=== PATIENT | female | born 1950 | race Caucasian/White ===

== ENCOUNTER 2021-06-04 08:55 | Emergency (ER) | payer MEDICARE, SELFPAY ==
[2021-06-04 09:02] VITALS: BP 159/78; PULSE 77; RESP 18; TEMP 36.6; O2SAT 98
--- NOTE | 2021-06-04 09:02 | ED.SKABFB ---
HPI - Skin/Abscess/Foreign Bdy General Chief complaint: Skin/Abscess/Foreign Body Stated complaint: left leg pain Time Seen by Provider: 06/04/21 09:05 Source: patient and RN notes reviewed Mode of arrival: ambulatory Limitations: no limitations History of Present Illness HPI narrative: 70-year-old female presents to the [facility] the [facility] with complaints of a cat bite that occurred several days ago. Patient thinks it happened 4 to 5 days. States that she has been feeding feral cats and states one of her bit her lower leg. No treatment prior to arrival. Unsure of last tetanus. There may be bleeding is controlled. MD complaint: other (cat scratch/bit) Onset (ago): day(s) (4-5) Tetanus up to date: unsure Location: LLE Severity: mild Related Data Home Medications Medication Instructions Recorded Confirmed aspirin 06/04/21 06/04/21 atorvastatin 80 mg PO DAILY 06/04/21 06/04/21 citalopram 20 mg PO DAILY 06/04/21 06/04/21 clopidogrel 75 mg PO DAILY 06/04/21 06/04/21 lorazepam 1 mg PO TID PRN 06/04/21 06/04/21 Allergies Allergy/AdvReac Type Severity Reaction Status Date / Time erythromycin base Allergy Vomiting Verified 06/04/21 09:09 Review of Systems Review of Systems: All systems reviewed & are unremarkable except as noted in HPI and below Constitutional: Constitutional: Reports no additional constitutional complaints, Denies chills and Denies fever(s) Eyes: Eyes: Reports no additional eye complaints ENT: Reports system reviewed and no additional complaints, except as documented Cardiovascular: Cardiovascular: Reports no additional cardiovascular complaints Respiratory: Respiratory: Reports no additional respiratory complaints Gastrointestinal: Gastrointestinal: Reports no additional gastrointestinal complaints Musculoskeletal: Musculoskeletal: Reports no additional musculoskeletal complaints Integumentary/Breasts: Skin/Breast: Reports as per HPI Comments: 2 puncture wounds noted left lower leg. pain posterior Neurologic: Reports system reviewed and no additional complaints, except as documented Psychiatric: Psychiatric: Reports no additional psychiatric complaints Allergic/Immunologic: Allergic/Immunologic: Reports no additional allergic/immunologic complaints FOR[facility]LY [facility] Past Medical History Medical History (Updated 06/04/21 @ 17:17 by Sherly Johnson APRN) Anxiety and depression Heart attack High cholesterol Family History Family History Sibling Patient's brother is in good health Father Family history of pancreatic cancer, Onset Age: 82 Patient's father is Mother Patient's mother is Social History Social History (Updated 06/04/21 @ 17:17 by Sherly Johnson APRN) Alcohol intake: never Gender identity (if verbalized by the patient): Female Comments At the time of my signature, I reviewed and agree with the nursing past medical, surgical, social, and family history. There is no relevant family history pertinent to the patient complaint. Exam Const: General: healthy appearing, no acute distress and alert Nutritional Appearance: well nourished Orientation/consciousness: patient oriented x3 Limitations: no limitations HENMT: Head: normal to inspection Ears: external ears normal Eyes: Pupils: Equal, round and reactive pupils present Neck: Neck: normal visual inspection, no lymphadenopathy and no meningeal signs Chest: Chest palpation & inspection: normal inspection of the chest Resp: Effort & Inspection: normal respiratory effort and no use of accessory muscles Auscultation: clear to auscultation bilaterally, no crackles, no rales, no rhonchi and no wheezes Cardio: Rate: regular rate Rhythm: regular rhythm GI: GI Palp: Yes Soft to palpation and No Tenderness to palpation present (GI) Skin: General skin exam: normal color Rashes: no rashes Wounds: no wounds Full body images: 1.
[2021-06-04] MEDS: TETANUS,DIPHTHERIA,AC PERTUSSIS ADULT (0.5 ML) BOOSTRIX IM (09:25)
== END 2021-06-04 09:46 | disposition home or self-care (01) ==
PROVIDERS: Emergency Provider Nurse Practitioner; PCP Family Medicine
DX: L03.116 Cellulitis of left lower limb (principal); S81.852A Open bite, left lower leg, initial encounter; W55.01XA Bitten by cat, initial encounter; Z23 Encounter for immunization; E78.00 Pure hypercholesterolemia, unspecified; I25.2 Old myocardial infarction; F41.9 Anxiety disorder, unspecified; F32.A Depression, unspecified; Z79.82 Long term (current) use of aspirin
CPT/HCPCS: 90471; 90715; 99203; G0463

== ENCOUNTER → 2021-08-13 10:45 | Outpatient (CLI) | payer MEDICARE, SELFPAY ==
--- NOTE | ~2021-08-13 | US_ITS ---
EXAMINATION: US thyroid DATE: 08/13/2021 11:06 INDICATION: Nontoxic goiter, unspecified. TECHNIQUE: Multiple ultrasound images of the thyroid were obtained. COMPARISON: None. FINDINGS: The right thyroid lobe measures 4.4 x 1.5 x 1.4 cm. The left thyroid lobe measures 4.4 x 1.4 x 1.3 c m. In the left thyroid lobe, there is a 3 mm nodule. In the left thyroid lobe, there is a 5 mm solid , isoechoic, lwuyj-fuex-ktmr than tall nodule with ill-defined margin without echogenic foci (TI-RADS TR3). In the left thyroid lobe, there is a 5 mm solid, hypoechoic, jcloq-vfow-dxpb nodule with ill-d efined margin without echogenic foci (TR4). In the left thyroid lobe, there is a 4 mm nodule. In the right thyroid lobe, there is a 9 mm solid, isoechoic, pyoki-vkqx-zywt nodule with lobulated margin wi thout echogenic foci (TR4). In the right thyroid lobe, there is a 3 mm nodule. In the right thyroid l obe, there is a 4 mm nodule. IMPRESSION: 1. Small thyroid nodules, likely not clinically significant. No follow-up is needed. Reviewed, dictated and finalized at location A. IMPRESSION: 1. Small thyroid nodules, likely not clinically significant. No follow-up is ne eded.
== END ==
PROVIDERS: PCP Family Medicine; Visit Provider Internal Medicine Endocrinology, Diabetes & Metabolism
DX: E04.2 Nontoxic multinodular goiter (principal)
CPT/HCPCS: 76536

== ENCOUNTER → 2021-10-25 12:51 | Outpatient (CLI) | payer MEDICARE, SELFPAY ==
--- NOTE | ~2021-10-25 | XR_ITS ---
XR shoulder LT min 2V DATE: 10/25/2021 13:15 INDICATION: Left shoulder pain TECHNIQUE: 4 views COMPARISON: None FINDINGS: There is osteopenia. There is mild degenerative spurring at the left acromioclavicular joint. No fracture or dislocation, periosteal reaction or bone destruction or abnormal soft tissue calcifica tion of the left shoulder. Discoid atelectasis or scarring of the left mid and lower lung. IMPRESSION: Osteopenia Degenerative change of the left acromioclavicular joint Reviewed, dictated and finalized at location B.
== END ==
PROVIDERS: PCP Internal Medicine Endocrinology, Diabetes & Metabolism; Visit Provider Internal Medicine Endocrinology, Diabetes & Metabolism
DX: M25.512 Pain in left shoulder (principal); M81.0 Age-related osteoporosis without current pathological fracture; M85.812 Other specified disorders of bone density and structure, left shoulder
CPT/HCPCS: 73030

== ENCOUNTER 2021-11-05 08:42 | Outpatient (CLI) | payer MEDICARE, SELFPAY ==
--- NOTE | ~2021-11-05 | DEXA_ITS ---
Bone Density Report Name: JULIÁN DUMONT Age: 71 Sex: Female Ethnicity: White Date of : 1950 Indication: postmenopausal; screening for osteoporosis; height loss; prior fracture; hysterectomy; Referring Provider: HERBERT, CHARLOTTE Ibarra Study: Bone densitometry was performed. Exam Date: November 05, 2021 Accession number: [id number] Bone Density: Region BMD T-score Z-score Classification AP Spine(L1-L4) 0.997 -0.5 1.8 Normal Femoral Neck (Left) 0.517 -3.0 -1.1 Osteoporosis Total Hip (Left) 0.621 -2.6 -1.0 Osteoporosis Femoral Neck (Right) 0.520 -3.0 -1.0 Osteoporosis Total Hip (Right) 0.634 -2.5 -0.9 Osteoporosis Total Hip Mean 0.628 -2.6 -1.0 Osteoporosis World Health Organization criteria for BMD impression classify patients as: Normal (T-score at or above -1.0), Osteopenia (T-score between -1.0 and -2.5), or Osteoporosis (T-score at or below -2.5). 10-year Fracture Risk: FRAX not reported because: Some T-score for Spine Total or Hip Total or Femoral Neck at or below -2.5 Prior hip or vertebral fracture Treated for osteoporosis Clinical Information Provided by Patient: Have had a previous hip or vertebral fracture Has had a low trauma fracture Smokes Is being treated for osteoporosis Has the following medical conditions: Hysterectomy Patient maximum height was 68 Menopause Age: 34 No regular weight bearing exercise Drinks caffeinated beverages Onset of menses at age 12 Number of children 3 Impression: The patient has established osteoporosis, based on the Left Femoral Neck T-score and the existence of a prior fracture. The patient has risk factors, including: smoking, previous fracture. Discussion: It is important to ask patients whether they are taking their medications and to encourage continued and appropriate compliance with their osteoporosis therapies to reduce fracture risk. It is also important to review their risk factors and encourage appropriate calcium and vitamin D intakes, exercise, fall prevention and other lifestyle measures. Follow-Up: Consider a repeat BMD and Vertebral Fracture Assessment (VFA) exam in 2 years or sooner if medically necessary, to reassess this patient's status. Reported by: [facility] on 11/05/2021 9:13:00 AM. Reviewed, dictated and finalized at location ARoni MAY
== END 2021-11-05 08:43 | disposition home or self-care (01) ==
PROVIDERS: PCP Family Medicine; Visit Provider Internal Medicine Endocrinology, Diabetes & Metabolism
DX: Z78.0 Asymptomatic menopausal state (principal); M81.0 Age-related osteoporosis without current pathological fracture
CPT/HCPCS: 77080

== ENCOUNTER 2021-12-07 15:08 | Outpatient (CLI) | payer MEDICARE, SELFPAY ==
[2021-12-07 15:38] LABS: Basophils Absolute Auto 0.1 K/mm3 (0.0-0.1); Basophils Percent Auto 1.5 % (0.2-1.2); Eosinophils Absolute Auto 0.3 K/mm3 (0-0.3); Eosinophils Percent Auto 4.4 % (0-4.4); Hematocrit 42.6 % (37.0-47.0); Hemoglobin 14.1 g/dL (12.0-15.0); Immature Granulocyte Absolute 0.02 K/mm3 (0.00-0.031); Immature Granulocyte Percent A 0.3 % (0-0.5); Lymphocytes Absolute Auto 2.13 K/mm3 (0.9-3.2); Lymphocytes Percent Auto 28.7 % (18.3-44.2); Mean Corpuscular HGB Conc 33.1 g/dl (32-36); Mean Corpuscular Hemoglobin 31.3 pg (26-34); Mean Corpuscular Volume 94.7 fl (80-100); Mean Platelet Volume 9.3 fl (7.4-10.4); Monocytes Absolute Auto 0.5 K/mm3 (0.1-0.6); Monocytes Percent Auto 6.7 % (2.6-8.5); Neutrophils Absolute Auto 4.3 K/mm3 (1.3-6.7); Neutrophils Percent Auto 58.4 % (45.5-73.1); Platelet Count Result 280 k/mm3 (150-375); Red Cell Distribution Width 14.3 % (11.5-14.5); White Blood Count 7.4 K/mm3 (4.5-10.0)
[2021-12-07 16:35] LABS: Alanine Aminotransferase 19 U/L (6-35); Albumin Level 4.3 g/dL (3.5-5.1); Alkaline Phosphatase 121 U/L (38-126); Anion Gap 5 mmol/L (8-16); Aspartate Amino Transferase 20 U/L (14-36); Bilirubin,Total 0.4 mg/dL (0.2-1.3); Blood Urea Nitrogen 13 mg/dL (7-17); Calcium 9.5 mg/dL (8.4-10.2); Carbon Dioxide 28 mmol/L (22-30); Chloride 106 mmol/L (98-107); Estimated Glomerular Filt Rate > 60; Glucose 92 mg/dL (65-110); Potassium 4.2 mmol/L (3.4-5.0); Sodium 139 mmol/L (137-145)
[2021-12-07 17:56] LABS: Immunoglobulin A 81 mg/dL (70-400); Immunoglobulin G 841 mg/dL (700-1600); Immunoglobulin M 27 mg/dL (40-230)
[2021-12-11 06:30] LABS: Kappa\\Lambda Light Chains 0.91 (0.26-1.65); Lambda Light Chain 16.7 mg/L (5.7-26.3)
[2021-12-11 15:26] LABS: Albumin 4.2 g/dL (3.8-4.8); Alpha 1 Globulin 0.3 g/dL (0.2-0.3); Alpha 2 Globulin 0.8 g/dL (0.5-0.9); Beta 1 Globulin 0.4 g/dL (0.4-0.6); Gamma Globulin 0.8 g/dL (0.8-1.7); Protein, Total 6.7 g/dL (6.1-8.1)
== END 2021-12-07 15:09 | disposition home or self-care (01) ==
LOC: ANHLAB 15:10
PROVIDERS: PCP Family Medicine; Visit Provider Internal Medicine Hematology & Oncology
DX: D72.9 Disorder of white blood cells, unspecified (principal)
CPT/HCPCS: 36415; 80053; 82784; 83883; 84155; 84165; 85025

== ENCOUNTER 2021-12-20 06:39 | Outpatient (CLI) | payer MEDICARE, MEDICAID, SELFPAY ==
--- NOTE | ~2021-12-20 | CT_ITS ---
EXAMINATION: CT abdomen pelvis w con INDICATION: Diarrhea TECHNIQUE: Computed tomographic images of the abdomen and pelvis were obtained after the administrati on of 100 cc of Omnipaque 350 intravenous contrast. The dose-length product (DLP) was 193.34 mGy-cm. Automated exposure control and iterative reconstruction technique were employed. COMPARISON: None available FINDINGS: Minimal dependent atelectasis is present in the lung bases. The heart size is normal. The g allbladder is surgically absent. The liver, spleen, pancreas, and adrenal glands are normal. The kidn eys are unremarkable. No pathologically enlarged abdominal or pelvic lymph nodes are identified. Ther e is calcified atherosclerosis of the aorta and many of the other arteries. There is no free intraper itoneal gas or evidence of bowel obstruction. A moderate volume of colonic stool is present. There is severe lumbar spondylosis. IMPRESSION: 1. No CT correlate for the patient's symptoms. Reviewed, dictated and finalized at location A.
== END 2021-12-20 06:40 | disposition home or self-care (01) ==
LOC: ANHIMG 06:41
PROVIDERS: PCP Family Medicine; Visit Provider Internal Medicine Hematology & Oncology
DX: R19.7 Diarrhea, unspecified (principal); M47.816 Spondylosis without myelopathy or radiculopathy, lumbar region
CPT/HCPCS: 74177; Q9967

== ENCOUNTER 2022-02-04 07:50 | Outpatient (CLI) | payer MEDICARE, MEDICAID, SELFPAY ==
--- NOTE | ~2022-02-04 | US_ITS ---
EXAMINATION: US aorta [facility] DATE: 02/04/2022 09:04 INDICATION: Abdominal aortic aneurysm screening TECHNIQUE: Grayscale, color Doppler, and pulsed Doppler images of the aorta and common iliac arteries were obtained. COMPARISON: CT, 12/20/2021 FINDINGS: Maximum vascular dimensions are as follows: Proximal aorta: 2.7 cm Mid aorta: 2.8 cm Distal aorta: 2.8 cm Right common iliac artery: 0.6 cm Left common iliac artery: 0.8 cm There is no evidence of abdominal aortic aneurysm. Some measurements suggesting abdominal aortic aneu rysm are likely oblique planes and not supported by findings on the recent CT. IMPRESSION: 1. No abdominal aortic aneurysm. Reviewed, dictated and finalized at location B. L INSPECTOR
--- NOTE | ~2022-02-04 | CT_ITS ---
EXAMINATION: CT diagnostic chest wo con DATE: 02/04/2022 08:10 INDICATION: Cough and shortness of breath TECHNIQUE: Computed tomography (CT) of the chest was performed without intravenous contrast. The dose -length product (DLP) was 140.62 mGy-cm. Automated exposure control and iterative reconstruction tech nique were employed. COMPARISON: None FINDINGS: There is a 9 mm nodule of the left upper lobe. There are two 4 mm nodules of the left lower lobe. Mucous plugging is also noted in the left lower lobe. There is mild emphysema. No pleural effu camryn or pneumothorax. No pathologically enlarged thoracic lymph nodes are identified. The heart size is normal. There is moderate thoracic spondylosis. IMPRESSION: 1. Mild emphysema with left lung nodules measuring up to 9 mm. Recommend further evaluation with PET/ CT or biopsy. Reviewed, dictated and finalized at location B. INSPECTOR IMPRESSION: 1. Mild emphysema with left lung nodules measuring up to 9 mm. Recommend furthe r evaluation with PET/CT or biopsy.
== END 2022-02-04 07:51 | disposition home or self-care (01) ==
PROVIDERS: PCP Family Medicine; Referring Provider Nurse Practitioner; Visit Provider Internal Medicine Cardiovascular Disease
DX: Z13.6 Encounter for screening for cardiovascular disorders (principal); Z72.0 Tobacco use; J43.9 Emphysema, unspecified; R91.8 Other nonspecific abnormal finding of lung field
CPT/HCPCS: 71250; 76706

== ENCOUNTER 2022-12-16 11:14 | Emergency (ER) | payer MEDICARE, MEDICAID, SELFPAY ==
--- NOTE | ~2022-12-16 | XR_ITS ---
Left Hand Technique: PA, oblique, and lateral views were obtained. Clinical History: Pain Findings: No acute fracture or dislocation is seen. Osseous alignment is anatomic. Mild degenerative change of the second PIP and DIP joints is noted. There is also mild degenerative change of the inter phalangeal joint of the thumb. Soft tissues are unremarkable. Impression: No fracture or dislocation. Degenerative changes of the first and second digits, as above. Reviewed, dictated and finalized at location M. Impression: No fracture or dislocation. Degenerative changes of the first and second digits, as above.
--- NOTE | ~2022-12-16 | XR_ITS ---
Right Knee Technique: AP, lateral, and oblique views were obtained. Clinical History: Pain Findings: No fracture or dislocation is seen. Mild tricompartmental degenerative changes present. Sof t tissues are unremarkable. No joint effusion is seen. Impression: Mild tricompartmental degenerative change. No fracture or dislocation. Reviewed, dictated and finalized at [facility]. Impression: Mild tricompartmental degenerative change. No fracture or dislocation.
--- NOTE | ~2022-12-16 | CT_ITS ---
EXAMINATION: CT wrist LT wo con DATE: 12/16/2022 14:12 INDICATION: Left wrist pain post injury one week prior with palpable pop. TECHNIQUE: High resolution computed tomography (CT) of the left wrist was performed without intraveno us contrast. Additional sagittal and coronal reconstructions were performed. Automated exposure contr ol and iterative reconstruction technique were employed. The dose-length product was 367.58 mGy-cm. COMPARISON: None FINDINGS: Comminuted likely impaction fracture with fragmentation and buckling of the cortex along the dorsal m etaphyseal region of the distal radius. The fracture extends to involve the dorsal-most rim of the ar ticular surface which appears otherwise largely intact. No evident extension of the fracture across t o the volar side of the distal radius. Alignment remains near-anatomic with normal proximal 6 degree volar tilt of the distal articular surface. No other fractures identified. Normal alignment in the vi sualized hand. Mild triscaphe and first carpometacarpal osteoarthritis with small loose body versus h eterotopic ossicles at the radial side of the first carpometacarpal joint. Additional small loose bod y at along the pisotriquetral articulation. IMPRESSION: 1. Comminuted likely impaction fracture with fragmentation and buckling along the dorsal cortex of th e distal left radius involving only a minimal portion of the dorsal rim of the articular surface. Reviewed, dictated and finalized at location A. IMPRESSION: 1. Comminuted likely impaction fracture with fragmentation and buckling along t he dorsal cortex of the distal left radius involving only a minimal portion of the dorsal rim of the articular surface.
--- NOTE | ~2022-12-16 | XR_ITS ---
EXAMINATION: XR wrist LT min 3V DATE: 12/16/2022 12:39 INDICATION: Left wrist pain, initial encounter TECHNIQUE: Posteroanterior, ulnar deviation, oblique, and lateral views of the left wrist were obtain ed. COMPARISON: None available FINDINGS: There is buckling of the medial cortex of the distal radius without definite fracture plane identified. There is soft tissue swelling of the wrist. Mild osteoarthritis is noted at the triscaph e and first carpometacarpal joint. IMPRESSION: 1. Buckling of the medial cortex of the distal radius without definite fracture identified. Wrist sof t tissue swelling. Reviewed, dictated and finalized at location B. IMPRESSION: 1. Buckling of the medial cortex of the distal radius without definite fracture identified. Wrist soft tissue swelling.
[2022-12-16 11:17] VITALS: BP 178/97; PULSE 68; RESP 16; TEMP 36.7; O2SAT 97
--- NOTE | 2022-12-16 12:39 | ED.GENADULT ---
HPI - General Adult General Chief complaint: Extremity Injury, Upper Stated complaint: left writst injury Time Seen by Provider: 12/16/22 11:18 History of Present Illness HPI narrative: Jessica Renee is a 72 y/o female who presents with reports of mechanical fall about 1 week, denies hitting her head, denies LOC. She reports that she tripped over her daughter's cat bracing her fall with her outstretched hands and her knees, putting more weight on her left hand and right knee. She initally had pain to her left wrist / right knee thought it would get better, but here a week later complaining of continued left wrist pain with movement/ and continued pain/swelling to right knee. Reports taking Motrin this AM for pain. Related Data Home Medications Medication Instructions Recorded Confirmed aspirin 06/04/21 06/04/21 atorvastatin 80 mg tablet 80 mg PO DAILY 06/04/21 06/04/21 citalopram 20 mg tablet 20 mg PO DAILY 06/04/21 06/04/21 clopidogrel 75 mg tablet 75 mg PO DAILY 06/04/21 06/04/21 lorazepam 1 mg tablet 1 mg PO TID PRN Anxiety 06/04/21 06/04/21 Allergies Allergy/AdvReac Type Severity Reaction Status Date / Time erythromycin base Allergy Vomiting Verified 12/16/22 11:14 Review of Systems Review of Systems: CONSTITUTIONAL: Denies fever, chills, or sweats. EYES: Denies visual changes, redness, or discharge. ENT: Denies rhinorrhea, congestion, sore throat, or otalgia. CARDIOVASCULAR: Denies chest pain, palpitations, or edema. RESPIRATORY: Denies cough or dyspnea. GASTROINTESTINAL: Denies abdominal pain, nausea, vomiting, or diarrhea. GENITOURINARY: Denies dysuria or hematuria. SKIN: Denies rash or itching. MUSCULOSKELETAL: Complains of left wrist pain/ right knee pain after ground level mechanical fall. NEUROLOGIC: Denies headache, numbness, dizziness, or weakness. PSYCHIATRIC: Denies anxiety or depression. [facility] Past Medical History Medical History Anxiety and depression Heart attack High cholesterol Family History Family History Sibling Patient's brother is in good health Father Family history of pancreatic cancer, Onset Age: 82 Patient's father is Mother Patient's mother is Social History Social History Alcohol intake: never Gender identity (if verbalized by the patient): Female Exam Narrative: GENERAL: Well-appearing, well-nourished, and in no acute distress. HEAD: Normocephalic, atraumatic. EYES: PERRLA and EOMI. ENT: Nares clear, no rhinorrhea or epistaxis. Mucous membranes moist. Oropharynx without tonsillar hypertrophy exudate or other lesions. NECK: Supple. No adenopathy or masses. No carotid bruits or JVD CHEST: Clear to auscultation. No respiratory distress. No wheezes rales or rhonchi HEART: Regular rate and rhythm. No murmur heard. Normal peripheral pulses. ABDOMEN: Soft, nontender, nondistended, normal active bowel sounds. EXTREMITIES: Normal range of motion. Pain to the bilateral aspect of the left wrist/ snuff box pain noted to the left hand. Swelling/ ecchymosis to the right knee SKIN: Warm, dry, no rash. NEURO: No focal deficits. Alert and oriented x3. PSYCH: Normal mood and affect. Course Vital Signs Vital signs: Vital Signs Temperature 36.7 C 12/16/22 11:17 Pulse Rate 68 12/16/22 11:17 Respiratory Rate 16 12/16/22 11:17 Blood Pressure 178/97 H 12/16/22 11:17 Pulse Oximetry 97 12/16/22 11:17 Oxygen Delivery Room Air 12/16/22 11:17 Temperature 36.7 C 12/16/22 11:17 Pulse Rate 68 12/16/22 11:17 Respiratory Rate 16 12/16/22 11:17 Blood Pressure 178/97 H 12/16/22 11:17 Pulse Oximetry 97 12/16/22 11:17 Oxygen Delivery Room Air 12/16/22 11:17 Medical Decision Making MDM Narrative Medical decision making narrative: O
== END 2022-12-16 15:48 | disposition home or self-care (01) ==
PROVIDERS: Emergency Provider Nurse Practitioner Family; PCP Family Medicine
DX: S52.522A Torus fracture of lower end of left radius, initial encounter for closed fracture (principal); I25.2 Old myocardial infarction; E78.00 Pure hypercholesterolemia, unspecified; F41.9 Anxiety disorder, unspecified; F32.A Depression, unspecified; Z79.82 Long term (current) use of aspirin; W01.0XXA Fall on same level from slipping, tripping and stumbling without subsequent striking against object, initial encounter
CPT/HCPCS: 29125; 73110; 73130; 73200; 73562; 99284

== ENCOUNTER 2023-04-20 11:52 | Emergency (ER) | payer MEDICARE, SELFPAY ==
[2023-04-20] VITALS (8 sets, daily range): BP systolic 137–167; BP diastolic 83–92; PULSE 82–102; RESP 15–22; TEMP 36.4; O2SAT 92–96
--- NOTE | ~2023-04-20 | XR_ITS ---
Clinical Indication: Wheezing PA and lateral views of the chest: Comparison: None Findings: The lungs are clear, without evidence of focal consolidation or pleural effusion. COPD shakira dustin present. Cardiomediastinal silhouette is within normal limits. Bones and soft tissues are unremar kable. Impression: Clear lungs. COPD. Reviewed, dictated and finalized at location . PING CLERK Impression: Clear lungs. COPD.
--- NOTE | 2023-04-20 11:58 | ECG_ITS ---
Measurements Intervals [place] Rate: 94 P: 85 [place]: 151 QRS: 27 QRSD: 86 T: 77 QT: 365 QTc: 458 Interpretive Statements SINUS RHYTHM RSR' IN V1 OR V2, PROBABLY NORMAL VARIANT BORDERLINE ST ABNORMALITY- HIGH LATERAL LEADS BASELINE ARTIFACT- V2-V4 BORDERLINE ECG NO PREVIOUS ECG AVAILABLE FOR COMPARISON Electronically Signed On 04-20-2023 12:54:37 INTERNATIONAL SALES REPRESENTATIVE by Kp Hagen D.O.
--- NOTE | 2023-04-20 12:08 | ED.SOB ---
HPI - SOB/Dyspnea General Chief Complaint: Shortness of Breath/Dyspnea Stated Complaint: SOB Time Seen by Provider: 04/20/23 12:01 Source: patient and family (sister) Limitations: no limitations History of Present Illness HPI Narrative: Presents with report of shortness of breath x4 days and feeling fatigued and generalized weakness. She has had several falls in the past few months but not recently. No appetite for which she was placed on mirtazepine and prozac, and Ativan QHS. Diagnosed with a PNA 3-6 months ago (Tx at a hospital in [place]). Several life stressors involving family/daughter. She notes she had a dark black stool yesterday but had a normal stool today. On Elliquis. Hx COPD, not on home O2. Reportedly had a DC 1 year ago and had stent(s) placed at a [facility] (unknown which). On albuterol and nebulizer. Has had a cough productive. Reports depression and anxiety. Smoker. Out of her inhaler. Recurrent UTIs. Related Data Home Medications Medication Instructions Recorded Confirmed aspirin 06/04/21 12/22/22 atorvastatin 80 mg tablet 80 mg PO DAILY 06/04/21 12/22/22 citalopram 20 mg tablet 20 mg PO DAILY 06/04/21 12/22/22 clopidogrel 75 mg tablet 75 mg PO DAILY 06/04/21 12/22/22 lorazepam 1 mg tablet 1 mg PO TID PRN Anxiety 06/04/21 12/22/22 Allergies Allergy/AdvReac Type Severity Reaction Status Date / Time erythromycin base Allergy Vomiting Verified 12/22/22 10:41 [facility] Past Medical History Medical History (Updated 04/21/23 @ 20:52 by Angela Wall MD) Anxiety and depression COPD (chronic obstructive pulmonary disease) Heart attack stent(s) placed ([facility]) High cholesterol Surgical History Surgical History (Updated 01/09/23 @ 10:46 by Carmen Plaza CMA) H/O heart artery stent Family History Family History (Updated 01/09/23 @ 10:47 by Carmen Plaza CMA) Sibling Patient's brother is in good health Father Family history of pancreatic cancer, Onset Age: 82 Patient's father is Mother Patient's mother is Unknown Asthma Hypertension Heart disease Arthritis Social History Social History (Updated 04/21/23 @ 20:50 by Angela Wall MD) Smoking status: Current every day smoker Tobacco type: cigarettes Alcohol intake: never Substance use type: does not use Living arrangements: with family Additional living arrangements comments: sister Occupation/Education: retired Gender identity (if verbalized by the patient): Female Exam Narrative: GENERAL: Lean but well-nourished, and in no acute distress. HEAD: Normocephalic, atraumatic. EYES: Non injected, non icteric ENT: Nares clear, no rhinorrhea or epistaxis. NECK: Supple. CHEST: Bilateral wheezes on auscultation. No respiratory distress. HEART: Tachycardic . ABDOMEN: Soft, nondistended, non tender to palpation. . Rectal exam performed which is negative for occult blood. Normal sphincter tone, no masses. EXTREMITIES: Normal range of motion. No edema. SKIN: Warm, dry, no rash. NEURO: No focal deficits. Alert and oriented x3. PSYCH: Normal mood and affect. Course Vital Signs Vital signs: Vital Signs Temperature 97.5 F L 04/20/23 11:55 Pulse Rate 102 H 04/20/23 11:55 Respiratory Rate 20 04/20/23 11:55 Blood Pressure 137/83 04/20/23 11:55 Pulse Oximetry 94 04/20/23 11:55 Oxygen Delivery Room Air 04/20/23 11:55 Temperature 97.5 F L 04/20/23 11:55 Pulse Rate 82 04/20/23 14:49 Respiratory Rate 15 04/20/23 14:49 Blood Pressure 167/87 H 04/20/23 13:59 Pulse Oximetry 92 04/20/23 13:59 Oxygen Delivery Nasal Cannula 04/20/23 12:10 Oxygen Flow Rate 2 04/20/23 12:10 MDM - SOB/Dyspnea MDM Narrative Medical decision making narrative: Patient presents with multiple complaints. Primarily SOB x4 days but also several weeks of fatigue and generalized weakness. Has a lot of stressors.
[2023-04-20 12:31] LABS: Basophils Absolute Auto 0.1 K/mm3 (0.0-0.1); Basophils Percent Auto 1.6 % (0.2-1.2); Eosinophils Absolute Auto 0.9 K/mm3 (0-0.3); Eosinophils Percent Auto 10.8 % (0-4.4); Hematocrit 45.1 % (37.0-47.0); Hemoglobin 14.8 g/dL (12.0-15.0); Immature Granulocyte Absolute 0.02 K/mm3 (0.00-0.031); Immature Granulocyte Percent A 0.3 % (0-0.5); Lymphocytes Absolute Auto 1.87 K/mm3 (0.9-3.2); Lymphocytes Percent Auto 23.7 % (18.3-44.2); Mean Corpuscular HGB Conc 32.8 g/dl (32-36); Mean Corpuscular Hemoglobin 30.9 pg (26-34); Mean Corpuscular Volume 94.2 fl (80-100); Mean Platelet Volume 9.6 fl (7.4-10.4); Monocytes Absolute Auto 0.4 K/mm3 (0.1-0.6); Monocytes Percent Auto 5.1 % (2.6-8.5); Neutrophils Absolute Auto 4.6 K/mm3 (1.3-6.7); Neutrophils Percent Auto 58.5 % (45.5-73.1); Platelet Count Result 358 k/mm3 (150-375); Red Blood Count 4.79 M/mm3 (4.2-5.4); Red Cell Distribution Width 14.2 % (11.5-14.5); White Blood Count 7.9 K/mm3 (4.5-10.0)
[2023-04-20 12:42] LABS: Alanine Aminotransferase 18 U/L (6-35); Albumin Level 4.4 g/dL (3.5-5.1); Alkaline Phosphatase 166 U/L (38-126); Anion Gap 9 mmol/L (8-16); Aspartate Amino Transferase 20 U/L (14-36); Bilirubin,Total 0.5 mg/dL (0.2-1.3); Blood Urea Nitrogen 25 mg/dL (7-17); Calcium 9.4 mg/dL (8.4-10.2); Carbon Dioxide 24 mmol/L (22-30); Chloride 108 mmol/L (98-107); Estimated CRCL calculation 58 ml/min; Estimated Glomerular Filt Rate > 60; Glucose 121 mg/dL (65-110); Potassium 3.9 mmol/L (3.4-5.0); Sodium 141 mmol/L (137-145)
[2023-04-20] MEDS: IPRATROPIUM 0.5 MG/ALBUTEROL SULFATE 2.5 MG AMPUL.NEB 3 ML INHALATION (12:51)
[2023-04-20] MEDS: ALBUTEROL SULFATE NEB 2.5 MG/3 ML INH INHALATION ×2 (12:53→14:35)
[2023-04-20 13:07] LABS: Alveolar/Arterial O2 Gradient 35.1 mmHg; Base Excess ABG -0.3 mEq/l (+/-2.0); Fractional Inspired Oxygen 21 %; HCO3 ABG 24.3 mEq/l (22.0-26.0); Oxygen Content ABG 18.9 %vol (16.0-22.0); Oxygen Saturation ABG 93.4 % (95.0-100.0); Oxyhemoglobin 89.7 % THb (90.0-100.0); PCO2 ABG 39.9 mmHg (35.0-45.0); PO2 ABG 66.9 mmHg (80.0-100.0); PO2 FiO2 Ratio Arterial Blood 3.19 %; pH ABG 7.403 (7.350-7.450)
[2023-04-20 13:08] LABS: Device ROOM AIR; Site Drawn LEFT BRACHIAL
[2023-04-20 13:16] LABS: INR 1.1; Prothrombin Time 14.5 Seconds (11.1-14.7)
[2023-04-20 13:17] LABS: Partial Thromboplastin Time 32.6 SECONDS (22.3-36.8)
[2023-04-20 13:18] LABS: D Dimer 0.56 ug/mL (<0.48)
[2023-04-20 13:21] LABS: Troponin I < 0.012 ng/mL (0.000-0.034)
[2023-04-20 13:33] LABS: Influenza A QL RT-PCR Negative (Negative); Influenza B QL RT-PCR Negative (Negative); RSV RNA, RT-PCR Negative (Negative); SARS-CoV-2 RNA PCR Negative (Negative)
[2023-04-20 13:40] LABS: Thyroid Stimulating Hormone 0.519 uIU/mL (0.465-4.680)
[2023-04-20] MEDS: predniSONE 20 MG TABLET 60 MG PO (13:58)
[2023-04-20 13:59] LABS: Appearance Urine Cloudy (Clear); Bacteria Urine 1+ /hpf; Bilirubin Urine Negative (Negative); Blood Urine Negative (Negative); Color Urine Dark Yellow (Yellow); Glucose Urine UA Negative (Negative); Ketones Urine 1+ mg/dL (Negative); Leukocyte Esterase Ur 1+ LEU/UL (Negative); Need Manual Microscopic Reviewed; Nitrate Urine Negative (Negative); Protein Urine 1+ mg/dL (Negative); Specific Grav Ur 1.028 (1.001-1.035); Squamous Epithelial Cell Urine Moderate /hpf (Few)
[2023-04-20] MEDS: DOXYCYCLINE 100 MG/NS 100 ML 100 MG/100 ML BAG IVPB (14:12)
[2023-04-20 14:18] LABS: Add Urine Microscopic? YES
== END 2023-04-20 15:28 | disposition home or self-care (01) ==
PROVIDERS: Emergency Medicine; Emergency Provider Student in an Organized Health Care Education/Training Program; PCP Family Medicine
DX: J44.1 Chronic obstructive pulmonary disease with (acute) exacerbation (principal); N39.0 Urinary tract infection, site not specified; E78.00 Pure hypercholesterolemia, unspecified; I25.2 Old myocardial infarction; F41.9 Anxiety disorder, unspecified; F32.A Depression, unspecified; Z95.5 Presence of coronary angioplasty implant and graft; F17.210 Nicotine dependence, cigarettes, uncomplicated; R94.31 Abnormal electrocardiogram [ECG] [EKG]
CPT/HCPCS: 36415; 36600; 71046; 80053; 81001; 82805; 83735; 84443; 84484; 85025; 85380; 85610; 85730; 87086; 87637; 93005; 94640; 96374; 99284; J7512

== ENCOUNTER 2023-05-20 16:33 | Emergency (ER) | payer MEDICARE, SELFPAY ==
--- NOTE | ~2023-05-20 | XR_ITS ---
EXAMINATION: XR chest 2V Exam Date/Time: 05/20/2023 17:16 ASSISTANT MANAGER OF OPERATIONS HISTORY: weakness Comparison: 04/20/2023. RESULT: Lines, tubes, and devices: Coronary stents. Cholecystectomy clips. Surgical clip over the left apex. Lungs and pleura: Senescent/emphysematous change, otherwise clear. Cardiomediastinal silhouette: Stable. Other: No acute osseous or upper abdominal finding. IMPRESSION: No acute cardiopulmonary process. Reviewed, dictated and finalized at location K. STANT MANAGER OF OPERATIONS
[2023-05-20 16:37] VITALS: BP 114/61; PULSE 80; RESP 20; TEMP 36.4; O2SAT 95
--- NOTE | 2023-05-20 16:39 | ECG_ITS ---
Measurements Intervals [place] Rate: 85 P: 82 [place]: 148 QRS: 35 QRSD: 77 T: 74 QT: 373 QTc: 444 Interpretive Statements SINUS RHYTHM BASELINE ARTIFACT POSSIBLE LEFT ATRIAL ENLARGEMENT [-0.1mV P WAVE IN V1/V2] POSSIBLE RIGHT VENTRICULAR CONDUCTION DELAY [RSR (QR) IN V1/V2] BORDERLINE ECG COMPARED TO ECG 04/20/2023 12:25:08 NO SIGNIFICANT CHANGES Electronically Signed On 05-21-2023 18:02:05 WASTE MANAGEMENT ENGINEER by Hitesh Monreal M.D.
[2023-05-20 17:00] LABS: Basophils Percent Auto 0.7 % (0.2-1.2); Eosinophils Absolute Auto 0.1 K/mm3 (0-0.3); Hematocrit 39.8 % (37.0-47.0); Hemoglobin 13.1 g/dL (12.0-15.0); Immature Granulocyte Absolute 0.01 K/mm3 (0.00-0.031); Immature Granulocyte Percent A 0.3 % (0-0.5); Lymphocytes Absolute Auto 0.98 K/mm3 (0.9-3.2); Lymphocytes Percent Auto 33.3 % (18.3-44.2); Mean Corpuscular HGB Conc 32.9 g/dl (32-36); Mean Corpuscular Hemoglobin 30.9 pg (26-34); Mean Corpuscular Volume 93.9 fl (80-100); Mean Platelet Volume 9.7 fl (7.4-10.4); Monocytes Absolute Auto 0.2 K/mm3 (0.1-0.6); Monocytes Percent Auto 7.8 % (2.6-8.5); Neutrophils Absolute Auto 1.6 K/mm3 (1.3-6.7); Neutrophils Percent Auto 55.9 % (45.5-73.1); Platelet Count Result 209 k/mm3 (150-375); Red Blood Count 4.24 M/mm3 (4.2-5.4); White Blood Count 2.9 K/mm3 (4.5-10.0)
[2023-05-20 17:14] LABS: Alanine Aminotransferase 22 U/L (6-35); Albumin Level 3.6 g/dL (3.5-5.1); Alkaline Phosphatase 111 U/L (38-126); Anion Gap 6 mmol/L (8-16); Aspartate Amino Transferase 28 U/L (14-36); Bilirubin,Total 0.4 mg/dL (0.2-1.3); Blood Urea Nitrogen 22 mg/dL (7-17); Calcium 9.1 mg/dL (8.4-10.2); Carbon Dioxide 24 mmol/L (22-30); Chloride 106 mmol/L (98-107); Estimated CRCL calculation 67 ml/min; Estimated Glomerular Filt Rate > 60; Glucose 91 mg/dL (65-110); Potassium 3.5 mmol/L (3.4-5.0); Sodium 136 mmol/L (137-145)
[2023-05-20 19:37] VITALS: BP 121/64; PULSE 86; RESP 16; O2SAT 97
--- NOTE | 2023-05-20 19:40 | PC.NURSE ---
Pt family approached triage desk concerned for wait times. Pt and family educated that pt rooms are filled based on acuity, not by order of arrival. Pt vitals taken, which were within normal limits. Pt in no acute distress. Pt family states well just go to another ER .
== END 2023-05-20 20:14 | disposition left against medical advice (07) ==
LOC: ANHED 19:56
PROVIDERS: Emergency Provider Emergency Medicine; PCP Family Medicine
DX: R53.1 Weakness (principal)
CPT/HCPCS: 36415; 71046; 80053; 85025; 93005; 99199

== ENCOUNTER 2023-07-08 14:40 | Inpatient (IN) | payer MEDICARE, SELFPAY ==
[2023-07-08] VITALS (23 sets, daily range): BP systolic 75–153; BP diastolic 43–115; PULSE 78–104; RESP 15–25; TEMP 36.5–36.6; O2SAT 92–97; BMI 17.5
--- NOTE | ~2023-07-08 | XR_ITS ---
EXAMINATION: XR chest 1V portable DATE: 07/08/2023 15:18 INDICATION: Dyspnea. TECHNIQUE: A single frontal view of the chest was obtained on 2 radiographs. COMPARISON: Chest 2 views 05/20/2023 FINDINGS: The lungs are hyperexpanded, consistent with emphysema. There is no pneumonia, pleural effu camryn, or pneumothorax. The heart size is normal. A surgical clip overlies left chest. IMPRESSION: 1. Emphysema. Reviewed, dictated and finalized at location E. IMPRESSION: 1. Emphysema.
--- NOTE | 2023-07-08 15:02 | ED_ITS ---
HPI - General Adult General Chief complaint: Shortness of Breath/Dyspnea Stated complaint: short of breath Time Seen by Provider: 07/08/23 14:48 History of Present Illness HPI narrative: 73-year-old female with history of COPD, CAD prior cardiac stents presents for evaluation of shortness of breath. She does admit to some upper abdominal pressure when asked Related Data Home Medications Medication Instructions Recorded Confirmed aspirin 06/04/21 12/22/22 atorvastatin 80 mg tablet 80 mg PO DAILY 06/04/21 12/22/22 citalopram 20 mg tablet 20 mg PO DAILY 06/04/21 12/22/22 clopidogrel 75 mg tablet 75 mg PO DAILY 06/04/21 12/22/22 lorazepam 1 mg tablet 1 mg PO TID PRN Anxiety 06/04/21 12/22/22 Allergies Allergy/AdvReac Type Severity Reaction Status Date / Time erythromycin base Allergy Vomiting Verified 05/20/23 16:34 Review of Systems Review of Systems: CONSTITUTIONAL: Denies fever, chills, or sweats. EYES: Denies visual changes, redness, or discharge. ENT: Denies rhinorrhea, congestion, sore throat, or otalgia. CARDIOVASCULAR: Denies chest pain, palpitations, or edema. RESPIRATORY: Denies cough or dyspnea. GASTROINTESTINAL: Denies abdominal pain, nausea, vomiting, or diarrhea. GENITOURINARY: Denies dysuria or hematuria. SKIN: Denies rash or itching. MUSCULOSKELETAL: Denies back pain, joint pain, or myalgia. NEUROLOGIC: Denies headache, numbness, or weakness. PSYCHIATRIC: Denies anxiety or depression. [facility] Past Medical History Medical History Anxiety and depression COPD (chronic obstructive pulmonary disease) Heart attack stent(s) placed ([facility]) High cholesterol Surgical History Surgical History H/O heart artery stent Family History Family History Sibling Patient's brother is in good health Father Family history of pancreatic cancer, Onset Age: 82 Patient's father is Mother Patient's mother is Unknown Asthma Hypertension Heart disease Arthritis Social History Social History Smoking status: Current every day smoker Tobacco type: cigarettes Alcohol intake: never Substance use type: does not use Living arrangements: with family Additional living arrangements comments: sister Occupation/Education: retired Gender identity (if verbalized by the patient): Female Exam Narrative: GENERAL: Well-appearing, well-nourished, and in no acute distress. HEAD: Normocephalic, atraumatic. EYES: PERRLA and EOMI. ENT: Nares clear, no rhinorrhea or epistaxis. Mucous membranes moist. NECK: Supple. CHEST: Clear to auscultation. No respiratory distress. HEART: Regular rate and rhythm. No murmur heard. Normal peripheral pulses. ABDOMEN: Soft, nontender, nondistended, normal active bowel sounds. EXTREMITIES: Normal range of motion. No edema. SKIN: Warm, dry, no rash. NEURO: No focal deficits. Alert and oriented x3. PSYCH: Normal mood and affect. Course Vital Signs Vital signs: Vital Signs Temperature 97.8 F 07/08/23 14:41 Pulse Rate 78 07/08/23 14:41 Respiratory Rate 25 H 07/08/23 14:41 Blood Pressure 75/43 L 07/08/23 14:41 Pulse Oximetry 94 07/08/23 14:41 Oxygen Delivery Room Air 07/08/23 14:41 Temperature 97.8 F 07/08/23 14:41 Pulse Rate 84 07/08/23 20:31 Respiratory Rate 21 H 07/08/23 20:31 Blood Pressure 134/88 07/08/23 20:31 Pulse Oximetry 95 07/08/23 20:31 Oxygen Delivery Room Air 07/08/23 14:56 Medical Decision Making MDM Narrative Medical decision making narrative: 73-year-old female presents for evaluation of shortness of breath. Cardiac workup initiated on arrival. Aspirin ordered on arrival. EKG was a sinus rhythm at 1:03 a.m. B p.m., [place] interval of 106, QRS duration of 68, QTC 429 RSR prime noted and deeply inverted T-waves noted in the anterolateral leads. Unfortunately we were unable to view any previous EKGs due to system malfunction. We have exhausted our efforts to find someone who can remedy this problem and had been told this is a hospital wide problem and nobody is able to see old EKGs. case d/w Dr ziegler who has reviewed EKGs. Will give heparin drip and bolus, Plavix load, Lasix on full-dose aspirin. I have a comprehensive discussion with Dr. Arciniega in who has accepted the admission. Vital Signs Vital Signs: Vital Signs Temperature 97.8 F 07/08/23 14:41 Pulse Rate 78 07/08/23 14:41 Respiratory Rate 25 H 07/08/23 14:41 Blood Pressure 75/43 L 07/08/23 14:41 Pulse Oximetry 94 07/08/23 14:41 Oxygen Delivery Room Air 07/08/23 14:41 Temperature 97.8 F 07/08/23 14:41 Pulse Rate 84 07/08/23 20:31 Respiratory Rate 21 H 07/08/23 20:31 Blood Pressure 134/88 07/08/23 20:31 Pulse Oximetry 95 07/08/23 20:31 Oxygen Delivery Room Air 07/08/23 14:56 Lab Data 07/08/23 18:33 07/08/23 15:00 Labs: Lab Results 07/08/23 07/08/23 07/08/23 Range/Units 15:00 18:33 19:44 WBC 9.8 10.0 (4.5-10.0) K/mm3 RBC 4.97 4.75 (4.2-5.4) M/mm3 Hgb 15.2 H 14.7 (12.0-15.0) g/dL Hct 45.6 43.9 (37.0-47.0) % MCV 91.8 92.4 (80-100) fl MCH 30.6 30.9 (26-34) pg MCHC 33.3 33.5 (32-36) g/dl RDW 14.9 H 14.6 H (11.5-14.5) % Plt Count 321 D 305 (150-375) k/mm3 MPV 10.4 10.6 H (7.4-10.4) fl Immature Gran % (Auto) 0.1 0.2 (0-0.5) % Neut % (Auto) 58.7 50.5 (45.5-73.1) % Lymph % (Auto) 25.4 32.0 (18.3-44.2) % [place]ord % (Auto) 5.8 5.9 (2.6-8.5) % Eos % (Auto) 8.4 H 9.7 H (0-4.4) % Baso % (Auto) 1.6 H 1.7 H (0.2-1.2) % Lymph # (Auto) 2.49 3.21 H (0.9-3.2) K/mm3 [place] # (Auto) 0.6 0.6 (0.1-0.6) K/mm3 Eos # (Auto) 0.8 H 1.0 H (0-0.3) K/mm3 Baso # (Auto) 0.2 H 0.2 H (0.0-0.1) K/mm3 Abs Immat Gran (auto) 0.01 0.02 (0.00-0.031) K/mm3 Absolute Neuts (auto) 5.8 5.1 (1.3-6.7) K/mm3 Absolute Nucleated RBC 0.000 0.000 (0.0-0.012) K/mm3 Nucleated RBC % 0.0 0.0 (0.0-0.2) % PT 14.0 14.9 H (11.1-14.7) Seconds INR 1.0 1.1 APTT 32.4 109.9 H (22.3-36.8) Seconds Sodium 142 (137-145) mmol/L Potassium 3.7 (3.4-5.0) mmol/L Chloride 109 H (98-107) mmol/L Carbon Dioxide 25 (22-30) mmol/L Anion Gap 8 (4-12) mmol/L BUN 27 H (7-17) mg/dL Creatinine 0.80 (0.7-1.0) mg/dL Estim Creat Clear Calc 47 ml/min Estimated GFR > 60 (59 - ) Glucose 117 H (65-110) mg/dL Calcium 9.9 (8.4-10.2) mg/dL Magnesium 1.8 (1.6-2.3) mg/dL Total Bilirubin 0.7 (0.2-1.3) mg/dL AST 19 (14-36) U/L ALT 14 (6-35) U/L Alkaline Phosphatase 109 (38-126) U/L Troponin I 0.122 H* 0.120 H* (0.000-0.034) ng/mL Total Protein 7.0 (6.3-8.2) g/dL Albumin 4.4 (3.5-5.1) g/dL Discharge Plan Discharge Clinical Impression: Acute non-ST elevation myocardial infarction (NSTEMI) Patient Disposition: Still a Patient Condition: Serious Time of Disposition: 20:18
[2023-07-08 15:07] LABS: Basophils Absolute Auto 0.2 K/mm3 (0.0-0.1); Basophils Percent Auto 1.6 % (0.2-1.2); Eosinophils Absolute Auto 0.8 K/mm3 (0-0.3); Eosinophils Percent Auto 8.4 % (0-4.4); Hematocrit 45.6 % (37.0-47.0); Hemoglobin 15.2 g/dL (12.0-15.0); Immature Granulocyte Absolute 0.01 K/mm3 (0.00-0.031); Immature Granulocyte Percent A 0.1 % (0-0.5); Lymphocytes Absolute Auto 2.49 K/mm3 (0.9-3.2); Lymphocytes Percent Auto 25.4 % (18.3-44.2); Mean Corpuscular HGB Conc 33.3 g/dl (32-36); Mean Corpuscular Hemoglobin 30.6 pg (26-34); Mean Corpuscular Volume 91.8 fl (80-100); Mean Platelet Volume 10.4 fl (7.4-10.4); Monocytes Absolute Auto 0.6 K/mm3 (0.1-0.6); Monocytes Percent Auto 5.8 % (2.6-8.5); Neutrophils Absolute Auto 5.8 K/mm3 (1.3-6.7); Neutrophils Percent Auto 58.7 % (45.5-73.1); Platelet Count Result 321 k/mm3 (150-375); Red Blood Count 4.97 M/mm3 (4.2-5.4); Red Cell Distribution Width 14.9 % (11.5-14.5); White Blood Count 9.8 K/mm3 (4.5-10.0)
[2023-07-08 15:16] LABS: Alanine Aminotransferase 14 U/L (6-35); Albumin Level 4.4 g/dL (3.5-5.1); Alkaline Phosphatase 109 U/L (38-126); Anion Gap 8 mmol/L (4-12); Aspartate Amino Transferase 19 U/L (14-36); Bilirubin,Total 0.7 mg/dL (0.2-1.3); Blood Urea Nitrogen 27 mg/dL (7-17); Calcium 9.9 mg/dL (8.4-10.2); Carbon Dioxide 25 mmol/L (22-30); Chloride 109 mmol/L (98-107); Estimated CRCL calculation 47 ml/min; Estimated Glomerular Filt Rate > 60; Glucose 117 mg/dL (65-110); Magnesium 1.8 mg/dL (1.6-2.3); Potassium 3.7 mmol/L (3.4-5.0); Sodium 142 mmol/L (137-145)
[2023-07-08 15:18] LABS: Partial Thromboplastin Time 32.4 Seconds (22.3-36.8)
[2023-07-08 15:32] LABS: Troponin I 0.122 ng/mL (0.000-0.034)
[2023-07-08] MEDS: CLOPIDOGREL BISULFATE 300 MG TABLET 600 MG PO (15:56)
[2023-07-08] MEDS: ASPIRIN 81 MG CHEWABLE TABLET 324 MG PO (15:56)
[2023-07-08] MEDS: NITROGLYCERIN OINTMENT 1 INCH DOSE TRANSDERM (15:56)
[2023-07-08] MEDS: HEPARIN SODIUM 5,000 UNITS/ML VIAL 3500 UNITS IV PUSH (15:56)
[2023-07-08] MEDS: FUROSEMIDE INJ 40 MG/4 ML VIAL IV PUSH (15:57)
[2023-07-08] MEDS: HEPARIN SOD/D5W 100 UNITS/ML 25,000 UNITS/250 ML BAG 7 UNITS IV CONT (15:57)
[2023-07-08 18:40] LABS: Basophils Absolute Auto 0.2 K/mm3 (0.0-0.1); Basophils Percent Auto 1.7 % (0.2-1.2); Eosinophils Percent Auto 9.7 % (0-4.4); Hematocrit 43.9 % (37.0-47.0); Hemoglobin 14.7 g/dL (12.0-15.0); Immature Granulocyte Absolute 0.02 K/mm3 (0.00-0.031); Immature Granulocyte Percent A 0.2 % (0-0.5); Lymphocytes Absolute Auto 3.21 K/mm3 (0.9-3.2); Mean Corpuscular HGB Conc 33.5 g/dl (32-36); Mean Corpuscular Hemoglobin 30.9 pg (26-34); Mean Corpuscular Volume 92.4 fl (80-100); Mean Platelet Volume 10.6 fl (7.4-10.4); Monocytes Absolute Auto 0.6 K/mm3 (0.1-0.6); Monocytes Percent Auto 5.9 % (2.6-8.5); Neutrophils Absolute Auto 5.1 K/mm3 (1.3-6.7); Neutrophils Percent Auto 50.5 % (45.5-73.1); Platelet Count Result 305 k/mm3 (150-375); Red Blood Count 4.75 M/mm3 (4.2-5.4); Red Cell Distribution Width 14.6 % (11.5-14.5)
--- NOTE | 2023-07-08 19:19 | ECG_ITS ---
SEE SCANNED COPY FOR CONFIRMED REPORT MTDD
[2023-07-08 20:02] LABS: INR 1.1; Partial Thromboplastin Time 109.9 Seconds (22.3-36.8); Prothrombin Time 14.9 Seconds (11.1-14.7)
--- NOTE | 2023-07-08 20:49 | P.HP_ITS ---
H&P: HPI History of Present Illness Date/Time: 07/08/23 23:49 Chief Complaint: Shortness of breath Narrative: 73-year-old female with a past medical history of coronary disease, COPD, hyperlipidemia, GERD, anxiety and depression who presents to the ER he with shortness of breath. At the time my evaluation patient stated she could not remember why she came to the hospital. The she thought that she was at [facility] and that the year was 2022. However her orientation he did very depending on which provider was asking questions. I performed a stat ABG and patient did not have any evidence of CO2 retention. She denies any increased cough or congestion. After an ABG had revealed performed a was notified that the patient had received Ativan in the ER. She has not been having any fevers or chills. She did not have any oxygen requirement in the ER. She reports she has not smoked in many years and denies any recent ill contacts. The ER provider was able to elicit the patient was having some upper abdominal pressure and discomfort. She is given full-dose aspirin in the ER. Her EKG demonstrated some inverted T-waves. She was not having any continued chest pain and was not feeling particularly short of breath at rest. Initial troponin was elevated but repeat troponins were completely flat. Cardiology was consulted from the ER and the patient was placed on heparin drip with bolus. I am pretty sure that the mechanical meter tester was unaware the patient already takes therapeutic Eliquis head home. Patient was given a dose Plavix and Lasix. Patient was subsequently admitted. At the time my evaluation patient does not report feeling short of breath at all. She does still nitropaste present on her back. She has no other complaints. In the ER patient did get up to utilize the restroom. When she got up to ambulate she did become quite dyspneic and did receive a nebulizer treatment which did improve her symptoms. When nursing staff went in to re-evaluate the patient the patient was completely oriented. She states that she will get confused at times when she initially wakes up but this usually resolves. Review of Systems Review of Systems: 12 systems were reviewed with pertinent positives and negatives per HPI. Except as documented in the HPI, all other systems were reviewed and are negative. [facility] Past Medical History Medical History Anxiety and depression COPD (chronic obstructive pulmonary disease) Heart attack stent(s) placed ([facility]) High cholesterol Surgical History Surgical History H/O heart artery stent Family History Family History Sibling Patient's brother is in good health Father Family history of pancreatic cancer, Onset Age: 82 Patient's father is Mother Patient's mother is Unknown Asthma Hypertension Heart disease Arthritis Social History Social History (Updated 07/09/23 @ 03:24 by Tonya Davis DO) Social History: Patient reports that she is . She lives alone. She used to smoke at least a pack of cigarettes per day but quit smoking within the last 10 years. She denies any significant alcohol use or illicit substance use. She still drives and is independent activities of daily living. Code status: DNR/DNI (per patient request) Surrogate decision maker: Fina Sven (sister) Smoking packs per day: 1 Smoking cigarettes per day: 20.0 Years smoked: 55 Smoking pack-years: 55.00 Smoking status: Current every day smoker Tobacco type: cigarettes Alcohol intake: never Substance use type: does not use Do You Feel Safe in your Home?: Yes Lack of Transportation: No Lack of Food: Never True Current Housing: I Have Housing Concerned About Future Housing: No Difficulty Paying Gas/Electric Bills: No Difficulty Paying for Meds: No Currently Unemployed: No Education: Associate Degree Difficulty w/ Childcare or Family Care: No Living arrangements: with family Additional living arrangements comments: sister Occupation/Education: retired Gender identity (if verbalized by the patient): Female Spiritual care concerns: No Meds Home Medications and Allergies Home Medications Medication Instructions Recorded Confirmed Type atorvastatin 80 mg tablet 80 mg PO DAILY 06/04/21 07/08/23 History lorazepam 1 mg tablet 1 mg PO TID PRN Anxiety 06/04/21 07/08/23 History albuterol sulfate 90 mcg/actuation 1 inh inhalation QID PRN shortness 04/20/23 07/08/23 Rx aerosol inhaler of breath or wheezing #6.7 grams apixaban 5 mg tablet (Eliquis) 5 mg PO BID 07/08/23 07/09/23 History carvedilol 6.25 mg tablet 6.25 mg PO BID 07/08/23 07/08/23 History fluoxetine 20 mg capsule 20 mg PO DAILY 07/08/23 07/08/23 History Allergies Allergy/AdvReac Type Severity Reaction Status Date / Time erythromycin base Allergy Vomiting Verified 05/20/23 16:34 Vital Signs Vital Signs - 24 hr 07/08/23 14:41 07/08/23 14:56 07/08/23 14:56 Temperature 97.8 F Pulse Rate 78 93 Respiratory Rate 25 H Blood Pressure 75/43 L Pulse Oximetry 94 93 Oxygen Delivery Room Air Room Air 07/08/23 14:58 07/08/23 16:01 07/08/23 18:35 Temperature Pulse Rate 96 99 81 Respiratory Rate 16 20 20 Blood Pressure 141/85 H 126/105 H 117/83 Pulse Oximetry 93 93 93 Oxygen Delivery Exam Narrative: Weight 52.4 kg BMI 17.6 Const: Other: Appears stated age, no acute distress, lying in left semi-Jarrett position with head of bed at 30 degree, thin body habitus HENMT: Other: Head is normocephalic atraumatic, pupils are equal and reactive, no scleral icterus, no conjunctival pallor, edentulous in upper and lower jaw Eyes: Other: Pupils are equal and reactive, no scleral icterus, no conjunctival pallor Neck: Other: No JVD, no lymphadenopathy Resp: Other: Anterior and posterior expiratory wheezing, no increased work of breathing Cardio: Other: Regular rate, regular rhythm, 2+ bilateral radial pedal pulses, no JVD GI: Other: Soft, mild tenderness to palpation epigastric area, no organomegaly, normoactive bowel sounds Skin: Other: No pallor, non jaundice Neuro: Other: Alert oriented to person and the fact that she is in the hospital, she initially stated that she was in [facility] but did correct herself to [facility], she states that she usually would not keep track of what [facility] it is. She thought the year was 2022, she could name the president, cranial nerves 2-12 grossly intact, no localizing neurologic deficits otherwise noted Extrem: Other: Clubbing noted to fingernails, no cyanosis, no edema Psych: Other: Pleasant and cooperative, appropriate mood and affect, judgment and insight intact H&P: Results Labs Labs: Laboratory Tests 07/08/23 18:33 07/08/23 15:00 07/08/23 07/08/23 07/08/23 15:00 18:33 19:44 WBC 9.8 10.0 RBC 4.97 4.75 Hgb 15.2 H 14.7 Hct 45.6 43.9 MCV 91.8 92.4 MCH 30.6 30.9 MCHC 33.3 33.5 RDW 14.9 H 14.6 H Plt Count 321 D 305 MPV 10.4 10.6 H Immature Gran % (Auto) 0.1 0.2 Neut % (Auto) 58.7 50.5 Lymph % (Auto) 25.4 32.0 Scott % (Auto) 5.8 5.9 Eos % (Auto) 8.4 H 9.7 H Baso % (Auto) 1.6 H 1.7 H Lymph # (Auto) 2.49 3.21 H Scott # (Auto) 0.6 0.6 Eos # (Auto) 0.8 H 1.0 H Baso # (Auto) 0.2 H 0.2 H Abs Immat Gran (auto) 0.01 0.02 Absolute Neuts (auto) 5.8 5.1 Absolute Nucleated RBC 0.000 0.000 Nucleated RBC % 0.0 0.0 PT 14.0 14.9 H INR 1.0 1.1 APTT 32.4 109.9 H Puncture Site ABG pH ABG pCO2 ABG pO2 ABG PO2/FiO2 Ratio ABG HCO3 ABG O2 Saturation ABG O2 Content ABG Base Excess A-a Gradient Oxyhemoglobin Carboxyhemoglobin Methemoglobin Reduced Hemoglobin Total Hemoglobin O2 Delivery Device O2 Liters/Min FiO2 Sodium 142 Potassium 3.7 Chloride 109 H Carbon Dioxide 25 Anion Gap 8 BUN 27 H Creatinine 0.80 Estim Creat Clear Calc 47 Estimated GFR > 60 Glucose 117 H Calcium 9.9 Magnesium 1.8 Total Bilirubin 0.7 AST 19 ALT 14 Alkaline Phosphatase 109 Troponin I 0.122 H* 0.120 H* Total Protein 7.0 Albumin 4.4 07/08/23 07/08/23 07/09/23 20:28 22:41 00:45 WBC RBC Hgb Hct MCV MCH MCHC RDW Plt Count MPV Immature Gran % (Auto) Neut % (Auto) Lymph % (Auto) Scott % (Auto) Eos % (Auto) Baso % (Auto) Lymph # (Auto) Scott # (Auto) Eos # (Auto) Baso # (Auto) Abs Immat Gran (auto) Absolute Neuts (auto) Absolute Nucleated RBC Nucleated RBC % PT 15.9 H INR 1.2 APTT 84.4 H Puncture Site Right brachial ABG pH 7.444 ABG pCO2 38.3 ABG pO2 55.5 L ABG PO2/FiO2 Ratio 2.64 ABG HCO3 25.7 ABG O2 Saturation 90.2 L ABG O2 Content 18.4 ABG Base Excess 1.7 A-a Gradient 48.4 Oxyhemoglobin 87.5 L* Carboxyhemoglobin 0.3 Methemoglobin 0.3 Reduced Hemoglobin 11.9 H Total Hemoglobin 15.0 O2 Delivery Device Room air O2 Liters/Min 0.0 FiO2 21 Sodium Potassium Chloride Carbon Dioxide Anion Gap BUN Creatinine Estim Creat Clear Calc Estimated GFR Glucose Calcium Magnesium Total Bilirubin AST ALT Alkaline Phosphatase Troponin I 0.122 H* Total Protein Albumin Impressions Chest X-Ray 07/08/23 15:19 IMPRESSION: 1. Emphysema. EKG: Personally reviewed Normal Sinus rhythm, right ventricular conduction delay, possible left atrial enlargement, T-wave inversion anterior lateral leads Assessment and Plan Assessment and plan (1) Elevated troponin level: Code(s): R79.89 - Other specified abnormal findings of blood chemistry Status: Acute (2) COPD exacerbation: Code(s): J44.1 - Chronic obstructive pulmonary disease with (acute) exacerbation Status: Acute Plan The patient had troponin elevation and possible EKG changes unfortunately prior EKGs are not accessible for review due to system error. The patient's initial troponin was a new elevation however serial repeat troponins have been negative. Patient denies any chest pain but did have some nonspecific epigastric discomfort. However she did is noted to have some wheezing. She denied wheezing more than usual but did have improvement in her shortness of breath on exertion after she received nebulizer treatment in the ER. I suspect patient's shortness breath is more likely due to COPD exacerbation in less likely due to acute cardiac event. Will place patient on p.o. prednisone and will scheduled nebulizer treatments. Cardiology has been consulted. The patient was initially placed on heparin drip but she is already on Eliquis routinely at home. Will continue heparin drip until morning since patient did not receive her evening Eliquis. Then will resume Eliquis in a.m.. Will continue monitor in IMU on telemetry. Will continue patient's home Coreg and atorvastatin. Will repeat EKG to evaluate for possible changes. The patient did have some transient confusion. I suspect that confusion due to combination of sleep and recent administration of Ativan. ABG did not demonstrate any evidence of CO2 retention. And will decrease patient's Ativan dose to 0.5 mg t.i.d. as needed. Patient had previously been placed on Remeron but she reports that she never took the medication because she is ?not depressed?. But she reportedly also does take her fluoxetine as directed. I did discuss advanced directives with the patient. She states that if her heart were to stop she would want to be left alone so that she could go be with her family members who had already . She states that being intubated would be miserable and she would not want that under any circumstances even if it was for short-term. Patient's code status has been changed to DNR/DNI. Quality VTE Prophylaxis VTE prophylaxis: pharmacologic ordered (Eliquis)
[2023-07-08 21:04] LABS: Troponin I 0.122 ng/mL (0.000-0.034)
--- NOTE | 2023-07-08 21:18 | PC.NURSE ---
Patient short of breath after getting up to use the commode. Dr. Álvarez made aware and spoke with patient. Patient states she has anxiety and has had some wheezing. See MAR for further treatment.
[2023-07-08] MEDS: LORazepam INJ (*CRX) 2 MG/ML VIAL 0.5 MG IV PUSH (21:25)
[2023-07-08] MEDS: IPRATROPIUM 0.5 MG/ALBUTEROL SULFATE 2.5 MG AMPUL.NEB 3 ML INHALATION (21:43)
--- NOTE | 2023-07-08 21:45 | ADMGEN ---
This patient, Jessica Renee, was admitted to IMU Room 201-01. Patient/family oriented to hospital policies and general routines including ID bracelet, bed and alarms, visiting hours, pain management, procedures, bathroom and other care routines, personal items, smoking policy, room service/diet, and visiting hours. Information on how to activate the Rapid Response Team has been discussed. Patient/Family are encouraged to report perceived risks to care and to ask questions if they do not understand what they are told or what they should do.
[2023-07-08 23:03] LABS: INR 1.2; Prothrombin Time 15.9 Seconds (11.1-14.7)
[2023-07-08 23:05] LABS: Partial Thromboplastin Time 84.4 Seconds (22.3-36.8)
[2023-07-09] VITALS (29 sets, daily range): BP systolic 99–137; BP diastolic 60–92; PULSE 76–117; RESP 14–22; TEMP 36.3–36.9; O2SAT 91–95
[2023-07-09 00:54] LABS: Alveolar/Arterial O2 Gradient 48.4 mmHg; Base Excess ABG 1.7 mEq/l (+/-2.0); Carboxyhemoglobin 0.3 % THb (0-2.0); Fractional Inspired Oxygen 21 %; HCO3 ABG 25.7 mEq/l (22.0-26.0); Methemoglobin ABG 0.3 %THb (0-1.5); Oxygen Content ABG 18.4 %vol (16.0-22.0); Oxygen Saturation ABG 90.2 % (95.0-100.0); PCO2 ABG 38.3 mmHg (35.0-45.0); PO2 ABG 55.5 mmHg (80.0-100.0); PO2 FiO2 Ratio Arterial Blood 2.64 %; Reduced Hemoglobin 11.9 %THb (0-5.0); pH ABG 7.444 (7.350-7.450)
[2023-07-09 00:55] LABS: Device ROOM AIR; Oxyhemoglobin 87.5 % THb (90.0-100.0); Site Drawn RIGHT BRACHIAL
[2023-07-09] MEDS: ALBUTEROL SULFATE NEB 2.5 MG/3 ML INH 5 MG INHALATION (02:35)
[2023-07-09] MEDS: IPRATROPIUM BR 0.02% INH SOLN 0.5 MG/2.5 ML VIAL INHALATION ×4 (02:35→20:32)
--- NOTE | 2023-07-09 03:29 | ECG_ITS ---
SEE SCANNED COPY FOR CONFIRMED REPORT MTDD
[2023-07-09 04:55] LABS: Basophils Absolute Auto 0.1 K/mm3 (0.0-0.1); Eosinophils Absolute Auto 1.1 K/mm3 (0-0.3); Eosinophils Percent Auto 15.4 % (0-4.4); Hematocrit 44.9 % (37.0-47.0); Hemoglobin 14.8 g/dL (12.0-15.0); Immature Granulocyte Absolute 0.01 K/mm3 (0.00-0.031); Immature Granulocyte Percent A 0.1 % (0-0.5); Mean Corpuscular Hemoglobin 30.7 pg (26-34); Mean Corpuscular Volume 93.2 fl (80-100); Monocytes Absolute Auto 0.5 K/mm3 (0.1-0.6); Monocytes Percent Auto 6.9 % (2.6-8.5); Neutrophils Absolute Auto 2.9 K/mm3 (1.3-6.7); Neutrophils Percent Auto 40.6 % (45.5-73.1); Platelet Count Result 268 k/mm3 (150-375); Red Blood Count 4.82 M/mm3 (4.2-5.4); Red Cell Distribution Width 14.7 % (11.5-14.5); White Blood Count 7.1 K/mm3 (4.5-10.0)
--- NOTE | 2023-07-09 09:36 | PC.NURSE ---
Dr. Jacobo has been given report on the POC. T.O.R.B. Dr. Jacobo/ This RN 1.) Heart heathy diet now.
[2023-07-09] MEDS: APIXABAN 5 MG TABLET PO (09:49)
[2023-07-09] MEDS: carvediloL 6.25 MG TABLET PO ×2 (09:49→21:30)
[2023-07-09] MEDS: predniSONE 20 MG TABLET 60 MG PO (09:49)
[2023-07-09] MEDS: LORazepam (*CRX) 0.5 MG TABLET PO ×2 (09:49→21:30)
[2023-07-09] MEDS: ATORVASTATIN 40 MG TABLET 80 MG PO (09:49)
[2023-07-09] MEDS: FLUoxetine HCL 20 MG CAPSULE PO (09:50)
[2023-07-09 10:39] LABS: Influenza A QL RT-PCR Negative (Negative); Influenza B QL RT-PCR Negative (Negative); RSV RNA, RT-PCR Negative (Negative); SARS-CoV-2 RNA PCR Negative (Negative)
--- NOTE | 2023-07-09 11:36 | PM.CNCAR ---
Assessment and Plan Assessment and plan (1) Elevated troponin level: Code(s): R79.89 - Other specified abnormal findings of blood chemistry Status: Acute Plan Acute on chronic diastolic heart failure NSTEMI COPD History of coronary artery disease Sick sinus syndrome Plan Heparin Aspirin Plavix NPO for left heart catheterization tomorrow Transthoracic echocardiogram History of Present Illness History of Present Illness Consult date/time: 07/09/23 11:36 Reason For Visit: NSTEMI Narrative: 73-year-old female patient presents to the hospital because of shortness of breath has been present for last 2 days but has been severe since yesterday. Shortness of breath is present with mild activity and at rest yesterday associated with midsternal chest heaviness. Chest heaviness was [id number] in severity nonradiating without precipitating or alleviating factors. On arrival she was noted to have abnormal EKG with mild elevated troponin. Overnight symptom has been improving. Patient has history of coronary artery disease.. Review of Systems Review of Systems: Total points review of system is negative except for stated above [facility] Past Medical History Medical History Anxiety and depression COPD (chronic obstructive pulmonary disease) Heart attack stent(s) placed ([facility]) High cholesterol Surgical History Surgical History H/O heart artery stent Family History Family History Sibling Patient's brother is in good health Father Family history of pancreatic cancer, Onset Age: 82 Patient's father is Mother Patient's mother is Unknown Asthma Hypertension Heart disease Arthritis Social History Social History (Updated 07/09/23 @ 03:24 by Tonya Davis DO) Social History: Patient reports that she is . She lives alone. She used to smoke at least a pack of cigarettes per day but quit smoking within the last 10 years. She denies any significant alcohol use or illicit substance use. She still drives and is independent activities of daily living. Code status: DNR/DNI (per patient request) Surrogate decision maker: Fina Machuca (sister) Smoking packs per day: 1 Smoking cigarettes per day: 20.0 Years smoked: 55 Smoking pack-years: 55.00 Smoking status: Current every day smoker Tobacco type: cigarettes Alcohol intake: never Substance use type: does not use Do You Feel Safe in your Home?: Yes Lack of Transportation: No Lack of Food: Never True Current Housing: I Have Housing Concerned About Future Housing: No Difficulty Paying Gas/Electric Bills: No Difficulty Paying for Meds: No Currently Unemployed: No Education: Associate Degree Difficulty w/ Childcare or Family Care: No Living arrangements: with family Additional living arrangements comments: sister Occupation/Education: retired Gender identity (if verbalized by the patient): Female Spiritual care concerns: No Meds Home Medications and Allergies Home Medications Medication Instructions Recorded Confirmed Type atorvastatin 80 mg tablet 80 mg PO DAILY 06/04/21 07/08/23 History lorazepam 1 mg tablet 1 mg PO TID PRN Anxiety 06/04/21 07/08/23 History albuterol sulfate 90 mcg/actuation 1 inh inhalation QID PRN shortness 04/20/23 07/08/23 Rx aerosol inhaler of breath or wheezing #6.7 grams apixaban 5 mg tablet (Eliquis) 5 mg PO BID 07/08/23 07/09/23 History carvedilol 6.25 mg tablet 6.25 mg PO BID 07/08/23 07/08/23 History fluoxetine 20 mg capsule 20 mg PO DAILY 07/08/23 07/08/23 History Allergies Allergy/AdvReac Type Severity Reaction Status Date / Time erythromycin base Allergy Vomiting Verified 05/20/23 16:34 Vital Signs Vital Signs - 24 hr 07/08/23 14:41 07/08/23 14:56 07/08/23 14:56 Temperature 36.6 C Pulse Rate 78 93 Respiratory Rate 25 H Blood Pressure 75/43 L Pulse Oximetry 94 93 Oxygen Delivery Room Air Room Air Fraction of Inspired Oxygen 07/08/23 14:58 07/08/23 16:01 07/08/23 18:35 Temperature Pulse Rate 96 99 81 Respiratory Rate 16 20 20 Blood Pressure 141/85 H 126/105 H 117/83 Pulse Oximetry 93 93 93 Oxygen Delivery Fraction of Inspired Oxygen 07/08/23 14:49 07/08/23 14:50 07/08/23 15:01 Temperature Pulse Rate 104 H 99 95 Respiratory Rate 24 H 20 16 Blood Pressure 138/115 H 141/85 H 140/85 Pulse Oximetry 92 92 93 Oxygen Delivery Fraction of Inspired Oxygen 07/08/23 15:16 07/08/23 15:31 07/08/23 15:46 Temperature Pulse Rate 98 95 94 Respiratory Rate 19 17 18 Blood Pressure 146/93 H 141/79 H 142/78 H Pulse Oximetry 93 93 95 Oxygen Delivery Fraction of Inspired Oxygen 07/08/23 16:01 07/08/23 16:16 07/08/23 16:32 Temperature Pulse Rate 95 89 94 Respiratory Rate 18 17 22 H Blood Pressure 126/105 H 145/80 H 153/93 H Pulse Oximetry 94 95 92 Oxygen Delivery Fraction of Inspired Oxygen 07/08/23 18:35 07/08/23 19:01 07/08/23 19:15 Temperature Pulse Rate 79 87 91 Respiratory Rate 21 H 19 Blood Pressure 117/83 139/95 H Pulse Oximetry 94 97 Oxygen Delivery Fraction of Inspired Oxygen 07/08/23 19:31 07/08/23 20:31 07/08/23 21:43 Temperature Pulse Rate 83 84 96 Respiratory Rate 19 21 H 22 H Blood Pressure 151/99 H 134/88 Pulse Oximetry 95 95 Oxygen Delivery Fraction of Inspired Oxygen 07/08/23 21:43 07/08/23 21:35 07/08/23 21:51 Temperature 36.6 C Pulse Rate 96 95 92 Respiratory Rate 15 20 Blood Pressure 141/80 H Pulse Oximetry 94 94 Oxygen Delivery Room Air Fraction of Inspired Oxygen 07/08/23 23:54 07/08/23 22:00 07/09/23 00:00 Temperature 36.5 C Pulse Rate 78 93 82 Respiratory Rate 18 Blood Pressure 115/53 L Pulse Oximetry 92 Oxygen Delivery Fraction of Inspired Oxygen 07/09/23 00:00 07/09/23 02:33 07/09/23 02:00 Temperature Pulse Rate 96 80 Respiratory Rate 20 Blood Pressure Pulse Oximetry 92 Oxygen Delivery Room Air Fraction of Inspired Oxygen 07/09/23 04:25 07/09/23 04:00 07/09/23 04:00 Temperature 36.3 C L Pulse Rate 81 86 Respiratory Rate 18 Blood Pressure 109/62 Pulse Oximetry 93 93 Oxygen Delivery Room Air Fraction of Inspired Oxygen 07/09/23 06:00 07/09/23 07:22 07/09/23 07:28 Temperature 36.8 C Pulse Rate 83 93 Respiratory Rate 14 Blood Pressure 137/92 H Pulse Oximetry 93 95 Oxygen Delivery Room Air Fraction of Inspired Oxygen 07/09/23 07:25 07/09/23 07:41 07/09/23 09:49 Temperature Pulse Rate 87 91 87 Respiratory Rate 20 20 Blood Pressure Pulse Oximetry Oxygen Delivery Fraction of Inspired Oxygen 07/09/23 09:51 07/09/23 08:00 07/09/23 10:00 Temperature Pulse Rate 89 97 Respiratory Rate Blood Pressure 113/72 Pulse Oximetry Oxygen Delivery Fraction of Inspired Oxygen 07/08/23 21:47 Temperature Pulse Rate 96 Respiratory Rate 22 H Blood Pressure Pulse Oximetry Oxygen Delivery Fraction of Inspired Oxygen Exam Const: General: comfortable and no acute distress Other: Able to lie flat HENMT: Face/Nose/Sinus: Normal nares present and no epistaxis Mouth: Yes moist mucous membranes Eyes: Sclera: sclerae normal Pupils: Equal, round and reactive pupils present Neck: Neck: supple and no JVD Carotids: no bruits Resp: Auscultation: clear to auscultation bilaterally and lung sounds not diminished Other: No chest wall tenderness Cardio: Rate: regular rate Rhythm: regular rhythm Heart sounds: no gallops, no murmurs and no rubs GI: GI Palp: Yes Soft to palpation and No Tenderness to palpation present (GI) Auscultation: normal bowel sounds Skin: General skin exam: normal color, rashes and/or lesions noted and no erythema Other: Warm Neuro: Cranial nerves: Yes Equal, round and reactive pupils present Speech: normal speech Other: No obvious focal deficit or facial asymmetry Extrem: General: no edema Other: Normal capillary refills Intact distal pulses. Results Labs and Meds 07/09/23 03:35 07/08/23 15:00 Lab results: Cardiac Enzymes 07/08/23 07/08/23 07/08/23 Range/Units 15:00 18:33 20:28 AST 19 (14-36) U/L Troponin I 0.122 H* 0.120 H* 0.122 H* (0.000-0.034) ng/mL Coagulation 07/08/23 07/08/23 07/08/23 Range/Units 15:00 19:44 22:41 PT 14.0 14.9 H 15.9 H (11.1-14.7) Seconds APTT 32.4 109.9 H 84.4 H (22.3-36.8) Seconds CBC 07/08/23 07/08/23 07/09/23 Range/Units 15:00 18:33 03:35 WBC 9.8 10.0 7.1 (4.5-10.0) K/mm3 RBC 4.97 4.75 4.82 (4.2-5.4) M/mm3 Hgb 15.2 H 14.7 14.8 (12.0-15.0) g/dL Hct 45.6 43.9 44.9 (37.0-47.0) % Plt Count 321 D 305 268 (150-375) k/mm3 Lymph # (Auto) 2.49 3.21 H 2.50 (0.9-3.2) K/mm3 [place] # (Auto) 0.6 0.6 0.5 (0.1-0.6) K/mm3 Eos # (Auto) 0.8 H 1.0 H 1.1 H (0-0.3) K/mm3 Baso # (Auto) 0.2 H 0.2 H 0.1 (0.0-0.1) K/mm3 Comprehensive Metabolic Panel 07/08/23 Range/Units 15:00 Sodium 142 (137-145) mmol/L Potassium 3.7 (3.4-5.0) mmol/L Chloride 109 H (98-107) mmol/L Carbon Dioxide 25 (22-30) mmol/L BUN 27 H (7-17) mg/dL Creatinine 0.80 (0.7-1.0) mg/dL Glucose 117 H (65-110) mg/dL Calcium 9.9 (8.4-10.2) mg/dL AST 19 (14-36) U/L ALT 14 (6-35) U/L Alkaline Phosphatase 109 (38-126) U/L Total Protein 7.0 (6.3-8.2) g/dL Albumin 4.4 (3.5-5.1) g/dL Intake and Output 07/08/23 07/09/23 07/09/23 23:59 07:59 15:59 Intake Total 42.4 198 0 Balance 42.4 198 0 Intake: IV 42.4 98 Heparin Sod/D5w 100 Units/ml 25 42.4 98 ,000 units In 250 ml @ 700 UNITS/HR 7 mls/hr IV CONT .Q24H FABIO Rx#:[id number] Oral 100 0 Other: # Unmeasured Voids 1 Patient Weight 07/09/23 23:59 Weight 52.3 kg
--- NOTE | 2023-07-09 13:41 | P.PNIM_ITS ---
Progress Note: A&P Assessment and Plan (1) COPD exacerbation: Code(s): J44.1 - Chronic obstructive pulmonary disease with (acute) exacerbation Status: Acute (2) Elevated troponin level: Code(s): R79.89 - Other specified abnormal findings of blood chemistry Status: Acute (3) Acute non-ST elevation myocardial infarction (NSTEMI): Code(s): I21.4 - Non-ST elevation (NSTEMI) myocardial infarction Status: Acute (4) Anxiety and depression: Code(s): F41.9 - Anxiety disorder, unspecified; F32.A - Depression, unspecified Status: Acute Plan 73-year-old female with past medical history CAD status post stents on Eliquis, COPD, active tobacco abuse, hyperlipidemia, GERD, anxiety and depression stenting with shortness of breath. Differential includes acute COPD exacerbation, anxiety attack, NSTEMI. She is clinically doing much better. Continue DuoNebs and prednisone for now. With abnormal EKG and slightly elevated troponin cardiology has been consulted and plan is for heparin to be reinstated and cardiac catheterization tomorrow. Continue Coreg. NPO at midnight. Continue atorvastatin. In the ER she received 324 mg aspirin x1 along with Lasix 40 mg IV x1 and Plavix 600 mg p.o. x1. She received a nitroglycerin transdermal patch. She received Ativan 0.5 mg IV x1. FEN: Saline lock IV. Cardiac diet GI prophylaxis: Not indicated DVT prophylaxis: Heparin being reinstated Lines: Peripheral IV Code Status: DNR Dispo: Stable. Cardiology consulted. NPO midnight for cardiac catheterization in the morning. Subjective Date/time seen: 07/09/23 13:41 Interval history: No acute overnight events. Patient reports feeling back to her baseline. She thinks she may have had a panic attack. Exam Const: General: comfortable and no acute distress Other: A&O x3 Eyes: Pupils: Equal, round and reactive pupils present Neck: Neck: supple Resp: Effort & Inspection: normal respiratory effort Auscultation: clear to auscultation bilaterally Cardio: Rate: regular rate Rhythm: regular rhythm GI: GI Palp: Yes Soft to palpation and No Tenderness to palpation present (GI) Extrem: General: no edema Objective Data Vital Signs Vital Signs: Vital Signs - 24 hr 07/08/23 14:41 07/08/23 14:56 07/08/23 14:56 Temperature 97.8 F Pulse Rate 78 93 Respiratory Rate 25 H Blood Pressure 75/43 L Pulse Oximetry 94 93 Oxygen Delivery Room Air Room Air Fraction of Inspired Oxygen 07/08/23 14:58 07/08/23 16:01 07/08/23 18:35 Temperature Pulse Rate 96 99 81 Respiratory Rate 16 20 20 Blood Pressure 141/85 H 126/105 H 117/83 Pulse Oximetry 93 93 93 Oxygen Delivery Fraction of Inspired Oxygen 07/08/23 14:49 07/08/23 14:50 07/08/23 15:01 Temperature Pulse Rate 104 H 99 95 Respiratory Rate 24 H 20 16 Blood Pressure 138/115 H 141/85 H 140/85 Pulse Oximetry 92 92 93 Oxygen Delivery Fraction of Inspired Oxygen 07/08/23 15:16 07/08/23 15:31 07/08/23 15:46 Temperature Pulse Rate 98 95 94 Respiratory Rate 19 17 18 Blood Pressure 146/93 H 141/79 H 142/78 H Pulse Oximetry 93 93 95 Oxygen Delivery Fraction of Inspired Oxygen 07/08/23 16:01 07/08/23 16:16 07/08/23 16:32 Temperature Pulse Rate 95 89 94 Respiratory Rate 18 17 22 H Blood Pressure 126/105 H 145/80 H 153/93 H Pulse Oximetry 94 95 92 Oxygen Delivery Fraction of Inspired Oxygen 07/08/23 18:35 07/08/23 19:01 07/08/23 19:15 Temperature Pulse Rate 79 87 91 Respiratory Rate 21 H 19 Blood Pressure 117/83 139/95 H Pulse Oximetry 94 97 Oxygen Delivery Fraction of Inspired Oxygen 07/08/23 19:31 07/08/23 20:31 07/08/23 21:43 Temperature Pulse Rate 83 84 96 Respiratory Rate 19 21 H 22 H Blood Pressure 151/99 H 134/88 Pulse Oximetry 95 95 Oxygen Delivery Fraction of Inspired Oxygen 07/08/23 21:43 07/08/23 21:35 07/08/23 21:51 Temperature 97.8 F Pulse Rate 96 95 92 Respiratory Rate 15 20 Blood Pressure 141/80 H Pulse Oximetry 94 94 Oxygen Delivery Room Air Fraction of Inspired Oxygen 21 07/08/23 23:54 07/08/23 22:00 07/09/23 00:00 Temperature 97.7 F Pulse Rate 78 93 82 Respiratory Rate 18 Blood Pressure 115/53 L Pulse Oximetry 92 Oxygen Delivery Fraction of Inspired Oxygen 07/09/23 00:00 07/09/23 02:33 07/09/23 02:00 Temperature Pulse Rate 96 80 Respiratory Rate 20 Blood Pressure Pulse Oximetry 92 Oxygen Delivery Room Air Fraction of Inspired Oxygen 07/09/23 04:25 07/09/23 04:00 07/09/23 04:00 Temperature 97.3 F L Pulse Rate 81 86 Respiratory Rate 18 Blood Pressure 109/62 Pulse Oximetry 93 93 Oxygen Delivery Room Air Fraction of Inspired Oxygen 07/09/23 06:00 07/09/23 07:22 07/09/23 07:28 Temperature 98.2 F Pulse Rate 83 93 Respiratory Rate 14 Blood Pressure 137/92 H Pulse Oximetry 93 95 Oxygen Delivery Room Air Fraction of Inspired Oxygen 07/09/23 07:25 07/09/23 07:41 07/09/23 09:49 Temperature Pulse Rate 87 91 87 Respiratory Rate 20 20 Blood Pressure Pulse Oximetry Oxygen Delivery Fraction of Inspired Oxygen 07/09/23 09:51 07/09/23 08:00 07/09/23 10:00 Temperature Pulse Rate 89 97 Respiratory Rate Blood Pressure 113/72 Pulse Oximetry Oxygen Delivery Fraction of Inspired Oxygen 07/09/23 08:00 07/09/23 11:39 07/09/23 13:15 Temperature 98.1 F Pulse Rate 98 88 Respiratory Rate 16 22 H Blood Pressure 110/64 Pulse Oximetry 91 Oxygen Delivery Room Air Fraction of Inspired Oxygen 07/08/23 21:47 Temperature Pulse Rate 96 Respiratory Rate 22 H Blood Pressure Pulse Oximetry Oxygen Delivery Fraction of Inspired Oxygen Intake/Output Intake/Output: Intake & Output 07/06/23 07/07/23 07/08/23 07/09/23 23:59 23:59 23:59 23:59 Intake Total 42.4 198 Balance 42.4 198 Meds/Results Medications: Active Medications Generic Name Dose Route Start Last Admin Trade Name Freq PRN Reason Stop Dose Admin Atorvastatin Calcium 80 mg 07/09/23 09:00 07/09/23 09:49 Atorvastatin 40 Mg Tablet PO 80 mg DAILY FABIO Administration Carvedilol 6.25 mg 07/09/23 09:00 07/09/23 09:49 Carvedilol 6.25 Mg Tablet PO 6.25 mg Q12HR FABIO Administration Fluoxetine HCl 20 mg 07/09/23 09:00 07/09/23 09:50 Fluoxetine Hcl 20 Mg Capsule PO 20 mg DAILY FABIO Administration Ipratropium [place] 0.5 mg 07/09/23 02:00 07/09/23 13:21 Ipratropium Br 0.02% Inh Soln 0.5 Mg/2.5 Ml Vial INHALATION 0.5 mg Q6HRT FABIO Administration Lorazepam 0.5 mg 07/09/23 00:38 07/09/23 09:49 Lorazepam (*Crx) 0.5 Mg Tablet PO 0.5 mg TID PRN Administration Anxiety Prednisone 60 mg 07/09/23 08:00 07/09/23 09:49 Prednisone 20 Mg Tablet PO 60 mg DAILY@0800 FABIO Administration Radiology Results: ITS Impressions Chest X-Ray 07/08/23 15:19 IMPRESSION: 1. Emphysema. Labs Labs: Laboratory Results - last 24 hr 07/08/23 07/08/23 07/08/23 15:00 18:33 19:44 WBC 9.8 10.0 RBC 4.97 4.75 Hgb 15.2 H 14.7 Hct 45.6 43.9 MCV 91.8 92.4 MCH 30.6 30.9 MCHC 33.3 33.5 RDW 14.9 H 14.6 H Plt Count 321 D 305 MPV 10.4 10.6 H Immature Gran % (Auto) 0.1 0.2 Neut % (Auto) 58.7 50.5 Lymph % (Auto) 25.4 32.0 [place] % (Auto) 5.8 5.9 Eos % (Auto) 8.4 H 9.7 H Baso % (Auto) 1.6 H 1.7 H Lymph # (Auto) 2.49 3.21 H [place] # (Auto) 0.6 0.6 Eos # (Auto) 0.8 H 1.0 H Baso # (Auto) 0.2 H 0.2 H Abs Immat Gran (auto) 0.01 0.02 Absolute Neuts (auto) 5.8 5.1 Absolute Nucleated RBC 0.000 0.000 Nucleated RBC % 0.0 0.0 PT 14.0 14.9 H INR 1.0 1.1 APTT 32.4 109.9 H Puncture Site ABG pH ABG pCO2 ABG pO2 ABG PO2/FiO2 Ratio ABG HCO3 ABG O2 Saturation ABG O2 Content ABG Base Excess A-a Gradient Oxyhemoglobin Carboxyhemoglobin Methemoglobin Reduced Hemoglobin Total Hemoglobin O2 Delivery Device O2 Liters/Min FiO2 Sodium 142 Potassium 3.7 Chloride 109 H Carbon Dioxide 25 Anion Gap 8 BUN 27 H Creatinine 0.80 Estim Creat Clear Calc 47 Estimated GFR > 60 Glucose 117 H Calcium 9.9 Magnesium 1.8 Total Bilirubin 0.7 AST 19 ALT 14 Alkaline Phosphatase 109 Troponin I 0.122 H* 0.120 H* Total Protein 7.0 Albumin 4.4 Influenza A (RT-PCR) Influenza B (RT-PCR) RSV (RT-PCR) SARS-CoV-2 RNA (RT-PCR) 07/08/23 07/08/23 07/09/23 20:28 22:41 00:45 WBC RBC Hgb Hct MCV MCH MCHC RDW Plt Count MPV Immature Gran % (Auto) Neut % (Auto) Lymph % (Auto) [place] % (Auto) Eos % (Auto) Baso % (Auto) Lymph # (Auto) [place] # (Auto) Eos # (Auto) Baso # (Auto) Abs Immat Gran (auto) Absolute Neuts (auto) Absolute Nucleated RBC Nucleated RBC % PT 15.9 H INR 1.2 APTT 84.4 H Puncture Site Right brachial ABG pH 7.444 ABG pCO2 38.3 ABG pO2 55.5 L ABG PO2/FiO2 Ratio 2.64 ABG HCO3 25.7 ABG O2 Saturation 90.2 L ABG O2 Content 18.4 ABG Base Excess 1.7 A-a Gradient 48.4 Oxyhemoglobin 87.5 L* Carboxyhemoglobin 0.3 Methemoglobin 0.3 Reduced Hemoglobin 11.9 H Total Hemoglobin 15.0 O2 Delivery Device Room air O2 Liters/Min 0.0 FiO2 21 Sodium Potassium Chloride Carbon Dioxide Anion Gap BUN Creatinine Estim Creat Clear Calc Estimated GFR Glucose Calcium Magnesium Total Bilirubin AST ALT Alkaline Phosphatase Troponin I 0.122 H* Total Protein Albumin Influenza A (RT-PCR) Influenza B (RT-PCR) RSV (RT-PCR) SARS-CoV-2 RNA (RT-PCR) 07/09/23 07/09/23 03:35 09:47 WBC 7.1 RBC 4.82 Hgb 14.8 Hct 44.9 MCV 93.2 MCH 30.7 MCHC 33.0 RDW 14.7 H Plt Count 268 MPV 11.0 H Immature Gran % (Auto) 0.1 Neut % (Auto) 40.6 L Lymph % (Auto) 35.0 [place] % (Auto) 6.9 Eos % (Auto) 15.4 H Baso % (Auto) 2.0 H Lymph # (Auto) 2.50 [place] # (Auto) 0.5 Eos # (Auto) 1.1 H Baso # (Auto) 0.1 Abs Immat Gran (auto) 0.01 Absolute Neuts (auto) 2.9 Absolute Nucleated RBC 0.000 Nucleated RBC % 0.0 PT INR APTT Puncture Site ABG pH ABG pCO2 ABG pO2 ABG PO2/FiO2 Ratio ABG HCO3 ABG O2 Saturation ABG O2 Content ABG Base Excess A-a Gradient Oxyhemoglobin Carboxyhemoglobin Methemoglobin Reduced Hemoglobin Total Hemoglobin O2 Delivery Device O2 Liters/Min FiO2 Sodium Potassium Chloride Carbon Dioxide Anion Gap BUN Creatinine Estim Creat Clear Calc Estimated GFR Glucose Calcium Magnesium Total Bilirubin AST ALT Alkaline Phosphatase Troponin I Total Protein Albumin Influenza A (RT-PCR) Negative Influenza B (RT-PCR) Negative RSV (RT-PCR) Negative SARS-CoV-2 RNA (RT-PCR) Negative
--- NOTE | 2023-07-09 19:24 | PC.NURSE ---
Dr Jacobo has been given report on the recommendations 201 to restart Heparin drip s/p 12 hours after the Eliquis has been given. Per Cardiology Dr. Sindi Hart Restart Heparin at 12. Report was given to Dr. Nuñez T.O.R.B. Heparin Protocol NSTEMI. Contraindication due to Eliquis last admin time et approved due to the 12 hours from the time of the last dose et start of Heparin Gtt. The pharmacy was called et given clarification that the Heparin is to start at 2200. Lab was called et given report that the labs are to be drawn at 2100 et to cancel duplicate labs at 1900. Report given to oncpradeep RN on events et the changes made to the current POC.
--- NOTE | 2023-07-09 19:34 | PC.NURSE ---
Called et spoke with Davonte Ibarra to change the time of the Heparin on the MAY to 2199 due to the admin time of the Eliquis. Per Davonte Ibarra will change to 2199. Report given to oncoming SKYE Santos.
[2023-07-09 21:28] LABS: INR 1.1; Prothrombin Time 14.3 Seconds (11.1-14.7)
[2023-07-09 21:29] LABS: Partial Thromboplastin Time 30.3 Seconds (22.3-36.8)
[2023-07-09 21:37] LABS: Basophils Absolute Auto 0.1 K/mm3 (0.0-0.1); Basophils Percent Auto 1.3 % (0.2-1.2); Eosinophils Absolute Auto 0.1 K/mm3 (0-0.3); Eosinophils Percent Auto 1.1 % (0-4.4); Hematocrit 42.7 % (37.0-47.0); Hemoglobin 14.2 g/dL (12.0-15.0); Immature Granulocyte Absolute 0.01 K/mm3 (0.00-0.031); Immature Granulocyte Percent A 0.2 % (0-0.5); Lymphocytes Absolute Auto 0.79 K/mm3 (0.9-3.2); Lymphocytes Percent Auto 16.8 % (18.3-44.2); Mean Corpuscular HGB Conc 33.3 g/dl (32-36); Mean Corpuscular Hemoglobin 30.8 pg (26-34); Mean Corpuscular Volume 92.6 fl (80-100); Mean Platelet Volume 10.7 fl (7.4-10.4); Monocytes Absolute Auto 0.2 K/mm3 (0.1-0.6); Monocytes Percent Auto 4.1 % (2.6-8.5); Neutrophils Absolute Auto 3.6 K/mm3 (1.3-6.7); Neutrophils Percent Auto 76.5 % (45.5-73.1); Platelet Count Result 277 k/mm3 (150-375); Red Blood Count 4.61 M/mm3 (4.2-5.4); Red Cell Distribution Width 14.9 % (11.5-14.5); White Blood Count 4.7 K/mm3 (4.5-10.0)
[2023-07-09] MEDS: HEPARIN SOD/D5W 100 UNITS/ML 25,000 UNITS/250 ML BAG 6 UNITS IV CONT (21:43)
[2023-07-10] VITALS (28 sets, daily range): BP systolic 121–146; BP diastolic 56–86; PULSE 61–95; RESP 16–18; TEMP 36.4–36.9; O2SAT 90–98; BMI 18.7
[2023-07-10] MEDS: IPRATROPIUM BR 0.02% INH SOLN 0.5 MG/2.5 ML VIAL INHALATION ×4 (02:38→20:20)
[2023-07-10 04:41] LABS: Basophils Percent Auto 0.7 % (0.2-1.2); Eosinophils Percent Auto 0.2 % (0-4.4); Hemoglobin 13.4 g/dL (12.0-15.0); Immature Granulocyte Absolute 0.02 K/mm3 (0.00-0.031); Immature Granulocyte Percent A 0.3 % (0-0.5); Lymphocytes Percent Auto 21.7 % (18.3-44.2); Mean Corpuscular HGB Conc 33.5 g/dl (32-36); Mean Corpuscular Volume 92.6 fl (80-100); Mean Platelet Volume 10.7 fl (7.4-10.4); Monocytes Absolute Auto 0.5 K/mm3 (0.1-0.6); Neutrophils Absolute Auto 4.1 K/mm3 (1.3-6.7); Neutrophils Percent Auto 69.1 % (45.5-73.1); Platelet Count Result 248 k/mm3 (150-375); Red Blood Count 4.32 M/mm3 (4.2-5.4); Red Cell Distribution Width 14.7 % (11.5-14.5)
[2023-07-10 04:52] LABS: Anion Gap 2 mmol/L (4-12); Blood Urea Nitrogen 30 mg/dL (7-17); Calcium 9.1 mg/dL (8.4-10.2); Carbon Dioxide 28 mmol/L (22-30); Chloride 105 mmol/L (98-107); Estimated CRCL calculation 62 ml/min; Estimated Glomerular Filt Rate > 60; Glucose 104 mg/dL (65-110); Potassium 3.2 mmol/L (3.4-5.0); Sodium 135 mmol/L (137-145)
[2023-07-10 04:53] LABS: Partial Thromboplastin Time 45.8 Seconds (22.3-36.8)
[2023-07-10] MEDS: HEPARIN SODIUM 5,000 UNITS/ML VIAL 4000 UNITS IV PUSH ×2 (05:10→20:35)
--- NOTE | 2023-07-10 08:35 | PM.PNCARD ---
Progress Note: A&P Assessment and Plan (1) Elevated troponin level: Code(s): R79.89 - Other specified abnormal findings of blood chemistry Status: Acute Plan 73-year-old lady with coronary disease remote history of interventional revascularization no records of this are available. She presents to the hospital with symptoms that are somewhat concerning for ischemia. Her troponins are mildly elevated but flat. ECG shows precordial T-wave inversions, no ability to see old ECGs for comparison. Recommendation for follow-up catheterization was made yesterday by consultation. Had a long discussion with the patient today about her decision to institute DNR status and that that is not compatible with procedures in the lab assistant. She did not understand this and wishes to be a full code. In addition to this she did take apixaban with last dose was yesterday morning. It is therefore imprudent to proceed with angiography today. Will continue IV heparin and anticipate catheterization tomorrow Ruben Davis MD [facility] Subjective Date/time seen: Date of service: 07/10/23 08:35 Interval history: Follow-up visit in this 73-year-old woman with: Recent onset of symptoms of exertional [place] with some chest heaviness with history of coronary artery disease and PCI with stenting in the remote past records of this are not available. No recent cardiac follow-up. She has hypertension and dyslipidemia and is also systemically anticoagulated for reasons that are not clear. Exam Const: General: comfortable and no acute distress Other: Comfortable fib elderly lady offers no complaints. HENMT: Mouth: Yes moist mucous membranes Eyes: Sclera: sclerae normal Neck: Neck: supple Other: Normal carotid pulses bilaterally no bruits About 2 cm of JVD above the angle of [place] Resp: Effort & Inspection: normal respiratory effort Auscultation: clear to auscultation bilaterally Other: Breath sounds somewhat diminished bilaterally but otherwise clear Cardio: Rate: regular rate Rhythm: regular rhythm Other: PMI nondisplaced GI: GI Palp: Yes Soft to palpation Auscultation: normal bowel sounds Skin: General skin exam: normal color Neuro: Other: Alert and oriented x3 Extrem: Other: No edema, adequate perfusion Objective Data Vital Signs Vital Signs: Vital Signs - 24 hr 07/09/23 09:49 07/09/23 09:51 07/09/23 10:00 Temperature Pulse Rate 87 97 Respiratory Rate Blood Pressure 113/72 Pulse Oximetry Oxygen Delivery 07/09/23 11:39 07/09/23 13:15 07/09/23 12:00 Temperature 36.7 C Pulse Rate 98 88 99 Respiratory Rate 16 22 H Blood Pressure 110/64 Pulse Oximetry 91 Oxygen Delivery 07/09/23 12:00 07/09/23 14:00 07/09/23 15:57 Temperature 36.8 C Pulse Rate 95 96 Respiratory Rate 18 Blood Pressure 99/60 L Pulse Oximetry 93 Oxygen Delivery Room Air 07/09/23 16:00 07/09/23 18:00 07/09/23 16:00 Temperature Pulse Rate 117 H 94 Respiratory Rate Blood Pressure Pulse Oximetry 93 Oxygen Delivery Room Air 07/09/23 20:04 07/09/23 20:34 07/09/23 20:35 Temperature 36.9 C Pulse Rate 86 87 Respiratory Rate 18 18 Blood Pressure 131/70 Pulse Oximetry 92 91 Oxygen Delivery Room Air 07/09/23 21:30 07/09/23 23:38 07/09/23 20:00 Temperature 36.9 C Pulse Rate 86 76 93 Respiratory Rate 18 Blood Pressure 136/68 Pulse Oximetry 93 Oxygen Delivery 07/09/23 20:00 07/09/23 22:00 07/10/23 00:00 Temperature Pulse Rate 79 77 Respiratory Rate Blood Pressure Pulse Oximetry 92 Oxygen Delivery Room Air 07/10/23 00:00 07/10/23 02:38 07/09/23 20:45 Temperature Pulse Rate 78 83 Respiratory Rate 16 16 Blood Pressure Pulse Oximetry 93 Oxygen Delivery Room Air 07/10/23 02:00 07/10/23 04:00 07/10/23 04:00 Temperature Pulse Rate 80 78 Respiratory Rate Blood Pressure Pulse Oximetry 95 Oxygen Delivery Room Air 07/10/23 04:22 07/10/23 02:48 07/10/23 06:00 Temperature 36.9 C Pulse Rate 78 76 77 Respiratory Rate 18 16 Blood Pressure 128/74 Pulse Oximetry 90 Oxygen Delivery 07/10/23 07:38 Temperature 36.6 C Pulse Rate 81 Respiratory Rate 17 Blood Pressure 140/77 Pulse Oximetry 96 Oxygen Delivery Intake/Output Intake/Output: Intake & Output 07/07/23 07/08/23 07/09/23 07/10/23 23:59 23:59 23:59 23:59 Intake Total 42.4 978 194.7 Output Total 450 Balance 42.4 978 -255.3 Meds/Results Medications: Active Medications Generic Name Dose Route Start Last Admin Trade Name Freq PRN Reason Stop Dose Admin Atorvastatin Calcium 80 mg 07/09/23 09:00 07/09/23 09:49 Atorvastatin 40 Mg Tablet PO 80 mg DAILY FABIO Administration Carvedilol 6.25 mg 07/09/23 09:00 07/09/23 21:30 Carvedilol 6.25 Mg Tablet PO 6.25 mg Q12HR FABIO Administration Fluoxetine HCl 20 mg 07/09/23 09:00 07/09/23 09:50 Fluoxetine Hcl 20 Mg Capsule PO 20 mg DAILY FABIO Administration Heparin Sodium (Porcine) 2,000 units 07/09/23 18:59 Heparin Sodium 5,000 Units/Ml Vial IV PUSH PRN PRN aPTT 55 - 70 seconds Heparin Sodium (Porcine) 4,000 units 07/09/23 19:10 07/10/23 05:10 Heparin Sodium 5,000 Units/Ml Vial IV PUSH 4,000 units PRN PRN Administration aPTT less than 55 seconds Heparin Sodium/Dextrose 25,000 units in 250 mls @ 8 mls/hr 07/09/23 22:00 07/10/23 05:10 Heparin Sodium/D5w 100 Units/Ml IV CONT 800 units/hr .Q24H FABIO 8 mls/hr Titration Protocol 800 UNITS/HR Ipratropium [place] 0.5 mg 07/09/23 02:00 07/10/23 02:38 Ipratropium Br 0.02% Inh Soln 0.5 Mg/2.5 Ml Vial INHALATION 0.5 mg Q6HRT [facility] Administration Lorazepam 0.5 mg 07/09/23 00:38 07/09/23 21:30 Lorazepam (*Crx) 0.5 Mg Tablet PO 0.5 mg TID PRN Administration Anxiety Prednisone 60 mg 07/09/23 08:00 07/09/23 09:49 Prednisone 20 Mg Tablet PO 60 mg DAILY@0800 [facility] Administration Radiology Results: ITS Impressions Chest X-Ray 07/08/23 15:19 IMPRESSION: 1. Emphysema. Labs Labs: Laboratory Results - last 24 hr 07/09/23 07/09/23 07/10/23 09:47 21:05 04:18 WBC 4.7 6.0 RBC 4.61 4.32 Hgb 14.2 13.4 Hct 42.7 40.0 MCV 92.6 92.6 MCH 30.8 31.0 MCHC 33.3 33.5 RDW 14.9 H 14.7 H Plt Count 277 248 MPV 10.7 H 10.7 H Immature Gran % (Auto) 0.2 0.3 Neut % (Auto) 76.5 H 69.1 Lymph % (Auto) 16.8 L 21.7 [place] % (Auto) 4.1 8.0 Eos % (Auto) 1.1 0.2 Baso % (Auto) 1.3 H 0.7 Lymph # (Auto) 0.79 L 1.30 [place] # (Auto) 0.2 0.5 Eos # (Auto) 0.1 0.0 Baso # (Auto) 0.1 0.0 Abs Immat Gran (auto) 0.01 0.02 Absolute Neuts (auto) 3.6 4.1 Absolute Nucleated RBC 0.000 0.000 Nucleated RBC % 0.0 0.0 PT 14.3 INR 1.1 APTT 30.3 45.8 H Sodium 135 L Potassium 3.2 L Chloride 105 Carbon Dioxide 28 Anion Gap 2 L BUN 30 H Creatinine 0.60 L Estim Creat Clear Calc 62 Estimated GFR > 60 Glucose 104 Calcium 9.1 Influenza A (RT-PCR) Negative Influenza B (RT-PCR) Negative RSV (RT-PCR) Negative SARS-CoV-2 RNA (RT-PCR) Negative
[2023-07-10] MEDS: FLUoxetine HCL 20 MG CAPSULE PO (08:36)
[2023-07-10] MEDS: carvediloL 6.25 MG TABLET PO ×2 (08:36→20:27)
[2023-07-10] MEDS: predniSONE 20 MG TABLET 60 MG PO (08:36)
[2023-07-10] MEDS: ATORVASTATIN 40 MG TABLET 80 MG PO (08:36)
--- NOTE | 2023-07-10 09:06 | PM.IMPN ---
Progress Note: A&P Assessment and Plan (1) COPD exacerbation: Code(s): J44.1 - Chronic obstructive pulmonary disease with (acute) exacerbation Status: Acute (2) Elevated troponin level: Code(s): R79.89 - Other specified abnormal findings of blood chemistry Status: Acute (3) Acute non-ST elevation myocardial infarction (NSTEMI): Code(s): I21.4 - Non-ST elevation (NSTEMI) myocardial infarction Status: Acute (4) Anxiety and depression: Code(s): F41.9 - Anxiety disorder, unspecified; F32.A - Depression, unspecified Status: Acute (5) Hypokalemia: Code(s): E87.6 - Hypokalemia Status: Acute Plan 73-year-old female with past medical history CAD status post stents on Eliquis, COPD, active tobacco abuse, hyperlipidemia, GERD, anxiety and depression stenting with shortness of breath. Differential includes acute COPD exacerbation, anxiety attack, NSTEMI. She is clinically doing much better. Continue DuoNebs and prednisone for now. With abnormal EKG and slightly elevated troponin cardiology has been consulted and plan is for heparin to be reinstated and cardiac catheterization tomorrow. Continue Coreg. NPO at midnight. Continue atorvastatin. In the ER she received 324 mg aspirin x1 along with Lasix 40 mg IV x1 and Plavix 600 mg p.o. x1. She received a nitroglycerin transdermal patch. She received Ativan 0.5 mg IV x1. July 09: Breathing improved however still with exertional dyspnea. Continue retro pre a neb and prednisone. Cardiology recommendations appreciated. Anticipate cardiac catheterization tomorrow. NPO at midnight. Replace potassium. FEN: Saline lock IV. Cardiac diet . NPO midnight GI prophylaxis: Not indicated DVT prophylaxis: Heparin GTT Lines: Peripheral IV Code Status: DNR Dispo: Stable. Cardiology consulted. NPO midnight for cardiac catheterization in the morning. Subjective Date/time seen: 07/10/23 09:06 Interval history: Overnight events. The patient complains of shortness of breath on exertion. Denies chest pain. Review of Systems Review of Systems: All systems reviewed & are unremarkable except as noted in HPI and below (Subjective) Exam Const: General: comfortable and no acute distress Eyes: Pupils: Equal, round and reactive pupils present Neck: Neck: supple Resp: Effort & Inspection: normal respiratory effort Auscultation: wheezes and diminished lung sounds Cardio: Rate: regular rate Rhythm: regular rhythm GI: GI Palp: Yes Soft to palpation Extrem: General: no edema Objective Data Vital Signs Vital Signs: Vital Signs - 24 hr 07/09/23 09:49 07/09/23 09:51 07/09/23 10:00 Temperature Pulse Rate 87 97 Respiratory Rate Blood Pressure 113/72 Pulse Oximetry Oxygen Delivery 07/09/23 11:39 07/09/23 13:15 07/09/23 12:00 Temperature 98.1 F Pulse Rate 98 88 99 Respiratory Rate 16 22 H Blood Pressure 110/64 Pulse Oximetry 91 Oxygen Delivery 07/09/23 12:00 07/09/23 14:00 07/09/23 15:57 Temperature 98.3 F Pulse Rate 95 96 Respiratory Rate 18 Blood Pressure 99/60 L Pulse Oximetry 93 Oxygen Delivery Room Air 07/09/23 16:00 07/09/23 18:00 07/09/23 16:00 Temperature Pulse Rate 117 H 94 Respiratory Rate Blood Pressure Pulse Oximetry 93 Oxygen Delivery Room Air 07/09/23 20:04 07/09/23 20:34 07/09/23 20:35 Temperature 98.4 F Pulse Rate 86 87 Respiratory Rate 18 18 Blood Pressure 131/70 Pulse Oximetry 92 91 Oxygen Delivery Room Air 07/09/23 21:30 07/09/23 23:38 07/09/23 20:00 Temperature 98.4 F Pulse Rate 86 76 93 Respiratory Rate 18 Blood Pressure 136/68 Pulse Oximetry 93 Oxygen Delivery 07/09/23 20:00 07/09/23 22:00 07/10/23 00:00 Temperature Pulse Rate 79 77 Respiratory Rate Blood Pressure Pulse Oximetry 92 Oxygen Delivery Room Air 07/10/23 00:00 07/10/23 02:38 07/09/23 20:45 Temperature Pulse Rate 78 83 Respiratory Rate 16 16 Blood Pressure Pulse Oximetry 93 Oxygen Delivery Room Air 07/10/23 02:00 07/10/23 04:00 07/10/23 04:00 Temperature Pulse Rate 80 78 Respiratory Rate Blood Pressure Pulse Oximetry 95 Oxygen Delivery Room Air 07/10/23 04:22 07/10/23 02:48 07/10/23 06:00 Temperature 98.4 F Pulse Rate 78 76 77 Respiratory Rate 18 16 Blood Pressure 128/74 Pulse Oximetry 90 Oxygen Delivery 07/10/23 07:38 07/10/23 08:36 07/10/23 08:00 Temperature 97.8 F Pulse Rate 81 88 Respiratory Rate 17 Blood Pressure 140/77 Pulse Oximetry 96 Oxygen Delivery Room Air 07/10/23 08:44 07/10/23 08:44 07/10/23 08:50 Temperature Pulse Rate 90 87 Respiratory Rate 16 16 Blood Pressure Pulse Oximetry 97 Oxygen Delivery 07/10/23 08:00 Temperature Pulse Rate 78 Respiratory Rate Blood Pressure Pulse Oximetry Oxygen Delivery Intake/Output Intake/Output: Intake & Output 07/07/23 07/08/23 07/09/23 07/10/23 23:59 23:59 23:59 23:59 Intake Total 42.4 978 194.7 Output Total 650 Balance 42.4 978 -455.3 Meds/Results Medications: Active Medications Generic Name Dose Route Start Last Admin Trade Name Freq PRN Reason Stop Dose Admin Atorvastatin Calcium 80 mg 07/09/23 09:00 07/10/23 08:36 Atorvastatin 40 Mg Tablet PO 80 mg DAILY FABIO Administration Carvedilol 6.25 mg 07/09/23 09:00 07/10/23 08:36 Carvedilol 6.25 Mg Tablet PO 6.25 mg Q12HR FABIO Administration Fluoxetine HCl 20 mg 07/09/23 09:00 07/10/23 08:36 Fluoxetine Hcl 20 Mg Capsule PO 20 mg DAILY FABIO Administration Heparin Sodium (Porcine) 2,000 units 07/09/23 18:59 Heparin Sodium 5,000 Units/Ml Vial IV PUSH PRN PRN aPTT 55 - 70 seconds Heparin Sodium (Porcine) 4,000 units 07/09/23 19:10 07/10/23 05:10 Heparin Sodium 5,000 Units/Ml Vial IV PUSH 4,000 units PRN PRN Administration aPTT less than 55 seconds Heparin Sodium/Dextrose 25,000 units in 250 mls @ 8 mls/hr 07/09/23 22:00 07/10/23 05:10 Heparin Sodium/D5w 100 Units/Ml IV CONT 800 units/hr .Q24H FABIO 8 mls/hr Titration Protocol 800 UNITS/HR Ipratropium [place] 0.5 mg 07/09/23 02:00 07/10/23 08:44 Ipratropium Br 0.02% Inh Soln 0.5 Mg/2.5 Ml Vial INHALATION 0.5 mg Q6HRT FABIO Administration Lorazepam 0.5 mg 07/09/23 00:38 07/09/23 21:30 Lorazepam (*Crx) 0.5 Mg Tablet PO 0.5 mg TID PRN Administration Anxiety Potassium Chloride 20 meq 07/10/23 09:04 Potassium Chloride 20 Meq Er Tablet PO 07/10/23 09:05 ONCE ONE Prednisone 60 mg 07/09/23 08:00 07/10/23 08:36 Prednisone 20 Mg Tablet PO 60 mg DAILY@0800 FABIO Administration Radiology Results: ITS Impressions Chest X-Ray 07/08/23 15:19 IMPRESSION: 1. Emphysema. Labs Labs: Laboratory Results - last 24 hr 07/09/23 07/09/23 07/10/23 09:47 21:05 04:18 WBC 4.7 6.0 RBC 4.61 4.32 Hgb 14.2 13.4 Hct 42.7 40.0 MCV 92.6 92.6 MCH 30.8 31.0 MCHC 33.3 33.5 RDW 14.9 H 14.7 H Plt Count 277 248 MPV 10.7 H 10.7 H Immature Gran % (Auto) 0.2 0.3 Neut % (Auto) 76.5 H 69.1 Lymph % (Auto) 16.8 L 21.7 [place] % (Auto) 4.1 8.0 Eos % (Auto) 1.1 0.2 Baso % (Auto) 1.3 H 0.7 Lymph # (Auto) 0.79 L 1.30 [place] # (Auto) 0.2 0.5 Eos # (Auto) 0.1 0.0 Baso # (Auto) 0.1 0.0 Abs Immat Gran (auto) 0.01 0.02 Absolute Neuts (auto) 3.6 4.1 Absolute Nucleated RBC 0.000 0.000 Nucleated RBC % 0.0 0.0 PT 14.3 INR 1.1 APTT 30.3 45.8 H Sodium 135 L Potassium 3.2 L Chloride 105 Carbon Dioxide 28 Anion Gap 2 L BUN 30 H Creatinine 0.60 L Estim Creat Clear Calc 62 Estimated GFR > 60 Glucose 104 Calcium 9.1 Influenza A (RT-PCR) Negative Influenza B (RT-PCR) Negative RSV (RT-PCR) Negative SARS-CoV-2 RNA (RT-PCR) Negative
[2023-07-10] MEDS: POTASSIUM CHLORIDE 20 MEQ ER TABLET PO (09:20)
[2023-07-10 12:16] LABS: Partial Thromboplastin Time > 200.0 Seconds (22.3-36.8)
[2023-07-10 13:01] LABS: Partial Thromboplastin Time 113.4 Seconds (22.3-36.8)
[2023-07-10 20:27] LABS: Partial Thromboplastin Time 48.4 Seconds (22.3-36.8)
[2023-07-10 23:25] LABS: Troponin I 0.048 ng/mL (0.000-0.034)
[2023-07-11] VITALS (39 sets, daily range): BP systolic 119–148; BP diastolic 57–83; PULSE 58–84; RESP 12–20; TEMP 36–36.6; O2SAT 90–97
--- NOTE | 2023-07-11 | ECHO_ITS ---
Patient Info Name: Jessica Renee Age: 73 years : 1950 Gender: Female Ht: 67 in Wt: 120 lbs BSA: 1.60 m2 HR: 45 bpm BP: 134 / 76 mmHg Heart Rhythm: Sinus Rhythm Technical Quality: Good Exam Date: 07/11/2023 2:58 PM Exam Location: Echo Lab Patient Status: Inpatient Admit Date: 07/08/2023 Staff Ordering Physician: Khai Graf MD (chinmay/beltran) Clerical Aide: Marlene Candelaria RDCS Attending Provider: Tonya Davis DO Referring Physician: Homar COTTO; Exam Type: CA echo doppler color flow Study Info Complete two-dimensional, color flow and Doppler transthoracic echocardiogram is performed. Summary 1. Complete two-dimensional, color flow and Doppler transthoracic echocardiogram is performed. 2. Normal left ventricular size and systolic function with grade 1 diastolic noncompliance. 3. Mildly sclerotic aortic valve which is not significantly stenotic. 4. Small amount of pulmonic regurgitation. Left Ventricle Left ventricular chamber dimension is normal. Left ventricular systolic function is normal, estimated at 65-70%. The left ventricular diastolic function is grade I diastolic dysfunction. Right Ventricle Right ventricular chamber dimension is normal. Left Atria Left atrial chamber dimension is normal. Right Atria Right atrial chamber dimension is normal. Aortic Valve The aortic valve is trileaflet. There is mild aortic valve sclerosis. Pulmonic Valve The pulmonic valve is normal. There is mild pulmonic regurgitation. Mitral Valve The mitral valve has normal leaflets. Tricuspid Valve The tricuspid valve leaflets are normal. Pericardium/Pleural The pericardium appears normal. Aorta The aortic root size at the sinus of Valsalva is normal. Left Ventricular Outflow Tract Name Value Normal LVOT 2D LVOT Diameter 1.9 cm LVOT Doppler LVOT Peak Gradient 2 mmHg LVOT Mean Gradient 1 mmHg LVOT VTI 20 cm LVOT VTI/AV VTI Ratio 0.9 LVOT Stroke Volume 56 ml LVOT CO 3.8 l/min LVOT CI 2.4 l/min/m2 Pulmonic Valve Name Value Normal RVOT Doppler RVOT Peak Gradient 2 mmHg PV Doppler PV Peak Gradient 3 mmHg Mitral Valve Name Value Normal MV Doppler MV Decel [place] 270 cm/s2 MV PHT 74 ms MV Area (PHT) 3.0 cm2 4.0-5.0 MV Diastolic Function MV E Peak Velocity 69 cm/s MV A Peak Velocity 86 cm/s MV E/A 0.8 MV Decel Time 254 ms MV Annular TDI MV E/e' (Septal) 16.3 <=8.0 MV E/e' (Lateral) 12.9 <=8.0 MV E/e' (Average) 14.6 Tricuspid Valve Name Value Normal TV Regurgitation Doppler TR Peak Velocity 284 cm/s TR Peak Gradient 32 mmHg Estimated PAP/RSVP RA Pressure 10 mmHg <=5 PA Systolic Pressure 42 mmHg <36 RV Systolic Pressure 42 mmHg <36 Aortic Valve Name Value Normal AV Doppler AV Peak Velocity 72 cm/s AV Peak Gradient 2 mmHg AV Mean Gradient 1 mmHg AV VTI 22 cm AV Area (Cont Eq VTI) 2.6 cm2 >=3.0 AV Area (Cont Eq Agustín) 2.7 cm2 AV Regurgitation 2D LVOT Area 2.8 cm2 Ventricles Name Value Normal LV Dimensions 2D/MM IVS Diastolic Thickness (2D) 1.2 cm 0.6-1.0 LVID Diastole (2D) 3.8 cm 3.8-5.2 LVIW Diastolic Thickness (2D) 1.2 cm 0.6-0.9 LVID Systole (2D) 2.5 cm 2.2-3.5 LVOT Diameter 1.9 cm LV Mass (2D Cubed) 149.01 g 67.00-162.00 LV Mass Index (2D Cubed) 93 g/m2 43-95 Relative Wall Thickness (2D) 0.63 LV Fractional Shortening/Ejection Fraction 2D/MM LV Fractional Shortening (2D) 33 % 27-45 LV EF (2D Teicholz) 63 % 54-74 LV Diastolic Volume (4C MOD) 85 ml LV EF (4C MOD) 68 % LV Diastolic Volume (2C MOD) 50 ml LV EF (2C MOD) 57 % LV Diastolic Volume (BP MOD) 68 ml 46-106 LV Diastolic Volume Index (BP MOD) 43 ml/m2 29-61 LV Systolic Volume (BP MOD) 25 ml 14-42 LV Systolic Volume Index (BP MOD) 15 ml/m2 8-24 LV EF (BP MOD) 64 % 54-74 LV Diastolic Length (4C) 8.2 cm LV Systolic Length (4C) 6.2 cm LV Stroke Volume (4C MOD) 57 ml Atria Name Value Normal LA Dimensions LA Volume (4C A-L) 25 ml RA Dimensions RA Area (4C) 10.1 cm2 <=18.0 Report Signatures
[2023-07-11] MEDS: IPRATROPIUM BR 0.02% INH SOLN 0.5 MG/2.5 ML VIAL INHALATION ×4 (02:22→19:39)
[2023-07-11 02:33] LABS: Basophils Percent Auto 0.5 % (0.2-1.2); Eosinophils Percent Auto 0.1 % (0-4.4); Hematocrit 38.1 % (37.0-47.0); Hemoglobin 12.6 g/dL (12.0-15.0); Immature Granulocyte Absolute 0.02 K/mm3 (0.00-0.031); Immature Granulocyte Percent A 0.2 % (0-0.5); Lymphocytes Absolute Auto 1.58 K/mm3 (0.9-3.2); Lymphocytes Percent Auto 17.9 % (18.3-44.2); Mean Corpuscular HGB Conc 33.1 g/dl (32-36); Mean Corpuscular Hemoglobin 30.4 pg (26-34); Mean Platelet Volume 10.7 fl (7.4-10.4); Monocytes Absolute Auto 0.6 K/mm3 (0.1-0.6); Monocytes Percent Auto 6.5 % (2.6-8.5); Neutrophils Absolute Auto 6.6 K/mm3 (1.3-6.7); Neutrophils Percent Auto 74.8 % (45.5-73.1); Platelet Count Result 227 k/mm3 (150-375); Red Blood Count 4.14 M/mm3 (4.2-5.4); Red Cell Distribution Width 14.7 % (11.5-14.5); White Blood Count 8.8 K/mm3 (4.5-10.0)
[2023-07-11 02:50] LABS: Anion Gap 4 mmol/L (4-12); Blood Urea Nitrogen 24 mg/dL (7-17); Carbon Dioxide 26 mmol/L (22-30); Chloride 105 mmol/L (98-107); Estimated CRCL calculation 73 ml/min; Estimated Glomerular Filt Rate > 60; Glucose 108 mg/dL (65-110); Potassium 3.5 mmol/L (3.4-5.0); Sodium 135 mmol/L (137-145)
[2023-07-11 03:27] LABS: Partial Thromboplastin Time 191.8 Seconds (22.3-36.8); Troponin I 0.056 ng/mL (0.000-0.034)
[2023-07-11] MEDS: HEPARIN SOD/D5W 100 UNITS/ML 25,000 UNITS/250 ML BAG 7 UNITS IV CONT (04:24)
--- NOTE | 2023-07-11 07:50 | PM.IMPN ---
Progress Note: A&P Assessment and Plan (1) COPD exacerbation: Code(s): J44.1 - Chronic obstructive pulmonary disease with (acute) exacerbation Status: Acute (2) Elevated troponin level: Code(s): R79.89 - Other specified abnormal findings of blood chemistry Status: Acute (3) Acute non-ST elevation myocardial infarction (NSTEMI): Code(s): I21.4 - Non-ST elevation (NSTEMI) myocardial infarction Status: Acute (4) Anxiety and depression: Code(s): F41.9 - Anxiety disorder, unspecified; F32.A - Depression, unspecified Status: Acute (5) Hypokalemia: Code(s): E87.6 - Hypokalemia Status: Acute Plan 73-year-old female with past medical history CAD status post stents on Eliquis, COPD, active tobacco abuse, hyperlipidemia, GERD, anxiety and depression stenting with shortness of breath. Differential includes acute COPD exacerbation, anxiety attack, NSTEMI. She is symptomatically doing much better, denying any shortness of breath or chest pain. Continue DuoNebs and prednisone. For suspected NSTEMI radiology has been consulted. Troponin peak was 0.122 on admission. She is currently on a heparin GTT and proposed to go for back catheterization today. Continue atorvastatin and Coreg. In the ER she received 324 mg aspirin x1, Lasix 40 mg IV x1, Plavix 600 mg p.o. x1, nitroglycerin transdermal patch, Ativan 0.5 mg IV x1. Continue Ativan p.r.n.. FEN: Saline lock IV. NPO currently GI prophylaxis: None DVT prophylaxis: Heparin GTT Lines: Peripheral IV Code Status: Full code Dispo: Stable. Cardiology consulted. Possible catheterization today Subjective Date/time seen: 07/11/23 07:50 Interval history: Patient has no complaints today other than having a transient episode of mild shortness of breath and chest tightness when ambulating to the bathroom yesterday. She feels her baseline now. Denies any wheezing. Review of Systems Review of Systems: All systems reviewed & are unremarkable except as noted in HPI and below (Subjective) Exam Const: General: comfortable and no acute distress Eyes: Pupils: Equal, round and reactive pupils present Neck: Neck: supple Resp: Effort & Inspection: normal respiratory effort Auscultation: no wheezes and diminished lung sounds Other: Wheezes have resolved Cardio: Rate: regular rate Rhythm: regular rhythm GI: GI Palp: Yes Soft to palpation Extrem: General: no edema Objective Data Vital Signs Vital Signs: Vital Signs - 24 hr 07/10/23 08:36 07/10/23 08:00 07/10/23 08:44 Temperature Pulse Rate 88 Respiratory Rate Blood Pressure Pulse Oximetry 97 Oxygen Delivery Room Air 07/10/23 08:44 07/10/23 08:50 07/10/23 08:00 Temperature Pulse Rate 90 87 78 Respiratory Rate 16 16 Blood Pressure Pulse Oximetry Oxygen Delivery 07/10/23 10:00 07/10/23 11:53 07/10/23 12:00 Temperature 97.8 F Pulse Rate 87 95 88 Respiratory Rate 16 Blood Pressure 130/58 L Pulse Oximetry 90 Oxygen Delivery 07/10/23 12:00 07/10/23 13:56 07/10/23 14:02 Temperature Pulse Rate 87 95 Respiratory Rate 16 16 Blood Pressure Pulse Oximetry Oxygen Delivery Room Air 07/10/23 15:21 07/10/23 14:00 07/10/23 16:00 Temperature 97.6 F Pulse Rate 81 87 79 Respiratory Rate 17 Blood Pressure 121/56 L Pulse Oximetry 92 Oxygen Delivery 07/10/23 16:00 07/10/23 18:00 07/10/23 19:54 Temperature 98.5 F Pulse Rate 75 69 Respiratory Rate 18 Blood Pressure 127/63 Pulse Oximetry 98 Oxygen Delivery Room Air 07/10/23 20:20 07/10/23 20:20 07/10/23 20:36 Temperature Pulse Rate 69 69 71 Respiratory Rate 18 18 Blood Pressure Pulse Oximetry 92 Oxygen Delivery Room Air 07/10/23 20:27 07/10/23 23:34 07/10/23 22:00 Temperature 97.7 F Pulse Rate 68 68 82 Respiratory Rate 18 Blood Pressure 146/86 H Pulse Oximetry 98 Oxygen Delivery 07/10/23 20:00 07/11/23 00:00 07/11/23 00:00 Temperature Pulse Rate 61 70 Respiratory Rate Blood Pressure Pulse Oximetry Oxygen Delivery Room Air 07/11/23 02:00 07/11/23 02:23 07/11/23 02:31 Temperature Pulse Rate 58 L 61 60 Respiratory Rate 18 18 Blood Pressure Pulse Oximetry Oxygen Delivery 07/11/23 04:00 07/11/23 04:00 07/11/23 05:33 Temperature 97.7 F Pulse Rate 58 L 69 Respiratory Rate 18 Blood Pressure 132/70 Pulse Oximetry 97 Oxygen Delivery Room Air 07/11/23 07:21 07/11/23 07:23 07/11/23 07:29 Temperature Pulse Rate 69 67 67 Respiratory Rate 18 16 18 Blood Pressure Pulse Oximetry 93 Oxygen Delivery Room Air Intake/Output Intake/Output: Intake & Output 07/08/23 07/09/23 07/10/23 07/11/23 23:59 23:59 23:59 23:59 Intake Total 42.4 978 1340.6 561.7 Output Total 650 300 Balance 42.4 978 690.6 261.7 Meds/Results Medications: Active Medications Generic Name Dose Route Start Last Admin Trade Name Freq PRN Reason Stop Dose Admin Atorvastatin Calcium 80 mg 07/09/23 09:00 07/10/23 08:36 Atorvastatin 40 Mg Tablet PO 80 mg DAILY FABIO Administration Carvedilol 6.25 mg 07/09/23 09:00 07/10/23 20:27 Carvedilol 6.25 Mg Tablet PO 6.25 mg Q12HR FABIO Administration Fluoxetine HCl 20 mg 07/09/23 09:00 07/10/23 08:36 Fluoxetine Hcl 20 Mg Capsule PO 20 mg DAILY FABIO Administration Heparin Sodium (Porcine) 2,000 units 07/09/23 18:59 Heparin Sodium 5,000 Units/Ml Vial IV PUSH PRN PRN aPTT 55 - 70 seconds Heparin Sodium (Porcine) 4,000 units 07/09/23 19:10 07/10/23 20:35 Heparin Sodium 5,000 Units/Ml Vial IV PUSH 4,000 units PRN PRN Administration aPTT less than 55 seconds Heparin Sodium/Dextrose 25,000 units in 250 mls @ 7 mls/hr 07/09/23 22:00 07/11/23 04:24 Heparin Sodium/D5w 100 Units/Ml IV CONT 700 units/hr .Q24H FABIO 7 mls/hr Administration Protocol 700 UNITS/HR Ipratropium [place] 0.5 mg 07/09/23 02:00 07/11/23 07:21 Ipratropium Br 0.02% Inh Soln 0.5 Mg/2.5 Ml Vial INHALATION 0.5 mg Q6HRT FABIO Administration Lorazepam 0.5 mg 07/09/23 00:38 07/09/23 21:30 Lorazepam (*Crx) 0.5 Mg Tablet PO 0.5 mg TID PRN Administration Anxiety Prednisone 60 mg 07/09/23 08:00 07/10/23 08:36 Prednisone 20 Mg Tablet PO 60 mg DAILY@0800 FABIO Administration Radiology Results: ITS Impressions Chest X-Ray 07/08/23 15:19 IMPRESSION: 1. Emphysema. Labs Labs: Laboratory Results - last 24 hr 07/10/23 07/10/23 07/10/23 10:53 12:31 19:25 WBC RBC Hgb Hct MCV MCH MCHC RDW Plt Count MPV Immature Gran % (Auto) Neut % (Auto) Lymph % (Auto) [place] % (Auto) Eos % (Auto) Baso % (Auto) Lymph # (Auto) [place] # (Auto) Eos # (Auto) Baso # (Auto) Abs Immat Gran (auto) Absolute Neuts (auto) Absolute Nucleated RBC Nucleated RBC % APTT > 200.0 H* 113.4 H 48.4 H Sodium Potassium Chloride Carbon Dioxide Anion Gap BUN Creatinine Estim Creat Clear Calc Estimated GFR Glucose Calcium Magnesium Troponin I 07/10/23 07/11/23 22:54 02:24 WBC 8.8 RBC 4.14 L Hgb 12.6 Hct 38.1 MCV 92.0 MCH 30.4 MCHC 33.1 RDW 14.7 H Plt Count 227 MPV 10.7 H Immature Gran % (Auto) 0.2 Neut % (Auto) 74.8 H Lymph % (Auto) 17.9 L [place] % (Auto) 6.5 Eos % (Auto) 0.1 Baso % (Auto) 0.5 Lymph # (Auto) 1.58 [place] # (Auto) 0.6 Eos # (Auto) 0.0 Baso # (Auto) 0.0 Abs Immat Gran (auto) 0.02 Absolute Neuts (auto) 6.6 Absolute Nucleated RBC 0.000 Nucleated RBC % 0.0 APTT 191.8 H* Sodium 135 L Potassium 3.5 Chloride 105 Carbon Dioxide 26 Anion Gap 4 BUN 24 H Creatinine 0.50 L Estim Creat Clear Calc 73 Estimated GFR > 60 Glucose 108 Calcium 9.0 Magnesium 2.0 Troponin I 0.048 H* 0.056 H*
[2023-07-11] MEDS: predniSONE 20 MG TABLET 60 MG PO (08:37)
[2023-07-11] MEDS: carvediloL 6.25 MG TABLET PO ×2 (08:37→21:00)
[2023-07-11] MEDS: ATORVASTATIN 40 MG TABLET 80 MG PO (08:37)
[2023-07-11] MEDS: FLUoxetine HCL 20 MG CAPSULE PO (08:37)
--- NOTE | 2023-07-11 09:51 | WPDHPUPDATE1 ---
History and Physical Update Update Date/Time: 07/11/23 09:51 History and Physical has been reviewed, including an updated exam of the patient. There are NO changes in the patient's condition. Risks, benefits, and alternatives have been discussed and questions answered. Patient agrees to proceed with procedure.
--- NOTE | 2023-07-11 09:53 | P.SEDATION_ITS ---
Moderate Sedation Note-Pt Data Patient Data Diagnosis: NSTEMI Present Complaint: NSTEMI Procedure to be performed/Plan: Coronary angiography, left heart cath, +/- PCI Allergies Allergy/AdvReac Type Severity Reaction Status Date / Time erythromycin base Allergy Vomiting Verified 05/20/23 16:34 Home Medications Medication Instructions Recorded Confirmed Type atorvastatin 80 mg tablet 80 mg PO DAILY 06/04/21 07/08/23 History lorazepam 1 mg tablet 1 mg PO TID PRN Anxiety 06/04/21 07/08/23 History albuterol sulfate 90 mcg/actuation 1 inh inhalation QID PRN shortness 04/20/23 07/08/23 Rx aerosol inhaler of breath or wheezing #6.7 grams apixaban 5 mg tablet (Eliquis) 5 mg PO BID 07/08/23 07/09/23 History carvedilol 6.25 mg tablet 6.25 mg PO BID 07/08/23 07/08/23 History fluoxetine 20 mg capsule 20 mg PO DAILY 07/08/23 07/08/23 History Current Medications: Active Medications Atorvastatin Calcium (Atorvastatin 40 Mg Tablet) 80 mg PO DAILY [facility] Last Admin: 07/11/23 08:37 Dose: 80 mg Carvedilol (Carvedilol 6.25 Mg Tablet) 6.25 mg PO Q12HR [facility] Last Admin: 07/11/23 08:37 Dose: 6.25 mg Fluoxetine HCl (Fluoxetine Hcl 20 Mg Capsule) 20 mg PO DAILY [facility] Last Admin: 07/11/23 08:37 Dose: 20 mg Heparin Sodium (Porcine) (Heparin Sodium 5,000 Units/Ml Vial) 2,000 units IV PUSH PRN PRN PRN Reason: aPTT 55 - 70 seconds Heparin Sodium (Porcine) (Heparin Sodium 5,000 Units/Ml Vial) 4,000 units IV PUSH PRN PRN PRN Reason: aPTT less than 55 seconds Last Admin: 07/10/23 20:35 Dose: 4,000 units Heparin Sodium/Dextrose (Heparin Sodium/D5w 100 Units/Ml) 25,000 units in 250 mls @ 7 mls/hr IV CONT .Q24H [facility]; Protocol Last Admin: 07/11/23 04:24 Dose: 700 units/hr, 7 mls/hr Ipratropium [place] (Ipratropium Br 0.02% Inh Soln 0.5 Mg/2.5 Ml Vial) 0.5 mg INHALATION Q6HRT [facility] Last Admin: 07/11/23 07:21 Dose: 0.5 mg Lorazepam (Lorazepam (*Crx) 0.5 Mg Tablet) 0.5 mg PO TID PRN PRN Reason: Anxiety Last Admin: 07/09/23 21:30 Dose: 0.5 mg Prednisone (Prednisone 20 Mg Tablet) 60 mg PO DAILY@0800 [facility] Last Admin: 07/11/23 08:37 Dose: 60 mg Sedation/Anesthesia: No previous sedation/anesthesia problems (including family history). [facility], [facility] Past Medical History Medical History Anxiety and depression COPD (chronic obstructive pulmonary disease) Heart attack stent(s) placed ([facility]) High cholesterol Surgical History Surgical History H/O heart artery stent Family History Family History Sibling Patient's brother is in good health Father Family history of pancreatic cancer, Onset Age: 82 Patient's father is Mother Patient's mother is Unknown Asthma Hypertension Heart disease Arthritis Social History Social History Social History: Patient reports that she is . She lives alone. She used to smoke at least a pack of cigarettes per day but quit smoking within the last 10 years. She denies any significant alcohol use or illicit substance use. She still drives and is independent activities of daily living. Code status: DNR/DNI (per patient request) Surrogate decision maker: Fina Machuca (sister) Smoking packs per day: 1 Smoking cigarettes per day: 20.0 Years smoked: 55 Smoking pack-years: 55.00 Smoking status: Current every day smoker Tobacco type: cigarettes Alcohol intake: never Substance use type: does not use Do You Feel Safe in your Home?: Yes Lack of Transportation: No Lack of Food: Never True Current Housing: I Have Housing Concerned About Future Housing: No Difficulty Paying Gas/Electric Bills: No Difficulty Paying for Meds: No Currently Unemployed: No Education: Associate Degree Difficulty w/ Childcare or Family Care: No Living arrangements: with family Additional living arrangements comments: sister Occupation/Education: retired Gender identity (if verbalized by the patient): Female Spiritual care concerns: No Mod Sed Physical Exam Physical Exam Pre Procedural Exam: Normal: Appearance, Lungs, Heart Rate, Heart Rhythm, Neuro Exam, Extremities and Skin Hours since solid foods: 12 Hours since liquid intake: 8 Mallampati Classification: class II Internal Medicine - PN: Obj Da Vital Signs Vital Signs: Vital Signs - 24 hr 07/10/23 10:00 07/10/23 11:53 07/10/23 12:00 Temperature 36.6 C Pulse Rate 87 95 88 Respiratory Rate 16 Blood Pressure 130/58 L Pulse Oximetry 90 Oxygen Delivery 07/10/23 12:00 07/10/23 13:56 07/10/23 14:02 Temperature Pulse Rate 87 95 Respiratory Rate 16 16 Blood Pressure Pulse Oximetry Oxygen Delivery Room Air 07/10/23 15:21 07/10/23 14:00 07/10/23 16:00 Temperature 36.4 C Pulse Rate 81 87 79 Respiratory Rate 17 Blood Pressure 121/56 L Pulse Oximetry 92 Oxygen Delivery 07/10/23 16:00 07/10/23 18:00 07/10/23 19:54 Temperature 36.9 C Pulse Rate 75 69 Respiratory Rate 18 Blood Pressure 127/63 Pulse Oximetry 98 Oxygen Delivery Room Air 07/10/23 20:20 07/10/23 20:20 07/10/23 20:36 Temperature Pulse Rate 69 69 71 Respiratory Rate 18 18 Blood Pressure Pulse Oximetry 92 Oxygen Delivery Room Air 07/10/23 20:27 07/10/23 23:34 07/10/23 22:00 Temperature 36.5 C Pulse Rate 68 68 82 Respiratory Rate 18 Blood Pressure 146/86 H Pulse Oximetry 98 Oxygen Delivery 07/10/23 20:00 07/11/23 00:00 07/11/23 00:00 Temperature Pulse Rate 61 70 Respiratory Rate Blood Pressure Pulse Oximetry Oxygen Delivery Room Air 07/11/23 02:00 07/11/23 02:23 07/11/23 02:31 Temperature Pulse Rate 58 L 61 60 Respiratory Rate 18 18 Blood Pressure Pulse Oximetry Oxygen Delivery 07/11/23 04:00 07/11/23 04:00 07/11/23 05:33 Temperature 36.5 C Pulse Rate 58 L 69 Respiratory Rate 18 Blood Pressure 132/70 Pulse Oximetry 97 Oxygen Delivery Room Air 07/11/23 07:21 07/11/23 07:23 07/11/23 07:29 Temperature Pulse Rate 69 67 67 Respiratory Rate 18 16 18 Blood Pressure Pulse Oximetry 93 Oxygen Delivery Room Air 07/11/23 08:00 07/11/23 08:37 07/11/23 08:00 Temperature 36.0 C L Pulse Rate 63 62 69 Respiratory Rate 18 Blood Pressure 147/67 H Pulse Oximetry 94 Oxygen Delivery 07/11/23 08:00 Temperature Pulse Rate Respiratory Rate Blood Pressure Pulse Oximetry Oxygen Delivery Room Air Intake/Output Intake/Output: Intake & Output 07/08/23 07/09/23 07/10/23 07/11/23 23:59 23:59 23:59 23:59 Intake Total 42.4 978 1340.6 561.7 Output Total 650 300 Balance 42.4 978 690.6 261.7 Meds/Results Medications: Active Medications Generic Name Dose Route Start Last Admin Trade Name Freq PRN Reason Stop Dose Admin Atorvastatin Calcium 80 mg 07/09/23 09:00 07/11/23 08:37 Atorvastatin 40 Mg Tablet PO 80 mg DAILY FABIO Administration Carvedilol 6.25 mg 07/09/23 09:00 07/11/23 08:37 Carvedilol 6.25 Mg Tablet PO 6.25 mg Q12HR FABIO Administration Fluoxetine HCl 20 mg 07/09/23 09:00 07/11/23 08:37 Fluoxetine Hcl 20 Mg Capsule PO 20 mg DAILY FABIO Administration Heparin Sodium (Porcine) 2,000 units 07/09/23 18:59 Heparin Sodium 5,000 Units/Ml Vial IV PUSH PRN PRN aPTT 55 - 70 seconds Heparin Sodium (Porcine) 4,000 units 07/09/23 19:10 07/10/23 20:35 Heparin Sodium 5,000 Units/Ml Vial IV PUSH 4,000 units PRN PRN Administration aPTT less than 55 seconds Heparin Sodium/Dextrose 25,000 units in 250 mls @ 7 mls/hr 07/09/23 22:00 07/11/23 04:24 Heparin Sodium/D5w 100 Units/Ml IV CONT 700 units/hr .Q24H FABIO 7 mls/hr Administration Protocol 700 UNITS/HR Ipratropium [place] 0.5 mg 07/09/23 02:00 07/11/23 07:21 Ipratropium Br 0.02% Inh Soln 0.5 Mg/2.5 Ml Vial INHALATION 0.5 mg Q6HRT FABIO Administration Lorazepam 0.5 mg 07/09/23 00:38 07/09/23 21:30 Lorazepam (*Crx) 0.5 Mg Tablet PO 0.5 mg TID PRN Administration Anxiety Prednisone 60 mg 07/09/23 08:00 07/11/23 08:37 Prednisone 20 Mg Tablet PO 60 mg DAILY@0800 [facility] Administration Radiology Results: ITS Impressions Chest X-Ray 07/08/23 15:19 IMPRESSION: 1. Emphysema. Labs 07/11/23 02:24 07/11/23 02:24 Labs: Laboratory Results - last 24 hr 07/10/23 07/10/23 07/10/23 10:53 12:31 19:25 WBC RBC Hgb Hct MCV MCH MCHC RDW Plt Count MPV Immature Gran % (Auto) Neut % (Auto) Lymph % (Auto) [place] % (Auto) Eos % (Auto) Baso % (Auto) Lymph # (Auto) [place] # (Auto) Eos # (Auto) Baso # (Auto) Abs Immat Gran (auto) Absolute Neuts (auto) Absolute Nucleated RBC Nucleated RBC % APTT > 200.0 H* 113.4 H 48.4 H Sodium Potassium Chloride Carbon Dioxide Anion Gap BUN Creatinine Estim Creat Clear Calc Estimated GFR Glucose Calcium Magnesium Troponin I 07/10/23 07/11/23 22:54 02:24 WBC 8.8 RBC 4.14 L Hgb 12.6 Hct 38.1 MCV 92.0 MCH 30.4 MCHC 33.1 RDW 14.7 H Plt Count 227 MPV 10.7 H Immature Gran % (Auto) 0.2 Neut % (Auto) 74.8 H Lymph % (Auto) 17.9 L [place] % (Auto) 6.5 Eos % (Auto) 0.1 Baso % (Auto) 0.5 Lymph # (Auto) 1.58 [place] # (Auto) 0.6 Eos # (Auto) 0.0 Baso # (Auto) 0.0 Abs Immat Gran (auto) 0.02 Absolute Neuts (auto) 6.6 Absolute Nucleated RBC 0.000 Nucleated RBC % 0.0 APTT 191.8 H* Sodium 135 L Potassium 3.5 Chloride 105 Carbon Dioxide 26 Anion Gap 4 BUN 24 H Creatinine 0.50 L Estim Creat Clear Calc 73 Estimated GFR > 60 Glucose 108 Calcium 9.0 Magnesium 2.0 Troponin I 0.048 H* 0.056 H* ASA Classification/Sedation ASA Classification/Sedation ASA Class: III Emergent: No Risks: Risks, benefits and alternatives explained and patient/family accepted plan for sedation. Patient re-evaluated immediately prior to sedation.
--- NOTE | 2023-07-11 09:54 | P.PCNCC_ITS ---
Cardiac Cath Procedure Note Date of procedure:: 07/11/23 Performing physician:: CATHETERIZATION LABORATORY REPORT Procedure Date: 07/11/2023 Ship Officer: Khai Graf M.D., [facility]? Referring Physician: Ruben Davis M.D. Anesthesia: Versed and Fentanyl were ordered and given in my presence at 10:11, procedure ended at 10:39. Supervision of nurse monitored moderate sedation with Versed and Fentanyl was provided for 28 minutes. Total of Versed 1mg and Fentanyl 25mcg were administered by the Vice President Of Instruction RN Olivia Bradford. Pre-op Diagnosis: NSTEMI Post-op Diagnosis: 1. Non-obstructive coronary artery disease with patent LCX stent (which extends into OM). 2. Elevated left ventricular end-diastolic pressure of 15mmHg Procedure(s): 1. Moderate sedation 2. Ultrasound-guided access of the right common femoral artery 3. Coronary angiography 4. Left heart catheterization Access Site: Right common femoral artery Brief History and Clinical Indications: Patient is a 73 year old female with coronary artery disease s/p prior PCI who is referred for [facility] for NSTEMI. All risks, benefits and alternatives to left heart catheterization with or without percutaneous coronary intervention was discussed at length with the patient. Risk of complications including but not limited to bleeding, infection, arrhythmia, stroke, worsening kidney function, blood loss, groin hematoma, limb loss, emergency coronary artery bypass grafting, and even were discussed with the patient and all questions were answered. The patient understood and wished to proceed. Time out called, patient name, date of , medical record number, allergies, procedure performed, identify Ship Officer, patient and staff member concurred with accurate data, procedure carried on. Findings: LEFT HEART CATHETERIZATION FINDINGS: 1. Left main: The left main coronary artery is widely patent without any significant obstructive disease. 2. Left anterior descending: The LAD has mild disease in the mid portion. The first diagonal branch is a small caliber vessel without any significant obstructive disease. 3. Left circumflex: There is a widely patent stent in the proximal LCX extending into the OM branch. The remainder of the LCX is a small caliber vessel without obstructive disease. The OM branch is a small caliber branch without obstructive disease. 4. Right coronary artery: The RCA is the dominant vessel. The RCA has mild diffuse disease without any significant angiographic obstructive disease. 5. Left ventricle: A. End-diastolic pressure 15 mmHg. B. LV gram deferred. C. No significant gradient across aortic valve on catheter pullback. Description of Procedure: Informed consent signed and placed in the chart. Patient transferred to lab support service tech room. Prepped and draped in usual sterile fashion. 2% lidocaine in right groin area. Micropuncture needle used to access right common femoral artery with Seldinger technique under fluoroscopic and ultrasound guidance. J wire advanced, micropuncture cannula placed. Right iliofemoral angiogram obtained, showed access was below the bifurcation, therefore, micropuncture cannula removed, and manual pressure was applied to achieve hemostasis. Once hemostasis was achieved, micropuncture needle used again to access right common femoral artery under ultrasound guidance. Right iliofemoral angiogram performed, access confirmed and micropuncture cannula exchanged for 5-FR sheath. 5F FL 4 diagnostic catheter engaged Left Main Coronary Artery. 5F FR 4 diagnostic catheter engaged Right Coronary Artery. Multiple orthogonal angiogram obtained and reviewed 5F Pigtail diagnostic catheter crossed aortic valve to obtain LVEDP, LV angiogram deferred. Hemostasis was achieved by manual pressure. Post Operative Condition: Stable No significant blood loss Disposition: Floor Plan: The patient will be monitored in the recovery area. Continue aggressive medical therapy and risk factor modification. Will obtain transthoracic echocardiogram to evaluate LVEF, valves, etc. ? Khai Graf M.D. Interventional Cardiology
--- NOTE | 2023-07-11 10:05 | PC.NURSE ---
Patient transferred to chemical laboratory scientist at [id number], chemical laboratory scientist RN paused heparin drip prior to leaving unit.
--- NOTE | 2023-07-11 10:57 | PM.PNCARD ---
Progress Note: A&P Assessment and Plan (1) Acute non-ST elevation myocardial infarction (NSTEMI): Code(s): I21.4 - Non-ST elevation (NSTEMI) myocardial infarction Status: Acute Assessment and Plan: Cardiac catheterization shows Non-obstructive coronary artery disease with patent LCX stent (which extends into OM). Will obtain echocardiogram to assess LVEF, valves, etc. Anticipate possible discharge home tomorrow if feeling well. (2) COPD exacerbation: Code(s): J44.1 - Chronic obstructive pulmonary disease with (acute) exacerbation Status: Acute Assessment and Plan: Improving. Management as per Hospitalist. (3) Pulmonary embolism: Code(s): I26.99 - Other pulmonary embolism without acute cor pulmonale Status: Acute Assessment and Plan: On Eliquis for a history of PE. Will resume Eliquis tomorrow evening. (4) Coronary artery disease: Code(s): I25.10 - Atherosclerotic heart disease of [place] coronary artery without angina pectoris Status: Acute Assessment and Plan: Start ASA 81mg once daily. Continue high-intensity statin. Plan Recommendations and plan discussed with Hospitalist. Subjective Date/time seen: 07/11/23 10:57 Interval history: Reason for visit: NSTEMI HPI: 73-year-old female patient presents to the hospital because of shortness of breath has been present for last 2 days but has been severe since yesterday.? Shortness of breath is present with mild activity and at rest yesterday associated with midsternal chest heaviness.? Chest heaviness was [id number] in severity nonradiating without precipitating or alleviating factors.? On arrival she was noted to have abnormal EKG with mild elevated troponin.? Overnight symptom has been improving.? Patient has history of coronary artery disease. Date of service 07/09: Recent onset of symptoms of exertional [place] with some chest heaviness with history of coronary artery disease and PCI with stenting in the remote past records of this are not available.? No recent cardiac follow-up.? She has hypertension and dyslipidemia and is also systemically anticoagulated for reasons that are not clear. Date of service 07/10: Feeling well today without any recurrence of chest pain or shortness of breath. Review of Systems Review of Systems: All systems reviewed & are unremarkable except as noted in HPI and below (HPI) Exam Const: General: comfortable and no acute distress HENMT: Mouth: Yes moist mucous membranes Eyes: General: appearance normal, both eyes and all related structures Sclera: sclerae normal Resp: Effort & Inspection: normal respiratory effort Cardio: Rate: regular rate Rhythm: regular rhythm Skin: General skin exam: normal color Neuro: Speech: normal speech Psych: Mental Status: mental status grossly normal Affect: normal affect Objective Data Vital Signs Vital Signs: Vital Signs - 24 hr 07/10/23 11:53 07/10/23 12:00 07/10/23 12:00 Temperature 36.6 C Pulse Rate 95 88 Respiratory Rate 16 Blood Pressure 130/58 L Pulse Oximetry 90 Oxygen Delivery Room Air 07/10/23 13:56 07/10/23 14:02 07/10/23 15:21 Temperature 36.4 C Pulse Rate 87 95 81 Respiratory Rate 16 16 17 Blood Pressure 121/56 L Pulse Oximetry 92 Oxygen Delivery 07/10/23 14:00 07/10/23 16:00 07/10/23 16:00 Temperature Pulse Rate 87 79 Respiratory Rate Blood Pressure Pulse Oximetry Oxygen Delivery Room Air 07/10/23 18:00 07/10/23 19:54 07/10/23 20:20 Temperature 36.9 C Pulse Rate 75 69 69 Respiratory Rate 18 18 Blood Pressure 127/63 Pulse Oximetry 98 Oxygen Delivery 07/10/23 20:20 07/10/23 20:36 07/10/23 20:27 Temperature Pulse Rate 69 71 68 Respiratory Rate 18 Blood Pressure Pulse Oximetry 92 Oxygen Delivery Room Air 07/10/23 23:34 07/10/23 22:00 07/10/23 20:00 Temperature 36.5 C Pulse Rate 68 82 61 Respiratory Rate 18 Blood Pressure 146/86 H Pulse Oximetry 98 Oxygen Delivery 07/11/23 00:00 07/11/23 00:00 07/11/23 02:00 Temperature Pulse Rate 70 58 L Respiratory Rate Blood Pressure Pulse Oximetry Oxygen Delivery Room Air 07/11/23 02:23 07/11/23 02:31 07/11/23 04:00 Temperature Pulse Rate 61 60 Respiratory Rate 18 18 Blood Pressure Pulse Oximetry Oxygen Delivery Room Air 07/11/23 04:00 07/11/23 05:33 07/11/23 07:21 Temperature 36.5 C Pulse Rate 58 L 69 69 Respiratory Rate 18 18 Blood Pressure 132/70 Pulse Oximetry 97 Oxygen Delivery 07/11/23 07:23 07/11/23 07:29 07/11/23 08:00 Temperature 36.0 C L Pulse Rate 67 67 63 Respiratory Rate 16 18 18 Blood Pressure 147/67 H Pulse Oximetry 93 94 Oxygen Delivery Room Air 07/11/23 08:37 07/11/23 08:00 07/11/23 08:00 Temperature Pulse Rate 62 69 Respiratory Rate Blood Pressure Pulse Oximetry Oxygen Delivery Room Air Intake/Output Intake/Output: Intake & Output 07/08/23 07/09/23 07/10/23 07/11/23 23:59 23:59 23:59 23:59 Intake Total 42.4 978 1340.6 561.7 Output Total 650 300 Balance 42.4 978 690.6 261.7 Meds/Results Medications: Active Medications Generic Name Dose Route Start Last Admin Trade Name Freq PRN Reason Stop Dose Admin Apixaban 5 mg 07/12/23 21:00 Apixaban 5 Mg Tablet PO Q12HR [facility] Aspirin 81 mg 07/12/23 09:00 Aspirin 81 Mg Enteric Tablet PO QAM [facility] Atorvastatin Calcium 80 mg 07/09/23 09:00 07/11/23 08:37 Atorvastatin 40 Mg Tablet PO 80 mg DAILY FABIO Administration Carvedilol 6.25 mg 07/09/23 09:00 07/11/23 08:37 Carvedilol 6.25 Mg Tablet PO 6.25 mg Q12HR FABIO Administration Fluoxetine HCl 20 mg 07/09/23 09:00 07/11/23 08:37 Fluoxetine Hcl 20 Mg Capsule PO 20 mg DAILY FABIO Administration Sodium Chloride 1,000 mls @ 125 mls/hr 07/11/23 10:44 Normal Saline Iv IV CONT 07/11/23 18:43 .Q8H ONE Ipratropium [place] 0.5 mg 07/09/23 02:00 07/11/23 07:21 Ipratropium Br 0.02% Inh Soln 0.5 Mg/2.5 Ml Vial INHALATION 0.5 mg Q6HRT FABIO Administration Lorazepam 0.5 mg 07/09/23 00:38 07/09/23 21:30 Lorazepam (*Crx) 0.5 Mg Tablet PO 0.5 mg TID PRN Administration Anxiety Perflutren Lipid Microsphere 0 ml 07/11/23 10:43 Perflutren Lipid Microspheres 1.5 Ml Vial Diluted To 10 Ml Total Volume IV PUSH 07/14/23 10:44 ONCE PRN adequate visualization Protocol Prednisone 60 mg 07/09/23 08:00 07/11/23 08:37 Prednisone 20 Mg Tablet PO 60 mg DAILY@0800 FABIO Administration Radiology Results: ITS Impressions Chest X-Ray 07/08/23 15:19 IMPRESSION: 1. Emphysema. Labs Labs: Laboratory Results - last 24 hr 07/10/23 07/10/23 07/10/23 10:53 12:31 19:25 WBC RBC Hgb Hct MCV MCH MCHC RDW Plt Count MPV Immature Gran % (Auto) Neut % (Auto) Lymph % (Auto) [place] % (Auto) Eos % (Auto) Baso % (Auto) Lymph # (Auto) [place] # (Auto) Eos # (Auto) Baso # (Auto) Abs Immat Gran (auto) Absolute Neuts (auto) Absolute Nucleated RBC Nucleated RBC % APTT > 200.0 H* 113.4 H 48.4 H Sodium Potassium Chloride Carbon Dioxide Anion Gap BUN Creatinine Estim Creat Clear Calc Estimated GFR Glucose Calcium Magnesium Troponin I 07/10/23 07/11/23 22:54 02:24 WBC 8.8 RBC 4.14 L Hgb 12.6 Hct 38.1 MCV 92.0 MCH 30.4 MCHC 33.1 RDW 14.7 H Plt Count 227 MPV 10.7 H Immature Gran % (Auto) 0.2 Neut % (Auto) 74.8 H Lymph % (Auto) 17.9 L [place] % (Auto) 6.5 Eos % (Auto) 0.1 Baso % (Auto) 0.5 Lymph # (Auto) 1.58 [place] # (Auto) 0.6 Eos # (Auto) 0.0 Baso # (Auto) 0.0 Abs Immat Gran (auto) 0.02 Absolute Neuts (auto) 6.6 Absolute Nucleated RBC 0.000 Nucleated RBC % 0.0 APTT 191.8 H* Sodium 135 L Potassium 3.5 Chloride 105 Carbon Dioxide 26 Anion Gap 4 BUN 24 H Creatinine 0.50 L Estim Creat Clear Calc 73 Estimated GFR > 60 Glucose 108 Calcium 9.0 Magnesium 2.0 Troponin I 0.048 H* 0.056 H*
--- NOTE | 2023-07-11 11:59 | P.CDI_ITS ---
severe CDI Query Clarification Request BMI 18.7 Nutritional Diagnostic Statement Severe protein calorie malnutrition related to reduced appetite and intake as evidenced by Pt report of poor appetite and intake for the last several months, self reported weight loss, noted low BMI 18.8, and NFPE findings for severe subc utaneous fat loss (cheeks, biceps) and severe muscle wasting (temples, clavicle). Please refer to the comprehensive nutrition assessment for further information. Please clarify severity of protein calorie malnutrition if known: * Mild * Moderate * Severe * Other/Unspecified
[2023-07-11] MEDS: SODIUM CHLORIDE 0.9% IV 1,000 ML 125 ML IV CONT (12:33)
--- NOTE | 2023-07-11 12:45 | PC.NURSE ---
Patient back from [facility] with no issues.
[2023-07-11] MEDS: LORazepam (*CRX) 0.5 MG TABLET PO (21:00)
[2023-07-12] VITALS (17 sets, daily range): BP systolic 131–151; BP diastolic 60–70; PULSE 67–89; RESP 16–87; TEMP 35.8–36.9; O2SAT 16–97
[2023-07-12] MEDS: IPRATROPIUM BR 0.02% INH SOLN 0.5 MG/2.5 ML VIAL INHALATION ×2 (02:24→07:16)
[2023-07-12 04:52] LABS: Basophils Percent Auto 0.2 % (0.2-1.2); Hematocrit 36.7 % (37.0-47.0); Hemoglobin 11.8 g/dL (12.0-15.0); Immature Granulocyte Absolute 0.04 K/mm3 (0.00-0.031); Immature Granulocyte Percent A 0.4 % (0-0.5); Lymphocytes Absolute Auto 1.38 K/mm3 (0.9-3.2); Lymphocytes Percent Auto 14.8 % (18.3-44.2); Mean Corpuscular HGB Conc 32.2 g/dl (32-36); Mean Corpuscular Hemoglobin 30.5 pg (26-34); Mean Corpuscular Volume 94.8 fl (80-100); Mean Platelet Volume 11.4 fl (7.4-10.4); Monocytes Absolute Auto 0.6 K/mm3 (0.1-0.6); Monocytes Percent Auto 6.6 % (2.6-8.5); Neutrophils Absolute Auto 7.3 K/mm3 (1.3-6.7); Platelet Count Result 217 k/mm3 (150-375); Red Blood Count 3.87 M/mm3 (4.2-5.4); Red Cell Distribution Width 14.6 % (11.5-14.5); White Blood Count 9.3 K/mm3 (4.5-10.0)
[2023-07-12 04:59] LABS: Anion Gap 3 mmol/L (4-12); Blood Urea Nitrogen 26 mg/dL (7-17); Calcium 8.9 mg/dL (8.4-10.2); Carbon Dioxide 25 mmol/L (22-30); Chloride 110 mmol/L (98-107); Estimated CRCL calculation 62 ml/min; Estimated Glomerular Filt Rate > 60; Glucose 96 mg/dL (65-110); Magnesium 2.2 mg/dL (1.6-2.3); Potassium 3.4 mmol/L (3.4-5.0); Sodium 138 mmol/L (137-145)
[2023-07-12] MEDS: predniSONE 20 MG TABLET 60 MG PO (09:31)
[2023-07-12] MEDS: FLUoxetine HCL 20 MG CAPSULE PO (09:32)
[2023-07-12] MEDS: ATORVASTATIN 40 MG TABLET 80 MG PO (09:32)
[2023-07-12] MEDS: carvediloL 6.25 MG TABLET PO (09:32)
[2023-07-12] MEDS: ASPIRIN 81 MG ENTERIC TABLET PO (09:32)
--- NOTE | 2023-07-12 10:27 | PM.IMPN ---
Progress Note: A&P Assessment and Plan (1) COPD exacerbation: Code(s): J44.1 - Chronic obstructive pulmonary disease with (acute) exacerbation Status: Acute (2) Elevated troponin level: Code(s): R79.89 - Other specified abnormal findings of blood chemistry Status: Acute (3) Acute non-ST elevation myocardial infarction (NSTEMI): Code(s): I21.4 - Non-ST elevation (NSTEMI) myocardial infarction Status: Acute (4) Anxiety and depression: Code(s): F41.9 - Anxiety disorder, unspecified; F32.A - Depression, unspecified Status: Acute (5) Hypokalemia: Code(s): E87.6 - Hypokalemia Status: Acute Plan 73-year-old female with past medical history CAD status post stents on Eliquis, COPD, active tobacco abuse, hyperlipidemia, GERD, anxiety and depression stenting with shortness of breath. Differential includes acute COPD exacerbation, anxiety attack, NSTEMI. COPD exacerbation Continue DuoNebs and prednisone. She denying any shortness of breath or chest pain. Resolved Resume home medication For suspected NSTEMI cardi has been consulted. Troponin peak was 0.122 on admission. She is currently on a heparin GTT and proposed to go for back catheterization today. Continue atorvastatin and Coreg. In the ER she received 324 mg aspirin x1, Lasix 40 mg IV x1, Plavix 600 mg p.o. x1, nitroglycerin transdermal patch, Ativan 0.5 mg IV x1. Continue Ativan p.r.n.. 07/11 appreciate cardiology consultation, cardiac catheterization showed nonobstructive coronary artery disease LCX stent , ELEVATED LEFT VENTRICLE END-DIASTOLIC PRESSURE follow-up echocardiogram unremarkable. cardiology cleared patient to go home today, I added losartan 25 mg daily p.o. per contract agent hx of PE on eliquis Subjective Date/time seen: 07/12/23 10:27 Interval history: I saw and examined patient today, patient denies chest pain, abdomen pain, nausea vomiting. Patient is afebrile overnight, blood stable, no O2 desaturation over the night, Exam Narrative: GENERAL: Pleasant, in no acute distress. Well-nourished. - EYES: EOMI. Anicteric. - HENT: Moist mucous membranes. - LUNGS: Clear to auscultation bilaterally, no wheezing, rhonchi, or rales. - CARDIOVASCULAR: Regular rate and rhythm. No murmur. No JVD. - ABDOMEN: Soft, non-tender and non-distended. No palpable masses. - EXTREMITIES: No edema. Peripheral pulses 2+. Non-tender. - NEUROLOGIC: No focal neurological deficits. CN II-XII grossly intact. - PSYCHIATRIC: Awake, Alert and oriented x 3. Appropriate mood and affect. - SKIN: No rashes or lesions. Warm. - LYMPH: No cervical lymphadenopathy. Objective Data Vital Signs Vital Signs: Vital Signs - 24 hr 07/11/23 10:50 07/11/23 11:10 07/11/23 11:25 Temperature Pulse Rate 66 69 60 Respiratory Rate 13 19 14 Blood Pressure 130/76 139/76 134/76 Pulse Oximetry 93 93 90 Oxygen Delivery Room Air Room Air Room Air 07/11/23 11:30 07/11/23 12:00 07/11/23 10:56 Temperature Pulse Rate 62 64 66 Respiratory Rate 12 12 12 Blood Pressure 133/73 137/72 133/76 Pulse Oximetry 91 92 93 Oxygen Delivery Room Air Room Air Room Air 07/11/23 11:00 07/11/23 11:05 07/11/23 11:15 Temperature Pulse Rate 68 67 66 Respiratory Rate 12 13 14 Blood Pressure 140/80 140/77 140/74 Pulse Oximetry 95 92 91 Oxygen Delivery Room Air Room Air Room Air 07/11/23 11:20 07/11/23 12:15 07/11/23 12:30 Temperature Pulse Rate 59 L 64 60 Respiratory Rate 16 12 12 Blood Pressure 136/70 142/71 H 145/77 H Pulse Oximetry 91 92 96 Oxygen Delivery Room Air Room Air Room Air 07/11/23 12:53 07/11/23 13:37 07/11/23 13:55 Temperature 96.9 F L 96.8 F L Pulse Rate 65 69 71 Respiratory Rate 18 16 18 Blood Pressure 131/57 L 128/72 Pulse Oximetry 94 93 Oxygen Delivery 07/11/23 14:09 07/11/23 14:00 07/11/23 14:30 Temperature 97 F L Pulse Rate 75 73 80 Respiratory Rate 17 20 Blood Pressure 131/61 Pulse Oximetry 93 Oxygen Delivery 07/11/23 16:00 07/11/23 16:00 07/11/23 15:42 Temperature 96.8 F L 97 F L Pulse Rate 72 84 70 Respiratory Rate 20 18 Blood Pressure 148/68 H 141/70 H Pulse Oximetry 93 94 Oxygen Delivery 07/11/23 16:00 07/11/23 17:00 07/11/23 18:00 Temperature 97.4 F L Pulse Rate 82 78 Respiratory Rate 18 Blood Pressure 119/83 Pulse Oximetry 94 Oxygen Delivery Room Air 07/11/23 19:40 07/11/23 19:40 07/11/23 20:22 Temperature 97.8 F Pulse Rate 80 75 Respiratory Rate 18 18 Blood Pressure 121/71 Pulse Oximetry 91 96 Oxygen Delivery Room Air 07/11/23 21:00 07/11/23 20:00 07/11/23 20:00 Temperature Pulse Rate 76 77 Respiratory Rate Blood Pressure Pulse Oximetry Oxygen Delivery Room Air 07/11/23 22:00 07/12/23 00:00 07/12/23 00:59 Temperature 97.8 F Pulse Rate 67 73 70 Respiratory Rate 18 Blood Pressure 135/60 Pulse Oximetry 97 Oxygen Delivery 07/12/23 00:00 07/12/23 02:26 07/12/23 02:33 Temperature Pulse Rate 81 79 Respiratory Rate 16 18 Blood Pressure Pulse Oximetry Oxygen Delivery Room Air 07/11/23 19:48 07/12/23 02:00 07/12/23 04:38 Temperature 97.5 F L Pulse Rate 83 68 69 Respiratory Rate 18 18 Blood Pressure 135/60 Pulse Oximetry 94 Oxygen Delivery 07/12/23 04:00 07/12/23 04:00 07/12/23 06:00 Temperature Pulse Rate 68 68 Respiratory Rate Blood Pressure Pulse Oximetry Oxygen Delivery Room Air 07/12/23 07:16 07/12/23 07:17 07/12/23 07:25 Temperature Pulse Rate 80 78 Respiratory Rate 18 18 Blood Pressure Pulse Oximetry 93 Oxygen Delivery Room Air 07/12/23 08:51 Temperature 96.5 F L Pulse Rate 74 Respiratory Rate 16 Blood Pressure 151/68 H Pulse Oximetry 95 Oxygen Delivery Intake/Output Intake/Output: Intake & Output 07/09/23 07/10/23 07/11/23 07/12/23 23:59 23:59 23:59 23:59 Intake Total 978 1340.6 2543.9 790 Output Total 650 1675 Balance 978 690.6 868.9 790 Meds/Results Medications: Active Medications Generic Name Dose Route Start Last Admin Trade Name Lilia PRN Reason Stop Dose Admin Acetaminophen 650 mg 07/12/23 01:11 Acetaminophen 325 Mg Tablet PO Q4H PRN Pain Apixaban 5 mg 07/12/23 21:00 Apixaban 5 Mg Tablet PO Q12HR [facility] Aspirin 81 mg 07/12/23 09:00 07/12/23 09:32 Aspirin 81 Mg Enteric Tablet PO 81 mg QAM [facility] Administration Atorvastatin Calcium 80 mg 07/09/23 09:00 07/12/23 09:32 Atorvastatin 40 Mg Tablet PO 80 mg DAILY FABIO Administration Carvedilol 6.25 mg 07/09/23 09:00 07/12/23 09:32 Carvedilol 6.25 Mg Tablet PO 6.25 mg Q12HR FABIO Administration Fluoxetine HCl 20 mg 07/09/23 09:00 07/12/23 09:32 Fluoxetine Hcl 20 Mg Capsule PO 20 mg DAILY FABIO Administration Ipratropium [place] 0.5 mg 07/09/23 02:00 07/12/23 07:16 Ipratropium Br 0.02% Inh Soln 0.5 Mg/2.5 Ml Vial INHALATION 0.5 mg Q6HRT FABIO Administration Lorazepam 0.5 mg 07/09/23 00:38 07/11/23 21:00 Lorazepam (*Crx) 0.5 Mg Tablet PO 0.5 mg TID PRN Administration Anxiety Perflutren Lipid Microsphere 0 ml 07/11/23 10:43 Perflutren Lipid Microspheres 1.5 Ml Vial Diluted To 10 Ml Total Volume IV PUSH 07/14/23 10:44 ONCE PRN adequate visualization Protocol Prednisone 60 mg 07/09/23 08:00 07/12/23 09:31 Prednisone 20 Mg Tablet PO 60 mg DAILY@0800 [facility] Administration Radiology Results: ITS Impressions Chest X-Ray 07/08/23 15:19 IMPRESSION: 1. Emphysema. Labs Labs: Laboratory Results - last 24 hr 07/12/23 03:57 WBC 9.3 RBC 3.87 L Hgb 11.8 L Hct 36.7 L MCV 94.8 MCH 30.5 MCHC 32.2 RDW 14.6 H Plt Count 217 MPV 11.4 H Immature Gran % (Auto) 0.4 Neut % (Auto) 78.0 H Lymph % (Auto) 14.8 L [place] % (Auto) 6.6 Eos % (Auto) 0.0 Baso % (Auto) 0.2 Lymph # (Auto) 1.38 [place] # (Auto) 0.6 Eos # (Auto) 0.0 Baso # (Auto) 0.0 Abs Immat Gran (auto) 0.04 H Absolute Neuts (auto) 7.3 H Absolute Nucleated RBC 0.000 Nucleated RBC % 0.0 Sodium 138 Potassium 3.4 Chloride 110 H Carbon Dioxide 25 Anion Gap 3 L BUN 26 H Creatinine 0.60 L Estim Creat Clear Calc 62 Estimated GFR > 60 Glucose 96 Calcium 8.9 Magnesium 2.2
--- NOTE | 2023-07-12 11:47 | PM.PNCARD ---
Progress Note: A&P Assessment and Plan (1) Acute non-ST elevation myocardial infarction (NSTEMI): Code(s): I21.4 - Non-ST elevation (NSTEMI) myocardial infarction Status: Acute Assessment and Plan: Cardiac catheterization shows Non-obstructive coronary artery disease with patent LCX stent (which extends into OM). Echo is unremarkable. Anticipate possible discharge home tomorrow if feeling well. (2) COPD exacerbation: Code(s): J44.1 - Chronic obstructive pulmonary disease with (acute) exacerbation Status: Acute Assessment and Plan: Improving. Management as per Hospitalist. (3) Pulmonary embolism: Code(s): I26.99 - Other pulmonary embolism without acute cor pulmonale Status: Acute Assessment and Plan: On Eliquis for a history of PE. Resume Eliquis (4) Coronary artery disease: Code(s): I25.10 - Atherosclerotic heart disease of [place] coronary artery without angina pectoris Status: Acute Assessment and Plan: Continue ASA 81mg once daily. Continue high-intensity statin. (5) Hypertension: Code(s): I10 - Essential (primary) hypertension Status: Acute Assessment and Plan: BP is consistently elevated. Will start her on losartan 25 mg p.o. daily Plan Recommendations and plan discussed with Hospitalist. Subjective Date/time seen: 07/12/23 11:47 Interval history: Reason for visit: NSTEMI HPI: 73-year-old female patient presents to the hospital because of shortness of breath has been present for last 2 days but has been severe since yesterday.? Shortness of breath is present with mild activity and at rest yesterday associated with midsternal chest heaviness.? Chest heaviness was [id number] in severity nonradiating without precipitating or alleviating factors.? On arrival she was noted to have abnormal EKG with mild elevated troponin.? Overnight symptom has been improving.? Patient has history of coronary artery disease. Date of service 07/09: Recent onset of symptoms of exertional [place] with some chest heaviness with history of coronary artery disease and PCI with stenting in the remote past records of this are not available.? No recent cardiac follow-up.? She has hypertension and dyslipidemia and is also systemically anticoagulated for reasons that are not clear. Date of service 07/10: Feeling well today without any recurrence of chest pain or shortness of breath. Date of service 07/12/2023: No groin pain, chest pain. No shortness of breath Review of Systems Review of Systems: All systems reviewed & are unremarkable except as noted in HPI and below Constitutional: Constitutional: Denies body ache(s) ENT: Reports Normal hearing present Cardiovascular: Cardiovascular: Denies chest pain Exam Const: General: comfortable and no acute distress Other: Comfortable fib elderly lady offers no complaints. HENMT: Face/Nose/Sinus: Normal nares present and no epistaxis Mouth: Yes moist mucous membranes Eyes: General: appearance normal, both eyes and all related structures Sclera: sclerae normal Neck: Neck: supple and no JVD Carotids: no bruits Other: Normal carotid pulses bilaterally no bruits About 2 cm of JVD above the angle of [place] Resp: Effort & Inspection: normal respiratory effort Auscultation: clear to auscultation bilaterally and lung sounds not diminished Other: Breath sounds somewhat diminished bilaterally but otherwise clear Cardio: Rate: regular rate Rhythm: regular rhythm Heart sounds: no gallops, no murmurs and no rubs Other: PMI nondisplaced GI: Auscultation: normal bowel sounds Skin: General skin exam: normal color, rashes and/or lesions noted and no erythema Other: Groin is clean dry and intact without murmur bruit or hematoma Right Neuro: Cranial nerves: Yes Equal, round and reactive pupils present Speech: normal speech Other: Alert and oriented x3 Extrem: General: no edema Other: No edema, adequate perfusion Psych: Mental Status: mental status grossly normal Affect: normal affect Objective Data Vital Signs Vital Signs: Vital Signs - 24 hr 07/11/23 12:00 07/11/23 12:15 07/11/23 12:30 Temperature Pulse Rate 64 64 60 Respiratory Rate 12 12 12 Blood Pressure 137/72 142/71 H 145/77 H Pulse Oximetry 92 92 96 Oxygen Delivery Room Air Room Air Room Air 07/11/23 12:53 07/11/23 13:37 07/11/23 13:55 Temperature 36.1 C L 36.0 C L Pulse Rate 65 69 71 Respiratory Rate 18 16 18 Blood Pressure 131/57 L 128/72 Pulse Oximetry 94 93 Oxygen Delivery 07/11/23 14:09 07/11/23 14:00 07/11/23 14:30 Temperature 36.1 C L Pulse Rate 75 73 80 Respiratory Rate 17 20 Blood Pressure 131/61 Pulse Oximetry 93 Oxygen Delivery 07/11/23 16:00 07/11/23 16:00 07/11/23 15:42 Temperature 36.0 C L 36.1 C L Pulse Rate 72 84 70 Respiratory Rate 20 18 Blood Pressure 148/68 H 141/70 H Pulse Oximetry 93 94 Oxygen Delivery 07/11/23 16:00 07/11/23 17:00 07/11/23 18:00 Temperature 36.3 C L Pulse Rate 82 78 Respiratory Rate 18 Blood Pressure 119/83 Pulse Oximetry 94 Oxygen Delivery Room Air 07/11/23 19:40 07/11/23 19:40 07/11/23 20:22 Temperature 36.6 C Pulse Rate 80 75 Respiratory Rate 18 18 Blood Pressure 121/71 Pulse Oximetry 91 96 Oxygen Delivery Room Air 07/11/23 21:00 07/11/23 20:00 07/11/23 20:00 Temperature Pulse Rate 76 77 Respiratory Rate Blood Pressure Pulse Oximetry Oxygen Delivery Room Air 07/11/23 22:00 07/12/23 00:00 07/12/23 00:59 Temperature 36.6 C Pulse Rate 67 73 70 Respiratory Rate 18 Blood Pressure 135/60 Pulse Oximetry 97 Oxygen Delivery 07/12/23 00:00 07/12/23 02:26 07/12/23 02:33 Temperature Pulse Rate 81 79 Respiratory Rate 16 18 Blood Pressure Pulse Oximetry Oxygen Delivery Room Air 07/11/23 19:48 07/12/23 02:00 07/12/23 04:38 Temperature 36.4 C L Pulse Rate 83 68 69 Respiratory Rate 18 18 Blood Pressure 135/60 Pulse Oximetry 94 Oxygen Delivery 07/12/23 04:00 07/12/23 04:00 07/12/23 06:00 Temperature Pulse Rate 68 68 Respiratory Rate Blood Pressure Pulse Oximetry Oxygen Delivery Room Air 07/12/23 07:16 07/12/23 07:17 07/12/23 07:25 Temperature Pulse Rate 80 78 Respiratory Rate 18 18 Blood Pressure Pulse Oximetry 93 Oxygen Delivery Room Air 07/12/23 08:51 07/12/23 08:00 Temperature 35.8 C L Pulse Rate 74 Respiratory Rate 16 Blood Pressure 151/68 H Pulse Oximetry 95 Oxygen Delivery Room Air Intake/Output Intake/Output: Intake & Output 07/09/23 07/10/23 07/11/23 07/12/23 23:59 23:59 23:59 23:59 Intake Total 978 1340.6 2543.9 790 Output Total 650 1675 Balance 978 690.6 868.9 790 Meds/Results Medications: Active Medications Generic Name Dose Route Start Last Admin Trade Name Freq PRN Reason Stop Dose Admin Acetaminophen 650 mg 07/12/23 01:11 Acetaminophen 325 Mg Tablet PO Q4H PRN Pain Apixaban 5 mg 07/12/23 21:00 Apixaban 5 Mg Tablet PO Q12HR [facility] Aspirin 81 mg 07/12/23 09:00 07/12/23 09:32 Aspirin 81 Mg Enteric Tablet PO 81 mg QAM [facility] Administration Atorvastatin Calcium 80 mg 07/09/23 09:00 07/12/23 09:32 Atorvastatin 40 Mg Tablet PO 80 mg DAILY FABIO Administration Carvedilol 6.25 mg 07/09/23 09:00 07/12/23 09:32 Carvedilol 6.25 Mg Tablet PO 6.25 mg Q12HR FABIO Administration Fluoxetine HCl 20 mg 07/09/23 09:00 07/12/23 09:32 Fluoxetine Hcl 20 Mg Capsule PO 20 mg DAILY [facility] Administration Ipratropium [place] 0.5 mg 07/09/23 02:00 07/12/23 07:16 Ipratropium Br 0.02% Inh Soln 0.5 Mg/2.5 Ml Vial INHALATION 0.5 mg Q6HRT FABIO Administration Lorazepam 0.5 mg 07/09/23 00:38 07/11/23 21:00 Lorazepam (*Crx) 0.5 Mg Tablet PO 0.5 mg TID PRN Administration Anxiety Perflutren Lipid Microsphere 0 ml 07/11/23 10:43 Perflutren Lipid Microspheres 1.5 Ml Vial Diluted To 10 Ml Total Volume IV PUSH 07/14/23 10:44 ONCE PRN adequate visualization Protocol Prednisone 60 mg 07/09/23 08:00 07/12/23 09:31 Prednisone 20 Mg Tablet PO 60 mg DAILY@0800 FABIO Administration Radiology Results: ITS Impressions Chest X-Ray 07/08/23 15:19 IMPRESSION: 1. Emphysema. Labs Labs: Laboratory Results - last 24 hr 07/12/23 03:57 WBC 9.3 RBC 3.87 L Hgb 11.8 L Hct 36.7 L MCV 94.8 MCH 30.5 MCHC 32.2 RDW 14.6 H Plt Count 217 MPV 11.4 H Immature Gran % (Auto) 0.4 Neut % (Auto) 78.0 H Lymph % (Auto) 14.8 L [place] % (Auto) 6.6 Eos % (Auto) 0.0 Baso % (Auto) 0.2 Lymph # (Auto) 1.38 [place] # (Auto) 0.6 Eos # (Auto) 0.0 Baso # (Auto) 0.0 Abs Immat Gran (auto) 0.04 H Absolute Neuts (auto) 7.3 H Absolute Nucleated RBC 0.000 Nucleated RBC % 0.0 Sodium 138 Potassium 3.4 Chloride 110 H Carbon Dioxide 25 Anion Gap 3 L BUN 26 H Creatinine 0.60 L Estim Creat Clear Calc 62 Estimated GFR > 60 Glucose 96 Calcium 8.9 Magnesium 2.2
--- NOTE | 2023-07-12 12:58 | PM.DS ---
DS: Admitting Diagnosis Discharge Date 07/12/23 Admitting Diagnosis (1) COPD exacerbation: ?Code(s): J44.1 - Chronic obstructive pulmonary disease with (acute) exacerbation ?Status:?Acute (2) Elevated troponin level: ?Code(s): R79.89 - Other specified abnormal findings of blood chemistry ?Status:?Acute (3) Acute non-ST elevation myocardial infarction (NSTEMI): ?Code(s): I21.4 - Non-ST elevation (NSTEMI) myocardial infarction ?Status:?Acute (4) Anxiety and depression: ?Code(s): F41.9 - Anxiety disorder, unspecified; F32.A - Depression, unspecified ?Status:?Acute (5) Hypokalemia: ?Code(s): E87.6 - Hypokalemia ?Status:?Acute DS: Discharge Diagnosis Discharge Diagnosis (1) COPD exacerbation: Code(s): J44.1 - Chronic obstructive pulmonary disease with (acute) exacerbation Status: Acute (2) Elevated troponin level: Code(s): R79.89 - Other specified abnormal findings of blood chemistry Status: Acute (3) Acute non-ST elevation myocardial infarction (NSTEMI): Code(s): I21.4 - Non-ST elevation (NSTEMI) myocardial infarction Status: Acute (4) Anxiety and depression: Code(s): F41.9 - Anxiety disorder, unspecified; F32.A - Depression, unspecified Status: Acute (5) Hypokalemia: Code(s): E87.6 - Hypokalemia Status: Acute DS: Summary Hospital Course Hospital Course: 73-year-old female with past medical history CAD status post stents on Eliquis, COPD, active tobacco abuse, hyperlipidemia, GERD, anxiety and depression present ED with a chief complaint of with shortness of breath. She did not have any oxygen requirement in the ER.? She reports she has not smoked in many years and denies any recent ill contacts.? The ER provider was able to elicit the patient was having some upper abdominal pressure and discomfort.? She is given full-dose aspirin in the ER.? Her EKG demonstrated some inverted T-waves.? She was not having any continued chest pain and was not feeling particularly short of breath at rest.? Initial troponin was elevated but repeat troponins were completely flat.? Cardiology was consulted from the ER and the patient was placed on heparin drip with bolus.? In the ER patient did get up to utilize the restroom.? When she got up to ambulate she did become quite dyspneic and did receive a nebulizer treatment which did improve her symptoms. The following med issues have been discussed the hospitalization COPD exacerbation Continue DuoNebs and prednisone. She denying any shortness of breath or chest pain. Resolved Resume home medication For suspected NSTEMI cardi has been consulted. Troponin peak was 0.122 on admission. She is currently on a heparin GTT and proposed to go for back catheterization today. Continue atorvastatin and Coreg. In the ER she received 324 mg aspirin x1, Lasix 40 mg IV x1, Plavix 600 mg p.o. x1, nitroglycerin transdermal patch, Ativan 0.5 mg IV x1. Continue Ativan p.r.n.. 07/11 appreciate cardiology consultation, cardiac catheterization showed nonobstructive coronary artery disease LCX stent , ELEVATED LEFT VENTRICLE END-DIASTOLIC PRESSURE follow-up echocardiogram unremarkable. cardiology cleared patient to go home today, I added losartan 25 mg daily p.o. per wheelchair rental clerk hx of PE on eliquis Time Spent with Patient Time attestation: Total time spent providing and/or coordinating discharge services: Exam Narrative: GENERAL: Pleasant, in no acute distress. Well-nourished. - EYES: EOMI. Anicteric. - HENT: Moist mucous membranes. - LUNGS: Clear to auscultation bilaterally, no wheezing, rhonchi, or rales. - CARDIOVASCULAR: Regular rate and rhythm. No murmur. No JVD. - ABDOMEN: Soft, non-tender and non-distended. No palpable masses. - EXTREMITIES: No edema. Peripheral pulses 2+. Non-tender. - NEUROLOGIC: No focal neurological deficits. CN II-XII grossly intact. - PSYCHIATRIC: Awake, Alert and oriented x 3. Appropriate mood and affect. - SKIN: No rashes or lesions. Warm. - LYMPH: No cervical lymphadenopathy. DS: Data Data Completed and Pending Labs on day of discharge: Labs from last 24 hours 07/12/23 03:57 WBC 9.3 RBC 3.87 L Hgb 11.8 L Hct 36.7 L MCV 94.8 MCH 30.5 MCHC 32.2 RDW 14.6 H Plt Count 217 MPV 11.4 H Immature Gran % (Auto) 0.4 Neut % (Auto) 78.0 H Lymph % (Auto) 14.8 L [facility] % (Auto) 6.6 Eos % (Auto) 0.0 Baso % (Auto) 0.2 Lymph # (Auto) 1.38 [facility] # (Auto) 0.6 Eos # (Auto) 0.0 Baso # (Auto) 0.0 Abs Immat Gran (auto) 0.04 H Absolute Neuts (auto) 7.3 H Absolute Nucleated RBC 0.000 Nucleated RBC % 0.0 Sodium 138 Potassium 3.4 Chloride 110 H Carbon Dioxide 25 Anion Gap 3 L BUN 26 H Creatinine 0.60 L Estim Creat Clear Calc 62 Estimated GFR > 60 Glucose 96 Calcium 8.9 Magnesium 2.2 Discharge Plan Discharge Attending physician on discharge: Andrew Macias Consulting providers: Gurvinder Jarrett Discharging Clinician: Andrew Macias Anticipated Discharge Date/Time: 07/12/23 12:58 Patient Disposition: Home, Self-Care Activity: as tolerated Diet: as tolerated and heart healthy Patient Instructions: Antibiotic Form, Apixaban (By mouth), How to Stop Smoking (DC), COPD (Chronic Obstructive Pulmonary Disease) (DC), Safe Use of Anticoagulants (DC) Stand Alone Forms: General Discharge Information Follow-up/Referrals: Gurvinder Jarrett MD [Physician] - (SEE CARDIOLOGY AT SCHEDULED APPOINTMENT) Levi,Martita Carranza MD [Primary Care Provider] - (Patient needs to see primary care doctor in 1 week after discharge) Discharge Medications: New losartan 25 mg Tablet 25 mg PO DAILY Qty: 30 0RF Continued atorvastatin 80 mg tablet 80 mg PO DAILY lorazepam 1 mg tablet 1 mg PO TID PRN (Reason: Anxiety) albuterol sulfate 90 mcg/actuation HFA aerosol inhaler 1 inh inhalation QID PRN (Reason: shortness of breath or wheezing) Qty: 6.7 0RF carvedilol 6.25 mg tablet 6.25 mg PO BID fluoxetine 20 mg capsule 20 mg PO DAILY Eliquis 5 mg tablet 5 mg PO BID Date of admission: 07/08/23 20:20 Primary Care Provider: Levi,Martita Carranza Admitting Provider: Tonya Davis. Attending physician on admission: Tonya Davis. Condition: Serious
[2023-07-12] MEDS: POTASSIUM CHLORIDE 20 MEQ ER TABLET 40 MEQ PO (13:01)
[2023-07-12] MEDS: LOSARTAN POTASSIUM 25 MG TABLET PO (13:01)
[2023-07-14 14:08] LABS: Heparin, Anti-XA 1.98 IU/mL
== END 2023-07-12 14:10 | disposition home or self-care (01) | DRG 281 ==
LOC: ANHED 20:19 → ANHIMU 20:57
PROVIDERS: General Practice; Internal Medicine; Admitting Provider Internal Medicine; Emergency Provider Emergency Medicine; PCP Family Medicine; Visit Provider Hospitalist
PROC: 4A023N7 Measurement of Cardiac Sampling and Pressure, Left Heart, Percutaneous Approach (ICD-10-PCS; CPT 93452; principal; 2023-07-11 09:30)
DX: I21.4 Non-ST elevation (NSTEMI) myocardial infarction (principal); J44.1 Chronic obstructive pulmonary disease with (acute) exacerbation; Z68.1 Body mass index [BMI] 19.9 or less, adult; I10 Essential (primary) hypertension; I25.10 Atherosclerotic heart disease of native coronary artery without angina pectoris; E87.6 Hypokalemia; E78.00 Pure hypercholesterolemia, unspecified; F41.9 Anxiety disorder, unspecified; F32.A Depression, unspecified; Z20.822 Contact with and (suspected) exposure to COVID-19; Z72.0 Tobacco use; Z95.5 Presence of coronary angioplasty implant and graft; Z79.01 Long term (current) use of anticoagulants; Z86.711 Personal history of pulmonary embolism
CPT/HCPCS: 36415; 36600; 71045; 80048; 80053; 82375; 82805; 83050; 83735; 84484; 85025; 85520; 85610; 85730; 87637; 93005; 93306; 93458; 94640; 96365; 96366; 96375; 99285; A9270; C1887; C1894; J1644; J1940; J2060; J2250; J3010; J7030; J7040; J7512

== ENCOUNTER 2025-03-04 15:58 | Observation (INO) | payer MEDICARE, SELFPAY ==
--- NOTE | ~2025-03-04 | CT_ITS ---
EXAMINATION: CTA chest PE protocol DATE: 03/04/2025 19:50 INDICATION: Shortness of breath. Pleuritic chest pain. TECHNIQUE: Computed tomography angiography (CTA) of the chest was performed with 100 mL Omnipaque-350 intravenous contrast timed to evaluate the pulmonary arteries. Coronal maximum intensity projection 3D-reconstructions were created by the technologist. Automated exposure control and iterative reconstruction technique were employed. The dose-length product was 148.60 mGy-cm. COMPARISON: Portable chest x-ray 07/08/2023 CT chest dated 02/04/2022. FINDINGS: Moderately significant centrilobular pattern of emphysema of lungs involving upper lobes. No evidence of pulmonary emboli. Thoracic aorta shows no acute findings. Stable 10 mm noncalcified nodule in the left upper lobe. Patchy subsegmental atelectasis is noted in the left lingula. No lymphadenopathy or effusion. IMPRESSION: 1. No evidence of pulmonary emboli. Thoracic aorta shows no acute findings. 2. Emphysematous lungs. Stable 10 mm noncalcified nodule in the left upper lobe compared with 02/04/2022. Patchy subsegmental atelectasis of left lingula. Probably benign findings. Short interval follow-up by CT in 6 months is suggested. Reviewed, dictated and finalized at location T. RUMENT ASSEMBLER IMPRESSION: 1. No evidence of pulmonary emboli. Thoracic aorta shows no acute findings. 2. Emphysematous lungs. Stable 10 mm noncalcified nodule in the left upper lobe compared with 02/04/2022. Patchy subsegmental atelectasis of left lingula. Pro bably benign findings. Short interval follow-up by CT in 6 months is suggested.
--- NOTE | ~2025-03-04 | NM_ITS ---
EXAMINATION: NM caroline stress w perfusion DATE: 03/07/2025 12:34 INDICATION: Elevated troponin TECHNIQUE: Rest images were obtained following intravenous administration of 9.0 mCi Tc99m tetrofosmin (Myoview). The patient was infused intravenously with Lexiscan (regadenoson). Then, 29.9 mCi Tc99m tetrofosmin (Myoview) was administered intravenously, and stress images were obtained. Data was recon structed into short axis and horizontal and vertical long axis SPECT images. Gated SPECT images were also obtained. COMPARISON: None. FINDINGS: There is no definite reversible or fixed perfusion abnormality to suggest ischemia or infarction. There is no segmental wall motion abnormality. Left ventricular ejection fraction measures 62%. IMPRESSION: 1. No definite ischemia or infarct. 2. Normal left ventricular ejection fraction measuring 62%. Reviewed, dictated and finalized at location A. B WHEEL OPERATOR
[2025-03-04 16:03] VITALS: BP 115/78; PULSE 114; RESP 18; TEMP 36.2; O2SAT 97
--- NOTE | 2025-03-04 17:15 | ED.SOB ---
HPI - SOB/Dyspnea General Chief Complaint: Shortness of Breath/Dyspnea <Pam Machado PA-C - Last Filed: 03/04/25 17:27> Stated Complaint: SOB x 2 weeks <Pam Machado PA-C - Last Filed: 03/04/25 17:27> Time Seen by Provider: 03/04/25 17:16 <Pam Machado PA-C - Last Filed: 03/04/25 17:27> Focused HPI: Patient is a 74 y/o female, with PMH of COPD, CAD s/p PCI, who presents to the ED via EMS with c/o SOB. Patient reports having increased SOB over the past 3 days. Hx of COPD, has inhalers and nebulizers at home. Has been using these w/o improvement. Reports wheezing, difficulty taking deep breaths, pain with deep inspiration, cough, subjective fever, chest heaviness, fatigue, decreased appetite. Denies sick contacts. Patient believes she is taking Eliquis, but is not sure why. GENERAL: Elderly, thin, and in no acute distress. HEAD: Normocephalic, atraumatic. CHEST: Clear to auscultation. ?No respiratory distress. No significant focal lung sounds HEART: Regular rate and rhythm.? NEURO: ?Alert and oriented x3. Patient screened in triage and initial orders placed.? ?Additional care and disposition to be based upon?diagnostic testing and treatment. <Pam Machado PA-C - Last Filed: 03/04/25 17:27> Source: patient <Pam Machado PA-C - Last Filed: 03/04/25 17:27> Mode of arrival: EMS <Pam Machado PA-C - Last Filed: 03/04/25 17:27> Limitations: no limitations <NATHAN Branham Last Filed: 03/04/25 17:27> History of Present Illness HPI Narrative: per HPI <Radha Torres MD - Last Filed: 03/04/25 21:51> Related Data Home Medications: Home Medications ?Medication ?Instructions ?Recorded ?Confirmed ?Last Taken ?Type atorvastatin 80 mg tablet 80 mg PO DAILY 03/02/1507/08/23 07/07/23 20:00 History lorazepam 1 mg tablet 1 mg PO TID PRN Anxiety 06/04/21 07/08/23 Unknown History apixaban 5 mg tablet (Eliquis) 5 mg PO BID 07/08/23 07/09/23 Unknown History carvedilol 6.25 mg tablet 6.25 mg PO BID 07/08/23 07/08/23 Unknown History fluoxetine 20 mg capsule 20 mg PO DAILY 07/08/23 07/08/23 Unknown History <Pam Machado PA-C - Last Filed: 03/04/25 17:27> Allergies/Adverse Reactions: Allergies Allergy/AdvReac Type Severity Reaction Status Date / Time erythromycin base Allergy Vomiting Verified 03/04/25 16:09 <Pam Machado PA-C - Last Filed: 03/04/25 17:27> Review of Systems Review of Systems: All systems reviewed & are unremarkable except as noted in HPI and below <Radha Torres MD - Last Filed: 03/04/25 21:51> [facility] Past Medical History Medical History: Medical History Anxiety and depression COPD (chronic obstructive pulmonary disease) Heart attack stent(s) placed ([facility]) High cholesterol <Pam Machado PA-C - Last Filed: 03/04/25 17:27> Surgical History Surgical History: Surgical History H/O heart artery stent <Pam Machado PA-C - Last Filed: 03/04/25 17:27> Family History Family History: Family History Sibling Patient's brother is in good health Father Family history of pancreatic cancer, Onset Age: 82 Patient's father is Mother Patient's mother is Unknown Asthma Hypertension Heart disease Arthritis <Pam Machado PA-C - Last Filed: 03/04/25 17:27> Social History Social History: Social History Social History: Patient reports that she is . She lives alone. She used to smoke at least a pack of cigarettes per day but quit smoking within the last 10 years. She denies any significant alcohol use or illicit substance use. She still drives and is independent activities of daily living. Code status: DNR/DNI (per patient request) Surrogate decision maker: Fina Machuca (sister) Smoking packs per day: 1 Smoking cigarettes per day: 20.0 Years smoked: 55 Smoking pack-years: 55.00 Smoking status: Current every day smoker Tobacco type: cigarettes Alcohol intake: never Substance use type: does not use Lack of Transportation: No Lack of Food: Never True Current Housing: I Have Housing Concerned About Future Housing: No Difficulty Paying Gas/Electric Bills: No Difficulty Paying for Meds: No Currently Unemployed: No Education: Associate Degree Difficulty w/ Childcare or Family Care: No Living arrangements: with family Additional living arrangements comments: sister Occupation/Education: retired Gender identity (if verbalized by the patient): Female Spiritual care concerns: No <Pam Machado PA-C - Last Filed: 03/04/25 17:27> Exam Narrative: EXAMINATION OF ORGAN SYSTEMS/BODY AREAS: Constitutional: Vital signs per nursing GENERAL:No acute distress, non-toxic appearing. HEAD: Normal with no signs of head trauma. EYES: EOMI, conjunctiva normal ENT: Hearing grossly intact LUNGS: Some wheezing left lungs HEART: Slightly tachycardic ABD: Soft, nontender to palpation EXT: Normal range of motion; no lower extremity edema SKIN: No rashes or lesions. NEURO: Alert. No gross focal sensory or strength deficits. PSYCH: Normal affect <Radha Torres MD - Last Filed: 03/04/25 21:51> Course Vital Signs Vital signs: Vital Signs Temperature 97.2 F L 03/04/25 16:03 Pulse Rate 114 H 03/04/25 16:03 Respiratory Rate 18 03/04/25 16:03 Blood Pressure 115/78 03/04/25 16:03 Pulse Oximetry 97 03/04/25 16:03 Oxygen Delivery Room Air 03/04/25 16:03 Temperature 97.2 F L 03/04/25 16:03 Pulse Rate 111 H 03/04/25 20:22 Respiratory Rate 20 03/04/25 20:22 Blood Pressure 133/99 H 03/04/25 18:00 Pulse Oximetry 93 03/04/25 20:22 Oxygen Delivery Room Air 03/04/25 18:00 <Pam Machado PA-C - Last Filed: 03/04/25 17:27> Vital Signs Temperature 97.2 F L 03/04/25 16:03 Pulse Rate 114 H 03/04/25 16:03 Respiratory Rate 18 03/04/25 16:03 Blood Pressure 115/78 03/04/25 16:03 Pulse Oximetry 97 03/04/25 16:03 Oxygen Delivery Room Air 03/04/25 16:03 Temperature 97.2 F L 03/04/25 16:03 Pulse Rate 111 H 03/04/25 20:22 Respiratory Rate 20 03/04/25 20:22 Blood Pressure 133/99 H 03/04/25 18:00 Pulse Oximetry 93 03/04/25 20:22 Oxygen Delivery Room Air 03/04/25 18:00 <Radha Torres MD - Last Filed: 03/04/25 21:51> [facility] MDM Narrative Medical decision making narrative: MSE by LORA in triage <Pam Machado PA-C - Last Filed: 03/04/25 17:27> MSE by LORA in triage Patient presents here with increased shortness breath for last few days, she was unsure if it was her anxiety, or possible COPD, pneumonia, or CHF, so she came in here. Denies Chest pain. On exam she is well-appearing, no lower extremity edema, she does have some slight wheezing on the left lung, given some breathing treatments and steroids and chest pain workup initiated. CTA PE negative for acute findings. BNP was quite elevated and so was her troponin compared to her baseline, discussed this with Cardiology, patient is already on Eliquis for blood thinners, took her morning dose today, recommendation for 1 dose of Lovenox therapeutic for her evening dose, with NPO at midnight for possible catheterization in the morning. Patient updated on plan and agreeable to this. <Radha Torres MD - Last Filed: 03/04/25 21:51> Differential Diagnosis Differential Diagnosis: COPD exacerbation, CHF exacerbation, pneumonia, ACS <Radha Torres MD - Last Filed: 03/04/25 21:51> Lab Data Result diagrams: 03/04/25 18:54 03/04/25 18:54 <Pam Machado PA-C - Last Filed: 03/04/25 17:27> Labs: Lab Results 03/04/25 Range/Units 18:54 WBC 9.9 (4.5-10.0) K/mm3 RBC 5.37 (4.2-5.4) M/mm3 Hgb 16.8 H D (12.0-15.0) g/dL Hct 48.6 H (37.0-47.0) % MCV 90.5 (80-100) fl MCH 31.3 (26-34) pg MCHC 34.6 (32-36) g/dl RDW 13.9 (11.5-14.5) % Plt Count 295 (150-375) k/mm3 MPV 9.5 (7.4-10.4) fl Immature Gran % (Auto) 0.3 (0-0.5) % Neut % (Auto) 62.1 (45.5-73.1) % Lymph % (Auto) 21.0 (18.3-44.2) % [place] % (Auto) 8.1 (2.6-8.5) % Eos % (Auto) 7.1 H (0-4.4) % Baso % (Auto) 1.4 H (0.2-1.2) % Lymph # (Auto) 2.08 (0.9-3.2) K/mm3 [place] # (Auto) 0.8 H (0.1-0.6) K/mm3 Eos # (Auto) 0.7 H (0-0.3) K/mm3 Baso # (Auto) 0.1 (0.0-0.1) K/mm3 Abs Immat Gran (auto) 0.03 (0.00-0.031) K/mm3 Absolute Neuts (auto) 6.2 (1.3-6.7) K/mm3 Absolute Nucleated RBC 0.000 (0.0-0.012) K/mm3 Nucleated RBC % 0.0 (0.0-0.2) % PT 13.9 (11.1-14.7) Seconds INR 1.1 APTT 23.6 (22.3-36.8) Seconds Sodium 137 (137-145) mmol/L Potassium 4.3 (3.4-5.0) mmol/L Chloride 107 (98-107) mmol/L Carbon Dioxide 18 L (22-30) mmol/L Anion Gap 12 (4-12) mmol/L BUN 15 D (7-17) mg/dL Creatinine 0.64 L (0.7-1.0) mg/dL Estim Creat Clear Calc 62 ml/min Estimated GFR > 60 (59 - ) Glucose 88 (65-110) mg/dL Calcium 9.9 (8.4-10.2) mg/dL Magnesium 1.9 (1.6-2.3) mg/dL Total Bilirubin 1.0 (0.2-1.3) mg/dL AST 25 (14-36) U/L ALT 14 (6-35) U/L Alkaline Phosphatase 129 H (38-126) U/L Troponin I 0.684 H* (0.000-0.034) ng/mL NT-Pro-B Natriuret Pep 5020 H (19.9-100) pg/mL Total Protein 7.4 (6.3-8.2) g/dL Albumin 4.5 (3.5-5.1) g/dL Influenza A (RT-PCR) Negative (Negative) Influenza B (RT-PCR) Negative (Negative) RSV (RT-PCR) Negative (Negative) SARS-CoV-2 RNA (RT-PCR) Negative (Negative) <Pam Machado PA-C - Last Filed: 03/04/25 17:27> Lab Results 03/04/25 Range/Units 18:54 WBC 9.9 (4.5-10.0) K/mm3 RBC 5.37 (4.2-5.4) M/mm3 Hgb 16.8 H D (12.0-15.0) g/dL Hct 48.6 H (37.0-47.0) % MCV 90.5 (80-100) fl MCH 31.3 (26-34) pg MCHC 34.6 (32-36) g/dl RDW 13.9 (11.5-14.5) % Plt Count 295 (150-375) k/mm3 MPV 9.5 (7.4-10.4) fl Immature Gran % (Auto) 0.3 (0-0.5) % Neut % (Auto) 62.1 (45.5-73.1) % Lymph % (Auto) 21.0 (18.3-44.2) % [place] % (Auto) 8.1 (2.6-8.5) % Eos % (Auto) 7.1 H (0-4.4) % Baso % (Auto) 1.4 H (0.2-1.2) % Lymph # (Auto) 2.08 (0.9-3.2) K/mm3 [place] # (Auto) 0.8 H (0.1-0.6) K/mm3 Eos # (Auto) 0.7 H (0-0.3) K/mm3 Baso # (Auto) 0.1 (0.0-0.1) K/mm3 Abs Immat Gran (auto) 0.03 (0.00-0.031) K/mm3 Absolute Neuts (auto) 6.2 (1.3-6.7) K/mm3 Absolute Nucleated RBC 0.000 (0.0-0.012) K/mm3 Nucleated RBC % 0.0 (0.0-0.2) % PT 13.9 (11.1-14.7) Seconds INR 1.1 APTT 23.6 (22.3-36.8) Seconds Sodium 137 (137-145) mmol/L Potassium 4.3 (3.4-5.0) mmol/L Chloride 107 (98-107) mmol/L Carbon Dioxide 18 L (22-30) mmol/L Anion Gap 12 (4-12) mmol/L BUN 15 D (7-17) mg/dL Creatinine 0.64 L (0.7-1.0) mg/dL Estim Creat Clear Calc 62 ml/min Estimated GFR > 60 (59 - ) Glucose 88 (65-110) mg/dL Calcium 9.9 (8.4-10.2) mg/dL Magnesium 1.9 (1.6-2.3) mg/dL Total Bilirubin 1.0 (0.2-1.3) mg/dL AST 25 (14-36) U/L ALT 14 (6-35) U/L Alkaline Phosphatase 129 H (38-126) U/L Troponin I 0.684 H* (0.000-0.034) ng/mL NT-Pro-B Natriuret Pep 5020 H (19.9-100) pg/mL Total Protein 7.4 (6.3-8.2) g/dL Albumin 4.5 (3.5-5.1) g/dL Influenza A (RT-PCR) Negative (Negative) Influenza B (RT-PCR) Negative (Negative) RSV (RT-PCR) Negative (Negative) SARS-CoV-2 RNA (RT-PCR) Negative (Negative) <Radha Torres MD - Last Filed: 03/04/25 21:51> Imaging Data Radiologist's impression: ITS Impressions Chest CTA 03/04/25 19:53 IMPRESSION: 1. No evidence of pulmonary emboli. Thoracic aorta shows no acute findings. 2. Emphysematous lungs. Stable 10 mm noncalcified nodule in the left upper lobe compared with 02/04/2022. Patchy subsegmental atelectasis of left lingula. Probably benign findings. Short interval follow-up by CT in 6 months is suggested. <Pam Machado PA-C - Last Filed: 03/04/25 17:27> ITS Impressions Chest CTA 03/04/25 19:53 IMPRESSION: 1. No evidence of pulmonary emboli. Thoracic aorta shows no acute findings. 2. Emphysematous lungs. Stable 10 mm noncalcified nodule in the left upper lobe compared with 02/04/2022. Patchy subsegmental atelectasis of left lingula. Probably benign findings. Short interval follow-up by CT in 6 months is suggested. <Radha Torres MD - Last Filed: 03/04/25 21:51> Discharge Plan Discharge Clinical Impression: Acute non-ST elevation myocardial infarction (NSTEMI), COPD exacerbation <Pam Machado PA-C - Last Filed: 03/04/25 17:27> Patient Disposition: Still a Patient <Pam Machado PA-C - Last Filed: 03/04/25 17:27> Condition: Serious <NATHAN Branham Last Filed: 03/04/25 17:27>
--- NOTE | 2025-03-04 17:21 | ECG_ITS ---
Test Date: 2025-03-04 19:41:04 Measurements Intervals [place] Rate: 99 P: 78 WY: 147 QRS: -76 QRSD: 94 T: 102 QT: 378 QTc: 486 Interpretive Statements SINUS RHYTHM INCOMPLETE RIGHT BUNDLE BRANCH BLOCK LEFT ANTERIOR FASCICULAR BLOCK BORDERLINE ST-T WAVE ABNORMALITY- HIGH LATERAL LEADS BASELINE ARTIFACT- I, II, III, AVR, AVL, AVF, V4 ABNORMAL ECG No previous ECG available for comparison Electronically Signed On 03-05-2025 06:17:40 DOUBLE CUT SAWYER by Kp Hagen D.O.
[2025-03-04 18:00] VITALS: BP 133/99; PULSE 100; RESP 24; O2SAT 94
--- OUTSIDE RECORDS SUMMARY | 2025-03-04 18:44 | XMS_ITS | Encounter Summary ---
Author Organization [facility] Address [address] [place] [address] Phone Care Team Providers Care Coil Tester Name Role Phone Makayla Medina MD Primary Care Provider [phone] Martita Sims MD Primary Care Provider + Reason for Visit * Reason Comments Medication Refill Encounter Details Date Type Department Care Team (Late st Contact Info) Description 06/21/2020 Refill [facility] - [facility] - [place] [address] [place] [address] Makayla Medina MD [address] [place] [address] Medication Refill Social History Tobacco Use Types Packs/Day Years Used Date Smoking Tobacco: Every Day Cigarettes 0.5 54 Smokeless Tobacco: Never Comments:smoke 1/.2pp to 1pp Alcohol Use Standard Drinks/Week Comments No 0 (1 standard drink = 0.6 oz pur e alcohol) PHQ-2 Answer Date Recorded PHQ-2 Score 0 11/28/2018 Comments No Sex and Gender Information Value Date Recorded Sex Assigned at Not on file Legal Sex Female 8:02 PM CDT Gender Identity Not on file Sexual Orientation Not on file documented as of this encounter Miscellaneous Notes * Telephone Encounter - Eileen Calle RN - 06/22/2020 11:06 AM CDT Per nursing clinical judgement, provider to review and approve the medication(s) order(s) if appropriate. Requested Prescriptions Pending Prescriptions Disp Refills atorvastatin (LIPITOR) 80 MG Tablet [Pharmacy Med Name: ATORVASTATIN 80 MG TABLET] 30 Tablet 0 Sig: TAKE 1 TABLET BY MOUTH EVERY DAY Cardiovascular: Antilipid - HMG-CoA Reductase Inhibitors Passed - 06/21/2020 11:58 AM Passed - Valid encounter within last 12 months Past Office Visits Recent Outpatient Visits 7 months ago Hyperlipidemia, unspecified hyperlipidemia type [facility] Gina Blkae APN, JUANA 8 months ago Tick bite, initial encounter [facility] Makayla Medina MD 1 year ago Hyperlipidemia, unspecified [facility]ay[facility] Medina MD 1 year ago Osteopenia of multiple sites [facility] - Makayla Bowens MD 2 years ago Hyperlipidemia, unspecified hyperlipidemia type [facility] Makayla Medina MD Upcoming Appointments Future Appointments In 1 week [facility] In 2 weeks Makalya Medina MD [facility] DIRECT RESPONSE CONSULTANT - Recent and Past Visits Recent Visits Date Type Provider Dept 11/25/19 Office Visit Gina Blake APN, CNP [facility] 10/08/19 Office Visit Makayla Medina MD [facility] Showing recent visits within past 460 days with a meds authorizing provider and meeting all other requirements Future Appointments Date Type Provider Dept 07/10/20 Appointment Makayla Medina MD [facility] Showing future appointments within next 90 days with a meds authorizing provider and meeting all other requirements documented in this encounter Plan of Treatment Not on file documented as of this encounter Visit Diagnoses Not on filedocumented in this encounter Additional Health Concerns Assessment Noted Time PHQ-9 Depression Total Score: 0 12/22/19 19 1:00 PM CDT documented as of this encounter Care Teams Coil Tester Relationship Specialty Start Date End Date Makayla Medina MD PCP - General Family Medicine 01/04/15 03/23/21 Martita Sims MD [address] [place] [id number] PCP - General Family Medicine 03/24/21 documented as of this encounter
--- OUTSIDE RECORDS SUMMARY | 2025-03-04 18:44 | XMS_ITS | Encounter Summary ---
Author Organization [facility] Address [address] [place] [address] Phone Care Team Providers Care Special Crimes Investigator Name Role Phone Martita Sims MD Primary Care Provider + Reason for Visit * Reason Comments Medication Refill Encounter Details Date Type Department Care Team (Late st Contact Info) Description 09/06/2021 [facility] - [place] [address] [place] [id number] Makayla Medina MD [address] [place] [address] Medication Refill Social History Tobacco Use Types Packs/Day Years Used Date Smoking Tobacco: Former Cigarettes 0.5 54 Smokeless Tobacco: Never Comments:smoke [...] encounter Miscellaneous Notes * Telephone Encounter - Saundra Travis RN - 09/06/2021 12:09 PM CDT Patient no longer under provider care. documented in this encounter Plan of Treatment Not on file documented as of this encounter Visit Diagnoses Diagnosis Closed wedge compression fracture of L5 vertebra, sequela documented in this encounter Additional Health Concerns Assessment Noted Time PHQ-9 Depression Total Score: 0 12/22/19 19 1:00 PM CDT documented as of this encounter Care Teams Special Crimes Investigator Relationship Specialty Start Date End Date Martita Sims MD [address] [place] [id number] PCP - General Family Medicine 03/24/21 documented as of this encounter
--- OUTSIDE RECORDS SUMMARY | 2025-03-04 18:44 | XMS_ITS | Clinical Summary ---
Author Organization [facility] Address [address] [place] [address] Care Team Providers Care Crossing Guard Name Role Phone Martita Sims MD Primary Care Provider + Allergies Active Allergy Reactions Criticality Noted Date Comments Erythromycin Unknown,Nausea and Vomiting Low 2020 Medications aspirin (ECOTRIN EC) 81 mg Tablet, Delayed Release (E.C.) aspirin 81 mg tablet,delayed release Active carvediloL (COREG) 6.25 mg tablet carvedilol 6.25 mg tablet TAKE 1 TABLET TWICE A DAY BY MOUTH BEFORE MEALS FOR 90 DAYS. Active cholecalcifero l, vitamin D3, 5,000 unit Vitamin D3 125 mcg (5,000 unit) tablet 1 Active cholestyramine aspartame (PREVALITE,QUE STRAN LIGHT) 4 gram Powder in Packet Cholestyramine Light 4 gram oral powder Active citalopram (CeleXA) 20 mg tablet citalopram 20 mg tablet TAKE 1/2 TABLET BY MOUTH IN THE MORNING AND 1 TABLET BY MOUTH AT BEDTIME. Active LORazepam (ATIVAN) 1 mg tablet Take 1 mg by mouth. 0 Active denosumab (Prolia) 60 mg/mL Syringe Inject 1 mL (60 mg) by subcutaneous injection every 6 months. 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 Unintentional weight loss 12/07/2021 Family History Medical History Relation Name Comments Cancer Father Relation Name Status Comments Brother Alive Father Mother Sister 1 Alive Sister 2 Alive Sister 3 Alive Social History Tobacco Use Types Packs/Day Years Used Date Smoking Tobacco: Every Day Cigarettes 0.5 30 Tobacco Cessation:Ready to Q uit: Not Asked; Counseling Given: Not Answered Alcohol Use Standard Drinks/Week Comments Never 0 (1 standard drink = 0.6 oz pur e alcohol) Comments Unknown Sex and Gender Information Value Date Recorded Sex Assigned at Not on file Legal Sex Female 3:38 PM CDT Gender Identity Not on file Sexual Orientation Not on file Last Filed Vital Signs Vital Sign Reading Time Taken Comments Blood Pressure 147/74 12/31/2021 12:29 PM CDT Pulse 72 12/31/2021 12:29 PM CDT Temperature 36.2 C (97.1 F) 12/31/2021 12:29 PM CDT Respiratory Rate 20 12/31/2021 12:29 PM CDT Oxygen Saturation 99% 12/31/2021 12:29 PM CDT Inhaled Oxygen Concentration - - Weight 57.2 kg (126 lb 3.2 oz) 12/31/2021 12:29 PM CDT Height 172.7 cm (5' 8) 12/07/2021 1:52 PM CDT Body Mass Index 19.19 12/07/2021 1:52 PM CDT Plan of Treatment Health Maintenance Due Date Last Done Comments COLORECTAL SCREENING 1994 Colorectal Cancer Screening 1994 FIT-DNA Q 3 years 1994 FIT/FOBT Q 1 year 1994 Flex Sig/CT Colonography Q 5 years 1994 ZOSTER VACCINE (1 of 2) 07/06/2013 05/11/2013 COVID-19 Vaccine (3 - Modern a risk series) 09/01/2020 08/04/2020, 07/07/2020 OSTEOPOROSIS SCREENING 08/11/2023 08/10/2018, 2015 DTAP/TDAP/TD VACCINES (3 - T d or Tdap) 04/24/2024 04/24/2014, 03/27/2013 RSV VACCINE (60+ or ) (1 - 1-dose 75+ series) 2024 INFLUENZA VACCINE (#1) 2024 2, 03/27/2020, 12/21/2018, Additional history exists PNEUMOCOCCAL VACCINE 50+ YEARS Completed 0 03/27/2019, 12/21/2018, 09/07/2015, Additional history exists Insurance [employer] Medicare Part D [employer] [facility] [place] Care Teams Crossing Guard Relationship Specialty Start Date End Date Martita Sims MD [address] [place] [address] [place] [phone] PCP - General Family Practice 12/07/21
--- OUTSIDE RECORDS SUMMARY | 2025-03-04 18:44 | XMS_ITS | Encounter Summary ---
Author Organization [facility] Address [address] [place] [address] Phone Care Team Providers Care Manager Regulatory Name Role Phone Makayla Medina MD Primary Care Provider [phone] Martita Sims MD Primary Care Provider + Reason for Visit * Reason Comments Medication Refill Encounter Details Date Type Department Care Team (Late st Contact Info) Description 03/23/2020 Refill [facility] [place] [address] [place] [address] Swapnil Robbins PAC [address] [place] [address] Medication Refill Social History Tobacco Use Types Packs/Day Years Used Date Smoking Tobacco: Every Day Cigarettes Smokeless Tobacco: Never Alcohol Use Standard Drinks/Week Comments No 0 (1 standard drink = 0.6 oz pur e alcohol) PHQ-2 Answer Date Recorded PHQ-2 Score 0 11/28/2018 Comments No Sex and Gender Information Value Date Recorded Sex Assigned at Not on file Legal Sex Female 8:02 PM CDT Gender Identity Not on file Sexual Orientation Not on file COVID-19 Exposure Response Date Recorded In the last month, have you been in contact with someone who was confirmed or suspected to have Coronavirus / COVID-19? No / Unsure 03/10/2020 10:39 AM INDUSTRIAL ANALYST documented as of this encounter Plan of Treatment Not on file documented as of this encounter Visit Diagnoses Diagnosis Cough documented in this encounter Additional Health Concerns Assessment Noted Time PHQ-9 Depression Total Score: 0 12/22/19 19 1:00 PM CDT documented as of this encounter Care Teams Manager Regulatory Relationship Specialty Start Date End Date Makayla Medina MD PCP - General Family Medicine 01/04/15 03/23/21 Martita Sims MD [address] [place] [id number] PCP - General Family Medicine 03/24/21 documented as of this encounter
--- OUTSIDE RECORDS SUMMARY | 2025-03-04 18:45 | XMS_ITS | Clinical Summary ---
Author Organization [facility] Physician Office Building [address] [place] [id number] Care Team Providers Care Retail Marketing Coordinator Name Role Phone Martita Sims MD Primary Care Provider + Allergies Active Allergy Reactions Criticality Noted Date Comments Erythromycin Vomiting Low 05/21/2020 Gabapentin Vomiting Low 12/13/2016 Medications fluticasone propionate (FLONASE) 50 mcg/actuation nasal spray Administer 1 spray into each nostril 2 (two) times a day 02/21/20 20 Active nicotine (NICODERM CQ) [address] 1 patch on the skin daily for 7 days 7 patch 05/22/19 21 Active carvediloL (COREG) 6.25 mg tablet carvedilol 6.25 mg tablet TAKE 1 TABLET TWICE A DAY BY MOUTH BEFORE MEALS FOR 90 DAYS. Active FLUoxetine (PROzac) 40 mg capsule Take 1 capsule (40 mg total) by mouth daily 03/14/20 22 Active folic acid (FOLVITE) 1 mg tablet Take 1 tablet (1 mg total) by mouth daily Active guaiFENesin ER (MUCINEX) 600 mg 12 hr tablet Take 2 tablets (1,200 mg total) by mouth 2 (two) times a day as needed for cough or congestion Active ipratropium-albut Noel (DUO-NEB) 0.5-2.5 mg/3 mL nebulizer solutionIndicatio ns:Chronic Obstructive Pulmonary Disease with Bronchospasms Take 3 mL by nebulization every 6 (six) hours 180 mL 08/20/19 Active mirtazapine (REMERON) 7.5 mg tablet Take 1 tablet (7.5 mg total) by mouth nightly 30 tablet 09/06/19 Active atorvastatin (LIPITOR) 10 mg tabletIndications :Coronary arteriosclerosis, Hyperlipidemia LDL goal <70 Take 1 tablet (10 mg total) by mouth daily PATIENT NEEDS TO BE SEEN PRIOR TO ANY MORE REFILLS. 30 tablet 01/25/20 Active Active Problems Problem Noted Date Diagnosed Date Smoking 10/09/2022 Shortness of breath 10/08/2022 Left lower lobe pneumonia 10/08/2022 Acute respiratory failure with hypoxia Pulmonary nodule 10/08/2022 Moderate protein-calorie malnutrition 08/31/2022 Fall 08/30/2022 Leukocytosis 08/30/2022 Hx of pulmonary embolus 08/30/2022 Depression 08/30/2022 Tobacco use 08/30/2022 Weakness 08/30/2022 COPD exacerbation 08/18/2022 Acute cystitis without hematuria 08/18/2022 Confusion 08/18/2022 Hx of pulmonary embolus 08/18/2022 Finger pain, right 08/17/2022 Chronic anticoagulation 04/08/2022 Other pulmonary embolism without acute cor pulmo nale 04/08/2022 Sick sinus syndrome 12/03/2021 Lipid screening 12/03/2021 Primary hypertension 12/03/2021 Primary hyperparathyroidism 11/04/2021 NSTEMI (non-ST elevated myocardial infarction) 0 05/21/2020 Depression 05/21/2020 PTSD (post-traumatic stress disorder) 05/21/2020 GERD (gastroesophageal reflux disease) HLD (hyperlipidemia) 05/21/2020 Non-STEMI (non-ST elevated myocardial infarction ) 05/20/2020 Allergic rhinitis 06/14/2018 Closed wedge compression fracture of fifth lumba r vertebra 06/14/2018 Osteopenia of multiple sites 06/14/2018 Chronic prescription benzodiazepine use 12/13/19 Lumbar back pain with radicu lopathy affecting left lower extremity 11/16/2016 Osteoarthritis of multiple joints 05/12/2016 Insomnia 02/13/2015 Tobacco use Coronary arteriosclerosis Mild cognitive impairment Immunizations Immunization Administration Dates Next Due Influenza, Quadrivalent, Hig h Dose, Preservative Free, Intrr 02/15/2022,03/29/2021 Influenza, Quadrivalent, Spl it, Intramuscular 03/27/2020 Influenza, Quadrivalent, Spl it, Preservative Free, Intramuscular 12/21/2018,01/17/2017 Influenza, Trivalent, Adjuva nted, Intramuscular 03/04/2018 Influenza, Trivalent, IM (MDV) 04/24/2014,2013,04/27/2013 Influenza, Unspecified 04/24/2014,05/11/2013,03/2013 Pneumococcal Conjugate PCV 13 09/07/2015 Pneumococcal Polysaccharide PPV23 2021,12/21/2018,05/11/2013,04/27 Pneumococcal, Unspecified 03/27/2019 Tdap 04/24/2014,03/27/2013 Varicella Zoster Immune Globulin 04/27/2013 ZOSTER LIVE 05/11/2013 ZOSTER Recombinant 06/04/2022 Surgical History Surgery Date Site/Laterality Comments CHOLECYSTECTOMY HYSTERECTOMY TONSILLECTOMY COLONOSCOPY 12/25/2013 - 01/24/2014 ANKLE SURGERY CARDIAC CATHETERIZATION 05/21/2020 Medical History Medical History Date Comments Arthritis COPD (chronic obstructive pulmonary disease) HLD (hyperlipidemia) Depression Thoracic outlet syndrome Smoker Coronary artery disease Sick sinus syndrome (HCC) Family History Medical History Relation Name Comments Cancer Father Hypertension Father Anxiety disorder Mother Depression Mother Thyroid disease Mother Heart attack Sister Hypertension Sister Thyroid disease Sister Relation Name Status Comments Father Mother Sister Social History Tobacco Use Types Packs/Day Years Used Date Smoking Tobacco: Every Day Cigarettes Tobacco Cessation:Ready to Q uit: Not Asked; Counseling Given: Not Answered Social Connection and Isolation Panel Answer Date Recorded In a typical week, how many times do you talk on the phone with family, friends, or neighbors? Once a week 10/10/2022 How often do you get together with friends or re latives? Once a week 10/10/2022 How often do you attend mormon or mu-ism serv ices? Never 10/10/2022 Do you belong to any clubs o r organizations such as mormon groups, unions, fraternal or athletic groups, or school groups? No 10/10/2022 How often do you attend meet ings of the clubs or organizations you belong to? Never 10/10/2022 Marital Status Not on file 10/10/2022 AUDIT-C Answer Date Recorded Q1: How often do you have a drink containing alcohol? Never 10/08/2022 Q2: How many drinks containi ng alcohol do you have on a typical day when you are drinking? Patient does not drink Q3: How often do you have si x or more drinks on one occasion? Never 10/08/2022 Overall Financial Resource Strain (CARDIA) Answe r Date Recorded How hard is it for you to pa y for the very basics like food, housing, medical care, and heating? Not hard at all 10/10/2022 Hunger Vital Sign Answer Date Recorded Within the past 12 months, y ou worried that your food would run out before you got the money to buy more. Never true 10/11/19 23 Within the past 12 months, t he food you bought just didn't last and you didn't have money to get more. Never true 10/10/2022 PRAPARE - Transportation Answer Date Re corded In the past 12 months, has l ack of transportation kept you from medical appointments or from getting medications? No 09/24 In the past 12 months, has l ack of transportation kept you from meetings, work, or from getting things needed for daily living? No 10/10/2022 Housing Stability Vital Sign Answer Kaushik e Recorded In the last 12 months, was t here a time when you were not able to pay the mortgage or rent on time? No 10/10/2022 In the last 12 months, how many places have you lived? 1 10/10/2022 In the last 12 months, was t here a time when you did not have a steady place to sleep or slept in a correction (including now)? No 10/10/2022 Personal Safety Answer Date Recorded Have you ever been in or are you currently in a harmful physical or emotional relationship or is someone making you feel afraid or unsafe? Denies 10/08/2022 Education Answer Date Recorded What is the highest level of school you have completed or the highest degree you have received? 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 Gender Identity Not on file Sexual Orientation Not on file Last Filed Vital Signs Vital Sign Reading Time Taken Comments Blood Pressure 131/67 10/10/2022 2:30 PM CDT Pulse 63 10/10/2022 2:30 PM CDT Temperature 36.8 C (98.3 F) 10/10/2022 2:30 PM CDT Respiratory Rate 12 10/10/2022 2:30 PM CDT Oxygen Saturation 96% 10/10/2022 2:30 PM CDT Inhaled Oxygen Concentration - - Weight 55.1 kg (121 lb 6.4 oz) 10/08/2022 6:05 P M CDT Height 172.7 cm (5' 8) 10/08/2022 6:05 PM CDT Body Mass Index 18.46 10/08/2022 6:05 PM CDT Plan of Treatment Health Maintenance Due Date Last Done Comments Colon Cancer Screening-Colonoscopy 1950 Depression Screening 1950 Hepatitis C Screening 1950 Osteoporosis Screening-Bone Density Scan 1950 Hepatitis B Screening 06/21/1968 Well Visit 65+ 2014 Covid-19 Vaccine (3 - Modern a risk series) 09/01/2020 08/04/2020, 07/07/2020 Zoster Vaccine (2 of 2) 07/30/2022 06/04/2022, 05/11 Fall Risk Assessment 10/11/2023 10/10/2022 DTaP/Tdap/Td Vaccine (3 - Td or Tdap) 04/24/2024 04/24/2014, 03/27/2013 Influenza Vaccine (#1) 2024 2, 03/29/2021, 03/27/2020, Additional history exists Pneumococcal vaccine 65+ Completed 022, 03/27/2019, 12/21/2018, Additional history exists Medical Devices Implanted Type [facility] Device Identifier Shelf Expiration Date Model / Serial / Lot [employer] X [id number] Resolute Vick 3mm 2.1-2.7fr 26mm 140cm Rapid Exchange Radiopaque - [id number] Implanted:Qty: 1 on 05/21/2020 by Amrit Paz MD at [facility] [employer] [id number] / / Daig Gissell [id number] Device Closure Angio-Seal Vip Bondek-Plus Polyglyd L70 Cm Od6 Fr Odsec.035 In Vascular - [id number] Implanted:Qty: 1 on 05/21/2020 by Amrit Paz MD at [facility] [id number] / / Insurance [facility] [place] HUMAN [facility] Advance Directives For more information, please contact: [phone] Documents on File Type Date Recorded Patient Lowerator Operator Magaly seay ADVANCE DIRECTIVE 09/06/2022 6:06 PM MASHA RIVERA ADVANCE DIRECTIVE 09/06/2022 6:06 PM POWER OF RECONCILIATION MANAGER-MEDICAL * Full Code (Latest Code Status on File) Date Activated Date Inactivated Comments 10/08/2022 5:13 PM 10/10/2022 11:30 PM * Full Code Date Activated Date Inactivated Comments 08/30/2022 4:10 AM 09/05/2022 10:41 PM * Full Code Date Activated Date Inactivated Comments 08/30/2022 3:16 AM 08/30/2022 4:10 AM * Full Code Date Activated Date Inactivated Comments 08/17/2022 4:10 PM 08/19/2022 5:12 PM * Full Code Date Activated Date Inactivated Comments 05/21/2020 3:59 AM 05/22/2020 10:15 PM Care Teams Retail Marketing Coordinator Relationship Specialty Start Date End Date Martita Sims MD [address] [place] [address] [id number] PCP - General Family Medicine 12/03/21
--- OUTSIDE RECORDS SUMMARY | 2025-03-04 18:45 | XMS_ITS | Encounter Summary ---
Author Organization [facility] Address [address] [place] [address] Phone Care Team Providers Care Locomotive Crane Engineer Name Role Phone Martita Sims MD Primary Care Provider + Encounter Details Date Type Department Care Team (Late st Contact Info) Description 08/05/2021 Transcribe Orders [facility] Central Scheduling [address] [place] [address] Shaneka Willams APRN, ROOM SERVICE ATTENDANT 4 [facility] [address] [place] [address] Social History Tobacco Use Types Packs/Day Years [...] on file documented as of this encounter Plan of Treatment Not on file documented as of this encounter Visit Diagnoses Not on filedocumented in this encounter Additional Health Concerns Assessment Noted Time PHQ-9 Depression Total Score: 0 12/22/19 19 1:00 PM CDT documented as of this encounter Care Teams Locomotive Crane Engineer Relationship Specialty Start Date End Date Martita Sims MD [address] [place] [id number] PCP - General Family Medicine 03/24/21 documented as of this encounter
--- OUTSIDE RECORDS SUMMARY | 2025-03-04 18:45 | XMS_ITS | Encounter Summary ---
Author Organization [facility] Address [address] [place] [address] Phone Care Team Providers Care Electrical Prospector Name Role Phone Martita Sims MD Primary Care Provider + Reason for Visit * Reason Comments Medication Refill Encounter Details Date Type Department Care Team (Late st Contact Info) Description 07/13/2021 [facility] - [place] [place] [phone] Makayla Medina MD [address] [place] [address] Medication Refill Social History Tobacco [...] Telephone Encounter - Saundra Travis RN - 07/13/2021 9:31 AM CDT Patient no longer under provider care. documented in this encounter Plan of Treatment Not on file documented as of this encounter Visit Diagnoses Diagnosis Closed wedge compression fracture of L5 vertebra, sequela documented in this encounter Additional Health Concerns Assessment Noted Time PHQ-9 Depression Total Score: 0 12/22/19 19 1:00 PM CDT documented as of this encounter Care Teams Electrical Prospector Relationship Specialty Start Date End Date Martita Sims MD [address] [place] [id number] PCP - General Family Medicine 03/24/21 documented as of this encounter
--- OUTSIDE RECORDS SUMMARY | 2025-03-04 18:45 | XMS_ITS | Encounter Summary ---
Author Organization [facility] Address [address] [place] [address] Phone Care Team Providers Care Bobbin Marker Name Role Phone Martita Sims MD Primary Care Provider + Reason for Visit * Reason Comments Medication Refill Encounter Details Date Type Department Care Team (Late st Contact Info) Description [facility] - [address] [place] [phone] Makayla Medina MD [address] [place] [address] Medication Refill Social History Tobacco [...] Telephone Encounter - Saundra Travis RN - 07/02/2021 10:35 AM CDT Patient no longer PCP care. documented in this encounter Plan of Treatment Not on file documented as of this encounter Visit Diagnoses Diagnosis Closed wedge compression fracture of L5 vertebra, sequela documented in this encounter Additional Health Concerns Assessment Noted Time PHQ-9 Depression Total Score: 0 12/22/19 19 1:00 PM CDT documented as of this encounter Care Teams Bobbin Marker Relationship Specialty Start Date End Date Martita Sims MD [address] [place] [id number] PCP - General Family Medicine 03/24/21 documented as of this encounter
--- OUTSIDE RECORDS SUMMARY | 2025-03-04 18:45 | XMS_ITS | Encounter Summary ---
Author Organization [facility] Address [address] [place] [address] Phone Care Team Providers Care Tire Repairer Name Role Phone Martita Sims MD Primary Care Provider + Reason for Visit * Reason Comments Medication Refill Encounter Details Date Type Department Care Team (Late st Contact Info) Description 05/26/2021 Refill [facility] [place] [address] [place] [phone] Makayla Medina MD [address] [place] [address] Medication Refill Social History Tobacco [...] documented as of this encounter Care Teams Tire Repairer Relationship Specialty Start Date End Date Martita Sims MD [address] [place] [id number] PCP - General Family Medicine 03/24/21 documented as of this encounter
--- OUTSIDE RECORDS SUMMARY | 2025-03-04 18:46 | XMS_ITS | Clinical Summary ---
Author Organization [facility] Address [address] [place] [address] Phone Care Team Providers Care Hand Sole Sewer Name Role Phone Martita Sims MD Primary Care Provider + Allergies Active Allergy Reactions Criticality Noted Date Comments Erythromycin Unknown Gabapentin Vomiting 12/13/2016 Medications citalopram (CELEXA) 10 MG Tablet Take 10 mg by mouth daily. 3 6 Active loratadine (CLARITIN) 10 MG TabletIndication s:Viral URI TAKE 1 TABLET BY MOUTH EVERY DAY 90 Tab 2 0 Active albuterol 108 (90 Base) MCG/ACT Aerosol SolutionIndicati ons:Cough TAKE 2 PUFFS BY INHALATION EVERY 4 HOURS NEEDED FOR WHEEZING OR COUGH. 18 Inhaler 0 Active aspirin EC 81 MG Tablet Delayed Response Take 81 mg by mouth. Active calcium carbonate 600 MG Tablet Take 1,200 mg by mouth. Active nicotine (NICODERM CQ) 14 MG/24HR PATCH 24 HR 1 Patch by Transdermal route. 1 Active LORazepam (ATIVAN) 0.5 MG Tablet Take 1 Tablet by mouth 2 times daily as needed. 1 Active fluticasone (FLONASE) 50 MCG/ACT Suspension 2 Sprays by Nasal route daily as needed. 3 Bottle 3 1 Active atorvastatin (LIPITOR) 80 MG Tablet TAKE 1 TABLET BY MOUTH EVERY DAY 90 Tablet 1 1 Active D-5000 125 MCG (5000 UT) TabletIndication s:Vitamin D deficiency TAKE 1 TABLET BY MOUTH EVERY DAY 90 Tablet 1 Active [facility] VITAMIN B12 1000 MCG TabletIndication s:Vitamin B12 deficiency TAKE 1 TABLET BY MOUTH EVERY DAY 90 Tablet 1 Active alendronate (FOSAMAX) 70 MG TabletIndication s:Closed wedge compression fracture of L5 vertebra, sequela TAKE 1 TABLET BY MOUTH ONE TIME PER WEEK 4 Tablet 1 Active Active Problems Problem Noted Date Diagnosed Date CAD S/P percutaneous coronary angioplasty 2020 Tobacco use disorder 07/10/2020 Vitamin B12 deficiency 07/10/2020 Vitamin D deficiency 07/10/2020 IFG (impaired fasting glucose) 07/10/2020 Osteopenia of multiple sites 06/14/2018 Closed wedge compression fracture of fifth lumba r vertebra 06/14/2018 Allergic rhinitis 06/14/2018 Chronic prescription benzodiazepine use 12/13/19 Lumbar back pain with radicu lopathy affecting left lower extremity 11/16/2016 Osteoarthritis of multiple joints 05/12/2016 Insomnia 02/13/2015 Anxiety disorder HLD (hyperlipidemia) GERD (gastroesophageal reflux disease) PTSD (post-traumatic stress disorder) Resolved Problems Problem Noted Date Diagnosed Date Resolved Date Non-STEMI (non-ST elevated m yocardial infarction) 05/20/2020 07/10/2020 Immunizations Immunization Administration Dates Next Due Covid-19, Mrna, Lnp-s, PF, 1 00 mcg/0.5 mL Dose (Moderna) 08/04/2020,07/07/2020 Influenza Vaccine greater than 3 yrs 03/04/2018, 04/27/2013 Influenza Vaccine, Quadrivalent, PF 12/21/2018,1 Influenza, Seasonal, Injectable, Undefined 04/24,05/11/2013,04/27/2013 PUR PCV-13 09/07/2015 Pneumococcal Vaccine - 13 Valent 09/07/2015 Pneumococcal Vaccine Adult - 23 Valent 9,05/11/2013 TDAP Vaccine 04/24/2014,03/27/2013 Zoster Vaccine, live 05/11/2013 Family History Medical History Relation Name Comments Cancer Father LUNG/Pancreatic Hypertension Father Anxiety disorder Mother Depression Mother Thyroid Disease Mother Heart Attack Sister 1 sacha Hypertension Sister 1 sacha Thyroid Disease Sister 2 bryce Thyroid Disease Sister 3 ronal Relation Name Status Comments Father Mother Sister 1 sacha Alive Sister 2 bryce Alive Sister 3 ronal Alive Social History Tobacco Use Types Packs/Day Years Used Date Smoking Tobacco: Former Cigarettes 0.5 54 Smokeless Tobacco: Never Tobacco Cessation:Ready to Q uit: No Comments:smoke 1/.2pp to 1pp Alcohol Use Standard [...] Sign Reading Time Taken Comments Blood Pressure 130/70 07/10/2020 9:19 AM CDT Pulse 74 07/10/2020 9:19 AM CDT Temperature 36.3 C (97.4 F) 07/10/2020 9:19 AM CDT Respiratory Rate 18 07/10/2020 9:19 AM CDT Oxygen Saturation 96% 07/10/2020 9:19 AM CDT Inhaled Oxygen Concentration - - Weight 65.4 kg (144 lb 3.2 oz) 07/10/2020 9:19 A M CDT Height 172.7 cm (5' 8) 07/10/2020 9:19 AM CDT Body Mass Index 21.93 07/10/2020 9:19 AM CDT Plan of Treatment Health Maintenance Due Date Last Done Comments Hepatitis C Virus (HCV) Screening 1949 Cologuard 1994 Immunochemical Fecal Occult Blood 1994 Hepatitis B Immunization (1 of 3 - Risk 3-dose series) 2009 Zoster Immunization (2 of 3) 07/06/2013 05/11/2013 Medicare Initial AWV [id number] 05/26/2015 Colonoscopy 01/16/2024 01/15/2014 Colorectal Cancer Screening 01/16/2024 Respiratory Syncytial Virus (RSV) Immunization (Adult) (1 - 1-dose 75+ series) 2024 Influenza Immunization (#1) 2024 01/0 05/2021, 03/27/2020, 12/21/2018, Additional history exists SARS-COV-2 Immunization ( season) 2024 03/15/2021, 08/04/2020, 07/07/2020 Td Immunization Every 10 Years (Adults With 1 Tdap) 06/05/2031 06/04/2021, 04/24/2014, 03/27/2013 Mammogram Discontinued 10/12/2015 DEXA Bone Density Discontinued 08/10/2018, 10/12/2015 Pneumococcal Immunization (50+ years) Completed 03/27/2019, 12/21/2018, 09/07/2015, Additional history exists Pneumococcal Immunization Combined Discontinued 03/27/2019, 12/21/2018, 09/07/2015, Additional history exists Human Papillomavirus (HPV) Immunization (No Doses Required) Completed Meningococcal Immunization (ACWY) Aged Out No longer eligible based on patient's age to complete this topic Rotavirus Immunization Aged Out No lo nger eligible based on patient's age to complete this topic Procedures Procedure Name Priority Date/Time Associated Diagnosis Comments [facility] BONE DENSITOMETRY AXIAL SKELETON Routine 08/10/2018 9:31 AM CDT Postmenopausal [facility] SCREENING BILATERAL DIGITAL W CAD Routine 10/12/2015 9:28 AM CDT Encounter for screening mammogram for breast cancer COLONOSCOPY Routine 01/15/2014 from Last 3 Months or Most Recently Relevant to Health Maintenance Results * [facility] BONE DENSITOMETRY AXIAL SKELETON (08/10/2018 9:31 AM CDT) Anatomical Region Laterality Modality BODY N/A Other 08/10/2018 10:3 1 AM CDT Impressions 08/10/2018 10:34 AM CDT IMPRESSION: Osteopenia. This has progressed compared to the prior examination in 2016. Fracture risk assessment (FRAX): 10 year risk for a major osteoporotic fracture is 22.2 % 10 year risk for a hip fracture is 8% The FRAX tool has not been validated in patients currently or previously treated with pharmacotherapy for osteoporosis. In such patients, clinical judgement must be exercised in interpreting FRAX scores as the fracture risk may be overestimated. REFERENCE: Bone mineral density: Normal (T-score above or = -1.0) Low bone mass (T-score between -1.0 and -2.5) replaces the previously used term osteopenia Osteoporosis (T-score = or below -2.5) Medical evaluation for secondary causes of low bone mineral density may be appropriate. FRAX is a World Health Organization validated fracture risk assessment tool that calculates a person's 10 year probability of a major osteoporosis related fracture and hip fracture. According to the National Osteoporosis Foundation guidelines, postmenopausal women and men age 50 or older with low bone mass and a 10 year probability of a major osteoporosis related fracture = or greater than 20% or a 10 year probability of a hip fracture = or greater than 3% should be considered for treatment. For further information, including treatment recommendations, please refer to the 2013 ISCD Official Positions (http://www.iscd.org) and the NOF's Clinician's Guide to Prevention and Treatment of Osteoporosis (http://www.nof.org/professionals/clinical-guidelines) Narrative 08/10/2018 10:34 AM CDT EXAM DESCRIPTION: ES BONE DENSITOMETRY AXIAL SKELETON REASON FOR STUDY: 68 y/o year old F with given history of screening. 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 History of smoking. The patient currently takes calcium and multivitamins COMPARISON: 10/12/2015 FINDINGS: AP LUMBAR SPINE L1-L4: Total BMD is 1.182 g/cm2 T-score is -0.1 Most recent prior BMD was 1.207 g/cm2 There has been a -2.1% change in BMD which is not statistically significant. LEFT HIP: Current Total BMD is 0.758 g/cm2 T-score is -2.0 Most recent prior Total BMD was 0.73 g/cm2 There has been a -3.2% change in BMD which is not statistically significant. Current femoral neck BMD is 0.708 g/cm2 T-score is -2.4 THIS IS AN ELECTRONICALLY VERIFIED FINAL REPORT 08/10/2018 10:31 AM - Electronically signed by Sohan Arciniega M.D. AG: HANSA Report ID: [id number] Reading Location: [id number] Procedure Note Sohan Arciniega MD - 08/10/2018 EXAM DESCRIPTION: ES BONE DENSITOMETRY AXIAL SKELETON REASON FOR STUDY: 68 y/o year old F with given history of screening. 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 History of smoking. The patient currently takes calcium and multivitamins COMPARISON: 10/12/2015 FINDINGS: AP LUMBAR SPINE L1-L4: Total BMD is 1.182 g/cm2 T-score is -0.1 Most recent prior BMD was 1.207 g/cm2 There has been a -2.1% change in BMD which is not statistically significant. LEFT HIP: Current Total BMD is 0.758 g/cm2 T-score is -2.0 Most recent prior Total BMD was 0.73 g/cm2 There has been a -3.2% change in BMD which is not statistically significant. Current femoral neck BMD is 0.708 g/cm2 T-score is -2.4 THIS IS AN ELECTRONICALLY VERIFIED FINAL REPORT 08/10/2018 10:31 AM - Electronically signed by Sohan Arciniega M.D. AG: HANSA Report ID: [id number] Reading Location: [place] [address] IMPRESSION: Osteopenia. This has progressed compared to the prior examination in 2016. Fracture risk assessment (FRAX): 10 year risk for a major osteoporotic fracture is 22.2 % 10 year risk for a hip fracture is 8% The FRAX tool has not been validated in patients currently or previously treated with pharmacotherapy for osteoporosis. In such patients, clinical judgement must be exercised in interpreting FRAX scores as the fracture risk may be overestimated. REFERENCE: Bone mineral density: Normal (T-score above or = -1.0) Low bone mass (T-score between -1.0 and -2.5) replaces the previously used term osteopenia Osteoporosis (T-score = or below -2.5) Medical evaluation for secondary causes of low bone mineral density may be appropriate. FRAX is a World Health Organization validated fracture risk assessment tool that calculates a person's 10 year probability of a major osteoporosis related fracture and hip fracture. According to the National Osteoporosis Foundation guidelines, postmenopausal women and men age 50 or older with low bone mass and a 10 year probability of a major osteoporosis related fracture = or greater than 20% or a 10 year probability of a hip fracture = or greater than 3% should be considered for treatment. For further information, including treatment recommendations, please refer to the 2013 ISCD Official Positions (http://www.iscd.org) and the NOF's Clinician's Guide to Prevention and Treatment of Osteoporosis (http://www.nof.org/professionals/clinical-guidelines) us Makayla Medina MD IMG DEXA ORDERABLES Final Re sult * ES SCREENING BILATERAL DIGITAL W CAD (10/12/2015 9:28 AM CDT) Anatomical Region Laterality Modality breast Bilateral Mammography 10/12/2015 9:01 AM CDT Narrative 10/13/2015 7:33 AM CDT - ES SCREENING BILATERAL DIGITAL W CAD BILATERAL DIGITAL SCREENING MAMMOGRAM WITH CAD WITH MEDIOLATERAL OBLIQUE CRANIOCAUDAL: 10/12/2015 The study was acquired using digital technology and interpreted from soft copy. Current study was also evaluated with ICAD version 7.2. CLINICAL: Routine screening. Patient has no complaints. No personal history of cancer. No family history of breast cancer. COMPARISONS: Comparison is made to exam dated: 11/28/2013 [facility]. BREAST TISSUE: The tissue of both breasts is heterogeneously dense, which may obscure small masses. FINDINGS: There are benign appearing masses in both breasts. No significant masses, calcifications, or other findings are seen in either breast. There has been no significant interval change. IMPRESSION: BI-RAD 2 BENIGN There is no mammographic evidence of malignancy. A 1 year screening mammogram is recommended. The patient has been or will be contacted. The patient will be entered into a reminder system with a target due date of 1 year for her next screening exam. Electronically signed by: Baljeet Sparks M.D. nh/:10/12/2015 10:08:46 Furnace Tapper: Carmen Copeland (Gabriela), [facility] letter sent: Normal Exam Reading location: [facility] BI-RADS: 2 Benign Procedure Note Baljeet Sparks MD - 10/13/2015 - ES SCREENING BILATERAL DIGITAL W CAD BILATERAL DIGITAL SCREENING MAMMOGRAM WITH CAD WITH MEDIOLATERAL OBLIQUE CRANIOCAUDAL: 10/12/2015 The study was acquired using digital technology and interpreted from soft copy. Current study was also evaluated with ICAD version 7.2. CLINICAL: Routine screening. Patient has no complaints. No personal history of cancer. No family history of breast cancer. COMPARISONS: Comparison is made to exam dated: 11/28/2013 [facility]. BREAST TISSUE: The tissue of both breasts is heterogeneously dense, which may obscure small masses. FINDINGS: There are benign appearing masses in both breasts. No significant masses, calcifications, or other findings are seen in either breast. There has been no significant interval change. IMPRESSION: BI-RAD 2 BENIGN There is no mammographic evidence of malignancy. A 1 year screening mammogram is recommended. The patient has been or will be contacted. The patient will be entered into a reminder system with a target due date of 1 year for her next screening exam. Electronically signed by: Baljeet Sparks M.D. nh/:10/12/2015 10:08:46 Furnace Tapper: Carmen Copeland (R), [facility] letter sent: Normal Exam Reading location: [facility] BI-RADS: 2 Benign Makayla Medina MD IMG MAMMO ORDERABLES Final R esult * HM COLONOSCOPY (01/15/2014) us Makayla Medina MD PROCEDURE/MINOR SURGICAL ORD ERABLES Final Result from Last 3 Months or Most Recently Relevant to Health Maintenance Insurance MEDICARE C AET[employer] Advance Directives * Full Code (Latest Code Status on File) Date Activated Date Inactivated Comments 05/20/2020 8:17 PM 05/21/2020 6:52 AM CPR-Full Yayo atment: FULL ARREST: Attempt Resuscitation/CPR wit intubation and mechanical ventilation. PRE-ARREST: Use entire range of life support measures to stabilize the patient. Care Teams Hand Sole Sewer Relationship Specialty Start Date End Date Martita Sims MD [address] [place] [id number] PCP - General Family Medicine 03/24/21
--- OUTSIDE RECORDS SUMMARY | 2025-03-04 18:46 | XMS_ITS | Encounter Summary ---
Author Organization [facility] Address [address] [place] [address] Phone Care Team Providers Care Clinical Microbiologist Name Role Phone Makayla Medina MD Primary Care Provider [phone] Martita Sims MD Primary Care Provider + Reason for Visit * Reason Comments Medication Refill Encounter Details Date Type Department Care Team (Late st Contact Info) Description 01/07[facility]20[facility] [address] [place] [address] Makayla Medina MD [address] [place] [address] Medication Refill Social History Tobacco [...] encounter Miscellaneous Notes * Telephone Encounter - Makayla Medina MD - 01/08/2021 8:26 AM CDT Need f/u appt as recommended at last OV. Advise to get labs as ordered in June 2020. Please extend June lab orders so she can get it prior to her next office visit. documented in this encounter Plan of Treatment Not on file documented as of this encounter Visit Diagnoses Diagnosis Vitamin D deficiency Unspecified vitamin D deficiency Vitamin B12 deficiency Other B-complex deficiencies documented in this encounter Additional Health Concerns Assessment Noted Time PHQ-9 Depression Total Score: 0 12/22/19 19 1:00 PM CDT documented as of this encounter Care Teams Clinical Microbiologist Relationship Specialty Start Date End Date Makayla Medina MD PCP - General Family Medicine 01/04/15 03/23/21 Martita Sims MD [address] [place] [id number] PCP - General Family Medicine 03/24/21 documented as of this encounter
[2025-03-04 19:01] LABS: Hematocrit 48.6 % (37.0-47.0); Hemoglobin 16.8 g/dL (12.0-15.0); Immature Granulocyte Percent A 0.3 % (0-0.5); Lymphocytes Absolute Auto 2.08 K/mm3 (0.9-3.2); Mean Corpuscular HGB Conc 34.6 g/dl (32-36); Mean Corpuscular Hemoglobin 31.3 pg (26-34); Mean Corpuscular Volume 90.5 fl (80-100); Nucleated Red Blood Cells Absolute Auto 0.000 K/mm3 (0.0-0.012); Nucleated Red Blood Cells Perc 0.0 % (0.0-0.2); Platelet Count Result 295 k/mm3 (150-375); Red Blood Count 5.37 M/mm3 (4.2-5.4); White Blood Count 9.9 K/mm3 (4.5-10.0)
[2025-03-04] MEDS: IPRATROPIUM BR 0.02% INH SOLN 0.5 MG/2.5 ML VIAL 1 MG INHALATION (19:08)
[2025-03-04] MEDS: ALBUTEROL SULFATE NEB 2.5 MG/3 ML INH 10 MG INHALATION (19:08)
[2025-03-04 19:12] LABS: INR 1.1; Prothrombin Time 13.9 Seconds (11.1-14.7)
[2025-03-04 19:13] LABS: Partial Thromboplastin Time 23.6 Seconds (22.3-36.8)
--- OUTSIDE RECORDS SUMMARY | 2025-03-04 19:15 | XMS_ITS | Clinical Summary ---
Author Organization [facility] Address [address] [address] Phone Care Team Providers Care Grants Officer Name Role Phone Unavailable Unavailable Unavailable Reason for Visit and Chief Complaint NO SHOW Plan of Treatment No Plan of Treatment Recorded Assessments Includes: Assessments from this encounter No Assessments Recorded Medical Equipment - Implanted Devices Includes: Current Devices No Medical Equipment Recorded Medications Includes: Medications discussed during this encounter and other current Medications Current Medications (continue as prescribed) [facility] Fish Oil 1000MG Oral Capsule 05/03/2016 Provider : Diagnosis: Last Documented On 7 9:56AM By KAPIL TOUSSAINT ; [facility] Calcium + D [id number] Oral Tablet 05/03/2016 Pr ovider: Diagnosis: Last Documented On 7 9:57AM By KAPIL TOUSSAINT ; [facility] LORazepam 0.5 MG Tablet 02/09/2016 Provider: Diagnosis: Last Documented On 6 9:48AM By KAPIL TOUSSAINT ; [facility] Cyclobenzaprine HCl 10 MG Tablet 02/09/2016 Provider : Diagnosis: Last Documented On 6 9:49AM By KAPIL TOUSSAINT ; [facility] CeleXA 10 MG Tablet 02/09/2016 Provider: Diagnosis: Last Documented On 6 9:49AM By KAPIL TOUSSAINT ; [facility] Simvastatin 40 MG Tablet 02/09/2016 Provider: Diagnosis: Last Documented On 6 9:58AM By KAPIL TOUSSAINT ; [facility] PriLOSEC 10 MG Capsule, delayed-release 02/09/2016 P abrander: Diagnosis: Last Documented On 6 9:58AM By KAPIL TOUSSAINT ; [facility] Meloxicam 15 MG Tablet 02/09/2016 Provider: Diagnosis: Last Documented On 6 9:58AM By KAPIL TOUSSAINT ; [facility] Medications Administered Includes: Administered Medications from this encounter No Administered Medications Recorded Results Includes: Results discussed during this encounter No Results Recorded For Specified Dates History of Present Illness Includes: History of Present Illness from this encounter No History of Present Illness Recorded Social History No Social History Recorded - Smoking Status Unknown Medical History Includes: Medical History addressed during this encounter No Medical History Recorded Family History Includes: Family History addressed during this encounter No Family History Recorded Review of Systems Includes: Review of Systems from this encounter No Review of Systems Recorded Mental Status Includes: Mental Status from this encounter No Mental Status Recorded Functional Status Includes: Functional Status from this encounter No Functional Status Recorded Physical Exam Includes: Physical Exam from this encounter No Physical Exam Recorded Allergies Includes: Active Allergies Substance Type Reaction Onset Date Resolved Date Statu s Erythromycin Allergy 04/09/2009 Active Last Documented On 7 9:54AM ; [facility] Clinical Notes Includes: Clinical Notes from this encounter No Clinical Notes Recorded
--- OUTSIDE RECORDS SUMMARY | 2025-03-04 19:15 | XMS_ITS | Encounter Summary ---
Author Organization [facility] Address [address] [place] [address] Phone Care Team Providers Care Consulting Hr Professional Name Role Phone Martita Sims MD Primary Care Provider + Reason for Visit * Reason Comments Medication Refill Encounter Details Date Type Department Care Team (Late st Contact Info) Description [facility]20[facility] - [address] [place] [id number] Makayla Medina MD [address] [place] [address] Medication Refill Social History Tobacco [...] documented as of this encounter Care Teams Consulting Hr Professional Relationship Specialty Start Date End Date Martita Sims MD [address] [place] [id number] PCP - General Family Medicine 03/24/21 documented as of this encounter
--- OUTSIDE RECORDS SUMMARY | 2025-03-04 19:15 | XMS_ITS | Encounter Summary ---
Author Organization [facility] Address [address] [place] [address] Phone Care Team Providers Care Electric Motor Tester Name Role Phone Makayla Medina MD Primary Care Provider [phone] Martita Sims MD Primary Care Provider + Reason for Visit * Reason Comments Medication Refill Encounter Details Date Type Department Care Team (Late st Contact Info) Description 06/21/2020 Refill [facility] - Primary Care - [address] [place] [address] Makayla Medina MD [address] [place] [address] Medication Refill Social History Tobacco [...] 7 months ago Hyperlipidemia, unspecified hyperlipidemia type [facility] Gina Blake APN, JUANA 8 months ago Tick bite, initial encounter [facility] Makayla Medina MD 1 year ago [facility], unspecified [facility] 1 year ago Osteopenia of multiple sites [facility] - Makayla Bowens MD 2 years ago Hyperlipidemia, unspecified hyperlipidemia type [facility] Makayla Medina MD Upcoming Appointments Future Appointments In [address] [facility] In 2 weeks Makayla Medina MD [facility] - Recent and Past Visits Recent Visits Date Type Provider Dept 11/25/19 Office Visit Gina Blake APN, CNP [facility] 10/08/19 Office Visit Makayla Medina MD [facility] Showing recent visits within past 460 days with a meds authorizing provider and meeting all other requirements Future Appointments Date Type Provider Dept 07/10/20 Appointment Makayla Medina MD [facility] Showing future appointments within next 90 [...] documented as of this encounter Care Teams Electric Motor Tester Relationship Specialty Start Date End Date Makayla Medina MD PCP - General Family Medicine 01/04/15 03/23/21 Martita Sims MD [address] [place] [id number] PCP - General Family Medicine 03/24/21 documented as of this encounter
--- OUTSIDE RECORDS SUMMARY | 2025-03-04 19:15 | XMS_ITS | Encounter Summary ---
Author Organization [facility] Address [address] [place] [address] Phone Care Team Providers Care Laborer Car Barn Name Role Phone Makayla Medina MD Primary Care Provider [phone] Martita Sims MD Primary Care Provider + Reason for Visit * Reason Comments Medication Refill Encounter Details Date Type Department Care Team (Late st Contact Info) Description 03/23/2020 Refill [facility] - [address] [place] [address] Swapnil Robbins PAC [address] [place] [address] Medication Refill Social History Tobacco [...] COVID-19? 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
--- OUTSIDE RECORDS SUMMARY | 2025-03-04 19:15 | XMS_ITS | Encounter Summary ---
Author Organization [facility] Address [address] [place] [address] Phone Care Team Providers Care Lithographic Plate Maker Apprentice Name Role Phone Martita Sims MD Primary Care Provider + Encounter Details Date Type Department Care Team (Late st Contact Info) Description 08/05/2021 Transcribe Orders [facility] Central Scheduling [address] [place] [address] Shaneka Willams APRN, CRAS 4 [facility] [address] [place] [address] Social History Tobacco Use Types Packs/Day Years [...] documented as of this encounter Care Teams Lithographic Plate Maker Apprentice Relationship Specialty Start Date End Date Martita Sims MD [address] [place] [id number] PCP - General Family Medicine 03/24/21 documented as of this encounter
--- OUTSIDE RECORDS SUMMARY | 2025-03-04 19:15 | XMS_ITS ---
Author Organization [facility] Address [address] [place] [address] Phone Care Team Providers Care Motion Study Technician Name Role Phone Unavailable Unavailable Unavailable Plan of Treatment Instructions to patient Instructions for patient : B reast Self Exam discussed Last Documented On 7 10:04AM ; [facility] Instructions for patient : K eep the area around the vulva dry. Allow the area to have exposure to air. Avoid irritants such as fabric softeners and perfumed soaps.~ Last Documented On 6 10:26AM ; [facility] Education and Decision Aids were provided during visit for: STD screening offered and de clined Last Documented On 7 10:04AM ; [facility] Bone Mineral Density Screeni ng guidelines reviewed Last Documented On 7 10:04AM ; [facility] Patient Education: Daily marcos cium and vitamin D Last Documented On 7 10:04AM ; [facility] Patient Education: weight be aring exercise Last Documented On 7 10:04AM ; [facility] Colonoscopy screening guidel [email or web address] discussed Last Documented On 7 10:04AM ; [facility] Assessments Includes: Assessments for all patient encounters Findings Encounter Date Routine pelvic exam ANNUAL REGULATOR OPERATOR EXAM with MARIAH MEDLEY MD 05/03/2016 Last Documented On 7 10:18AM ; [facility] Screening Malig. Neoplasm Rectum ANNUAL REGULATOR OPERATOR EXAM with MARIAH MEDLEY MD 05/03/2016 Last Documented On 7 10:18AM ; [facility] Vulvar abscess , recurrent NEW CARE COORDINATOR EXAM with KATHRINE MEDLEY MD 02/09/2016 Last Documented On 6 10:32AM ; [facility] Instructions Includes: Instructions for all patient encounters Instructions to patient Instructions for patient : B reast Self Exam discussed Last Documented On 7 10:04AM ; [facility] Instructions for patient : K eep the area around the vulva dry. Allow the area to have exposure to air. Avoid irritants such as fabric softeners and perfumed soaps.~ Last Documented On 6 10:26AM ; [facility] Education and Decision Aids were provided during visit for: STD screening offered and de clined Last Documented On 7 10:04AM ; [facility] Bone Mineral Density Screeni ng guidelines reviewed Last Documented On 7 10:04AM ; [facility] Patient Education: Daily marcos cium and vitamin D Last Documented On 7 10:04AM ; [facility] Patient Education: weight be aring exercise Last Documented On 7 10:04AM ; [facility] Colonoscopy screening guidel raimundo discussed Last Documented On 7 10:04AM ; [facility] Medical Equipment - Implanted Devices Includes: Current and historical Devices No Medical Equipment Recorded Medications Includes: Current and historical Medications Current Medications (continue as prescribed) [facility] Fish Oil 1000MG Oral Capsule 05/03/2016 Provider : Diagnosis: Last Documented On 7 9:56AM By KAPIL TOUSSAINT ; [facility] Calcium + D [id number] Oral Tablet 05/03/2016 Pr ovider: Diagnosis: Last Documented On 7 9:57AM By KAPIL TOUSSAINT ; [facility] LORazepam 0.5 MG Tablet 02/09/2016 Provider: Diagnosis: Last Documented On 6 9:48AM By KAPIL TOUSSAINT ; [facility] Cyclobenzaprine HCl 10 MG Tablet 02/09/2016 Provider : Diagnosis: Last Documented On 6 9:49AM By KAPIL TOUSSAINT ; [facility] CeleXA 10 MG Tablet 02/09/2016 Provider: Diagnosis: Last Documented On 6 9:49AM By KAPIL TOUSSAINT ; [facility] Simvastatin 40 MG Tablet 02/09/2016 Provider: Diagnosis: Last Documented On 6 9:58AM By KAPIL TOUSSAINT ; [facility] PriLOSEC 10 MG Capsule, delayed-release 02/09/2016 Brady osullivander: Diagnosis: Last Documented On 6 9:58AM By KAPIL TOUSSAINT ; [facility] Meloxicam 15 MG Tablet 02/09/2016 Provider: Diagnosis: Last Documented On 6 9:58AM By KAPIL TOUSSAINT ; [facility] Past Medications on file Sulfamethoxazole-Trimethopri m 800-160 MG Tablet 02/09/2016 - 03/01/2016 Provider: MARIAH MEDLEY MD Diagnosis: One tablet twice a day Last Documented On 02/09/2016 10:38AM By MARIAH MEDLEY MD ; [facility] Simvastatin 20 MG Tablet 02/09/2016 - 02/09/2016 Provi ashley: Diagnosis: Last Documented On 6 9:57AM By KAPIL TOUSSAINT ; [facility] Bactrim DS 800-160 MG OR TABS 10/17/2008 - 02/09/2016 Provider: Diagnosis: Last Documented On 02/09/2016 10:24AM By MARIAH MEDLEY MD ; [facility] Medications Administered Includes: Administered Medications in patient's chart No Administered Medications Recorded Results Includes: Results from 03/04/2024 through 03/04/2025 No Results Recorded For Specified Dates History of Present Illness History of Present Illness not supported for this document type No History of Present Illness Recorded Social History Description Last Updated In monogamous relationship 05/03/2016 Last Documented On 7 10:18AM ; [facility] Cigarette smoking 1/2 or less per day Last Documented On 7 10:18AM ; [facility] Not sexually active 05/03/2016 Last Documented On 7 10:18AM ; [facility] Smoking status : Current everyday smoker 05/03/2016 Last Documented On 7 10:18AM ; [facility] Caffeine use 04/09/2009 Last Documented On 0 12:09PM ; [facility] 04/09/2009 Last Documented On 0 12:09PM ; [facility] Sexually active with 1 partners in the l ast year 04/09/2009 Last Documented On 0 12:09PM ; [facility] Smoking 8-10 dly 04/09/2009 Last Documented On 0 12:09PM ; [facility] Tobacco use 04/09/2009 Last Documented On 0 12:09PM ; [facility] Procedures and Surgical History Surgical History Last Updated History of hysterectomy 05/03/2016 Last Documented On 7 10:18AM ; [facility] Surgical / procedural histor y Thoracic outlet syndrome ~Gall Bladder ~Tonsillectomy ~Ankle reconstruction ~anal abcess ~hysterectomy 02/09/2016 Last Documented On 6 10:32AM ; [facility] Medical History Includes: Medical History in patient's chart Description Last Updated A colonoscopy was performed Less than 5 years ago-- can't remember name of 05/03/2016 Last Documented On 7 10:18AM ; [facility] 3 05/03/2016 Last Documented On 7 10:18AM ; [facility] Last mammogram date: 10/12/2015 7 Last Documented On 7 10:18AM ; [facility] Para 3 05/03/2016 Last Documented On 7 10:18AM ; [facility] Patient recently had a dexa scan 10/12/19 16 05/03/2016 Last Documented On 7 10:18AM ; [facility] Contraception: none 02/09/2016 Last Documented On 6 10:32AM ; [facility] History of menopause 02/09/2016 Last Documented On 6 10:32AM ; [facility] 3 living children 04/09/2009 Last Documented On 0 12:09PM ; [facility] A breast self-exam was performed 010 Last Documented On 0 12:09PM ; [facility] A cholesterol test was high 04/09/2009 Last Documented On 0 12:09PM ; [facility] Kidney disease 04/09/2009 Last Documented On 0 12:09PM ; [facility] Last pap smear date 06/16/2008 04/09/2009 Last Documented On 0 12:09PM ; [facility] LMP: 1980 04/09/2009 Last Documented On 0 12:09PM ; [facility] Stomach problems 04/09/2009 Last Documented On 0 12:09PM ; [facility] Family History Includes: Family History in patient's chart Description Last Updated Family history of thyroid disease 2009 Last Documented On 0 12:09PM ; [facility] Review of Systems Review of Systems not supported for this document type No Review of Systems Recorded Mental Status No Mental Status Recorded Functional Status No Functional Status Recorded Physical Exam Physical Exam not supported for this document type No Physical Exam Recorded Allergies Includes: Active, inactive, and resolved Allergies Substance Type Reaction Onset Date Resolved Date Statu s Erythromycin Allergy 04/09/2009 Active Last Documented On 7 9:54AM ; [facility] Clinical Notes Includes: Signed Clinical Notes starting from 04/15/2022 No Clinical Notes Recorded
--- OUTSIDE RECORDS SUMMARY | 2025-03-04 19:15 | XMS_ITS | Clinical Summary ---
Author Organization [facility] mireille [facility] Address [address] [place] [address] Care Team Providers Care Correction Officer Supervisor Name Role Phone Martita Sims MD Primary [...] 12/21/2018, 09/07/2015, Additional history exists Insurance [employer] Medicare Part D AETNA [facility] MEDICAID [place] Care Teams Correction Officer Supervisor Relationship Specialty Start Date End Date Martita Sims MD [address] [place] [address] [place] [phone] PCP - General Family Practice 12/07/21
--- OUTSIDE RECORDS SUMMARY | 2025-03-04 19:15 | XMS_ITS | Encounter Summary ---
Author Organization [facility] Address [address] [place] [address] Phone Care Team Providers Care Parking Lot Attendant And Cashier Name Role Phone Martita Sims MD Primary Care Provider + Reason for Visit * Reason Comments Medication Refill Encounter Details Date Type Department Care Team (Late st Contact Info) Description 09/06[facility]20[facility] - [address] [place] [phone] Makayla Medina MD [address] [place] [address] Medication Refill Social History Tobacco [...] documented as of this encounter Care Teams Parking Lot Attendant And Cashier Relationship Specialty Start Date End Date Martita Sims MD [address] [place] [id number] PCP - General Family Medicine 03/24/21 documented as of this encounter
--- OUTSIDE RECORDS SUMMARY | 2025-03-04 19:15 | XMS_ITS | Clinical Summary ---
Author Organization [facility] Address [address] [place] [address] Phone Care Team Providers Care In Store Marketing Associate Name Role Phone Unavailable Unavailable Unavailable Reason [...] On 7 9:56AM By KAPIL TOUSSAINT ; [facility] Calcium + D [id number] Oral Tablet 05/03/2016 Pr ovider: Diagnosis: Last Documented On 7 9:57AM By KAPIL TOUSSAINT ; [facility] LORazepam 0.5 MG Tablet 02/09/2016 Provider: Diagnosis: Last Documented On 6 9:48AM By KAPIL TOUSSAINT ; [facility] Cyclobenzaprine HCl 10 MG Tablet 02/09/2016 Provider : Diagnosis: Last Documented On 6 9:49AM By KAPIL TOUSSAITN ; [facility] CeleXA 10 MG Tablet 02/09/2016 Provider: Diagnosis: Last Documented On 6 9:49AM By KAPIL TOUSSAINT ; [facility] Simvastatin 40 MG Tablet 02/09/2016 Provider: Diagnosis: Last Documented On 6 9:58AM By KAPIL TOUSSAINT ; [facility] PriLOSEC 10 MG Capsule, delayed-release 02/09/2016 P abrander: Diagnosis: Last Documented On 6 9:58AM By KAPIL TOUSSAINT ; [facility] Meloxicam 15 MG Tablet 02/09/2016 Provider: Diagnosis: Last Documented On 6 9:58AM By KAPIL TOUSSAINT ; [facility] Medications Administered Includes: Administered Medications from [...] Active Last Documented On 7 9:54AM ; [facility] Encounters Encounter Provider Location Date Check-In Time Check-Out Time Diagnosis NO SHOW MARIAH MEDLEY MD [facility] CULTURE ROOM WORKER 05/08/2017 10:00AM 11:59PM Clinical Notes Includes: Clinical Notes from this encounter No Clinical Notes Recorded
--- OUTSIDE RECORDS SUMMARY | 2025-03-04 19:16 | XMS_ITS | Encounter Summary ---
Author Organization [facility] Address [address] [place] [address] Phone Care Team Providers Care Highwall Drill Operator Name Role Phone Martita Sims MD Primary Care Provider + Reason for Visit * Reason Comments Medication Refill Encounter Details Date Type Department Care Team (Late st Contact Info) Description [facility] [address] [place] [phone] Makayla Medina MD [address] [place] [address] Medication Refill Social History Tobacco [...] documented as of this encounter Care Teams Highwall Drill Operator Relationship Specialty Start Date End Date Martita Sims MD [address] [place] [id number] PCP - General Family Medicine 03/24/21 documented as of this encounter
--- OUTSIDE RECORDS SUMMARY | 2025-03-04 19:16 | XMS_ITS | Encounter Summary ---
Author Organization [facility] Address [address] [place] [address] Phone Care Team Providers Care Reservations Agent Name Role Phone Martita Sims MD Primary Care Provider + Reason for Visit * Reason Comments Medication Refill Encounter Details Date Type Department Care Team (Late st Contact Info) Description 05/26/2021 [facility]ill [facility] [place] [address] [place] [phone] Makayla Medina MD [address] [place] [address] Medication Refill Social History Tobacco [...] documented as of this encounter Care Teams Reservations Agent Relationship Specialty Start Date End Date Martita Sims MD [address] [place] [phone] PCP - General Family Medicine 03/24/21 documented as of this encounter
--- OUTSIDE RECORDS SUMMARY | 2025-03-04 19:16 | XMS_ITS | Clinical Summary ---
Author Organization [facility] Address [address] [place] [address] Phone Care Team Providers Care Brim Rounder Name Role Phone Unavailable Unavailable Unavailable Reason for Visit and Chief Complaint [Patient Encounter] Plan of Treatment No Plan of Treatment [...] On 7 9:56AM By KAPIL TOUSSAINT ; [facility] Calcium + D [id number] Oral Tablet 05/03/2016 Pr ovider: Diagnosis: Last Documented On 7 9:57AM By KAPIL TOUSSAINT ; [facility] LORazepam 0.5 MG Tablet 02/09/2016 Provider: Diagnosis: Last Documented On 6 9:48AM By KAPIL TOUSSAINT ; [facility] Cyclobenzaprine HCl 10 MG Tablet 02/09/2016 Provider : Diagnosis: Last Documented On 6 9:49AM By KAPIL TOUSSAINT ; [facility] CeleXA 10 MG Tablet 02/09/2016 Provider: Diagnosis: Last Documented On 6 9:49AM By KAPIL TOUSSAINT ; [facility] Simvastatin 40 MG Tablet 02/09/2016 Provider: Diagnosis: Last Documented On 6 9:58AM By KAPIL TOUSSAINT ; [facility] PriLOSEC 10 MG Capsule, delayed-release 02/09/2016 P abrander: Diagnosis: Last Documented On 6 9:58AM By KAPIL TOUSSAINT ; [facility] Meloxicam 15 MG Tablet 02/09/2016 Provider: Diagnosis: Last Documented On 6 9:58AM By KAPIL TOUSSAINT ; [facility] Medications Administered Includes: Administered Medications from this [...] Active Last Documented On 7 9:54AM ; [facility] Encounters Encounter Provider Location Date Check-In Time Check-Out Time Diagnosis [Patient Encounter] MARIAH MEDLEY MD 08/31/2017 3:33PM 11:59PM Clinical Notes Includes: Clinical Notes from this encounter No Clinical Notes Recorded
--- OUTSIDE RECORDS SUMMARY | 2025-03-04 19:16 | XMS_ITS | Clinical Summary ---
Author Organization [facility] Address [address] [place] [address] Phone Care Team Providers Care Inclusion Intern Name Role Phone Unavailable Unavailable Unavailable Reason [...] On 7 9:56AM By KAPIL TOUSSAINT ; [facility] Calcium + D [id number] Oral Tablet 05/03/2016 Pr ovider: Diagnosis: Last Documented On 7 9:57AM By KAPIL TOUSSAINT ; [facility] LORazepam 0.5 MG Tablet 02/09/2016 Provider: Diagnosis: Last Documented On 6 9:48AM By KAPIL TOUSSAINT ; [facility] Cyclobenzaprine HCl 10 MG Tablet 02/09/2016 Provider : Diagnosis: Last Documented On 6 9:49AM By KAPIL TOUSSAINT ; [facility] CeleXA 10 MG Tablet 02/09/2016 Provider: Diagnosis: Last Documented On 6 9:49AM By KAPIL TOUSSAINT ; [facility] Simvastatin 40 MG Tablet 02/09/2016 Provider: Diagnosis: Last Documented On 6 9:58AM By KAPIL TOUSSAINT ; [facility] PriLOSEC 10 MG Capsule, delayed-release 02/09/2016 P abrander: Diagnosis: Last Documented On 6 9:58AM By KAPIL TOUSSAINT ; [facility] Meloxicam 15 MG Tablet 02/09/2016 Provider: Diagnosis: Last Documented On 6 9:58AM By KAPIL TOUSSAINT ; [facility] Medications Administered Includes: Administered Medications from this [...] Active Last Documented On 7 9:54AM ; [facility] Encounters Encounter Provider Location Date Check-In Time Check-Out Time Diagnosis [Patient Encounter] MARIAH MEDLEY MD 06/15/2016 4:18PM 11:59PM Clinical Notes Includes: Clinical Notes from this encounter No Clinical Notes Recorded
--- OUTSIDE RECORDS SUMMARY | 2025-03-04 19:16 | XMS_ITS | Encounter Summary ---
Author Organization [facility] Address [address] [place] [address] Phone Care Team Providers Care Court Monitor Name Role Phone Makayla Medina MD Primary Care Provider [phone] Martita Sims MD Primary Care Provider + Reason for Visit * Reason Comments Medication Refill Encounter Details Date Type Department Care Team (Late st Contact Info) Description 01/07[facility]20[facility] - [address] [place] [address] Makyala Medina MD [address] [place] [address] Medication Refill Social History Tobacco [...] documented as of this encounter Care Teams Court Monitor Relationship Specialty Start Date End Date Makayla Medina MD PCP - General Family Medicine 01/04/15 03/23/21 Martita Sims MD [address] [place] [address] PCP - General Family Medicine 03/24/21 documented as of this encounter
--- OUTSIDE RECORDS SUMMARY | 2025-03-04 19:16 | XMS_ITS | Clinical Summary ---
Author Organization [facility] Address [address] [place] [address] Phone Care Team Providers Care Chemical Test Engineer Name Role Phone Unavailable Unavailable Unavailable Reason for Visit and Chief Complaint gynecologic annual exam - The Chief Complaint is: Annual exam Plan of Treatment Pending Tests Order Diagnosis Results Due Ordering P [facility] Radiology @ other - *MAMMOGRAPHY SCREENING MAMMOGRAM Encntr screen mammogram for malignant neoplasm of breast 05/03/16 MARIAH MEDLEY MD Last Documented On 8 11:52AM ; [facility] Instructions to patient Instructions for patient : B reast Self Exam discussed Last Documented On 7 10:04AM ; [facility] Education and Decision Aids were provided during visit for: STD screening offered and de clined Last Documented On 7 10:04AM ; [facility] Bone Mineral Density Screeni ng guidelines reviewed Last Documented On 7 10:04AM ; [facility] Patient Education: Daily marcos cium and vitamin D Last Documented On 7 10:04AM ; [facility] Patient Education: weight be aring exercise Last Documented On 7 10:04AM ; [facility] Colonoscopy screening guidel raimundo discussed Last Documented On 7 10:04AM ; [facility] Assessments Includes: Assessments from this encounter Findings - Routine pelvic exam - Last Documented On 05/03/2016 10:18AM ; [facility] - Screening Malig. Neoplasm Rectum - Last Documented On 05/03/2016 10:18AM ; [facility] Instructions Includes: Instructions from this encounter Instructions to patient Instructions for patient : B reast Self Exam discussed Last Documented On 7 10:04AM ; [facility] Education and Decision Aids were provided during visit for: STD screening offered and de clined Last Documented On 7 10:04AM ; [facility] Bone Mineral Density Screeni ng guidelines reviewed Last Documented On 7 10:04AM ; [facility] Patient Education: Daily marcos cium and vitamin D Last Documented On 7 10:04AM ; [facility] Patient Education: weight be aring exercise Last Documented On 7 10:04AM ; [facility] Colonoscopy screening guidel raimundo discussed Last Documented On 7 10:04AM ; [facility] Medical Equipment - Implanted Devices Includes: Current Devices No Medical Equipment Recorded Medications Includes: Medications discussed during this encounter and other current Medications Current Medications (continue as prescribed) [facility] Fish Oil 1000MG Oral Capsule 05/03/2016 Provider : Diagnosis: Last Documented On 7 9:56AM By KAPIL TOUSSAINT ; [facility] Calcium + D [id number] Oral Tablet 05/03/2016 Pr ovider: Diagnosis: Last Documented On 7 9:57AM By KAPIL TOUSSAINT ; [facility] LORazepam 0.5 MG Tablet 02/09/2016 Provider: Diagnosis: Last Documented On 6 9:48AM By KAPIL TOUSSAINT ; [facility] Cyclobenzaprine HCl 10 MG Tablet 02/09/2016 Provider : Diagnosis: Last Documented On 6 9:49AM By KAPIL TOUSSAINT ; [facility] CeleXA 10 MG Tablet 02/09/2016 Provider: Diagnosis: Last Documented On 6 9:49AM By AKPIL TOUSSAINT ; [facility] Simvastatin 40 MG Tablet 02/09/2016 Provider: Diagnosis: Last Documented On 6 9:58AM By KAPIL TOUSSAINT ; [facility] PriLOSEC 10 MG Capsule, delayed-release 02/09/2016 P abrander: Diagnosis: Last Documented On 6 9:58AM By KAPIL TOUSSAINT ; [facility] Meloxicam 15 MG Tablet 02/09/2016 Provider: Diagnosis: Last Documented On 6 9:58AM By KAPIL TOUSSAINT ; [facility] Past Medications on file Sulfamethoxazole-Trimethopri m 800-160 MG Tablet 02/09/2016 - 03/01/2016 Provider: MARIAH MEDLEY MD Diagnosis: One tablet twice a day Last Documented On 02/09/2016 10:38AM By MARIAH MEDLEY MD ; [facility] Medications Administered Includes: Administered Medications from this encounter No Administered Medications Recorded Vital Signs Includes: Vital Signs from this encounter Vital Name 05/03/2016 09:49A Blood Pressure Sitting (mmHg) 118/66 Pulse Rate-Sitting (bpm) 76 Height (in) 68 Weight (lb) 161.4 Body Mass Index (kg/m2) 24.5 Body Surface Area (m2) 1.9 Last Documented: On 05/03/2016 9:54AM ; [facility] Results Includes: Results discussed during this encounter Occult Blood [facility] Ordered by MARIAH MEDLEY MD on 7 Collected: Reported: 05/03/2016 10:16 Last Documented On 7 10:16AM ; [facility] Reviewed on 05/03/2016; All test results are final unless otherwise noted. Occult Blood neg N (Normal) Last Documented On 7 10:16AM ; [facility] LOT # & EXP. DATE [id number] 05/2018 N (Normal) Last Documented On 7 10:16AM ; [facility] INT. QC ACCEPTABLE? yes N (Normal) Last Documented On 7 10:16AM ; [facility] History of Present Illness Includes: History of Present Illness from this encounter CALI DUMONT is a 65 year old female. - Medication list reviewed. - No unusual bleeding. - No pelvic pain. - No vaginal discharge. She has had one perineal boil since I saw her. She did start the abx I prescribed, and it didn't get nearly as bad or painful as usual Social History Description Last Updated In monogamous relationship 05/03/2016 Last Documented On 7 10:18AM ; [facility] Cigarette smoking 1/2 or less per day Last Documented On 7 10:18AM ; [facility] Not sexually active 05/03/2016 Last Documented On 7 10:18AM ; [facility] Smoking status : Current everyday smoker 05/03/2016 Last Documented On 7 10:18AM ; [facility] Procedures and Surgical History Includes: Procedures from this encounter Procedures Code Diagnosis Performing Provider Service L ocation Service Date Clinical summary provided to patient Last Documented On 7 10:04AM ; [facility] fecal occult blood test was negative 37069 Last Documented On 7 10:04AM ; [facility] Surgical History Last Updated History of hysterectomy 05/03/2016 Last Documented On 7 10:18AM ; [facility] Medical History Includes: Medical History addressed during this encounter Description Last Updated A colonoscopy was performed Less than 5 years ago-- can't remember name of 05/03/2016 Last Documented On 7 10:18AM ; [facility] 3 05/03/2016 Last Documented On 7 10:18AM ; [facility] Last mammogram date: 10/12/2015 7 Last Documented On 7 10:18AM ; [facility] Para 3 05/03/2016 Last Documented On 7 10:18AM ; [facility] Patient recently had a dexa scan 10/12/19 16 05/03/2016 Last Documented On 7 10:18AM ; [facility] Family History Includes: Family History addressed during this encounter Description Last Updated Family history of thyroid disease 2009 Last Documented On 7 9:48AM ; [facility] Review of Systems Includes: Review of Systems from this encounter Systemic: No recent weight change. Head: No headache. Eyes: No vision problems. Otolaryngeal: No hoarseness. Cardiovascular: No chest pain or discomfort and no palpitations. Pulmonary: No shortness of breath. Gastrointestinal: Normal appetite. No nausea, no vomiting, and no hematochezia. No diarrhea and no constipation. Genitourinary: No nocturia. No urinary loss of control and no dysuria. Musculoskeletal: No arthralgias and no localized joint swelling. Neurological: No tingling and no numbness. Psychological: No anxiety, no depression, and no sleep disturbances. Mental Status Includes: Mental Status from this encounter Description No anxiety Functional Status Includes: Functional Status from this encounter No Functional Status Recorded Physical Exam Includes: Physical Exam from this encounter Allergies Includes: Active Allergies Substance Type Reaction Onset Date Resolved Date Statu s Erythromycin Allergy 04/09/2009 Active Last Documented On 7 9:54AM ; [facility] Encounters Encounter Provider Location Date Check-In Time Check-Out Time Diagnosis ANNUAL TOOL SPECIALIST EXAM MARIAH MEDLEY MD [facility] HONING MACHINE OPERATOR TOOL 05/03/19 17 9:46AM 10:20AM Routine Pelvic Exam,Zacarias Mitchell. Neoplasm Rectum Clinical Notes Includes: Clinical Notes from this encounter No Clinical Notes Recorded
--- OUTSIDE RECORDS SUMMARY | 2025-03-04 19:16 | XMS_ITS | Clinical Summary ---
Author Organization [facility] [address] [place] [id number] Care Team Providers Care Physical Laboratory Assistant Name Role Phone Martita Sims MD Primary [...] week 10/10/2022 How often do you attend hoahaoism or caodaism serv ices? Never 10/10/2022 Do you belong to any clubs o r organizations such as hoahaoism groups, unions, fraternal or athletic groups, or [...] place to sleep or slept in a snf (including now)? 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 Gender Identity Not on file Sexual Orientation [...] history exists Medical Devices Implanted Type Area Bakery Machine Mechanic Supervisor Device Identifier Shelf Expiration Date Model / Serial / Lot [employer] X [id number] Resolute Vick 3mm 2.1-2.7fr 26mm 140cm Rapid Exchange Radiopaque - [id number] Implanted:Qty: 1 on 05/21/2020 by Amrit Paz MD at [facility] [employer] [id number] / / Daig Gissell [id number] Device Closure Angio-Seal Vip Bondek-Plus Polyglyd L70 Cm Od6 Fr Odsec.035 In Vascular - [id number] Implanted:Qty: 1 on 05/21/2020 by Amrit Paz MD at [facility] [id number] / / Insurance [facility] Advance Directives For more information, please contact: [phone] Documents on File Type Date Recorded 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
--- OUTSIDE RECORDS SUMMARY | 2025-03-04 19:16 | XMS_ITS | Data Portability ---
Author Organization [facility] [employer], Main Office Address [address] [place] [address] Assessment Encounter Date Assessment Date Assessment LastModified by Organization Details LastModified Time 07/19/2023 07/19/2023 I have reconciled the patient's medications post their discharge from inpatient facility. Not available 07/19/2023 11:57:58 Plan of Treatment Reminders Order Date Submit Date Provider Last Modified By Organization Details Last Modified Time Details Appointments None recorded. Lab drug screen, urine 2023 024 [facility], [address], [place], [address], 4 08:31:17 lipid panel, serum 2023 024 [email or web address], [address], [place], [address], 4 08:18:54 CMP, serum or plasma 2023 024 [email or web address] [facility], [address], [place], [address], 4 08:31:16 HbA1c (hemoglobin A1c), blood 2023 024 [email or web address], [address], [place], [address], 4 08:31:17 TSH, serum or plasma 2023 024 [email or web address] 477 [facility], [address], [place], [address], 4 08:31:17 vitamin D, 25-hydroxy, total, serum 2023 024 [email or web address] 7 [facility], [address], [place], [address], 4 08:18:55 CBC w/ auto diff 2023 024 [email or web address] 7 [facility], [address], [place], [address], 4 08:18:54 lipid panel, serum 2023 0[email or web address], [address], [place], [address], 4 08:18:55 CBC w/ auto diff 2023 024 [email or web address] [facility], [address], [place], [address], 4 05:01:31 CMP, serum or plasma 2023 024 [email or web address], [address], [place], [address], 4 05:01:29 lipid panel, serum 2023 024 KAVE[facility] Not available 4 21:28:56 hepatic function panel, serum 2023 024 [facility] Not available 4 21:29:02 PTH (parathyroi d hormone), intact + calcium, serum or plasma 2023 024 [facility] Not available 4 00:39:21 vitamin D, 25-hydroxy, total, serum 2023 024 [facility] Not available 4 00:39:20 CBC w/ auto diff 2023 024 [facility] Not available 4 19:59:50 BMP, serum or plasma 2023 024 [facility] Not available 4 21:28:51 vitamin B12, serum 2023 024 [facility] Not available 4 21:57:09 folate, serum 2023 024 [facility] Not available 4 21:57:14 Referral cardiologis t referral - Please call patient to schedule an appointment 2023 024 [email or web address] [facility], [address], [place], [address], 4 08:45:22 Procedures None recorded. Surgeries None recorded. Imaging DEXA - *Please call pt to schedule* 2023 024 [email or web address] 256 [facility], [address] [place] [address], [place], [address], 4 15:30:00 CT, chest, w/o contrast - *Please call pt to schedule* [address]23 [email or web address] [place] [address], [address], [place], [address], 4 09:56:15 Medication Orders urea 40 % topical cream 2023 024 [facility]2510, [address] [place], [address], 4 10:34:13 lorazepam 0.5 mg tablet 2023 024 [facility], [address] [place], [address], 4 11:08:43 mirtazapine 7.5 mg tablet 2023 024 [email or web address] 3 [facility]acy #2510, [address] [place] [address], [address], 4 10:36:20 atorvastati n 10 mg tablet 2023 024 [facility]25[facility], [address] [place], [address], 4 21:50:05 lidocaine 5 % topical patch 2023 024 [facility] [address] [place] [address], [address], 4 21:50:05 carvedilol 6.25 mg tablet 2023 024 [facility] [address] [place], [address], 4 21:50:04 Symbicort 160 mcg-4.5 mcg/actuati on HFA aerosol inhaler 2023 024 [facility] [address] [place], [address], 4 12:21:21 prednisone 20 mg tablet 2023 024 [email or web address] [facility] #2510, [address] [place], [address], 4 15:19:53 Patient TargetsNo targets recorded. Patient Instructions Encounter Date Encounter Id Patient Instructions Last Modified By Organization Details Last Modified Time 07/19/2023 [id number] Thank you for your visit to our office today. We would like to request that you reach out to your referring or previous provider and request that they send us a Summary of Care in electronic form, so that we may have it on file in your medical record. At your visit, we had the medical records we needed to provide you with the best possible care; however, for insurance purposes, an electronic Summary of Care is beneficial. Thank you for your assistance in obtaining this information and we look forward to providing continued care to you. Please review your medication list from the Summary of Care for this visit. If there are any differences from what you are currently taking at home, please call us to discuss. Not available 07/19/2023 11:57:58 Homebound Status : Required Home Health Services: Durable Medical Equipment needed: Billing Guidelines CPT code 92633- Transitional Care Management services with moderate medical decision complexity (hugi-[id number] visit within 14 days of discharge). CPT code 38147- Transitional Care Management services with high medical decision complexity (ifha-ej-jesg visit within 7 days of discharge). Not available 07/19/2023 11:57:58 Reason for Referral [facility] Referral for Co ronary arteriosclerosis Please call patient to schedule an appointment Referring Physician: Martita Sims, Family Medicine, Encounter Date: 06/15/2023 Results Created Date Observation Date Name Description Value Unit Range Abnormal Flag Note LastModifiedBy Organization Detail LastModifiedTime 06/15/19 24 06/15/2023 CBC/C OMPLE TE BLD COUNT W/DIF F white blood cells 6.1 x10'3 /uL 4.2-10 .8 Not Available [facility] (Lab) [address] [place], [address], 06/15/2023 19:59:50 06/15/19 24 06/15/2023 CBC/C OMPLE TE BLD COUNT W/DIF F red blood cells 4.20 x10'6 /uL 3.80-5 .20 Not Available [facility] (Lab) [address] [place], [address], 06/15/2023 19:59:50 06/15/19 24 06/15/2023 CBC/C OMPLE TE BLD COUNT W/DIF F hemoglobin 13.3 g/dL 12.0-1 5.6 Not Available [facility] (Lab) [address] [place], [address], 06/15/2023 19:59:50 06/15/19 24 06/15/2023 CBC/C OMPLE TE BLD COUNT W/DIF F hematocrit 39.3 % 35.7-4 5.7 Not Available [facility] (Lab) [address] [place], [address], 06/15/2023 19:59:50 06/15/19 24 06/15/2023 CBC/C OMPLE TE BLD COUNT W/DIF F mean red cell volume 93.6 fL 82.0-9 9.0 Not Available [facility] (Lab) [address] [place], [address], 06/15/2023 19:59:50 06/15/19 24 06/15/2023 CBC/C OMPLE TE BLD COUNT W/DIF F mean red cell hemoglobin 31.7 pg 27.0-3 3.0 Not Available [facility] (Lab) [address] [place], [address], 06/15/2023 19:59:50 06/15/19 24 06/15/2023 CBC/C OMPLE TE BLD COUNT W/DIF F mean RBC HGB concentratio n 33.8 g/dL 31.0-3 6.0 Not Available [facility] (Lab) [address] [place], [address], 06/15/2023 19:59:50 06/15/19 24 06/15/2023 CBC/C OMPLE TE BLD COUNT W/DIF F red cell distribution width 15.3 % 11.8-1 5.5 Not Available [facility] (Lab) [address] [place], [address], 06/15/2023 19:59:50 06/15/19 24 06/15/2023 CBC/C OMPLE TE BLD COUNT W/DIF F platelets 344 x10'3 /uL 150-40 0 Not Available [facility] (Lab) [address] [place], [address], 06/15/2023 19:59:50 06/15/19 24 06/15/2023 CBC/C OMPLE TE BLD COUNT W/DIF F mean platelet volume 10.0 fL 9.0-12 .4 Not Available [facility] (Lab) [address] [place], [address], 06/15/2023 19:59:50 06/15/19 24 06/15/2023 CBC/C OMPLE TE BLD COUNT W/DIF F neutrophils 57.1 % 39.0-7 2.0 Not Available [facility] (Lab) [address] [place], [address], 06/15/2023 19:59:50 06/15/19 24 06/15/2023 CBC/C OMPLE TE BLD COUNT W/DIF F lymphocytes 30.4 % 16.0-4 7.0 Not Available [facility] (Lab) [address] [place], [address], 06/15/2023 19:59:50 06/15/19 24 06/15/2023 CBC/C OMPLE TE BLD COUNT W/DIF F monocytes 5.8 % 5.0-12 .0 Not Available [facility] (Lab) [address] [place], [address], 06/15/2023 19:59:50 06/15/19 24 06/15/2023 CBC/C OMPLE TE BLD COUNT W/DIF F eosinophils 4.8 % 1.0-7. 0 Not Available [facility] (Lab) [address] [place], [address], 06/15/2023 19:59:50 06/15/19 24 06/15/2023 CBC/C OMPLE TE BLD COUNT W/DIF F basophils 1.7 % 0.0-2. 0 Not Available [facility] (Lab) [address] [place], [address], 06/15/2023 19:59:50 06/15/19 24 06/15/2023 CBC/C OMPLE TE BLD COUNT W/DIF F immature granulocytes 0.2 % 0.00-0 .50 Not Available [facility] (Lab) [address] [place], [address], 06/15/2023 19:59:50 06/15/19 24 06/15/2023 CBC/C OMPLE TE BLD COUNT W/DIF F neutrophils, absolute count 3.47 x10'3 /uL 1.5-8. 0 Not Available [facility] (Lab) [address] [place], [address], 06/15/2023 19:59:50 06/15/19 24 06/15/2023 CBC/C OMPLE TE BLD COUNT W/DIF F lymphocytes, absolute count 1.84 x10'3 /uL 1.07-3 .43 Not Available [facility] (Lab) [address] [place], [address], 06/15/2023 19:59:50 06/15/19 24 06/15/2023 CBC/C OMPLE TE BLD COUNT W/DIF F monocytes, absolute count 0.35 x10'3 /uL 0.29-0 .99 Not Available [facility] (Lab) [address] [place], [address], 06/15/2023 19:59:50 06/15/19 24 06/15/2023 CBC/C OMPLE TE BLD COUNT W/DIF F eosinophils, absolute count 0.29 x10'3 /uL 0.02-0 .53 Not Available [facility] (Lab) [address] [place], [address], 06/15/2023 19:59:50 06/15/19 24 06/15/2023 CBC/C OMPLE TE BLD COUNT W/DIF F basophils, absolute count 0.10 x10'3 /uL 0.01-0 .08 high Not Available [facility] (Lab) [address] [place], [address], 06/15/2023 19:59:50 06/15/19 24 06/15/2023 CBC/C OMPLE TE BLD COUNT W/DIF F immature granulocytes ,absolute 0.01 x10'3 /uL 0.00-0 .05 Not Available [facility] (Lab) [address] [place], [address], 06/15/2023 19:59:50 06/15/19 24 06/15/2023 CBC/C OMPLE TE BLD COUNT W/DIF F nucleated red blood cells 0.0 % -0 Not Available [facility] (Lab) [address] [place], [address], 06/15/2023 19:59:50 06/15/19 24 06/15/2023 CBC/C OMPLE TE BLD COUNT W/DIF F NRBC# 0.00 x10'3 /uL Not Available [facility] (Lab) [address] [place], [address], 06/15/2023 19:59:50 06/15/19 24 06/15/2023 PARAT HY.HO RM(PT H)INT ACT-W /O CA intact parathyroid hormone 77.7 pg/mL 24.0-7 8.0 Pleas e note new refer ence range effec tive 04/22 . Not Available [facility] (Lab) [address] [place], [address], 06/15/2023 21:05:48 06/15/19 24 06/15/2023 VITAM IN D 25-HY DROXY [id number] 28.4 NG/mL 30-100 low Vitam in D Statu s: Defic ient: <20 ng/mL Insuf ficie nt: 20-29 ng/mL Suffi cient : 30-10 0 ng/mL Not Available [facility] (Lab) [address] [place], [address], 06/15/2023 21:06:48 06/15/19 24 06/15/2023 BASIC METAB OLIC PANEL sodium 139 mmol/ L 137-14 5 Not Available [facility] (Lab) [address] [place], [address], 06/15/2023 21:28:51 06/15/19 24 06/15/2023 BASIC METAB OLIC PANEL potassium 4.2 mmol/ L 3.5-5. 1 Not Available [facility] (Lab) [address] [place], [address], 06/15/2023 21:28:51 06/15/19 24 06/15/2023 BASIC METAB OLIC PANEL chloride 109 mmol/ L 98-107 high Not Available [facility] (Lab) [address] [place], [address], 06/15/2023 21:28:51 06/15/19 24 06/15/2023 BASIC METAB OLIC PANEL carbon dioxide 27 mmol/ L 22-30 Not Available [facility] (Lab) [address] [place], [address], 06/15/2023 21:28:51 06/15/19 24 06/15/2023 BASIC METAB OLIC PANEL anion gap 7.2 mmol/ L 14-22 low Not Available [facility] (Lab) [address] [place], [address], 06/15/2023 21:28:51 06/15/19 24 06/15/2023 BASIC METAB OLIC PANEL glucose 92 mg/dL 70-99 Not Available [facility] (Lab) [address] [place], [address], 06/15/2023 21:28:51 06/15/19 24 06/15/2023 BASIC METAB OLIC PANEL BUN 19 mg/dL 8-19 Not Available [facility] (Lab) [address] [place], [address], 06/15/2023 21:28:51 06/15/1906/15/2023 BASIC METAB OLIC PANEL creatinine 0.59 mg/dL 0.66-1 .25 low Not Available [facility] (Lab) [address] [place], [address], 06/15/2023 21:28:51 06/15/19 24 06/15/2023 BASIC METAB OLIC PANEL GFR >60 Refer ence Range : Alma ge GFR Healt hy Adult : >60 mL/mi n/1.7 3 m2 Chron ic Kidne y Disea se: 15-60 mL/mi n/1.7 3 m2 Kidne y Failu re: <15/m L/min /1.73 m2 www.n iddk. nih.g ov The MDRD study equat ion has not been valid ated in child brian <18 years of age; pregn ant women ; the elder ly >85 years of age; or in some racia l or ethni c subgr oups, such as Hisct nics. Outsi de the valid ated rufino eters , estim ated GFR is less accur ate, requi ring clini marcos judgm ent on a case- by-ca se basis . Clini marcos inter preta tion for other races and ages must be made by the clini devon. The MDRD study equat ion has not been valid ated for the evalu ation of serum creat inine relat ed to nutri stephie l statu s or medic ation usage . For perso ns <18 years of age, a pedia tric GFR calcu lator is avail able on the NKF websi te: https ://jamir sheikh.ross cat/pr ofess ional s/kdo qi/gf r_cal culat or Not Available [facility] (Lab) [address] [place], [address], 06/15/2023 21:28:51 06/15/19 24 06/15/2023 BASIC METAB OLIC PANEL calcium 9.3 mg/dL 8.4-10 .2 Not Available [facility] (Lab) [address] [place], [address], 06/15/2023 21:28:51 06/15/19 24 06/15/2023 LIPID PANEL cholesterol 232 mg/dL 140-19 9 high NIH ART NSUS RECOM MENDA TION FOR JORGE A STERO L: ADULT CHILD LOW RISK: <200 <170 BORDE RLINE : <200- 239 ----- HIGH RISK: >240 >200 Not Available [facility] (Lab) [address] [place], [address], 06/15/2023 21:28:56 06/15/19 24 06/15/2023 LIPID PANEL triglyceride s 190 mg/dL 0-150 high NIH ART NSUS REPOR T RECOM MENDA TION FOR TRIGL YCERI RADHA: ADULT CHILD LOW RISK: <150 ----- BODER LINE: 150-1 99 ----- HIGH RISK: >200 ----- Not Available [facility] (Lab) [address] [place], [address], 06/15/2023 21:28:56 06/15/19 24 06/15/2023 LIPID PANEL HDL cholesterol 61 mg/dL 40- Not Available [facility] (Lab) [address] [place], [address], 06/15/2023 21:28:56 06/15/19 24 06/15/2023 LIPID PANEL LDL cholesterol, calculated 133 mg/dL 0-130 high NIH ART NSUS REPOR T RECOM MENDA TIONS FOR LDL: ADULT CHILD LOW RISK <130 <110 (OPTI MAL LDL) <100 ----- BORDE RLINE : 130-1 59 ----- HIGH RISK: >160 >130 A TRIGL YCERI DE RESUL T >400 INVAL IDATE S THE CALCU LATIO N FOR LDL FRACT IONAT ION - THE LDL RESUL T WILL NOT BE REPOR SUNSHINE. Not Available [facility] (Lab) [address] [place], [address], 06/15/2023 21:28:56 06/15/19 24 06/15/2023 HEPAT IC/LI CARMEN PANEL alkaline phosphatase 131 U/L 38-126 high Not Available [facility] (Lab) [address] [place], [address], 06/15/2023 21:29:01 06/15/19 24 06/15/2023 HEPAT IC/LI CARMEN PANEL alanine aminotransfe rase 27 U/L 0-35 Not Available [facility] (Lab) [address] [place], [address], 06/15/2023 21:29:01 06/15/19 24 06/15/2023 HEPAT IC/LI CARMEN PANEL aspartate aminotransfe rase 28 U/L 15-37 Not Available [facility] (Lab) [address] [place], [address], 06/15/2023 21:29:01 06/15/19 24 06/15/2023 HEPAT IC/LI CARMEN PANEL bilirubin, total 0.50 mg/dL 0.20-1 .30 Not Available [facility] (Lab) [address] [place], [address], 06/15/2023 21:29:01 06/15/19 24 06/15/2023 HEPAT IC/LI CARMEN PANEL bilirubin, conjugated (direct) 0.00 mg/dL 0.00-0 .30 Not Available [facility] (Lab) [address] [place], [address], 06/15/2023 21:29:01 06/15/19 24 06/15/2023 HEPAT IC/LI CARMEN PANEL biliurubin,u ncong. (indirect) 0.30 mg/dL 0.00-1 .1 Not Available [facility] (Lab) [address] [place], [address], 06/15/2023 21:29:01 06/15/19 24 06/15/2023 HEPAT IC/LI CARMEN PANEL total protein 6.4 g/dL 6.3-8. 2 Not Available [facility] (Lab) [address] [place], [address], 06/15/2023 21:29:01 06/15/19 24 06/15/2023 HEPAT IC/LI CARMEN PANEL albumin 3.9 g/dL 3.0-4. 4 Not Available [facility] (Lab) [address] [place], [address], 06/15/2023 21:29:01 06/15/19 24 06/15/2023 HEPAT IC/LI CARMEN PANEL globulin 2.5 g/dL 2.6-4. 2 low Not Available [facility] (Lab) [address] [place], [address], 06/15/2023 21:29:01 06/15/19 24 06/15/2023 HEPAT IC/LI CARMEN PANEL A/G ratio 1.6 ratio 1.0-2. 0 Not Available [facility] (Lab) [address] [place], [address], 06/15/2023 21:29:01 06/15/19 24 06/15/2023 VITAM IN B12 (NAI FERNANDA ) vb12 337 pg/mL 239-93 1 Not Available [facility] (Lab) [address] [place], [address], 06/15/2023 21:57:09 06/15/19 24 06/15/2023 FOLAT E, SERUM /PLAS MA folate 6.17 NG/mL 2.76-2 0.0 Not Available [facility] (Lab) [address] [place], [address], 06/15/2023 21:57:14 07/19/19 24 07/20/2023 COMPR EHENS SUZIE METAB OLIC PANEL glucose 86 mg/dL 65-99 normal Fasti ng refer ence inter junito Not Available [address], [address], 07/20/2023 05:01:29 07/19/19 24 07/20/2023 COMPR EHENS SUZIE METAB OLIC PANEL urea nitrogen (BUN) 14 mg/dL 7-25 normal Not Available [address], [address], 07/20/2023 05:01:29 07/19/19 24 07/20/2023 COMPR EHENS SUZIE METAB OLIC PANEL creatinine 0.59 mg/dL 0.60-1 .00 low Not Available [address], [address], 07/20/2023 05:01:29 07/19/19 24 07/20/2023 COMPR EHENS SUZIE METAB OLIC PANEL eGFR 95 mL/mi n/1.7 3m2 > or = 60 normal Not Available [address], [address], 07/20/2023 05:01:29 07/19/19 24 07/20/2023 COMPR EHENS SUZIE METAB OLIC PANEL BUN/creatini ne ratio 24 (calc ) 6-22 high Not Available [address], [address], 07/20/2023 05:01:29 07/19/19 24 07/20/2023 COMPR EHENS SUZIE METAB OLIC PANEL sodium 139 mmol/ L 135-14 6 normal Not Available [address], [address], 07/20/2023 05:01:29 07/19/19 24 07/20/2023 COMPR EHENS SUZIE METAB OLIC PANEL potassium 4.4 mmol/ L 3.5-5. 3 normal Not Available [address], [address], 07/20/2023 05:01:29 07/19/19 24 07/20/2023 COMPR EHENS SUZIE METAB OLIC PANEL chloride 106 mmol/ L 98-110 normal Not Available [address], [address], 07/20/2023 05:01:29 07/19/19 24 07/20/2023 COMPR EHENS SUZIE METAB OLIC PANEL carbon dioxide 28 mmol/ L 20-32 normal Not Available [address], [address], 07/20/2023 05:01:29 07/19/19 24 07/20/2023 COMPR EHENS SUZIE METAB OLIC PANEL calcium 9.0 mg/dL 8.6-10 .4 normal Not Available [address], [address], 07/20/2023 05:01:29 07/19/19 24 07/20/2023 COMPR EHENS SUZIE METAB OLIC PANEL protein, total 5.9 g/dL 6.1-8. 1 low Not Available [address], [address], 07/20/2023 05:01:29 07/19/19 24 07/20/2023 COMPR EHENS SUZIE METAB OLIC PANEL albumin 3.7 g/dL 3.6-5. 1 normal Not Available [address], [address], 07/20/2023 05:01:29 07/19/19 24 07/20/2023 COMPR EHENS SUZIE METAB OLIC PANEL globulin 2.2 g/dL_ (calc ) 1.9-3. 7 normal Not Available [address], [address], 07/20/2023 05:01:29 07/19/19 24 07/20/2023 COMPR EHENS SUZIE METAB OLIC PANEL albumin/glob ulin ratio 1.7 (calc ) 1.0-2. 5 normal Not Available [address], [address], 07/20/2023 05:01:29 07/19/19 24 07/20/2023 COMPR EHENS SUZIE METAB OLIC PANEL bilirubin, total 0.7 mg/dL 0.2-1. 2 normal Not Available [address], [address], 07/20/2023 05:01:29 07/19/19 24 07/20/2023 COMPR EHENS SUZIE METAB OLIC PANEL alkaline phosphatase 99 U/L 37-153 normal Not Available [facility] [employer] [address], [address], 07/20/2023 05:01:29 07/19/1907/20/2023 COMPR EHENS SUZIE METAB OLIC PANEL AST 11 U/L 10-35 normal Not Available [address], [address], 07/20/2023 05:01:29 07/19/19 24 07/20/2023 COMPR EHENS SUZIE METAB OLIC PANEL ALT 15 U/L 6-29 normal Not Available [address], [address], 07/20/2023 05:01:29 07/19/19 24 07/20/2023 CBC (INCL UDES DIFF/ PLT) white blood cell count 7.4 thous and/u L 3.8-10 .8 normal Not Available [address], [address], 07/20/2023 05:01:31 07/19/19 24 07/20/2023 CBC (INCL UDES DIFF/ PLT) red blood cell count 4.17 dell on/uL 3.80-5 .10 normal Not Available [address], [address], 07/20/2023 05:01:31 07/19/19 24 07/20/2023 CBC (INCL UDES DIFF/ PLT) hemoglobin 13.1 g/dL 11.7-1 5.5 normal Not Available [address], [address], 07/20/2023 05:01:31 07/19/1907/20/2023 CBC (INCL UDES DIFF/ PLT) hematocrit 40.1 % 35.0-4 5.0 normal Not Available [address], [address], 07/20/2023 05:01:31 07/19/19 24 07/20/2023 CBC (INCL UDES DIFF/ PLT) MCV 96.2 fL 80.0-1 00.0 normal Not Available [address], [address], 07/20/2023 05:01:31 07/19/19 24 07/20/2023 CBC (INCL UDES DIFF/ PLT) MCH 31.4 pg 27.0-3 3.0 normal Not Available [address], [address], 07/20/2023 05:01:31 07/19/19 24 07/20/2023 CBC (INCL UDES DIFF/ PLT) MCHC 32.7 g/dL 32.0-3 6.0 normal Not Available [address], [address], 07/20/2023 05:01:31 07/19/1907/20/2023 CBC (INCL UDES DIFF/ PLT) RDW 14.0 % 11.0-1 5.0 normal Not Available [address], [address], 07/20/2023 05:01:31 07/19/19 24 07/20/2023 CBC (INCL UDES DIFF/ PLT) platelet count 328 thous and/u L 140-40 0 normal Not Available [address], [address], 07/20/2023 05:01:31 07/19/1907/20/2023 CBC (INCL UDES DIFF/ PLT) MPV 10.7 fL 7.5-12 .5 normal Not Available [address], [address], 07/20/2023 05:01:31 07/19/1907/20/2023 CBC (INCL UDES DIFF/ PLT) absolute neutrophils 3818 cells /uL 1500-7 800 normal Not Available [address], [address], 07/20/2023 05:01:31 07/19/1907/20/2023 CBC (INCL UDES DIFF/ PLT) absolute lymphocytes 2013 cells /uL 850-39 00 normal Not Available [address], [address], 07/20/2023 05:01:31 07/19/19 24 07/20/2023 CBC (INCL UDES DIFF/ PLT) absolute monocytes 681 cells /uL 200-95 0 normal Not Available [address], [address], 07/20/2023 05:01:31 07/19/1907/20/2023 CBC (INCL UDES DIFF/ PLT) absolute eosinophils 755 cells /uL 15-500 high Not Available [facility] [address], [address], 07/20/2023 05:01:31 07/19/1907/20/2023 CBC (INCL UDES DIFF/ PLT) absolute basophils 133 cells /uL 0-200 normal Not Available [address], [address], 07/20/2023 05:01:31 07/19/19 24 07/20/2023 CBC (INCL UDES DIFF/ PLT) neutrophils 51.6 % normal Not Available [address], [address], 07/20/2023 05:01:31 07/19/19 24 07/20/2023 CBC (INCL UDES DIFF/ PLT) lymphocytes 27.2 % normal Not Available [facility] [address], [address], 07/20/2023 05:01:31 07/19/19 24 07/20/2023 CBC (INCL UDES DIFF/ PLT) monocytes 9.2 % normal Not Available [address], [address], 07/20/2023 05:01:31 07/19/19 24 07/20/2023 CBC (INCL UDES DIFF/ PLT) eosinophils 10.2 % normal Not Available [facility] [address], [address], 07/20/2023 05:01:31 07/19/19 24 07/20/2023 CBC (INCL UDES DIFF/ PLT) basophils 1.8 % normal Not Available [address], [address], 07/20/2023 05:01:31 04/20/19 24 04/20/2023 XR, chest No observ ation record ed. [email or web address] [address], [address], 04/26/2023 14:51:02 05/20/19 24 05/20/2023 XR, chest No observ ation record ed. [email or web address] [address], [place], [address], 05/25/2023 16:06:50 07/08/19 24 07/08/2023 XR, chest No observ ation record ed. [address], [place], [address], 08/09/2023 19:25:26 07/11/19 24 07/11/2023 US, echoc ardio gram No observ ation record ed. [address], [place], [address], 08/09/2023 19:25:55 Result Notes None recorded. Problems Name Problem SNOMED Code Status Onset Date Resolution Date Notes Provider Name and Address Organization Details Recorded Time Heartburn 61511372 Active 2021 Not Available [facility] 3 00:05:30 Cobalamin deficienc y 296971222 Active 2021 Not Available [facility] 3 00:05:30 Myocardia l infarctio n 02498058 Active 04/2020 Not Available [facility] 3 00:05:30 Vitamin D deficienc y 16274261 Active 2021 Not Available [facility] 3 00:05:30 Disorder of vitamin B12 265133794 Completed 202103/29/2021 Not Available [facility] 3 00:05:31 Anxiety 50428263 Active 2021 Not Available [facility] 3 00:05:31 Fracture of vertebral column 35478796 Active 2021 Not Available [facility] 3 00:05:31 Hyperlipi demia 70521543 Active 2021 Not Available [facility] 3 00:05:31 Osteoporo sis 39372842 Active 2021 Not Available [facility] 3 00:05:31 CT of chest abnormal 88465194557 854673 Active 2021 Not Available [facility] 3 00:05:30 Postmenop ausal osteoporo sis 251232904 Active 2021 Not Available [facility] 3 00:05:30 Pain of left shoulder joint 27566062757 234227 Active 2021 Not Available [facility] 3 00:05:30 Primary hyperpara thyroidis m 42582118 Active 2021 Not Available [facility] 3 00:05:30 Finding of protein in serum or plasma 897374430 Active 2021 Not Available [facility] 3 00:05:31 Immunoglo bulin deficienc y 376295459 Active 2021 Not Available [facility] 3 00:05:31 Functiona l diarrhea 68584793 Active 2021 Not Available [facility] 3 00:05:31 Coronary arteriosc lerosis 96773982 Active 2021 Not Available [facility] 3 00:05:31 Essential hypertens ion 24171334 Active 2021 Not Available [facility] 3 00:05:31 Nodule of lung 622790128 Active 2021 Not Available [facility] 3 00:05:32 Pulmonary embolism 40697924 Active 2022 Not Available [facility] 3 00:05:31 Diarrhea 13510778 Active 2022 Not Available [facility] 3 00:05:31 Memory impairmen t 251588608 Active 2022 Not Available [facility] 3 00:05:31 Dementia 91623949 Active 2022 Martita Sims MD [address], [place], [address] , [facility] [facility] [employer] [facility] 3 16:40:43 Pain in coccyx 97877121 Active 2022 Martita Sims MD [address], [place], [address] , [employer] [facility] 3 18:21:54 Pneumonia 875651499 Active 2022 KIKA Oakes [address], [place], [address] , [facility] 3 12:37:57 Ankle edema 86541404 Active 2022 KIKA Oakes [address], [address] [address], [place], [address] , [facility] 3 13:19:08 Pain of left wrist 22757229994 9102 Active 2022 GUERDA Ro [address], [address] [address], [place], [address] , [facility] 3 10:19:57 Chronic obstructi ve pulmonary disease 32673535 Active 2023 Martita Sims MD [address], [address] [address], [place], [address] , [facility] 4 14:55:19 Underweig ht 317879100 Active 2023 GUERDA Ro [address], [address] [address], [place], [address] , [facility] 4 12:07:48 Severe dry skin 161074071 Active 2023 GUERDA Ibrahim [address], [address] [address], [place], [address] , [facility] 4 10:31:23 Problem Notes None recorded. Procedures Surgical History Date Name Laterality Status Provider Name and Address Organization Details Recorded Time 07/19/19 Transitional_Care_ Management completed Sivan River RN [facility] 07/19/2023 11:57:58 cholecystectomy completed Not Available [facility] 05/26/2022 00:04:57 tonsillectomy completed Not Available [facility] 05/26/2022 00:04:57 Cardiac Stent Placement completed Not Available [facility] 05/26/2022 00:04:57 partial excision of rib completed Not Available [facility] 05/26/2022 00:04:57 Imaging Results None recorded. Procedure Notes None recorded. Medical Equipment None Reported. Allergies Allergen ID Allergen Name Allergen Category Reaction Reaction Severity Criticality Documentation Date Start Date Code Code System Note Provider Name and Address Organization Details Recorded Time 71386 Erythroci n medicatio n vomiting Not available Not available 05/26/2022 54380 3 RxNorm Not Available [facility] 00:06:29 Medications Name Sig Start Date Stop Date Status Note LastModified by Organization Details LastModified Time fluoxetine 40 mg capsule TAKE 1 CAPSULE BY MOUTH EVERY DAY active Not Available Not Available No t Available atorvastati n 80 mg tablet TAKE 1 TABLET BY MOUTH EVERY DAY 10/04 completed Not Available Not Available Not Available carvedilol 6.25 mg tablet TAKE 1 TABLET TWICE A DAY BY MOUTH BEFORE MEALS FOR 30 DAYS. active Not Available Not Available No t Available prednisone 10 mg tablet 04/26 completed Not Available Not Available Not Available carvedilol 12.5 mg tablet TAKE 1 TABLET BY MOUTH TWICE A DAY 10/04 completed Not Available Not Available Not Available nicotine 14 mg/24 hr daily transdermal patch 08/03 completed Not Available Not Available Not Available ipratropium 0.5 mg-albutero l 3 mg (2.5 mg base)/3 mL nebulizatio n soln INHALE 3 ML (1 VIAL) PER NEBULIZER EVERY 6 HOURS NEEDED active Not Available Not Available No t Available atorvastati n 10 mg tablet TAKE 1 TABLET BY MOUTH EVERYDAY AT BEDTIME 2024 active Not Available Not Available Not Avai lable citalopram 10 mg tablet 03/29 completed Not Available Not Available Not Available cephalexin 250 mg capsule 04/26 completed Not Available Not Available Not Available hydrocodone 5 mg-acetamin ophen 325 mg tablet TAKE 1 TABLET BY MOUTH EVERY 8 HOURS NEEDED FOR PAIN 10/04 completed Not Available Not Available Not Available urea 40 % topical cream APPLY TO THE AFFECTED AREA(S) BY TOPICAL ROUTE 2 TIMES PER DAY 2023 active Not Available Not Available Not Avai lable prednisone 20 mg tablet 3 TABS ONCE DAILY X 3 DAYS, 2 DAILY X 3 DAYS, 1 DAILY X 3 DAYS, THEN 1/2 DAILY X 3 DAYS, THEN STOP 06/14 completed Not Available Not Available Not Available alendronate 70 mg tablet TAKE 1 TABLET BY MOUTH ONE TIME PER WEEK 08/03 completed Not Available Not Available Not Available cyanocobala min (vit B-12) 1,000 mcg tablet 02/18 completed Not Available Not Available Not Available acetaminoph en 300 mg-codeine 30 mg tablet Take 1 tablet every 6 hours by oral route. active Not Available Not Available No t Available clopidogrel 75 mg tablet TAKE 1 TABLET BY MOUTH EVERY DAY 10/04 completed Not Available Not Available Not Available doxepin 10 mg capsule TAKE 1 CAPSULE BY MOUTH EVERYDAY AT BEDTIME 10/04 completed Not Available Not Available Not Available aspirin 81 mg tablet,jeremy yed release 11/15 completed Not Available Not Available Not Available simvastatin 40 mg tablet 03/29 completed Not Available Not Available Not Available citalopram 20 mg tablet TAKE 1/2 TABLET BY MOUTH IN THE MORNING AND 1 TABLET BY MOUTH AT BEDTIME. 02/15 completed Not Available Not Available Not Available lorazepam 0.5 mg tablet TAKE 1 TABLET BY MOUTH EVERYDAY AT BEDTIME active Not Available Not Available No t Available lorazepam 2 mg tablet 1 po qhs 10/04 completed Not Available Not Available Not Available triamcinolo ne acetonide 40 mg/mL suspension for injection 2 ml shoulder x 1 04/18 completed Not Available Not Available Not Available lidocaine 5 % topical patch APPLY 1 PATCH BY TOPICAL ROUTE ONCE DAILY (MAY WEAR UP TO 12HOURS.) active Not Available Not Available No t Available losartan 25 mg tablet 11/15 completed Not Available Not Available Not Available docusate sodium 100 mg capsule 11/15 completed Not Available Not Available Not Available folic acid 1 mg tablet TAKE 1 TABLET BY MOUTH EVERY DAY 11/15 completed Not Available Not Available Not Available lorazepam 1 mg tablet 1 po qhs active Not Available Not Available N ot Available albuterol sulfate HFA 90 mcg/actuati on aerosol inhaler INHALE 2 PUFFS INTO THE LUNGS EVERY 4 HOURS NEEDED FOR 30 DAYS 2023 active Not Available Not Available Not Avai lable ondansetron 4 mg disintegrat ing tablet 10/04 completed Not Available Not Available Not Available fluoxetine 20 mg capsule TAKE 1 CAPSULE BY MOUTH ONCE DAILY 11/15 completed Not Available Not Available Not Available fluticasone propionate 50 mcg/actuati on nasal spray,suspe nsion SPRAY 2 SPRAYS INTO EACH NOSTRIL EVERY DAY 2024 active Not Available Not Available Not Avai lable amoxicillin 875 mg-jem m clavulanate 125 mg tablet TAKE 1 TABLET BY MOUTH EVERY 12 HOURS FOR 10 DAYS 08/03 completed Not Available Not Available Not Available mirtazapine 7.5 mg tablet TAKE 1 TABLET BY MOUTH EVERY DAY 2024 active Not Available Not Available Not Avai lable nitrofurant oin monohydrate /macrocryst als 100 mg capsule Take 1 capsule every 12 hours by oral route for 7 days. 05/31 completed Not Available Not Available Not Available Prevalite 4 gram oral powder Take 1 scoop 3 times a day by oral route before meals for 90 days. 11/15 completed Not Available Not Available Not Available lidocaine (PF) 10 mg/mL (1 %) injection solution 3 ml shoulder x 1 04/18 completed Not Available Not Available Not Available Symbicort 160 mcg-4.5 mcg/actuati on HFA aerosol inhaler TAKE 2 PUFFS BY MOUTH TWICE A DAY 2024 active Not Available Not Available Not Avai lable Vitamin D3 125 mcg (5,000 unit) tablet 11/15 completed Not Available Not Available Not Available Prolia 60 mg/mL subcutaneou s syringe inject 60 mg SQ once subcutane ously every 6 months x 1 dose active Not Available Not Available No t Available Brilinta 90 mg tablet 03/29 completed Not Available Not Available Not Available Eliquis 5 mg tablet TAKE 1 TABLET TWICE A DAY BY ORAL ROUTE FOR 90 DAYS. active Not Available Not Available No t Available Eliquis DVT-PE Treatment 30-Day Starter 5 mg (74 tablets) in dose pack 04/18 completed Not Available Not Available Not Available Breztri Aerosphere 160 mcg-9mcg-4. 8mcg/actuat ion HFA aerosol inhaler INHALE 2 PUFFS TWICE A DAY 10/04 completed Not Available Not Available Not Available Vitals Date Recorded Body height Body mass index (BMI) Body weight Body temperature Systolic And Diastolic Provider Name and Address Organization Details Last Updated DateTime 04/26/2023 172.72 cm 18.7 kg/m2 68064.8 6 g 97 [degF] 128/70 mm[Hg] Kendall Fung RN [facility] 4 14:10:03 Date Recorded Body height Body mass index (BMI) Body weight Body temperature Heart rate Oxygen saturation Systolic And Diastolic Provider Name and Address Organization Details Last Updated DateTime 4 172.72 cm 18.7 kg/m2 09722.8 6 g 97.1 [degF] 80 /min 95 % 126/74 mm[Hg] Kendall Fung RN [facility] 4 15:16:45 Date Recorded Body height Body mass index (BMI) Body weight Body temperature Heart rate Oxygen saturation Systolic And Diastolic Provider Name and Address Organization Details Last Updated DateTime 4 172.72 cm 17.6 kg/m2 72649.7 1 g 97.8 [degF] 80 /min 98 % 126/86 mm[Hg] Sivan River RN [facility] 4 12:00:47 Date Recorded Body height Body mass index (BMI) Body weight Body temperature Heart rate Systolic And Diastolic Provider Name and Address Organization Details Last Updated DateTime 4 172.72 cm 20.4 kg/m2 44443.3 8 g 97 [degF] 88 /min 160/82 mm[Hg] Kendall Fung RN [facility] 4 09:57:26 Date Recorded Body height Body mass index (BMI) Body weight Body temperature Heart rate Oxygen saturation Systolic And Diastolic Provider Name and Address Organization Details Last Updated DateTime 4 172.72 cm 21.9 kg/m2 53848.3 g 97.6 [degF] 70 /min 96 % 140/80 mm[Hg] Carol Andrade RN [facility] 4 10:20:17 Social History Question Answer Notes LastModified by Organizat ion Details LastModified Time Tobacco Smoking Status Current Every Day Smoker quit 2019 12 ppd since her 20s Vicki Saad lam [facility] 10/04/2022 16:58:52 Do You Have An Advance Directive? Yes [id number] Information not available 05/26/2022 Are You Blind Or Do You Have Difficulty Seeing? No [email or web address] Information not available 10/04/2022 What Is Your Level Of Caffeine Consumption? Moderate [id number] Information not available 05/26/2022 In The 14 Days Before Symptom Onset, Have You Had Close Contact With A Laboratory-confir med COVID-19 While That Case Was Ill? No [email or web address] Information not available 10/04/2022 In The 14 Days Before Symptom Onset, Have You Had Close Contact With A Person Who Is Under Investigation For COVID-19 While That Person Was Ill? No [email or web address] Information not available 10/04/2022 Are You Deaf Or Do You Have Serious Difficulty Hearing? No Information not available 10/04/2022 What Type Of Diet Are You Following? REGULAR [id number] Information not available 05/26/2022 Do You Have A Medical Power Of Backup Operator? Yes [email or web address] Information not available 10/04/2022 What Was The Date Of Your Most Recent Tobacco Screening? 03/29/2021 [email or web address] Information not available 10/04/2022 What Is Your Relationship Status? Single [id number] Information not available 05/26/2022 At What Age Did You Start Smoking Tobacco? 19 [email or web address] Information not available 10/04/2022 How Much Tobacco Do You Smoke? 0.25 PPD [id number] Information not available 05/26/2022 Has Tobacco Cessation Counseling Been Provided? No [email or web address] Information not available 10/04/2022 Have You Recently Traveled Abroad? No [email or web address] Information not available 10/04/2022 Do You Have Difficulty Walking Or Climbing Stairs? No [email or web address] Information not available 10/04/2022 Do You Have Any Dietary Restrictions? No Information not available 10/04/2022 Sex: Female Functional Status Question Answer Note LastModified by Organizat ion Details LastModified Time Do you use any illicit or recreational drugs? No Information not available 10/04/2022 What is your level of alcohol consumption? None [id number] Information not available 05/26/2022 Do you have transportation difficulties? No [email or web address] Information not available 10/04/2022 Are you able to walk independently without assistance or assistive devices? YESWOREST [email or web address] Information not available 10/04/2022 Do you have difficulty doing errands alone? No [email or web address] Information not available 10/04/2022 Are you able to care for yourself independently? Yes [email or web address] Information not available 10/04/2022 Do you have difficulty dressing, bathing, grooming, or toileting? No [email or web address] Information not available 10/04/2022 What is your exercise level? Occasional [id number] Information not available 05/26/2022 Mental Status Question Answer Note LastModified by Organization D etails LastModified Time Do you have difficulty concentrating, remembering or making decisions? No Information no t available 10/04/2022 Family History Relationship Description Onset Age of this Age Resolved Age Notes LastModified by Organization Details LastModified Time Mother History of thyroid disorder Not available 2022 16:58:51 Father Pancreatitis [email or web address] Not avail able 10/04/2022 16:58:52 Brother Hypertensive disorder [id number] Not available 05/26/2022 00:04:58 Sister Heart disease [id number] Not available 05/26/2022 00:04:58 Sister History of thyroid disorder [email or web address] Not available 2022 16:58:52 Medical History Condition Response ARTHRITIS Y EYE PROBLEMS Y HEADACHES/MIGRAINES N USE OF BLOOD THINNERS Y GI PROBLEMS Y SKIN PROBLEMS Y DEPRESSION (INCLUDING POST ) Y HEART ARRHYTHMIA Y HAVE YOU BEEN HOSPITALIZED OR SEEN IN [facility] IN THE PAST YEAR ? Y HIGH CHOLESTEROL / HYPERLIPIDEMIA Y Gynecological HistoryNo gynecological history recorded. Obstetrics History GPAL:G 0 P 0 0 0 0 Immunizations Vaccine Type Date Status Note Provider Nam e and Address Organization Details Recorded Time Influenza, split virus, quadrivalent, preservative 1 completed Not Available [facility] 05/26/2022 00:06:26 pneumococcal, unspecified formulation 0 completed Not Available [facility] 05/26/2022 00:06:26 Influenza, high-dose, quadrivalent, PF 2 completed Not Available [facility] 05/26/2022 00:06:27 Influenza, high-dose, quadrivalent, PF 2 completed Not Available [facility] 05/26/2022 00:06:27 pneumococcal polysaccharide PPV23 2 completed Not Available [facility] 05/26/2022 00:06:27 zoster recombinant 3 completed Yulisa Bhat LPN null, [place] [facility] 06/06/2022 09:26:53 Influenza, high-dose, quadrivalent, PF 4 completed Martita Sims MD [address] [facility] [facility] [address], [place], [address], [place] [facility] 04/26/2023 15:57:09 Past Encounters Encounter ID Performer Location Encounter Start Date Encounter Closed Date Diagnosis/Indication Diagnosis SNOMED-CT Code Diagnosis ICD10 Code Diagnosis IMO Codes Diagnosis Note [id number] Martita Sims MD [facility] [address] [facility] [address] [place] [address] 03/29/2021 00:00:00 03/29/2021 17:57:34 [id number] Martita Sims MD [facility] [address] [facility] [address] [place] [address] 06/10/2021 00:00:00 06/15/2021 08:41:28 [id number] Aviva Louis MD [facility] [address] [place] [address] 08/03/2021 00:00:00 08/03/2021 17:47:31 [id number] Aviva Louis MD [facility] [address] [place] [address] 10/25/2021 00:00:00 10/25/2021 13:43:08 [id number] [facility] [address] [place] [address] 12/24/2021 00:00:00 12/24/2021 10:31:42 [id number] Aviva Louis MD [facility] [address] [address] [place] [address] 01/21/2022 00:00:00 04/21/2022 16:32:57 [id number] Martita Sims MD [facility] [place] [address] [place] [address] 02/15/2022 00:00:00 02/22/2022 08:19:07 [id number] Martita Sims MD [facility] [place] [address] [place] [address] 03/15/2022 00:00:00 03/25/2022 10:18:57 [id number] Martita Sims MD [facility] [place] [address] [place] [address] 03/29/2022 00:00:00 03/29/2022 18:11:52 [id number] Martita Sims MD [facility] [place] [address] [facility] [address] [place] [address] 04/12/2022 00:00:00 04/12/2022 19:26:47 [id number] Martita Sims MD [facility] [place] [address] [place] [address] [address] [place] [address] 04/18/2022 00:00:00 04/25/2022 18:10:06 [id number] KATHY Tomlinson [facility] [place] [address] [place] [address] 05/10/2022 00:00:00 05/10/2022 08:41:28 [id number] Martita Sims MD [facility] [place] [address] [place] [address] [address] [place] [address] 05/31/2022 10:57:31 05/31/2022 11:29:11 Nodule of lung 082880088 R91.1 [id number] Martita Sims MD [facility] [place] [address] [facility] [address] [place] [address] 10/04/2022 16:58:19 10/04/2022 18:32:15 Essential hypertension 59393109 I10 Renewal of prescription 243239866 Z76.0 Cobalamin deficiency 190 649238 E53.8 Vitamin D deficiency 347 68516 E55.9 Hyperlipidemia 54404055 E78.5 Pain in coccyx 84869338 M53.3 [id number] KIKA Oakes [facility] [address] [facility] [address] [place] [address] 11/03/2022 12:04:46 11/03/2022 12:43:04 Pneumonia 433272847 J18.9 Appears resolvedAd vised pt to continue to rest and drink plenty of water. Avoid cigarette smoke, allergens, pollutants that may cause respirator y dysfunctio n. May use a vaporizer or humidifier to add moisture to your bedroom. Ok to continue to use nebs prn sob. Anxiety 16152402 F41.9 Chronic, stable overallPt uses lorazepam for sleep.Pt aware of risk for abuse/misu se. Pt advised she will be subject to controlled substance agreement. Ankle edema 53775382 R60 .0 New problemRig htTrace edema right ankle, no pittingEle vate lower extremitie s, try not to keep legs dependent. Limit salt, pork, caffeine. Try otc compressio n socks. Work on appropriat e water intake. [id number] Martita Sims MD [facility] [address] [place] [address] 04/26/2023 14:01:27 04/26/2023 15:07:28 Chronic obstructive pulmonary disease 63988226 J44.9 Prednisone taper with food in AMcontinue albuterol hfa prnremain nonsmokerf /u in 4 weeks or sooner if neededflu vaccine todayrecom mend covid vaccine and RSV vaccine Administra tion of influenza vaccine 25758721 Z23 [id number] Martita Sims MD [facility] [address] [facility] [address] [place] [address] 06/15/2023 15:10:38 06/15/2023 16:01:27 Cobalamin deficiency 238966383 E53.8 Essential hypertension 42362927 I10 Hyperlipidemia 12495009 E78.5 Vitamin D deficiency 347 57395 E55.9 Nodule of lung 350894208 R91.1 needs f/u lung nodulelast done while hospitaliz ed 10/16she is agreeable to f/u Primary hyperparathyroidism 95728836 E21.0 Coronary arteriosclerosis 57371536 I25.10 [id number] Martita Sims MD [facility] [address] [place] [address] 07/19/2023 11:49:49 07/19/2023 12:36:00 Transition of care 5372028380 105 Z75.8 -pt was recently in the hospital for COPD exacerbati on, d/c on 07/11-trans itioned well back to home Chronic ob structive pulmonary disease 35121354 J44.9 -pt was recently in the hospital for COPD exac-she was given steroids and antibiotic s per our office-no maintenanc e inhalers so far-trail symbicort Underweight 592204055 R6 3.6 -7lb weight gain since last visit-disc ussed carn[employer] instant breakfasts /premier protein, 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 Pain in coccyx 55986811 M53.3 Hyperlipidemia 25082148 E78.5 Essential hypertension 91885817 I10 Adult heal th examination 256434864 Z00.00 Z00.01 Screening for malignant neoplasm of breast 237445486 Z12.39 Patient refuses mammogram Screening for malignant neoplasm of colon 342898873 Z12.11 Patient refuses colonoscop y and cologuard. Screening for osteoporosis 621659304 Z13.820 Long-term drug therapy 370099131 Z79.806 [id number] GUERDA Ibrahim [facility] Primary Care [facility] [address] [facility] [address] [place] [address] 02/19/2024 10:08:49 02/19/2024 10:46:42 Severe dry skin 437069578 L85.3 Discussed routine use of lotion, will follow up as needed. Anxiety 80406966 F41.9 UDS ordered.IL SECTION HAND verified.a ppt: 02/19/24 Health Concerns Section Related Observation LastModified by Organization Detai ls LastModified Time None Recorded Concern Status LastModified by Organization Details LastModified Time None Recorded Advance Directives Directive Y: Payers Insurance Date Sequence Insurance Name Policy Number Policy [employer] Covered Member ID Tellez Member ID Guarantor Name 02/02/2025 1 [employer] - GOLD PLUS (MEDICARE REPLACEMENT/A DVANTAGE - HMO) Jessica Renee [id number] Jessica Renee 02/19/2024 1 [employer] (MEDICARE REPLACEMENT/A DVANTAGE - PPO) [id number] Jessica Renee [id number] Jessica Renee 02/19/2024 2 [place] WHEN MEDICARE OR MEDICARE REPLACEMENT PRIMARY) Jessica Renee [id number] Jessica Renee Notes Date Note Type Note Provider Name and Address Organization Details Recorded Time 04/26/2023 text/html ROS as noted in the HPI recently seen in ER for weakness, cough. Dx with copd exacerbation and UTI. Has completed abx. No urinary symptoms, appetite ok, still some cough and wheezing. Martita Sims MD [address], [facility] [address], [place], [address], [facility] 04/26/2023 15:58:34 06/15/2023 text/html ROS as noted in the HPI She is now living at [facility] independently. She is eating well and is taking her medications as prescribed. She feels well and is glad to be driving and living on her own again. She is close to her sisters, one sister will be moving into [facility] in near future in her own apartment. Martita Sims MD [address], [facility] [address], [place], [address], [facility] 06/25/2023 09:54:19 07/19/2023 text/html pt was recently in the hospital Rik Villasenord, GUERDA [address], [address], [place], [address], [facility] 07/20/2023 09:19:13 11/16/2023 text/html ROS as noted in the HPI Patient is a 73 year old female that presents to the office ambulatory with even and steady gait for annual wellness. Patient reports she is doing well over all. Patient reports her move to the apartments has done wonders for her. Patient reports she is eating better, is more active and social. Patient reports she has noticed that her memory is also improving since she has been around more people. Patient's sister recently moved into the same apartment complex and it is helpful having her around. Patient continues to follow up with her psychologist-Zack Tinoco. Patient denies chest pain and shortness of breath, nausea vomiting and diarrhea. labs-ordered for next monthmammogram-rodgers sn't wantcolonoscopy-do esn't wantDEXA-orderedFl h-BWZJveyq-ZRWBanv -UTDShingles-UTDPn eumo-UTD GUERDA Ibrahim [address], [address], [place], [address], [employer] 11/16/2023 21:54:28 02/19/2024 text/html ROS as noted in the HPI Patient is a 73 year old female that presents to the office for routine follow up. Patient reports she is doing well and feels good. Patient reports she is super happy with her current living situation, was unhappy when she first moved. Patient reports she is finally eating well and has even gained a few pounds. Patient is concerned with extremely dry skin, no rash, no itching. Patient reports she uses lotion when she remembers to do so but it is definitely not routine. Patient has been off of her Mirtazapine for about one month now and does not wish to restart the medication. Patient believes she feels better being off of the medication. Patient denies chest pain and shortness of breath. GUERDA Ibrahim [address], [address], [place], [address], [employer] 02/19/2024 15:48:49 OBGyn Episode No OBEpisode recorded.
--- OUTSIDE RECORDS SUMMARY | 2025-03-04 19:16 | XMS_ITS ---
Care Plan - [facility] Created on: March 04, 2025 JULIÁN DUMONT : 1950 Sex: Female Author Organization [facility] Address [address] [place] [address] Phone Care Team Providers Care Engineering Leader Name Role Phone Unavailable Unavailable Unavailable
--- OUTSIDE RECORDS SUMMARY | 2025-03-04 19:16 | XMS_ITS | Clinical Summary ---
Author Organization [facility] Address [address] [place] [address] Phone Care Team Providers Care Director Of Managed Services Name Role Phone Martita Sims MD Primary [...] Procedure Name Priority Date/Time Associated Diagnosis Comments [facility] BONE DENSITOMETRY AXIAL SKELETON Routine 08/10/2018 9:31 AM CDT Postmenopausal [facility] SCREENING BILATERAL DIGITAL W CAD Routine 10/12/2015 9:28 AM CDT Encounter for screening mammogram for breast cancer COLONOSCOPY Routine 01/15/2014 from Last 3 Months or Most Recently Relevant to Health Maintenance Results * [facility] BONE DENSITOMETRY AXIAL SKELETON (08/10/2018 9:31 AM [...] old F with given history of screening. Services Account Manager/Model: [email or web address] (S/N [id number]) CLINICAL INFORMATION: Current height: 68 inches Maximum [...] Sohan Arciniega M.D. AG: HANSA Report ID: [id number] Reading Location: [id number] Procedure Note Sohan Arciniega MD - 08/10/2018 EXAM DESCRIPTION: ES BONE DENSITOMETRY AXIAL SKELETON REASON FOR STUDY: 68 y/o year old F with given history of screening. Services Account Manager/Model: [email or web address] (S/N [id number]) CLINICAL INFORMATION: Current height: 68 inches Maximum [...] Sohan Arciniega M.D. AG: HANSA Report ID: [id number] Reading Location: [place] [address] IMPRESSION: Osteopenia. This has progressed compared to [...] Comparison is made to exam dated: 11/28/2013 [facility]. BREAST TISSUE: The tissue of both breasts [...] signed by: Baljeet Sparks M.D. nh/:10/12/2015 10:08:46 Slip Sheeter: Carmen Copeland (Gabriela), [facility] letter sent: Normal Exam Reading location: [facility] BI-RADS: 2 Benign Procedure Note Baljeet Sparks [...] Comparison is made to exam dated: 11/28/2013 [facility]. BREAST TISSUE: The tissue of both breasts [...] signed by: Baljeet Sparks M.D. nh/:10/12/2015 10:08:46 Slip Sheeter: Carmen Copeland (R), [facility] letter sent: Normal Exam Reading location: [facility] BI-RADS: 2 Benign Makayla Medina MD IMG [...] measures to stabilize the patient. Care Teams Director Of Managed Services Relationship Specialty Start Date End Date Martita Sims MD [address] [place] [id number] PCP - General Family Medicine 03/24/21
[2025-03-04 19:19] LABS: Alanine Aminotransferase 14 U/L (6-35); Albumin Level 4.5 g/dL (3.5-5.1); Alkaline Phosphatase 129 U/L (38-126); Anion Gap 12 mmol/L (4-12); Aspartate Amino Transferase 25 U/L (14-36); Bilirubin,Total 1.0 mg/dL (0.2-1.3); Blood Urea Nitrogen 15 mg/dL (7-17); Calcium 9.9 mg/dL (8.4-10.2); Carbon Dioxide 18 mmol/L (22-30); Chloride 107 mmol/L (98-107); Estimated CRCL calculation 62 ml/min; Estimated Glomerular Filt Rate > 60; Glucose 88 mg/dL (65-110); Magnesium 1.9 mg/dL (1.6-2.3); Potassium 4.3 mmol/L (3.4-5.0); Sodium 137 mmol/L (137-145); Total Protein 7.4 g/dL (6.3-8.2)
[2025-03-04 19:27] LABS: NT Pro B Type Natriuretic Pept 5020 pg/mL (19.9-100); Troponin I 0.684 ng/mL (0.000-0.034)
[2025-03-04 19:38] LABS: Influenza A QL RT-PCR Negative (Negative); Influenza B QL RT-PCR Negative (Negative); RSV RNA, RT-PCR Negative (Negative); SARS-CoV-2 RNA PCR Negative (Negative)
[2025-03-04 20:22] VITALS: PULSE 111; RESP 20; O2SAT 93
[2025-03-04] MEDS: ASPIRIN 81 MG CHEWABLE TABLET 324 MG PO (20:38)
[2025-03-04] MEDS: ENOXAPARIN 60 MG/0.6 ML SYRINGE SUB-Q (20:45)
--- NOTE | 2025-03-04 22:03 | ECG_ITS ---
Test Date: 2025-03-04 22:10:09 Measurements Intervals [place] Rate: 106 P: 76 LA: 152 QRS: -86 QRSD: 90 T: 100 QT: 348 QTc: 462 Interpretive Statements SINUS TACHYCARDIA INCOMPLETE RIGHT BUNDLE BRANCH BLOCK LEFT ANTERIOR FASCICULAR BLOCK BORDERLINE ST-T WAVE ABNORMALITY- HIGH LATERAL LEADS ABNORMAL ECG Compared to ECG 03/04/2025 19:41:04 HEART RATE HAS INCREASED Electronically Signed On 03-05-2025 06:23:27 PRINTING MACHINE MECHANIC by Kp Hagen D.O.
[2025-03-04 22:35] LABS: Troponin I 0.583 ng/mL (0.000-0.034)
[2025-03-04 22:56] VITALS: BP 119/71; PULSE 107; RESP 20; O2SAT 99
[2025-03-05] VITALS (26 sets, daily range): BP systolic 103–126; BP diastolic 63–78; PULSE 80–119; RESP 16–20; TEMP 36.4–36.8; O2SAT 90–99; BMI 20.1
--- NOTE | 2025-03-05 | ECHO_ITS ---
Patient Info Name: Jessica Renee Age: 74 years : 1950 Gender: Female Ht: 68 in Wt: 132 lbs BSA: 1.69 m2 HR: 89 bpm BP: 116 / 67 mmHg Technical Quality: Fair Exam Date: 03/05/2025 9:38 AM Patient Status: I Admit Date: 03/04/2025 Exam Type: CA echo dop color flow w con Complete two-dimensional, color flow and Doppler transthoracic echocardiogram is performed with contrast to opacify the left ventricle and to improve the deliniation of the left ventricle endocardial borders. Staff Referring Physician: Pam Machado Product Safety Officer: Amrit Haney III Attending Provider: Tonya Davis DO Contrast/Agitated Saline Contrast/Ag. Saline: Definity Amount: 2.00 ml Administered By: Amrit Haney III Existing IV Access: Yes IV Access Condition: patent with no signs of infiltration Summary 1. Left ventricular systolic function is normal, estimated at 60-65. 2. There is mildly increased left ventricular wall thickness. 3. The left ventricular diastolic function is grade I diastolic dysfunction. Left Ventricle Left ventricular chamber dimension is normal. Left ventricular systolic function is normal, estimated at 60-65. There is mildly increased left ventricular wall thickness. Left ventricular septal wall motion is normal. The left ventricular diastolic function is grade I diastolic dysfunction. Right Ventricle Right ventricular chamber dimension is normal. Right ventricular systolic function is normal. Left Atria Left atrial chamber dimension is normal. Right Atria Right atrial chamber dimension is normal. Aortic Valve The aortic valve is trileaflet. There is mild aortic valve sclerosis. There is no aortic valve stenosis. There is no aortic valve regurgitation. Pulmonic Valve The pulmonic valve is normal. There is no pulmonic valve stenosis. There is no pulmonic regurgitation. Mitral Valve The mitral valve has normal leaflets. There is no mitral valve stenosis. There is no mitral valve regurgitation. Tricuspid Valve The tricuspid valve leaflets are normal. There is no significant tricuspid valve stenosis. There is no tricuspid valve regurgitation. Pericardium/Pleural The pericardium appears normal. There is no pericardial effusion. Inferior Vena Cava Normal inferior vena cava with >50% collapse upon inspiration consistent with normal right atrial pressure, 5 mmHg. Aorta The aortic root size at the sinus of Valsalva is normal. The prox ascending aorta size is normal. Left Ventricular Outflow Tract Name Value Normal LVOT 2D LVOT Diameter 2.0 cm LVOT Doppler LVOT Peak Velocity 110 cm/s LVOT Peak Gradient 5 mmHg LVOT Mean Gradient 2 mmHg LVOT VTI 25 cm LVOT VTI/AV VTI Ratio 1.2 LVOT Stroke Volume 74 ml LVOT CO 6.6 l/min LVOT CI 3.9 l/min/m2 Pulmonic Valve Name Value Normal PV Doppler PV Peak Velocity 148 cm/s PV Peak Gradient 9 mmHg PV Mean Gradient 4 mmHg Mitral Valve Name Value Normal MV Doppler MV Peak Gradient 4 mmHg MV Mean Gradient 2 mmHg MV Area (Cont Eq VTI) 3.9 cm2 MV Diastolic Function MV E Peak Velocity 66 cm/s MV A Peak Velocity 96 cm/s MV E/A 0.7 MV Decel Time (PW) 178 ms MV Annular TDI MV E/e' (Septal) 14.2 MV E/e' (Lateral) 16.1 MV E/e' (Average) 15.1 Tricuspid Valve Name Value Normal Estimated PAP/RSVP RA Pressure 5 mmHg <=5 Aortic Valve Name Value Normal AV Doppler AV Peak Velocity 120 cm/s AV Peak Gradient 6 mmHg AV Mean Gradient 3 mmHg AV VTI 20 cm AV Area (Cont Eq VTI) 3.7 cm2 >=3.0 AV Area (Cont Eq Agustín) 2.7 cm2 AV DI (Agustín) 0.91 AV Regurgitation 2D LVOT Area 3.0 cm2 Ventricles Name Value Normal LV Dimensions 2D/MM IVS Diastolic Thickness (2D) 1.1 cm 0.6-1.0 LVID Diastole (2D) 3.5 cm 3.8-5.2 LVIW Diastolic Thickness (2D) 0.8 cm 0.6-0.9 LVID Systole (2D) 2.5 cm 2.2-3.5 LVOT Diameter 2.0 cm LV Mass (2D Cubed) 95.42 g 67.00-162.00 LV Mass Index (2D Cubed) 56 g/m2 43-95 Relative Wall Thickness (2D) 0.48 <=0.42 LV Fractional Shortening/Ejection Fraction 2D/MM LV Fractional Shortening (2D) 29 % 27-45 LV EF (2D Teichholz) 53 % LV Diastolic Volume (4C MOD) 45 ml LV EF (4C MOD) 57 % LV Diastolic Volume (2C MOD) 47 ml LV EF (2C MOD) 65 % LV Diastolic Volume (BP MOD) 39 ml 46-106 LV Diastolic Volume Index (BP MOD) 23 ml/m2 29-61 LV Systolic Volume (BP MOD) 18 ml 14-42 LV Systolic Volume Index (BP MOD) 11 ml/m2 8-24 LV EF (BP MOD) 55 % 54-74 LV Diastolic Length (4C) 5.9 cm LV Systolic Length (4C) 5.1 cm LV Stroke Volume (4C MOD) 26 ml Atria Name Value Normal LA Dimensions LA Volume (4C A-L) 18 ml RA Dimensions RA Systolic [place] Length (4C) 3.1 cm 2.2-2.8 RA Area (4C) 11.3 cm2 <=18.0 Report Signatures
--- NOTE | 2025-03-05 02:01 | ECG_ITS ---
Test Date: 2025-03-05 02:30:01 Measurements Intervals [place] Rate: 96 P: 77 GA: 150 QRS: -83 QRSD: 80 T: 107 QT: 376 QTc: 477 Interpretive Statements SINUS RHYTHM POSSIBLE RIGHT VENTRICULAR CONDUCTION DELAY LEFT ANTERIOR FASCICULAR BLOCK BORDERLINE ST-T WAVE ABNORMALITY- HIGH LATERAL LEDS ABNORMAL ECG Compared to ECG 03/04/2025 22:10:09 HEART RATE HAS DECREASED Electronically Signed On 03-05-2025 06:24:11 FURNITURE INSPECTOR by Kp Hagen D.O.
--- NOTE | 2025-03-05 02:25 | WPCEDHO ---
ED Hand Off Checklist All vitals saved: Yes IV Site documented: Yes All med administrations documented: Yes Triage Note Triage Note patient to ED from home per 03/04/25 18:00 [facility] with c/o SOB X2wks. stated non-productive cough. AGREE WITH TRIAGE NOTE. Allergies erythromycin base Allergy (Verified 03/04/25 16:09) Vomiting Family History (Last Reviewed 07/11/23 @ 09:53 by Khai Graf MD) Sibling Patient's brother is in good health Father Family history of pancreatic cancer Patient's father is Mother Patient's mother is Unknown Asthma Hypertension Heart disease Arthritis Administered/Completed Medications Discontinued Medications Albuterol (Albuterol Sulfate Neb 2.5 Mg/3 Ml Inh) 10 mg INHALATION ONCE STA Stop: 03/04/25 18:54 Last Admin: 03/04/25 19:08 Dose: 10 mg Documented By: NADINE Aspirin (Aspirin 81 Mg Chewable Tablet) 324 mg PO ONCE STA Stop: 03/04/25 19:51 Last Admin: 03/04/25 20:38 Dose: 324 mg Documented By: VERNELL Enoxaparin Sodium (Enoxaparin 60 Mg/0.6 Ml Syringe) 60 mg SUB-Q ONCE STA Stop: 03/04/25 20:11 Last Admin: 03/04/25 20:45 Dose: 60 mg Documented By: ALEXA Ipratropium [place] (Ipratropium Br 0.02% Inh Soln 0.5 Mg/2.5 Ml Vial) 1 mg INHALATION ONCE ONE Stop: 03/04/25 18:54 Last Admin: 03/04/25 19:08 Dose: 1 mg Documented By: NADINE Methylprednisolone Sodium Succinate (Methylprednisolone Sod Succ 40 Mg Vial) 40 mg IV PUSH ONCE STA Stop: 03/04/25 19:01 Last Admin: 03/04/25 20:38 Dose: 40 mg Documented By: VERNELL Interventions/Assessments Cardiac Monitoring Start: 03/04/25 16:03 Freq: Status: Active Protocol: Document 03/04/25 22:56 ACS (Rec: 03/04/25 22:56 ACS [id number]) Hull Molder Assessment Hull Molder Yes Applied Pulse Rate (60-100) 107 H EKG Rythm Sinus Tachycardia IV / Saline Lock, Insert Start: 03/04/25 17:21 Freq: STAT Status: Active Protocol: Document 03/04/25 18:00 CFG (Rec: 03/04/25 18:33 CFG [id number]) IV Assessment Peripheral Access Left Antecubital IV Catheter Access Initiated Before Arrival IV Insertion Date 03/04/25 Catheter Gauge 20 Ultrasound Used for No Placement IV Site Assessment WNL IV Care and WNL Maintenance PA: Cardiovascular Assessment Start: 03/04/25 16:03 Freq: Status: Complete Protocol: Document 03/04/25 18:00 CFG (Rec: 03/04/25 18:33 CFG [id number]) Cardiovascular Assessment Cardiovascular Dyspnea Symptoms Skin Description Normal Color Heart Sounds Normal Chest Pain Assessment Chest Pain Intensity 0 PA: Respiratory Assessment Start: 03/04/25 16:03 Freq: Status: Complete Protocol: Document 03/04/25 18:00 CFG (Rec: 03/04/25 18:33 CFG [id number]) Respiratory Assessment Symptoms Congestion,Cough Effort Normal Pattern Regular Depth Normal Chest Expansion Symmetrical Bilateral Throughout Phase Expiratory Lung Sounds Wheezes Oxygen Delivery Oxygen Delivery Room Air Last Vital Signs Temperature 97.2 F L 03/04/25 16:03 Pulse Rate 88 03/05/25 02:00 Respiratory Rate 20 03/05/25 02:00 Pulse Oximetry 91 03/05/25 02:00 Blood Pressure 110/63 03/05/25 02:00 Blood Pressure Mean 78 03/05/25 02:00 Blood Pressure Position Sitting 03/04/25 18:00 Oxygen Delivery Room Air 03/04/25 18:00 Weight 60 kg 03/04/25 16:03 Last Result - Abnormals Only Hgb 16.8 g/dL (12.0-15.0) H D 03/04/25 18:54 Hct 48.6 % (37.0-47.0) H 03/04/25 18:54 Eos % (Auto) 7.1 % (0-4.4) H 03/04/25 18:54 Baso % (Auto) 1.4 % (0.2-1.2) H 03/04/25 18:54 [place] # (Auto) 0.8 K/mm3 (0.1-0.6) H 03/04/25 18:54 Eos # (Auto) 0.7 K/mm3 (0-0.3) H 03/04/25 18:54 Carbon Dioxide 18 mmol/L (22-30) L 03/04/25 18:54 Creatinine 0.64 mg/dL (0.7-1.0) L 03/04/25 18:54 Alkaline Phosphatase 129 U/L (38-126) H 03/04/25 18:54 Troponin I 0.583 ng/mL (0.000-0.034) H* 03/04/25 22:04 NT-Pro-B Natriuret Pep 5020 pg/mL (19.9-100) H 03/04/25 18:54 Most Recent Suicide Severity Rating Suicide Severity Rating NO RISK INDICATED 03/04/25 18:00
--- NOTE | 2025-03-05 02:28 | ADMGEN ---
This patient, Jessica Renee, was admitted to IMU Room 206-02. Patient/family oriented to hospital policies and general routines including ID bracelet, bed and alarms, visiting hours, pain management, procedures, bathroom and other care routines, personal items, smoking policy, room service/diet, and visiting hours. Information on how to activate the Rapid Response Team has been discussed. Patient/Family are encouraged to report perceived risks to care and to ask questions if they do not understand what they are told or what they should do.
[2025-03-05 02:52] LABS: Troponin I 0.388 ng/mL (0.000-0.034)
--- NOTE | 2025-03-05 09:04 | P.CONCA_ITS ---
Assessment and Plan Assessment and plan (1) Acute non-ST elevation myocardial infarction (NSTEMI): Code(s): I21.4 - Non-ST elevation (NSTEMI) myocardial infarction Status: Acute Assessment and Plan: * patient presents with acute chest pressure and shortness of breath * troponin noted to be elevated at 0.684, 0.583, 0.388-these are flat and do not necessarily represent ACS * she was noted to have an acute COPD exacerbation on admission which may have contributed * EKG NSR with no acute ST/T wave changes * will update echocardiogram today to look for any new LV dysfunction or WMA * if no changes could consider lexiscan stress test when acute COPD exacerbation resolved (possible tomorrow am) * continue therapeutic lovenox at this time. * would add aspirin 81 mg daily. Resume home atorvastatin 80 mg daily and coreg 6.25 mg BID (2) COPD exacerbation: Code(s): J44.1 - Chronic obstructive pulmonary disease with (acute) exacerbation Status: Acute Assessment and Plan: * with acute exacerbation on admission * faint wheezes on exam today * was started on nebs and given IV steroids in the ER * at this time patient feeling much improved * continue management as per primary team (3) Pulmonary embolism: Code(s): I26.99 - Other pulmonary embolism without acute cor pulmonale Status: Acute Assessment and Plan: * has history of PE in the past was on Eliquis at home * her CTA chest this admission is negative for PE (4) Hypertension: Code(s): I10 - Essential (primary) hypertension Status: Acute Assessment and Plan: * blood pressure stable at this time * has been low normal * will resume her home coreg 6.25 mg BID * Resume losartan 25 mg daily as BP tolerates (5) Coronary artery disease: Code(s): I25.10 - Atherosclerotic heart disease of [place] coronary artery without angina pectoris Status: Acute Assessment and Plan: * with history of stent to circ in past * had C last year that showed non-obstructive CAD and patent stent to circ * EF was 65-70% at that time * continue aspirin and atorvastatin Plan * will update echo * If no new LV dysfunction or WMA plan nuclear stress in am * continue therapeutic lovenox at this time History of Present Illness History of Present Illness Consult date/time: 03/05/25 09:04 Requesting physician: Radha Torres MD Consult reason: chest pain Reason For Visit: NSTEMI Narrative: Jessica Renee is a 74 y.o. female with a PMH of CAD, pulmonary embolism, HTN, HLD and COPD who presented to the ER with c/o chest pain and shortness of breath. According to the patient she was lying in bed last night trying to sleep when she felt pressure on her chest and as if she needed to belch. She states she felt extremely short of breath and noticed she was wheezing as well. She states she felt very uncomfortable and anxious. She states she has had some shortness of breath over the last few days and that she hasn't been able to smoke due to the shortness of breath. She then decided to come to the ER. In the ER was noted to have wheezing and treatment initiated for acute COPD exacerbation. She was also, found to have elevated troponin for which we were consulted. Review of Systems 2 Review of Systems: All systems reviewed & are unremarkable except as noted in HPI and below PMFSH Past Medical History Medical History Anxiety and depression COPD (chronic obstructive pulmonary disease) Heart attack stent(s) placed ([facility]) High cholesterol Surgical History Surgical History H/O heart artery stent Family History Family History Sibling Patient's brother is in good health Father Family history of pancreatic cancer, Onset Age: 82 Patient's father is Mother Patient's mother is Unknown Asthma Hypertension Heart disease Arthritis Social History Social History Social History: Patient reports that she is . She lives alone. She used to smoke at least a pack of cigarettes per day but quit smoking within the last 10 years. She denies any significant alcohol use or illicit substance use. She still drives and is independent activities of daily living. Code status: DNR/DNI (per patient request) Surrogate decision maker: Fina Briseidaneymar (sister) Smoking packs per day: 1 Smoking cigarettes per day: 20.0 Years smoked: 55 Smoking pack-years: 55.00 Smoking status: Former smoker Tobacco type: cigarettes Smoking end date: 12/10/14 Alcohol intake: never Substance use: never Substance use type: does not use Lack of Transportation: No Lack of Food: Never True Current Housing: I Have Housing Concerned About Future Housing: No Difficulty Paying Gas/Electric Bills: No Difficulty Paying for Meds: No Currently Unemployed: No Education: Associate Degree Difficulty w/ Childcare or Family Care: No Living arrangements: with family Additional living arrangements comments: sister Occupation/Education: retired Gender identity (if verbalized by the patient): Female Spiritual care concerns: No Meds Home Medications and Allergies Home Medications ?Medication ?Instructions ?Recorded ?Confirmed ?Type atorvastatin 80 mg tablet 80 mg PO DAILY 06/04/2102/24 History lorazepam 1 mg tablet 1 mg PO TID PRN Anxiety 05/2503/05/25 History albuterol sulfate 90 mcg/actuation 1 inh inhalation QI D PRN shortness 04/20/23 03/05/25 Rx aerosol inhaler of breath or wheezing #6.7 g margarita apixaban 5 mg tablet (Eliquis) 5 mg PO BID 07/08/23 History carvedilol 6.25 mg tablet 6.25 mg PO BID 07/08/2302/24 History fluoxetine 20 mg capsule 20 mg PO DAILY 07/08/2302/24 History losartan 25 mg tablet 25 mg PO DAILY #30 tabs 06/2503/05/25 Rx Allergies Allergy/AdvReac Type Severity Reaction Status Date / Time erythromycin base AdvReac Vomiting Verified 03/05/25 08:02 Vital Signs Vital Signs - 24 hr 03/04/25 16:03 03/04/25 18:00 03/04/25 18:00 Temperature 36.2 C L Pulse Rate 114 H 100 Respiratory Rate 18 24 H Blood Pressure 115/78 133/99 H Pulse Oximetry 97 94 Oxygen Delivery Room Air Room Air Room Air 03/04/25 20:22 03/04/25 22:56 03/04/25 22:56 Temperature Pulse Rate 111 H 107 H 107 H Respiratory Rate 20 20 Blood Pressure 119/71 Pulse Oximetry 93 99 Oxygen Delivery 03/05/25 00:07 03/05/25 02:00 03/05/25 02:47 Temperature Pulse Rate 103 H 88 88 Respiratory Rate 19 20 20 Blood Pressure 122/78 110/63 110/63 Pulse Oximetry 93 91 91 Oxygen Delivery 03/05/25 02:59 03/05/25 03:18 03/05/25 04:00 Temperature 36.4 C Pulse Rate 107 H 106 H 97 Respiratory Rate 18 Blood Pressure 126/63 Pulse Oximetry 94 96 Oxygen Delivery Room Air 03/05/25 04:08 03/05/25 06:00 03/05/25 07:58 Temperature 36.4 C 36.8 C Pulse Rate 100 90 89 Respiratory Rate 18 18 Blood Pressure 103/76 116/67 Pulse Oximetry 95 93 Oxygen Delivery Exam 2 Const: General: comfortable and no acute distress Eyes: Sclera: sclerae normal Neck: Neck: supple and no JVD Resp: Effort & Inspection: normal respiratory effort Auscultation: wheezes Cardio: Rate: regular rate Rhythm: regular rhythm Heart sounds: no gallops, no murmurs and no rubs Skin: General skin exam: normal color Neuro: Speech: normal speech Extrem: General: normal to inspection Psych: Other: somewhat of limited historian Results Labs and Meds 03/04/25 18:54 03/04/25 18:54 Lab results: Cardiac Enzymes 03/04/25 03/04/25 03/05/25 Range/Units 18:54 22:04 02:20 AST 25 (14-36) U/L Troponin I 0.684 H* 0.583 H* 0.388 H* D (0.000-0.034) ng/mL Coagulation 03/04/25 Range/Units 18:54 PT 13.9 (11.1-14.7) Seconds APTT 23.6 (22.3-36.8) Seconds CBC 03/04/25 Range/Units 18:54 WBC 9.9 (4.5-10.0) K/mm3 RBC 5.37 (4.2-5.4) M/mm3 Hgb 16.8 H D (12.0-15.0) g/dL Hct 48.6 H (37.0-47.0) % Plt Count 295 (150-375) k/mm3 Lymph # (Auto) 2.08 (0.9-3.2) K/mm3 Coleman # (Auto) 0.8 H (0.1-0.6) K/mm3 Eos # (Auto) 0.7 H (0-0.3) K/mm3 Baso # (Auto) 0.1 (0.0-0.1) K/mm3 Comprehensive Metabolic Panel 03/04/25 Range/Units 18:54 Sodium 137 (137-145) mmol/L Potassium 4.3 (3.4-5.0) mmol/L Chloride 107 (98-107) mmol/L Carbon Dioxide 18 L (22-30) mmol/L BUN 15 D (7-17) mg/dL Creatinine 0.64 L (0.7-1.0) mg/dL Glucose 88 (65-110) mg/dL Calcium 9.9 (8.4-10.2) mg/dL AST 25 (14-36) U/L ALT 14 (6-35) U/L Alkaline Phosphatase 129 H (38-126) U/L Total Protein 7.4 (6.3-8.2) g/dL Albumin 4.5 (3.5-5.1) g/dL Intake and Output 03/04/25 03/05/25 03/05/25 23:59 07:59 15:59 Other: # Unmeasured Voids 1 Patient Weight 03/05/25 23:59 Weight 60.1 kg Imaging and Cardiology Echo: report reviewed (07/11/23-EF of 65-70% with diastolic dysfunction. No significant valvular abnormality ) Cardiac cath: report reviewed (07/11/2336-[id number] CAD with patent stent to circumflex ) EKG results: image reviewed EKG Interpretation EKG: sinus rhythm and no acute changes EKG shows: sinus rhythm (rate of 96 bpm with LAFB no acute ST/T wave changes )
[2025-03-05] MEDS: ASPIRIN 81 MG ENTERIC TABLET PO (10:28)
[2025-03-05] MEDS: ATORVASTATIN 40 MG TABLET 80 MG PO (10:28)
[2025-03-05] MEDS: PERFLUTREN LIPID MICROSPHERES 1.5 ML VIAL DILUTED TO 10 ML TOTAL VOLUME IV PUSH (10:37)
--- NOTE | 2025-03-05 10:37 | IVDEFINITY ---
Prior to administration of IV Definity the patient was educated on the risks and benefits of the imaging enhancing agent including potential adverse side effects. The patient verbalized understanding. Allergies were verified. No exclusion criteria were identified and at least one of the following inclusion criteria were met: 1) physician request, 2) patient technically difficult to image (per the [place] [employer]chocardi[employer] guidelines of two or more segments not discernable within the apical view), or 3) questionable left ventricular function. ?
[2025-03-05] MEDS: IPRATROPIUM 0.5 MG/ALBUTEROL SULFATE 2.5 MG (BASE) AMPUL.NEB 3 ML INHALATION ×2 (14:18→20:17)
[2025-03-05] MEDS: DOXYCYCLINE IV 100 MG in SODIUM CHLORIDE 0.9% IV 100 ML IVPB (16:03)
[2025-03-05] MEDS: LOSARTAN POTASSIUM 25 MG TABLET PO (16:03)
[2025-03-05] MEDS: BENZONATATE 100 MG CAPSULE PO (18:25)
--- NOTE | 2025-03-05 18:48 | PM.IMHP2 ---
H&P: HPI History of Present Illness Date/Time: 03/05/25 18:48 Chief Complaint: Shortness of Breath/Dyspnea Narrative: Focused HPI: Patient is a 74 y/o female, with PMH of COPD, CAD s/p PCI, who presents to the ED via EMS with c/o SOB. Patient reports having increased SOB over the past 3 days. Hx of COPD, has inhalers and nebulizers at home. Has been using these w/o improvement. Reports wheezing, difficulty taking deep breaths, pain with deep inspiration, cough, subjective fever, chest heaviness, fatigue, decreased appetite. Denies sick contacts. patient with shortness of breath and COPD, patient still smokes suspect patient has exacerbation of COPD, patient was given steroids and duo neb that helped with her breathing, upon arrival patient tropes were slightly elevated and flat seen by cardiology does not suspect ACS, most likely demand ischemia due to shortness of breath, will monitor, patient may need Laxiscan to further evaluate, patient has his of PE and being treated with Apixaban, cardiac echo is ordered will follow up, patient sister is present and gave updates Review of Systems Review of Systems: All systems reviewed & are unremarkable except as noted in HPI and below PMFSH Past Medical History Medical History Anxiety and depression COPD (chronic obstructive pulmonary disease) Heart attack stent(s) placed ([facility]) High cholesterol Surgical History Surgical History H/O heart artery stent Family History Family History Sibling Patient's brother is in good health Father Family history of pancreatic cancer, Onset Age: 82 Patient's father is Mother Patient's mother is Unknown Asthma Hypertension Heart disease Arthritis Social History Social History Social History: Patient reports that she is . She lives alone. She used to smoke at least a pack of cigarettes per day but quit smoking within the last 10 years. She denies any significant alcohol use or illicit substance use. She still drives and is independent activities of daily living. Code status: DNR/DNI (per patient request) Surrogate decision maker: Fina Machuca (sister) Smoking packs per day: 1 Smoking cigarettes per day: 20.0 Years smoked: 55 Smoking pack-years: 55.00 Smoking status: Former smoker Tobacco type: cigarettes Smoking end date: 12/10/14 Alcohol intake: never Substance use: never Substance use type: does not use Lack of Transportation: No Lack of Food: Never True Current Housing: I Have Housing Concerned About Future Housing: No Difficulty Paying Gas/Electric Bills: No Difficulty Paying for Meds: No Currently Unemployed: No Education: Associate Degree Difficulty w/ Childcare or Family Care: No Living arrangements: with family Additional living arrangements comments: sister Occupation/Education: retired Gender identity (if verbalized by the patient): Female Spiritual care concerns: No Meds Home Medications and Allergies Home Medications ?Medication ?Instructions ?Recorded ?Confirmed ?Type atorvastatin 80 mg tablet 80 mg PO DAILY 06/04/21 03/05/25 History lorazepam 1 mg tablet 1 mg PO TID PRN Anxiety 06/04/21 03/05/25 History albuterol sulfate 90 mcg/actuation 1 inh inhalation QID PRN shortness 04/20/23 03/05/25 Rx aerosol inhaler of breath or wheezing #6.7 grams apixaban 5 mg tablet (Eliquis) 5 mg PO BID 07/08/23 03/05/25 History carvedilol 6.25 mg tablet 6.25 mg PO BID 07/08/23 03/05/25 History fluoxetine 20 mg capsule 20 mg PO DAILY 07/08/23 03/05/25 History losartan 25 mg tablet 25 mg PO DAILY #30 tabs 07/12/23 03/05/25 Rx Allergies Allergy/AdvReac Type Severity Reaction Status Date / Time erythromycin base AdvReac Vomiting Verified 03/05/25 08:02 Vital Signs Vital Signs - 24 hr 03/04/25 20:22 03/04/25 22:56 03/04/25 22:56 Temperature Pulse Rate 111 H 107 H 107 H Respiratory Rate 20 20 Blood Pressure 119/71 Pulse Oximetry 93 99 Oxygen Delivery 03/05/25 00:07 03/05/25 02:00 03/05/25 02:47 Temperature Pulse Rate 103 H 88 88 Respiratory Rate 19 20 20 Blood Pressure 122/78 110/63 110/63 Pulse Oximetry 93 91 91 Oxygen Delivery 03/05/25 02:59 03/05/25 03:18 03/05/25 04:00 Temperature 36.4 C Pulse Rate 107 H 106 H 97 Respiratory Rate 18 Blood Pressure 126/63 Pulse Oximetry 94 96 Oxygen Delivery Room Air 03/05/25 04:08 03/05/25 06:00 03/05/25 07:58 Temperature 36.4 C 36.8 C Pulse Rate 100 90 89 Respiratory Rate 18 18 Blood Pressure 103/76 116/67 Pulse Oximetry 95 93 Oxygen Delivery 03/05/25 08:00 03/05/25 08:00 03/05/25 10:00 Temperature Pulse Rate 83 91 Respiratory Rate Blood Pressure Pulse Oximetry Oxygen Delivery Room Air 03/05/25 10:28 03/05/25 11:44 03/05/25 12:00 Temperature 36.6 C Pulse Rate 103 H 119 H Respiratory Rate 18 Blood Pressure 108/69 Pulse Oximetry 99 Oxygen Delivery Room Air 03/05/25 12:00 03/05/25 14:00 03/05/25 14:19 Temperature Pulse Rate 100 98 90 Respiratory Rate 18 Blood Pressure Pulse Oximetry Oxygen Delivery 03/05/25 14:25 03/05/25 16:00 03/05/25 16:00 Temperature Pulse Rate 98 93 Respiratory Rate 18 Blood Pressure Pulse Oximetry Oxygen Delivery Room Air 03/05/25 16:00 03/05/25 18:00 Temperature 36.6 C Pulse Rate 91 81 Respiratory Rate 18 Blood Pressure 126/71 Pulse Oximetry 92 Oxygen Delivery Exam Narrative: Patient is comfortable, NAD HEENT: eyes are clear and none icteric LUNGS: Bilateral fair entry with rhonchi HEART: RR S1S2 ABD: BS+, Soft and nontender Lower extremities: no edema SKIN: nonjaundiced Neuro: grossly intact. Results Labs Labs: Short CBC 03/04/25 Range/Units 18:54 WBC 9.9 (4.5-10.0) K/mm3 Hgb 16.8 H D (12.0-15.0) g/dL Hct 48.6 H (37.0-47.0) % Plt Count 295 (150-375) k/mm3 BMP 03/04/25 18:54 Sodium 137 Potassium 4.3 Chloride 107 Carbon Dioxide 18 L BUN 15 D Creatinine 0.64 L Glucose 88 Calcium 9.9 Cardiac Enzymes 03/04/25 03/04/25 03/05/25 Range/Units 18:54 22:04 02:20 Troponin I 0.684 H* 0.583 H* 0.388 H* D (0.000-0.034) ng/mL Liver Function 03/04/25 Range/Units 18:54 Total Bilirubin 1.0 (0.2-1.3) mg/dL AST 25 (14-36) U/L ALT 14 (6-35) U/L Alkaline Phosphatase 129 H (38-126) U/L Albumin 4.5 (3.5-5.1) g/dL Assessment and Plan Assessment and plan (1) COPD exacerbation: Code(s): J44.1 - Chronic obstructive pulmonary disease with (acute) exacerbation Status: Acute (2) Hypertension: Code(s): I10 - Essential (primary) hypertension Status: Acute (3) Pulmonary embolism: Code(s): I26.99 - Other pulmonary embolism without acute cor pulmonale Status: Acute (4) Acute non-ST elevation myocardial infarction (NSTEMI): Code(s): I21.4 - Non-ST elevation (NSTEMI) myocardial infarction Status: Acute (5) Elevated troponin level: Code(s): R79.89 - Other specified abnormal findings of blood chemistry Status: Acute Plan patient with shortness of breath and COPD, patient still smokes suspect patient has exacerbation of COPD, patient was given steroids and duo neb that helped with her breathing, upon arrival patient tropes were slightly elevated and flat seen by cardiology does not suspect ACS, most likely demand ischemia due to shortness of breath, will monitor, patient may need Laxiscan to further evaluate, patient has his of PE and being treated with Apixaban, cardiac echo is ordered will follow up, patient sister is present and gave updates
[2025-03-05] MEDS: APIXABAN 5 MG TABLET PO (21:41)
[2025-03-05] MEDS: guaiFENesin 12 HR 600 MG TABCR PO (21:41)
[2025-03-06] VITALS (26 sets, daily range): BP systolic 110–133; BP diastolic 48–73; PULSE 65–99; RESP 15–20; TEMP 36.4–36.9; O2SAT 92–96
[2025-03-06] MEDS: IPRATROPIUM 0.5 MG/ALBUTEROL SULFATE 2.5 MG (BASE) AMPUL.NEB 3 ML INHALATION ×4 (01:16→20:58)
[2025-03-06 04:35] LABS: Anion Gap 4 mmol/L (4-12); Blood Urea Nitrogen 26 mg/dL (7-17); Calcium 9.1 mg/dL (8.4-10.2); Carbon Dioxide 23 mmol/L (22-30); Chloride 107 mmol/L (98-107); Estimated CRCL calculation 60 ml/min; Estimated Glomerular Filt Rate > 60; Glucose 137 mg/dL (65-110); Magnesium 1.9 mg/dL (1.6-2.3); Potassium 3.9 mmol/L (3.4-5.0); Sodium 134 mmol/L (137-145)
--- NOTE | 2025-03-06 09:12 | P.PNCA_ITS ---
Progress Note: A&P Assessment and Plan (1) Acute non-ST elevation myocardial infarction (NSTEMI): Code(s): I21.4 - Non-ST elevation (NSTEMI) myocardial infarction Status: Acute Assessment and Plan: * patient presents with acute chest pressure and shortness of breath * troponin noted to be elevated at 0.684, 0.583, 0.388-these are flat and do not necessarily represent ACS * she was noted to have an acute COPD exacerbation on admission which may have contributed * EKG NSR with no acute ST/T wave changes * will update echocardiogram today to look for any new LV dysfunction or WMA * if no changes could consider lexiscan stress test when acute COPD exacerbation resolved (possible tomorrow am) * continue therapeutic lovenox at this time. * would add aspirin 81 mg daily. Resume home atorvastatin 80 mg daily and coreg 6.25 mg BID (2) COPD exacerbation: Code(s): J44.1 - Chronic obstructive pulmonary disease with (acute) exacerbation Status: Acute Assessment and Plan: * with acute exacerbation on admission * faint wheezes on exam today * was started on nebs and given IV steroids in the ER * at this time patient feeling much improved * continue management as per primary team (3) Pulmonary embolism: Code(s): I26.99 - Other pulmonary embolism without acute cor pulmonale Status: Acute Assessment and Plan: * has history of PE in the past was on Eliquis at home * her CTA chest this admission is negative for PE (4) Hypertension: Code(s): I10 - Essential (primary) hypertension Status: Acute Assessment and Plan: * blood pressure stable at this time * has been low normal * will resume her home coreg 6.25 mg BID * Resume losartan 25 mg daily as BP tolerates (5) Coronary artery disease: Code(s): I25.10 - Atherosclerotic heart disease of [place] coronary artery without angina pectoris Status: Acute Assessment and Plan: * with history of stent to circ in past * had [facility] last year that showed non-obstructive CAD and patent stent to circ * EF was 65-70% at that time * continue aspirin and atorvastatin Plan * will update echo * If no new LV dysfunction or WMA plan nuclear stress in am * continue therapeutic lovenox at this time Subjective Date/time seen: 03/06/25 09:12 Review of Systems Review of Systems: All systems reviewed & are unremarkable except as noted in HPI and below Exam Const: General: comfortable and no acute distress Eyes: Sclera: sclerae normal Neck: Neck: supple and no JVD Resp: Effort & Inspection: normal respiratory effort Auscultation: wheezes Cardio: Rate: regular rate Rhythm: regular rhythm and abnormal rhythm irregularly irregular Heart sounds: no gallops, no murmurs and no rubs Skin: General skin exam: normal color Neuro: Speech: normal speech Extrem: General: normal to inspection Psych: Other: somewhat of limited historian Objective Data Vital Signs Vital Signs: Vital Signs - 24 hr 03/05/25 10:00 03/05/25 10:28 03/05/25 11:44 Temperature 36.6 C Pulse Rate 91 103 H 119 H Respiratory Rate 18 Blood Pressure 108/69 Pulse Oximetry 99 Oxygen Delivery Fraction of Inspired Oxygen 03/05/25 12:00 03/05/25 12:00 03/05/25 14:00 Temperature Pulse Rate 100 98 Respiratory Rate Blood Pressure Pulse Oximetry Oxygen Delivery Room Air Fraction of Inspired Oxygen 03/05/25 14:19 03/05/25 14:25 03/05/25 16:00 Temperature Pulse Rate 90 98 Respiratory Rate 18 18 Blood Pressure Pulse Oximetry Oxygen Delivery Room Air Fraction of Inspired Oxygen 03/05/25 16:00 03/05/25 16:00 03/05/25 18:00 Temperature 36.6 C Pulse Rate 93 91 81 Respiratory Rate 18 Blood Pressure 126/71 Pulse Oximetry 92 Oxygen Delivery Fraction of Inspired Oxygen 03/05/25 20:00 03/05/25 20:00 03/05/25 20:13 Temperature 36.6 C Pulse Rate 90 92 Respiratory Rate 16 Blood Pressure 125/70 Pulse Oximetry 95 Oxygen Delivery Room Air Fraction of Inspired Oxygen 03/05/25 20:18 03/05/25 20:19 03/05/25 20:27 Temperature Pulse Rate 85 80 88 Respiratory Rate 20 20 20 Blood Pressure Pulse Oximetry 90 Oxygen Delivery Room Air Fraction of Inspired Oxygen 21 03/05/25 21:41 03/05/25 22:00 03/06/25 00:00 Temperature Pulse Rate 95 91 Respiratory Rate Blood Pressure Pulse Oximetry Oxygen Delivery Room Air Fraction of Inspired Oxygen 03/06/25 00:00 03/06/25 00:56 03/06/25 01:16 Temperature 36.4 C Pulse Rate 82 99 83 Respiratory Rate 18 20 Blood Pressure 110/59 L Pulse Oximetry 96 Oxygen Delivery Fraction of Inspired Oxygen 03/06/25 01:25 03/06/25 02:00 03/06/25 04:00 Temperature Pulse Rate 85 72 Respiratory Rate 20 Blood Pressure Pulse Oximetry Oxygen Delivery Room Air Fraction of Inspired Oxygen 03/06/25 04:00 03/06/25 04:28 03/06/25 06:00 Temperature 36.5 C Pulse Rate 71 66 65 Respiratory Rate 16 Blood Pressure 111/48 L Pulse Oximetry 93 Oxygen Delivery Fraction of Inspired Oxygen 03/06/25 07:50 03/06/25 07:50 03/06/25 07:58 Temperature Pulse Rate 65 72 Respiratory Rate 20 20 Blood Pressure Pulse Oximetry 93 Oxygen Delivery Room Air Fraction of Inspired Oxygen 03/06/25 08:00 Temperature 36.7 C Pulse Rate 70 Respiratory Rate 18 Blood Pressure Pulse Oximetry 94 Oxygen Delivery Fraction of Inspired Oxygen Intake/Output Intake/Output: Intake & Output 03/03/25 03/04/25 03/05/25 03/06/25 23:59 23:59 23:59 23:59 Intake Total 1140 300 Balance 1140 300 Meds/Results Medications: Active Medications Generic Name Dose Route Start Last Admin Trade Name Freq PRN Reason Stop Dose Admin Albuterol 1 puff 03/05/25 13:44 Albuterol Sulfate (*Sp) Aerosol 1 Puff INHALATION QID PRN Shortness Of Breath Or Wheezing Albuterol/Ipratropium 3 ml 03/05/25 14:00 03/06/25 07:50 Ipratropium 0.5 Mg/Albuterol Sulfate 2.5 Mg (Base) Ampul.Neb 3 Ml INHALATION 3 ml Q6HRT FABIO Administration Apixaban 5 mg 03/05/25 21:00 03/05/25 21:41 Apixaban 5 Mg Tablet PO 5 mg Q12HR FABIO Administration Aspirin 81 mg 03/05/25 09:00 03/05/25 10:28 Aspirin 81 Mg Enteric Tablet PO 81 mg QAM FABIO Administration Atorvastatin Calcium 80 mg 03/05/25 09:35 03/05/25 10:28 Atorvastatin 40 Mg Tablet PO 80 mg DAILY FABIO Administration Benzonatate 100 mg 03/05/25 17:00 03/05/25 18:25 Benzonatate 100 Mg Capsule PO 100 mg TID FABIO Administration Carvedilol 6.25 mg 03/05/25 09:35 03/05/25 21:41 Carvedilol 6.25 Mg Tablet PO 6.25 mg Q12HR FABIO Administration Fluoxetine HCl 20 mg 03/05/25 13:55 03/05/25 16:03 Fluoxetine Hcl 20 Mg Capsule PO 20 mg DAILY FABIO Administration Guaifenesin 600 mg 03/05/25 21:00 03/05/25 21:41 Guaifenesin 12 Hr 600 Mg Tabcr PO 600 mg Q12HR FABIO Administration Lorazepam 1 mg 03/05/25 13:44 Lorazepam (*Crx) 1 Mg Tablet PO TID PRN Anxiety Losartan Potassium 25 mg 03/05/25 13:55 03/05/25 16:03 Losartan Potassium 25 Mg Tablet PO 25 mg DAILY FABIO Administration Prednisone 40 mg 03/05/25 13:40 03/05/25 16:03 Prednisone 20 Mg Tablet PO 40 mg DAILY@0800 FABIO Administration Radiology Results: ITS Impressions Chest CTA 03/04/25 19:53 IMPRESSION: 1. No evidence of pulmonary emboli. Thoracic aorta shows no acute findings. 2. Emphysematous lungs. Stable 10 mm noncalcified nodule in the left upper lobe compared with 02/04/2022. Patchy subsegmental atelectasis of left lingula. Probably benign findings. Short interval follow-up by CT in 6 months is suggested. Labs Labs: Laboratory Results - last 24 hr 03/06/25 03:59 Sodium 134 L Potassium 3.9 Chloride 107 Carbon Dioxide 23 Anion Gap 4 BUN 26 H D Creatinine 0.66 L Estim Creat Clear Calc 60 Estimated GFR > 60 Glucose 137 H Calcium 9.1 Magnesium 1.9
[2025-03-06] MEDS: guaiFENesin 12 HR 600 MG TABCR PO ×2 (09:22→20:49)
[2025-03-06] MEDS: LOSARTAN POTASSIUM 25 MG TABLET PO (09:22)
[2025-03-06] MEDS: BENZONATATE 100 MG CAPSULE PO ×3 (09:22→21:14)
[2025-03-06] MEDS: ASPIRIN 81 MG ENTERIC TABLET PO (09:22)
[2025-03-06] MEDS: APIXABAN 5 MG TABLET PO ×2 (09:22→20:49)
[2025-03-06] MEDS: ATORVASTATIN 40 MG TABLET 80 MG PO (09:22)
--- NOTE | 2025-03-06 16:30 | PM.IMPN2 ---
Assessment and Plan Assessment and Plan (1) COPD exacerbation: Code(s): J44.1 - Chronic obstructive pulmonary disease with (acute) exacerbation Status: Acute (2) Hypertension: Code(s): I10 - Essential (primary) hypertension Status: Acute (3) Pulmonary embolism: Code(s): I26.99 - Other pulmonary embolism without acute cor pulmonale Status: Acute (4) Acute non-ST elevation myocardial infarction (NSTEMI): Code(s): I21.4 - Non-ST elevation (NSTEMI) myocardial infarction Status: Acute (5) Elevated troponin level: Code(s): R79.89 - Other specified abnormal findings of blood chemistry Status: Acute Plan patient with shortness of breath and COPD, patient still smokes suspect patient has exacerbation of COPD, patient was given steroids and duo neb that helped with her breathing, upon arrival patient tropes were slightly elevated and flat seen by cardiology does not suspect ACS, most likely demand ischemia due to shortness of breath, will monitor, patient may need Laxiscan to further evaluate, patient has his of PE and being treated with Apixaban, cardiac echo is ordered will follow up, patient sister is present and gave updates Today patient stats feeling much better compared to when she arrived, not as short of breath, cardiac echo showed EF 60-65 and grade I diastolic dysfunction. Patient clinical symptoms are improving will monitor Subjective Date/time seen: 03/06/25 16:30 Interval history: patient with shortness of breath and COPD, patient still smokes suspect patient has exacerbation of COPD, patient was given steroids and duo neb that helped with her breathing, upon arrival patient tropes were slightly elevated and flat seen by cardiology does not suspect ACS, most likely demand ischemia due to shortness of breath, will monitor, patient may need Laxiscan to further evaluate, patient has his of PE and being treated with Apixaban, cardiac echo is ordered will follow up, patient sister is present and gave updates. Today patient stats feeling much better compared to when she arrived, not as short of breath, cardiac echo showed EF 60-65 and grade I diastolic dysfunction. Patient clinical symptoms are improving will monitor Review of Systems Review of Systems: All systems reviewed & are unremarkable except as noted in HPI and below Exam Narrative: Patient is comfortable, NAD HEENT: eyes are clear and none icteric LUNGS: Bilateral fair entry with rhonchi HEART: RR S1S2 ABD: BS+, Soft and nontender Lower extremities: no edema SKIN: nonjaundiced Neuro: grossly intact. Objective Data Vital Signs Vital Signs: Vital Signs - 24 hr 03/05/25 18:00 03/05/25 20:00 03/05/25 20:00 Temperature Pulse Rate 81 90 Respiratory Rate Blood Pressure Pulse Oximetry Oxygen Delivery Room Air Fraction of Inspired Oxygen 03/05/25 20:13 03/05/25 20:18 03/05/25 20:19 Temperature 36.6 C Pulse Rate 92 85 80 Respiratory Rate 16 20 20 Blood Pressure 125/70 Pulse Oximetry 95 90 Oxygen Delivery Room Air Fraction of Inspired Oxygen 21 03/05/25 20:27 03/05/25 21:41 03/05/25 22:00 Temperature Pulse Rate 88 95 91 Respiratory Rate 20 Blood Pressure Pulse Oximetry Oxygen Delivery Fraction of Inspired Oxygen 03/06/25 00:00 03/06/25 00:00 03/06/25 00:56 Temperature 36.4 C Pulse Rate 82 99 Respiratory Rate 18 Blood Pressure 110/59 L Pulse Oximetry 96 Oxygen Delivery Room Air Fraction of Inspired Oxygen 03/06/25 01:16 03/06/25 01:25 03/06/25 02:00 Temperature Pulse Rate 83 85 72 Respiratory Rate 20 20 Blood Pressure Pulse Oximetry Oxygen Delivery Fraction of Inspired Oxygen 03/06/25 04:00 03/06/25 04:00 03/06/25 04:28 Temperature 36.5 C Pulse Rate 71 66 Respiratory Rate 16 Blood Pressure 111/48 L Pulse Oximetry 93 Oxygen Delivery Room Air Fraction of Inspired Oxygen 03/06/25 06:00 03/06/25 07:50 03/06/25 07:50 Temperature Pulse Rate 65 65 Respiratory Rate 20 Blood Pressure Pulse Oximetry 93 Oxygen Delivery Room Air Fraction of Inspired Oxygen 03/06/25 07:58 03/06/25 08:00 03/06/25 08:00 Temperature 36.7 C Pulse Rate 72 70 72 Respiratory Rate 20 18 Blood Pressure Pulse Oximetry 94 Oxygen Delivery Fraction of Inspired Oxygen 03/06/25 09:20 03/06/25 10:00 03/06/25 10:10 Temperature Pulse Rate 81 99 Respiratory Rate Blood Pressure 118/62 Pulse Oximetry Oxygen Delivery Fraction of Inspired Oxygen 03/06/25 11:56 03/06/25 12:00 03/06/25 13:51 Temperature 36.5 C Pulse Rate 78 86 84 Respiratory Rate 18 16 Blood Pressure 133/73 Pulse Oximetry 92 Oxygen Delivery Fraction of Inspired Oxygen 03/06/25 13:59 03/06/25 14:00 03/06/25 16:00 Temperature Pulse Rate 83 82 90 Respiratory Rate 16 Blood Pressure Pulse Oximetry Oxygen Delivery Fraction of Inspired Oxygen Intake/Output Intake/Output: Intake & Output 03/03/25 03/04/25 03/05/25 03/06/25 23:59 23:59 23:59 23:59 Intake Total 1140 780 Balance 1140 780 Meds/Results Medications: Active Medications Generic Name Dose Route Start Last Admin Trade Name Freq PRN Reason Stop Dose Admin Albuterol 1 puff 03/05/25 13:44 Albuterol Sulfate (*Sp) Aerosol 1 Puff INHALATION QID PRN Shortness Of Breath Or Wheezing Albuterol/Ipratropium 3 ml 03/05/25 14:00 03/06/25 13:51 Ipratropium 0.5 Mg/Albuterol Sulfate 2.5 Mg (Base) Ampul.Neb 3 Ml INHALATION 3 ml Q6HRT FABIO Administration Apixaban 5 mg 03/05/25 21:00 03/06/25 09:22 Apixaban 5 Mg Tablet PO 5 mg Q12HR FABIO Administration Aspirin 81 mg 03/05/25 09:00 03/06/25 09:22 Aspirin 81 Mg Enteric Tablet PO 81 mg QAM FABIO Administration Atorvastatin Calcium 80 mg 03/05/25 09:35 03/06/25 09:22 Atorvastatin 40 Mg Tablet PO 80 mg DAILY FABIO Administration Benzonatate 100 mg 03/06/25 22:00 Benzonatate 100 Mg Capsule PO Q8HR FABIO Carvedilol 6.25 mg 03/05/25 09:35 03/06/25 10:10 Carvedilol 6.25 Mg Tablet PO 6.25 mg Q12HR FABIO Administration Fluoxetine HCl 20 mg 03/05/25 13:55 03/06/25 09:22 Fluoxetine Hcl 20 Mg Capsule PO 20 mg DAILY FABIO Administration Guaifenesin 600 mg 03/05/25 21:00 03/06/25 09:22 Guaifenesin 12 Hr 600 Mg Tabcr PO 600 mg Q12HR FABIO Administration Lorazepam 1 mg 03/05/25 13:44 Lorazepam (*Crx) 1 Mg Tablet PO TID PRN Anxiety Losartan Potassium 25 mg 03/05/25 13:55 03/06/25 09:22 Losartan Potassium 25 Mg Tablet PO 25 mg DAILY FABIO Administration Prednisone 40 mg 03/05/25 13:40 03/06/25 09:22 Prednisone 20 Mg Tablet PO 40 mg DAILY@0800 FABIO Administration Radiology Results: ITS Impressions Chest CTA 03/04/25 19:53 IMPRESSION: 1. No evidence of pulmonary emboli. Thoracic aorta shows no acute findings. 2. Emphysematous lungs. Stable 10 mm noncalcified nodule in the left upper lobe compared with 02/04/2022. Patchy subsegmental atelectasis of left lingula. Probably benign findings. Short interval follow-up by CT in 6 months is suggested. Labs Labs: Laboratory Results - last 24 hr 03/06/25 03:59 Sodium 134 L Potassium 3.9 Chloride 107 Carbon Dioxide 23 Anion Gap 4 BUN 26 H D Creatinine 0.66 L Estim Creat Clear Calc 60 Estimated GFR > 60 Glucose 137 H Calcium 9.1 Magnesium 1.9
[2025-03-06 18:21] LABS: Hematocrit 41.1 % (37.0-47.0); Hemoglobin 14.1 g/dL (12.0-15.0); Mean Corpuscular HGB Conc 34.3 g/dl (32-36); Mean Corpuscular Hemoglobin 31.1 pg (26-34); Mean Corpuscular Volume 90.7 fl (80-100); Platelet Count Result 278 k/mm3 (150-375); Red Blood Count 4.53 M/mm3 (4.2-5.4); White Blood Count 9.2 K/mm3 (4.5-10.0)
[2025-03-07] VITALS (11 sets, daily range): BP systolic 125–151; BP diastolic 64–82; PULSE 71–80; RESP 15–18; TEMP 36.4–36.7; O2SAT 93–98
--- NOTE | 2025-03-07 | EST_ITS ---
Patient Info Name: Jessica Renee Age: 74 years : 1950 Gender: Female Ht: 68 in Wt: 132 lbs BSA: 1.69 m2 HR: 71 bpm BP: 181 / 82 mmHg Exam Date: 03/07/2025 12:01 AM Patient Status: I Admit Date: 03/04/2025 Exam Type: CA stress caroline w NM A regadenoson stress test was performed. Staff Referring Physician: Leslie Kruger Attending Provider: Tonya Davis DO Exercise Technologist: Delisa Fung Exercise Physician: Kp Hagen DO Summary 1. No definite abnormal ST-T wave changes with lexiscan. 2. Please correlate with nuclear medicine images, reported separately. Protocol: Lexiscan Stress ECG Details Stage: REST Duration (min): 2 min : 8 sec HR (bpm): 71 SBP (mmHg): 181 DBP (mmHg): 82 Stage: REST Duration (min): 5 min : 27 sec HR (bpm): 70 SBP (mmHg): 181 DBP (mmHg): 82 Stage: STAGE 1 Duration (min): 1 min : 0 sec HR (bpm): 97 SBP (mmHg): 181 DBP (mmHg): 82 Stage: RECOVERY Duration (min): 1 min : 0 sec HR (bpm): 114 SBP (mmHg): 218 DBP (mmHg): 95 Stage: RECOVERY Duration (min): 2 min : 0 sec HR (bpm): 94 SBP (mmHg): 218 DBP (mmHg): 95 Stage: RECOVERY Duration (min): 3 min : 0 sec HR (bpm): 92 SBP (mmHg): 206 DBP (mmHg): 85 Stage: RECOVERY Duration (min): 4 min : 0 sec HR (bpm): 90 SBP (mmHg): 206 DBP (mmHg): 85 Stage: RECOVERY Duration (min): 5 min : 0 sec HR (bpm): 88 SBP (mmHg): 218 DBP (mmHg): 83 Stage: RECOVERY Duration (min): 6 min : 0 sec HR (bpm): 90 SBP (mmHg): 218 DBP (mmHg): 83 Stage: RECOVERY Duration (min): 7 min : 0 sec HR (bpm): 86 SBP (mmHg): 218 DBP (mmHg): 83 Stage: RECOVERY Duration (min): 7 min : 18 sec HR (bpm): 90 SBP (mmHg): 218 DBP (mmHg): 83 Rest HR: 70 bpm Peak HR: 114 bpm Rest Sys BP: 181 mmHg Peak Sys BP: 218 mmHg Max Pred HR: 145 bpm % Max Pred HR: 79 % Target HR: 123 bpm Max RPP: 24,852 bpm*mmHg Total Time: 1 min : 0 sec Rest Davis BP: 82 mmHg Peak Davis BP: 95 mmHg Total Dose: 0.4 mg Resting ECG Sinus rhythm. T-wave inversions in leads I and aVL. Stress ECG No definite ischemic changes. Significant artifact. Arrhythmias Occasional atrial ectopy. Report Signatures
[2025-03-07 04:27] LABS: Anion Gap 2 mmol/L (4-12); Blood Urea Nitrogen 24 mg/dL (7-17); Calcium 9.1 mg/dL (8.4-10.2); Carbon Dioxide 25 mmol/L (22-30); Chloride 109 mmol/L (98-107); Estimated CRCL calculation 61 ml/min; Estimated Glomerular Filt Rate > 60; Glucose 104 mg/dL (65-110); Magnesium 1.8 mg/dL (1.6-2.3); Potassium 3.4 mmol/L (3.4-5.0); Sodium 136 mmol/L (137-145)
[2025-03-07] MEDS: IPRATROPIUM 0.5 MG/ALBUTEROL SULFATE 2.5 MG (BASE) AMPUL.NEB 3 ML INHALATION (07:20)
[2025-03-07] MEDS: ASPIRIN 81 MG ENTERIC TABLET PO (08:59)
[2025-03-07] MEDS: ATORVASTATIN 40 MG TABLET 80 MG PO (08:59)
[2025-03-07] MEDS: LOSARTAN POTASSIUM 25 MG TABLET PO (08:59)
[2025-03-07] MEDS: APIXABAN 5 MG TABLET PO (08:59)
[2025-03-07] MEDS: guaiFENesin 12 HR 600 MG TABCR PO (08:59)
--- NOTE | 2025-03-07 13:13 | P.PNCA_ITS ---
Progress Note: A&P Assessment and Plan (1) Acute non-ST elevation myocardial infarction (NSTEMI): Code(s): I21.4 - Non-ST elevation (NSTEMI) myocardial infarction Status: Acute Assessment and Plan: * patient presents with acute chest pressure and shortness of breath * troponin noted to be elevated at 0.684, 0.583, 0.388-these are flat and do not necessarily represent ACS * she was noted to have an acute COPD exacerbation on admission which may have contributed * EKG NSR with no acute ST/T wave changes * would add aspirin 81 mg daily. Resume home atorvastatin 80 mg daily and coreg 6.25 mg BID (2) COPD exacerbation: Code(s): J44.1 - Chronic obstructive pulmonary disease with (acute) exacerbation Status: Acute Assessment and Plan: * with acute exacerbation on admission * Wheezes have resolved * was started on nebs and given IV steroids in the ER * at this time patient feeling much improved * continue management as per primary team (3) Pulmonary embolism: Code(s): I26.99 - Other pulmonary embolism without acute cor pulmonale Status: Acute Assessment and Plan: * has history of PE in the past was on Eliquis at home * her CTA chest this admission is negative for PE (4) Hypertension: Code(s): I10 - Essential (primary) hypertension Status: Acute Assessment and Plan: * blood pressure stable at this time * has been low normal * will resume her home coreg 6.25 mg BID * Resume losartan 25 mg daily as BP tolerates (5) Coronary artery disease: Code(s): I25.10 - Atherosclerotic heart disease of [place] coronary artery without angina pectoris Status: Acute Assessment and Plan: * with history of stent to circ in past * had LHC last year that showed non-obstructive CAD and patent stent to circ * EF was 65-70% at that time * continue aspirin and atorvastatin Plan Nuclear stress test performed earlier today that did not show any ischemia or infarct. She can be discharged from a cardiac standpoint with cardiology follow-up as an outpatient. Subjective Date/time seen: 03/07/25 13:13 Interval history: Cardiology follow-up visit for elevated troponin Date of service 03/07/2025: Feels better today, breathing is better. No wheezing. No chest pain. Review of Systems Review of Systems: All systems reviewed & are unremarkable except as noted in HPI and below Exam Const: General: comfortable and no acute distress Eyes: Sclera: sclerae normal Neck: Neck: supple and no JVD Resp: Effort & Inspection: normal respiratory effort Auscultation: clear to auscultation bilaterally Cardio: Rate: regular rate Rhythm: regular rhythm and abnormal rhythm irregularly irregular Heart sounds: no gallops, no murmurs and no rubs Skin: General skin exam: normal color Neuro: Speech: normal speech Extrem: General: normal to inspection Psych: Other: somewhat of limited historian Objective Data Vital Signs Vital Signs: Vital Signs - 24 hr 03/06/25 13:51 03/06/25 13:59 03/06/25 14:00 Temperature Pulse Rate 84 83 82 Respiratory Rate 16 16 Blood Pressure Pulse Oximetry Oxygen Delivery Fraction of Inspired Oxygen 03/06/25 16:00 03/06/25 16:00 03/06/25 18:00 Temperature 36.9 C Pulse Rate 90 82 99 Respiratory Rate 18 Blood Pressure 125/60 Pulse Oximetry 92 Oxygen Delivery Fraction of Inspired Oxygen 03/06/25 20:00 03/06/25 20:00 03/06/25 20:00 Temperature 36.6 C Pulse Rate 84 90 90 Respiratory Rate 15 18 Blood Pressure 125/68 Pulse Oximetry 93 94 Oxygen Delivery Room Air Fraction of Inspired Oxygen 03/06/25 20:49 03/06/25 20:55 03/06/25 20:55 Temperature Pulse Rate 85 90 90 Respiratory Rate 18 18 Blood Pressure Pulse Oximetry 94 Oxygen Delivery Room Air Fraction of Inspired Oxygen 21 03/06/25 21:02 03/06/25 22:00 03/07/25 00:00 Temperature 36.7 C Pulse Rate 88 72 76 Respiratory Rate 16 16 Blood Pressure 125/64 Pulse Oximetry 95 Oxygen Delivery Fraction of Inspired Oxygen 03/07/25 00:00 03/07/25 00:00 03/07/25 02:00 Temperature Pulse Rate 76 76 72 Respiratory Rate 16 Blood Pressure Pulse Oximetry 95 Oxygen Delivery Room Air Fraction of Inspired Oxygen 03/07/25 04:00 03/07/25 04:00 03/07/25 04:00 Temperature 36.6 C Pulse Rate 71 71 Respiratory Rate 15 Blood Pressure 137/70 Pulse Oximetry 95 Oxygen Delivery Room Air Fraction of Inspired Oxygen 03/07/25 06:00 03/07/25 07:23 03/07/25 07:23 Temperature Pulse Rate 75 76 Respiratory Rate 16 Blood Pressure Pulse Oximetry 98 Oxygen Delivery Room Air Fraction of Inspired Oxygen 03/07/25 07:30 03/07/25 07:40 03/07/25 08:00 Temperature 36.5 C Pulse Rate 72 75 77 Respiratory Rate 16 16 Blood Pressure 148/82 H Pulse Oximetry 98 Oxygen Delivery Fraction of Inspired Oxygen 03/07/25 10:00 03/07/25 12:00 03/07/25 12:00 Temperature 36.4 C L Pulse Rate 77 75 74 Respiratory Rate 18 Blood Pressure 151/70 H Pulse Oximetry 93 Oxygen Delivery Fraction of Inspired Oxygen Intake/Output Intake/Output: Intake & Output 03/04/25 03/05/25 03/06/25 03/07/25 23:59 23:59 23:59 23:59 Intake Total 1140 1320 300 Balance 1140 1320 300 Meds/Results Medications: Active Medications Generic Name Dose Route Start Last Admin Trade Name Freq PRN Reason Stop Dose Admin Albuterol 1 puff 03/05/25 13:44 Albuterol Sulfate (*Sp) Aerosol 1 Puff INHALATION QID PRN Shortness Of Breath Or Wheezing Albuterol/Ipratropium 3 ml 03/05/25 14:00 03/07/25 07:20 Ipratropium 0.5 Mg/Albuterol Sulfate 2.5 Mg (Base) Ampul.Neb 3 Ml INHALATION 3 ml Q6HRT FABIO Administration Apixaban 5 mg 03/05/25 21:00 03/07/25 08:59 Apixaban 5 Mg Tablet PO 5 mg Q12HR FABIO Administration Aspirin 81 mg 03/05/25 09:00 03/07/25 08:59 Aspirin 81 Mg Enteric Tablet PO 81 mg QAM FABIO Administration Atorvastatin Calcium 80 mg 03/05/25 09:35 03/07/25 08:59 Atorvastatin 40 Mg Tablet PO 80 mg DAILY FABIO Administration Benzonatate 100 mg 03/06/25 22:00 03/07/25 06:00 Benzonatate 100 Mg Capsule PO Not Given Q8HR FABIO Carvedilol 6.25 mg 03/05/25 09:35 03/07/25 08:30 Carvedilol 6.25 Mg Tablet PO Not Given Q12HR [facility] Fluoxetine HCl 20 mg 03/05/25 13:55 03/07/25 08:59 Fluoxetine Hcl 20 Mg Capsule PO 20 mg DAILY FABIO Administration Guaifenesin 600 mg 03/05/25 21:00 03/07/25 08:59 Guaifenesin 12 Hr 600 Mg Tabcr PO 600 mg Q12HR FABIO Administration Lorazepam 1 mg 03/05/25 13:44 Lorazepam (*Crx) 1 Mg Tablet PO TID PRN Anxiety Losartan Potassium 25 mg 03/05/25 13:55 03/07/25 08:59 Losartan Potassium 25 Mg Tablet PO 25 mg DAILY FABIO Administration Prednisone 40 mg 03/05/25 13:40 03/07/25 08:59 Prednisone 20 Mg Tablet PO 40 mg DAILY@0800 FABIO Administration Radiology Results: ITS Impressions Chest CTA 03/04/25 19:53 IMPRESSION: 1. No evidence of pulmonary emboli. Thoracic aorta shows no acute findings. 2. Emphysematous lungs. Stable 10 mm noncalcified nodule in the left upper lobe compared with 02/04/2022. Patchy subsegmental atelectasis of left lingula. Probably benign findings. Short interval follow-up by CT in 6 months is suggested. Lexiscan Stress Test 03/07/25 12:36 IMPRESSION: 1. No definite ischemia or infarct. 2. Normal left ventricular ejection fraction measuring 62%. Labs Labs: Laboratory Results - last 24 hr 03/06/25 03/07/25 18:06 04:08 WBC 9.2 RBC 4.53 Hgb 14.1 Hct 41.1 MCV 90.7 MCH 31.1 MCHC 34.3 RDW 14.2 Plt Count 278 MPV 10.1 Sodium 136 L Potassium 3.4 Chloride 109 H Carbon Dioxide 25 Anion Gap 2 L BUN 24 H Creatinine 0.65 L Estim Creat Clear Calc 61 Estimated GFR > 60 Glucose 104 Calcium 9.1 Magnesium 1.8
--- NOTE | 2025-03-07 14:40 | P.DS_ITS ---
DS: Admitting Diagnosis Discharge Date 03/07/2025 Admitting Diagnosis Chest pain DS: Discharge Diagnosis Discharge Diagnosis (1) COPD exacerbation: Code(s): J44.1 - Chronic obstructive pulmonary disease with (acute) exacerbation Status: Acute (2) Hypertension: Code(s): I10 - Essential (primary) hypertension Status: Acute (3) Pulmonary embolism: Code(s): I26.99 - Other pulmonary embolism without acute cor pulmonale Status: Acute (4) Acute non-ST elevation myocardial infarction (NSTEMI): Code(s): I21.4 - Non-ST elevation (NSTEMI) myocardial infarction Status: Acute (5) Elevated troponin level: Code(s): R79.89 - Other specified abnormal findings of blood chemistry Status: Acute DS: Summary Hospital Course Hospital Course: patient presented with shortness of breath and COPD, patient still smokes suspect patient has exacerbation of COPD, patient was given steroids and duo neb that helped with her breathing, upon arrival patient tropes were slightly elevated but flat trend, seen by cardiology does not suspect ACS, most likely demand ischemia due to shortness of breath, will monitor, patient underwent Lexiscan which came back normal. Patient has his of PE and being treated with Apixaban, echo EF 60-65% mildly increased left ventricular wall thickness grade 1 diastolic dysfunction. She discharge to me with plan to follow up as an outpatient basis. Her COPD exacerbation improved with treatment. Counseled on smoking cessation. She is not on any inhalers at home. Continue albuterol inhaler as needed. Will also add breztri if covered by insurance for her COPD. Emphysematous lungs noted on CT moderately significant centrilobular pattern. Time Spent with Patient Time attestation: Total time spent providing and/or coordinating discharge services: 40 minutes Exam 2 Narrative: Patient is comfortable, NAD HEENT: eyes are clear and none icteric LUNGS: Bilateral fair entry with rhonchi HEART: RR S1S2 ABD: BS+, Soft and nontender Lower extremities: no edema SKIN: nonjaundiced Neuro: grossly intact. DS: Data Data Completed and Pending Labs on day of discharge: Labs from last 24 hours 03/07/25 03/06/25 04:08 18:06 WBC 9.2 RBC 4.53 Hgb 14.1 Hct 41.1 MCV 90.7 MCH 31.1 MCHC 34.3 RDW 14.2 Plt Count 278 MPV 10.1 Sodium 136 L Potassium 3.4 Chloride 109 H Carbon Dioxide 25 Anion Gap 2 L BUN 24 H Creatinine 0.65 L Estim Creat Clear Calc 61 Estimated GFR > 60 Glucose 104 Calcium 9.1 Magnesium 1.8 Imaging Radiologist's impression: ITS Impressions Chest CTA 03/04/25 19:53 IMPRESSION: 1. No evidence of pulmonary emboli. Thoracic aorta shows no acute findings. 2. Emphysematous lungs. Stable 10 mm noncalcified nodule in the left upper lobe compared with 02/04/2022. Patchy subsegmental atelectasis of left lingula. Probably benign findings. Short interval follow-up by CT in 6 months is s uggested. Lexiscan Stress Test 03/07/25 12:36 IMPRESSION: 1. No definite ischemia or infarct. 2. Normal left ventricular ejection fraction measuring 62%. Discharge Plan Discharge Attending physician on discharge: Shamir Luna Consulting providers: Ralph Rush; Martita Ramírez Discharging Clinician: Shamir uLna Anticipated Discharge Date/Time: 03/07/25 14:42 Patient Disposition: Home Activity: as tolerated Diet: heart healthy Patient Instructions: Antibiotic Form, Heart Attack (GEN), Heart Healthy Diet (GEN) Patient Language: [place] Stand Alone Forms: General Discharge Information Follow-up/Referrals: Martita Ramírez DO [Physician, Cardiology] - 4 Weeks PHYSICIAN,VIBRATION TECHNICIAN [Primary Care Provider, Internal Medicine] - 1 Week Discharge Medications: New guaifenesin [Mucus Relief ER] 600 mg Tablet Extended Release 12hr 600 mg PO Q12HR Qty: 30 0RF albuterol sulfate [Ventolin HFA] 90 mcg/actuation HFA aerosol inhaler 2 puff inhalation QID PRN (Reason: shortness of breath or wheezing) Qty: 8.5 0RF Breztri Aerosphere 160-9-4.8 mcg/actuation HFA aerosol inhaler 2 inh inhalation BID Qty: 10.7 0RF aspirin 81 mg Tablet,Delayed Release (Dr/Ec) 81 mg PO QAM Qty: 30 0RF prednisone 20 mg Tablet 40 mg PO DAILY@0800 Qty: 4 0RF Continued atorvastatin 80 mg tablet 80 mg PO DAILY lorazepam 1 mg tablet 1 mg PO TID PRN (Reason: Anxiety) albuterol sulfate 90 mcg/actuation HFA aerosol inhaler 1 inh inhalation QID PRN (Reason: shortness of breath or wheezing) Qty: 6.7 0RF carvedilol 6.25 mg tablet 6.25 mg PO BID fluoxetine 20 mg capsule 20 mg PO DAILY Eliquis 5 mg tablet 5 mg PO BID losartan 25 mg Tablet 25 mg PO DAILY Qty: 30 0RF Date of admission: 03/04/25 21:04 Primary Care Provider: PHYSICIAN,VIBRATION TECHNICIAN Admitting Provider: Tonya Davis Attending physician on admission: Tonya Davis Condition: Serious
== END 2025-03-07 15:39 | disposition home or self-care (01) ==
LOC: ANHED 19:07 → ANHIMU 21:51
PROVIDERS: Family Medicine; Physician Assistant; Admitting Provider Internal Medicine; Emergency Provider Emergency Medicine; Visit Provider Internal Medicine
DX: I21.4 Non-ST elevation (NSTEMI) myocardial infarction (principal); J44.1 Chronic obstructive pulmonary disease with (acute) exacerbation; I26.99 Other pulmonary embolism without acute cor pulmonale; I25.10 Atherosclerotic heart disease of native coronary artery without angina pectoris; R79.89 Other specified abnormal findings of blood chemistry; I10 Essential (primary) hypertension; Z87.891 Personal history of nicotine dependence; Z20.822 Contact with and (suspected) exposure to COVID-19
CPT/HCPCS: 11740; 36415; 71275; 78452; 80048; 80053; 83735; 83880; 84484; 85025; 85027; 85610; 85730; 87637; 93005; 93017; 94640; 96372; 96374; 96375; 99285; A9270; A9502; C8929; G0378; J1650; J2785; J2919; J7512; Q9957; Q9967

== ENCOUNTER 2025-03-25 19:33 | Emergency (ER) | payer MEDICARE, SELFPAY ==
[2025-03-25] VITALS (11 sets, daily range): BP systolic 146–158; BP diastolic 62–91; PULSE 60–69; RESP 12–38; TEMP 36.6; O2SAT 94–97
--- NOTE | ~2025-03-25 | XR_ITS ---
XR chest 1V portable INDICATION:SOB . REFERENCE: 07/08/2023 FINDINGS: A single AP of the chest demonstrates normal heart size. The lungs are clear. There is no evidence of pneumothorax or pleural effusion. IMPRESSION: No acute pulmonary findings. Reviewed, dictated and finalized at location S. L MANAGER
--- NOTE | 2025-03-25 19:56 | ECG_ITS ---
Test Date: 2025-03-25 20:02:56 Measurements Intervals [place] Rate: 65 P: 76 OR: 132 QRS: 21 QRSD: 87 T: 109 QT: 433 QTc: 450 Interpretive Statements SINUS RHYTHM BORDERLINE ST-T WAVE ABNORMALITY- HIGH LATERAL LEADS BASELINE ARTIFACT- I, II, III, AVR, AVL, AVF, V1, V3-V4 BORDERLINE ECG Compared to ECG 03/05/2025 02:30:01 Left anterior fascicular block no longer present Electronically Signed On 03-25-2025 21:57:07 CLERICAL WAREHOUSEMAN by Kp Hagen D.O.
[2025-03-25] MEDS: ASPIRIN 81 MG CHEWABLE TABLET 324 MG PO (20:11)
--- NOTE | 2025-03-25 20:14 | ED.CHESTPAIN ---
HPI - Chest Pain General Chief Complaint: Shortness of Breath/Dyspnea Stated Complaint: CP/SOB Time Seen by Provider: 03/25/25 19:57 History of Present Illness HPI narrative: 74-year-old female with history of COPD, coronary artery disease, pulmonary embolism on Eliquis. She presents to the emergency department today with shortness of breath and a cough. She states that she coughs are she started getting chest pain that resolved quickly thereafter. EMS arrived and found the patient was wheezing and dyspneic. They administered nasal cannula and albuterol patient felt significant improved. Now has no complaints. Denies any active chest pain, nausea, vomiting, fever, chills. She was here several weeks ago for something similar and was admitted after elevated troponin but had reassuring examination hospital course and negative Lexiscan. she has CT angiography at that time showing no pulmonary embolism. She remains compliant with her medications has not missed any dosages. States she feels better now. Related Data Home Medications ?Medication ?Instructions ?Recorded ?Confirmed ?Last Taken ?Type atorvastatin 80 mg tablet 80 mg PO DAILY 06/04/21 03/05/25 03/04/25 History lorazepam 1 mg tablet 1 mg PO TID PRN Anxiety 06/04/21 03/05/25 03/04/25 History apixaban 5 mg tablet (Eliquis) 5 mg PO BID 07/08/23 03/05/25 03/04/25 History carvedilol 6.25 mg tablet 6.25 mg PO BID 07/08/23 03/05/25 03/04/25 History fluoxetine 20 mg capsule 20 mg PO DAILY 07/08/23 03/05/25 03/04/25 History Allergies Allergy/AdvReac Type Severity Reaction Status Date / Time erythromycin base AdvReac Vomiting Verified 03/05/25 08:02 Review of Systems Review of Systems: as reviewed above in HPI All systems reviewed & are unremarkable except as noted in HPI and below PMFSH Past Medical History Medical History COPD (chronic obstructive pulmonary disease) Heart attack stent(s) placed ([facility]) Anxiety and depression High cholesterol Surgical History Surgical History H/O heart artery stent Family History Family History Sibling Patient's brother is in good health Father Family history of pancreatic cancer, Onset Age: 82 Patient's father is Mother Patient's mother is Unknown Asthma Hypertension Heart disease Arthritis Social History Social History Social History: Patient reports that she is . She lives alone. She used to smoke at least a pack of cigarettes per day but quit smoking within the last 10 years. She denies any significant alcohol use or illicit substance use. She still drives and is independent activities of daily living. Code status: DNR/DNI (per patient request) Surrogate decision maker: Fina Machuca (sister) Smoking packs per day: 1 Smoking cigarettes per day: 20.0 Years smoked: 55 Smoking pack-years: 55.00 Smoking status: Former smoker Tobacco type: cigarettes Smoking end date: 12/10/14 Alcohol intake: never Substance use: never Substance use type: does not use Lack of Transportation: No Lack of Food: Never True Current Housing: I Have Housing Concerned About Future Housing: No Difficulty Paying Gas/Electric Bills: No Difficulty Paying for Meds: No Currently Unemployed: No Education: Associate Degree Difficulty w/ Childcare or Family Care: No Living arrangements: with family Additional living arrangements comments: sister Occupation/Education: retired Gender identity (if verbalized by the patient): Female Spiritual care concerns: No Exam Narrative: GENERAL: [Well-appearing, well-nourished, and in no acute distress.] HEAD: [Normocephalic, atraumatic.] EYES: [PERRLA and EOMI.] ENT: Nares clear, no rhinorrhea or epistaxis. Mucous membranes moist. NECK: Supple. CHEST: wheezing bilaterally but no diminished air entry. No tachypnea, no conversational dyspnea. HEART: [Regular rate and rhythm]. No murmur heard. [Normal peripheral pulses.] ABDOMEN: [Soft, nondistended], [nontender], [No rigidity or guarding] EXTREMITIES: Normal range of motion. [No edema.] SKIN: Warm, dry, no rash. NEURO: [No focal deficits]. Alert and oriented [x3.] PSYCH: [Normal mood and affect.] Course Vital Signs Vital signs: Vital Signs Pulse Rate 69 03/25/25 19:59 Respiratory Rate 25 H 03/25/25 19:59 Blood Pressure 151/80 H 03/25/25 19:59 Pulse Oximetry 97 03/25/25 19:59 Temperature 36.6 C 03/25/25 20:01 Pulse Rate 66 03/26/25 00:33 Respiratory Rate 20 03/26/25 00:33 Blood Pressure 161/79 H 03/26/25 00:33 Pulse Oximetry 97 03/26/25 00:33 Oxygen Delivery Room Air 03/25/25 20:01 [facility] MDM Narrative Medical decision making narrative: 74-year-old female with history of COPD, coronary artery disease, pulmonary embolism on Eliquis. She presents to the emergency department today with shortness of breath and a cough. She states that she coughs are she started getting chest pain that resolved quickly thereafter. EMS arrived and found the patient was wheezing and dyspneic. They administered nasal cannula and albuterol patient felt significant improved. Now has no complaints. Denies any active chest pain, nausea, vomiting, fever, chills. She was here several weeks ago for something similar and was admitted after elevated troponin but had reassuring examination hospital course and negative Lexiscan. she has CT angiography at that time showing no pulmonary embolism. She remains compliant with her medications has not missed any dosages. States she feels better now. Patient does have some wheezing bilaterally but no diminished air entry. No tachypnea or tachycardia. Blood pressure mildly elevated but chronic. No hypoxemia. She feels better after administration of albuterol on nasal cannula oxygen by EMS. Suspect COPD exacerbation given that she still smokes. Low suspicion cardiac pathology such as ACS given her negative Lexiscan in cardiac workup just 2 weeks ago. Will obtain laboratory studies EKG chest x-ray and treat her pulmonary pathology with a DuoNeb, magnesium and Solu-Medrol. Patient placed on monitor and re-evaluated. EKG obtained and nonischemic. Patient's labs were unrevealing. Negative initial troponin. Negative delta troponin. Remains hemodynamically stable and improved after treatments. Given prescriptions for steroids and safe for discharge with return precautions and PCP follow-up instructions. Differential Diagnosis Differential Diagnosis: Suspect COPD exacerbation or PNA given that she still smokes. Low suspicion cardiac pathology such as ACS given her negative Lexiscan in cardiac workup just 2 weeks ago. Lab Data 03/25/25 20:12 03/25/25 20:12 Labs: Lab Results 03/25/25 03/25/25 Range/Units 20:12 23:04 WBC 7.0 (4.5-10.0) K/mm3 RBC 4.33 (4.2-5.4) M/mm3 Hgb 13.4 (12.0-15.0) g/dL Hct 40.2 (37.0-47.0) % MCV 92.8 (80-100) fl MCH 30.9 (26-34) pg MCHC 33.3 (32-36) g/dl RDW 14.1 (11.5-14.5) % Plt Count 301 (150-375) k/mm3 MPV 9.5 (7.4-10.4) fl Immature Gran % (Auto) 0.1 (0-0.5) % Neut % (Auto) 62.0 (45.5-73.1) % Lymph % (Auto) 20.4 (18.3-44.2) % [facility] % (Auto) 5.4 (2.6-8.5) % Eos % (Auto) 11.1 H (0-4.4) % Baso % (Auto) 1.0 (0.2-1.2) % Lymph # (Auto) 1.43 (0.9-3.2) K/mm3 [place] # (Auto) 0.4 (0.1-0.6) K/mm3 Eos # (Auto) 0.8 H (0-0.3) K/mm3 Baso # (Auto) 0.1 (0.0-0.1) K/mm3 Abs Immat Gran (auto) 0.01 (0.00-0.031) K/mm3 Absolute Neuts (auto) 4.4 (1.3-6.7) K/mm3 Absolute Nucleated RBC 0.000 (0.0-0.012) K/mm3 Nucleated RBC % 0.0 (0.0-0.2) % PT 14.0 (11.1-14.7) Seconds INR 1.1 APTT 27.5 (22.3-36.8) Seconds Sodium 141 (137-145) mmol/L Potassium 3.6 (3.4-5.0) mmol/L Chloride 108 H (98-107) mmol/L Carbon Dioxide 28 (22-30) mmol/L Anion Gap 5 (4-12) mmol/L BUN 12 D (7-17) mg/dL Creatinine 0.52 L (0.7-1.0) mg/dL Estim Creat Clear Calc 79 ml/min Estimated GFR > 60 (59 - ) Glucose 104 (65-110) mg/dL Calcium 8.9 (8.4-10.2) mg/dL Total Bilirubin 0.8 (0.2-1.3) mg/dL AST 18 (14-36) U/L ALT 12 (6-35) U/L Alkaline Phosphatase 143 H (38-126) U/L Troponin I < 0.012 0.013 (0.000-0.034) ng/mL NT-Pro-B Natriuret Pep 2250 H (19.9-100) pg/mL Total Protein 6.4 (6.3-8.2) g/dL Albumin 3.7 (3.5-5.1) g/dL Lipase 27 (23-300) U/L Influenza A (RT-PCR) Negative (Negative) Influenza B (RT-PCR) Negative (Negative) SARS-CoV-2 RNA (RT-PCR) Negative (Negative) Imaging Data Radiologist's impression: ITS Impressions Chest X-Ray 03/25/25 21:10 IMPRESSION: No acute pulmonary findings. Discharge Plan Discharge Clinical Impression: COPD exacerbation Patient Disposition: Home Condition: Stable Instructions: Antibiotic Form, COPD (Chronic Obstructive Pulmonary Disease) (DC) Additional Instructions: Laboratory studies imaging are all reassuring today. Symptoms consistent with a COPD exacerbation. We will send you home with steroids to try for the next few days to keep her symptoms under control. Return with any recurrent or emergent concerns or worsening symptoms at any time. Patient Language: Indonesian Prescriptions: New prednisone 50 mg tablet 50 mg PO DAILY 5 Days Qty: 5 0RF No Action atorvastatin 80 mg tablet 80 mg PO DAILY lorazepam 1 mg tablet 1 mg PO TID PRN (Reason: Anxiety) prednisone 20 mg Tablet 40 mg PO DAILY@0800 Qty: 4 0RF aspirin 81 mg Tablet,Delayed Release (Dr/Ec) 81 mg PO QAM Qty: 30 0RF guaifenesin [Mucus Relief ER] 600 mg Tablet Extended Release 12hr 600 mg PO Q12HR Qty: 30 0RF albuterol sulfate [Ventolin HFA] 90 mcg/actuation HFA aerosol inhaler 2 puff inhalation QID PRN (Reason: shortness of breath or wheezing) Qty: 8.5 0RF Breztri Aerosphere 160-9-4.8 mcg/actuation HFA aerosol inhaler 2 inh inhalation BID Qty: 10.7 0RF albuterol sulfate 90 mcg/actuation HFA aerosol inhaler 1 inh inhalation QID PRN (Reason: shortness of breath or wheezing) Qty: 6.7 0RF carvedilol 6.25 mg tablet 6.25 mg PO BID fluoxetine 20 mg capsule 20 mg PO DAILY Eliquis 5 mg tablet 5 mg PO BID losartan 25 mg Tablet 25 mg PO DAILY Qty: 30 0RF Follow-up/Referrals: PHYSICIAN,PERFORMANCE MAKEUP ARTIST [Primary Care Provider, Internal Medicine] Time of Disposition: 00:12
[2025-03-25 20:18] LABS: Hematocrit 40.2 % (37.0-47.0); Hemoglobin 13.4 g/dL (12.0-15.0); Immature Granulocyte Percent A 0.1 % (0-0.5); Lymphocytes Absolute Auto 1.43 K/mm3 (0.9-3.2); Mean Corpuscular HGB Conc 33.3 g/dl (32-36); Mean Corpuscular Hemoglobin 30.9 pg (26-34); Mean Corpuscular Volume 92.8 fl (80-100); Nucleated Red Blood Cells Absolute Auto 0.000 K/mm3 (0.0-0.012); Nucleated Red Blood Cells Perc 0.0 % (0.0-0.2); Platelet Count Result 301 k/mm3 (150-375); Red Blood Count 4.33 M/mm3 (4.2-5.4); White Blood Count 7.0 K/mm3 (4.5-10.0)
[2025-03-25] MEDS: IPRATROPIUM 0.5 MG/ALBUTEROL SULFATE 2.5 MG (BASE) AMPUL.NEB 3 ML INHALATION (20:23)
[2025-03-25] MEDS: LACTATED RINGERS 1,000 ML 999 ML IV CONT (20:32)
[2025-03-25 20:34] LABS: Alanine Aminotransferase 12 U/L (6-35); Albumin Level 3.7 g/dL (3.5-5.1); Alkaline Phosphatase 143 U/L (38-126); Anion Gap 5 mmol/L (4-12); Aspartate Amino Transferase 18 U/L (14-36); Bilirubin,Total 0.8 mg/dL (0.2-1.3); Blood Urea Nitrogen 12 mg/dL (7-17); Calcium 8.9 mg/dL (8.4-10.2); Carbon Dioxide 28 mmol/L (22-30); Chloride 108 mmol/L (98-107); Estimated CRCL calculation 79 ml/min; Estimated Glomerular Filt Rate > 60; Glucose 104 mg/dL (65-110); Lipase 27 U/L (23-300); Potassium 3.6 mmol/L (3.4-5.0); Sodium 141 mmol/L (137-145); Total Protein 6.4 g/dL (6.3-8.2)
[2025-03-25 20:37] LABS: INR 1.1; Prothrombin Time 14.0 Seconds (11.1-14.7)
[2025-03-25 20:38] LABS: Partial Thromboplastin Time 27.5 Seconds (22.3-36.8)
[2025-03-25] MEDS: MAGNESIUM SULF 2 GM/WATER 50ML 2 GM/50 ML BAG IVPB (20:39)
[2025-03-25 20:41] LABS: NT Pro B Type Natriuretic Pept 2250 pg/mL (19.9-100); Troponin I < 0.012 ng/mL (0.000-0.034)
[2025-03-25 20:53] LABS: Influenza A QL RT-PCR Negative (Negative); Influenza B QL RT-PCR Negative (Negative); SARS-CoV-2 RNA PCR Negative (Negative)
--- NOTE | 2025-03-25 21:00 | PC.NURSE ---
pt states it is okay for this RN to update her daughter.
--- NOTE | 2025-03-25 23:06 | ECG_ITS ---
Test Date: 2025-03-25 23:27:56 Measurements Intervals [place] Rate: 66 P: 78 [place]: 175 QRS: 32 QRSD: 67 T: 91 QT: 383 QTc: 403 Interpretive Statements SINUS RHYTHM EARLY PRECORDIAL R/S TRANSITION NONSPECIFIC ST & T-WAVE ABNORMALITY- HIGH LATERAL LEADS BASELINE ARTIFACT- I, III, AVR, AVL, V3-V4 BORDERLINE ECG Compared to ECG 03/25/2025 20:02:56 NO SIGNIFICANT CHANGE Electronically Signed On 03-26-2025 09:07:08 LENGTH CONTROL TESTER by Kp Hagen D.O.
[2025-03-25 23:33] LABS: Troponin I 0.013 ng/mL (0.000-0.034)
[2025-03-26 00:01] VITALS: BP 158/78; PULSE 66; RESP 17; O2SAT 97
[2025-03-26 00:33] VITALS: BP 161/79; PULSE 66; RESP 20; O2SAT 97
== END 2025-03-26 00:33 | disposition home or self-care (01) ==
PROVIDERS: Emergency Provider Student in an Organized Health Care Education/Training Program
DX: J44.1 Chronic obstructive pulmonary disease with (acute) exacerbation (principal); I25.10 Atherosclerotic heart disease of native coronary artery without angina pectoris; I25.2 Old myocardial infarction; E78.00 Pure hypercholesterolemia, unspecified; F41.9 Anxiety disorder, unspecified; F32.A Depression, unspecified; Z95.5 Presence of coronary angioplasty implant and graft; Z87.891 Personal history of nicotine dependence; Z66 Do not resuscitate; Z79.01 Long term (current) use of anticoagulants; Z79.899 Other long term (current) drug therapy; R94.31 Abnormal electrocardiogram [ECG] [EKG]
CPT/HCPCS: 36415; 71045; 80053; 83690; 83880; 84484; 85025; 85610; 85730; 87636; 93005; 94640; 96361; 96365; 96375; 99284; 99285; A9270; J2919; J3475; J7120